=== PATIENT | female | born 2000 | race Caucasian/White ===

== ENCOUNTER 2022-11-11 15:10 | Emergency (ER) | payer OTHER, SELFPAY ==
--- NOTE | ~2022-11-11 | XR_ITS ---
EXAMINATION: THE RIGHT FOREARM AND RIGHT HAND/WRIST. CLINICAL INFORMATION: Right hand pain. COMPARISON: None available. TECHNIQUE: AP and lateral views of the right forearm were obtained. FINDINGS: Right forearm: There is no visible acute fracture or bony abnormality. The soft tissues are normal. Right hand/wrist: There is no visible acute fracture, dislocation or subluxation seen. No bony erosive changes. The soft tissues are normal. XR/XR hand wrist RT IMPRESSION: 1. Unremarkable right forearm exam. 2. Unremarkable right hand and wrist exam.
--- NOTE | ~2022-11-11 | XR_ITS ---
EXAMINATION: THE RIGHT FOREARM AND RIGHT HAND/WRIST. CLINICAL INFORMATION: Right hand pain. COMPARISON: None available. TECHNIQUE: AP and lateral views of the right forearm were obtained. FINDINGS: Right forearm: There is no visible acute fracture or bony abnormality. The soft tissues are normal. Right hand/wrist: There is no visible acute fracture, dislocation or subluxation seen. No bony erosive changes. The soft tissues are normal. XR/XR forearm RT 2V IMPRESSION: 1. Unremarkable right forearm exam. 2. Unremarkable right hand and wrist exam.
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
[2022-11-11 15:26] VITALS: BP 146/84; PULSE 110; O2SAT 98
[2022-11-11 16:05] VITALS: BP 119/71; PULSE 97; RESP 15; TEMP 36.8; O2SAT 97; BMI 37.2
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
== END 2022-11-11 19:35 | disposition left against medical advice (07) ==
PROVIDERS: Emergency Provider Emergency Medicine
DX: S00.01XA Abrasion of scalp, initial encounter (principal); S50.11XA Contusion of right forearm, initial encounter; M25.531 Pain in right wrist; R51.9 Headache, unspecified; Y04.2XXA Assault by strike against or bumped into by another person, initial encounter; Y93.9 Activity, unspecified; Y92.9 Unspecified place or not applicable; Y99.9 Unspecified external cause status
CPT/HCPCS: 70450; 70486; 72125; 73090; 73110; 73130; 99281; 99284

== ENCOUNTER 2023-01-06 10:44 | Inpatient (IN) | payer OTHER, SELFPAY ==
--- NOTE | ~2023-01-06 | XR_ITS ---
EXAMINATION: XR WRIST, RIGHT XR HAND, RIGHT CLINICAL INFORMATION: Pain. Guarding. COMPARISON: None available. TECHNIQUE: PA, lateral, and oblique views of the right wrist and PA, lateral, and oblique views of the right hand FINDINGS: RIGHT WRIST: The bones and soft tissues are normal. No fracture. Alignment is anatomic. Joint spaces are maintained. No erosions or soft tissue calcifications. RIGHT HAND: The bones and soft tissues are normal. No fracture. Alignment is anatomic. Joint spaces are maintained. No erosions or soft tissue calcifications. XR/XR hand wrist RT IMPRESSION: Normal right hand and wrist.
[2023-01-06 10:53] VITALS: BP 132/61; BP 168/80; PULSE 73; PULSE 90; RESP 18; TEMP 36.9; O2SAT 97; O2SAT 98; BMI 21.6
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
[2023-01-06 11:37] LABS: UPreg QC Valid YES; Urine Pregnancy NEGATIVE (NEGATIVE)
[2023-01-06 11:38] LABS: Appearance Urine Clear; Color Urine Yellow; Glucose Urine UA Negative (Negative); Leukocyte Esterase Urine Negative (Negative); Nitrite Urine Negative (Negative); Urine Blood Negative (Negative); Urine Ketones Trace mg/dL (Negative); Urine Protein Trace mg/dL (Neg-Trace)
[2023-01-06 11:48] LABS: Bacteria Urine 1+ (None Seen); COVID-19 Test Negative (Negative); Hyaline Casts Urine 0-2 /LPF (0-2); IDNOW Serial# 08D9AD1C; RBC Urine 0-2 /HPF (0-2); WBC Urine 0-5 /HPF (0-5)
[2023-01-06 11:56] LABS: Amphetamine Screen Urine Not Detected (Not Detect); Barbiturates, Urine Not Detected (Not Detect); Benzodiazepines Screen Urine Not Detected (Not Detect); Cannabinoid Screen Urine Not Detected (Not Detect); Cocaine Screen Urine Not Detected (Not Detect); Fentanyl, urine Not Detected (Not Detect); Opiate Screen Urine Not Detected (Not Detect); Phencyclidine Screen Urine Not Detected (Not Detect)
[2023-01-06 13:11] LABS: MANUAL DIFF FLAG NO
[2023-01-06 13:15] LABS: Basophils Percent Auto 0.6 % (0-2); Eosinophils Absolute Auto 0.1 X10*3/uL (0.0-0.4); Eosinophils Percent Auto 0.9 % (0-4); Hematocrit 38.1 % (37.0-47.0); Hemoglobin 13.4 g/dl (12.0-16.0); Imm Gran Abs Auto 0.02 X10*3/uL (0.00-0.03); Imm Gran Pct Auto 0.3 % (0.0-0.4); Lymphocytes Absolute Auto 1.8 X10*3/uL (1.2-4.9); Mean Corpuscular HGB Conc 35.2 g/dl (31.0-35.0); Mean Corpuscular Volume 85.4 fL (80.0-98.0); Mean Platelet Volume 9.7 fL (9.4-12.3); Monocytes Absolute Auto 0.4 X10*3/uL (0.1-1.2); Monocytes Percent Auto 5.9 % (2-11); Neutrophils Absolute Auto 4.2 x10*3/uL (2.0-8.3); Neutrophils Percent Auto 64.3 % (45-73); Platelet Count 307 X10*3/uL (160-400); Red Blood Count 4.46 X10*6/uL (4.20-5.50); Red Cell Distribution Width 12.3 % (11.0-16.0); White Blood Count 6.5 X10*3/uL (4.8-10.8)
[2023-01-06 13:55] LABS: Alanine Aminotransferase 24 U/L (0-31); Albumin Level 4.5 g/dL (3.5-5.0); Alkaline Phosphatase 81 U/L (39-117); Anion Gap 11 (12-20); Aspartate Amino Transferase 21 U/L (5-31); Bilirubin Total 0.9 mg/dL (0.0-1.0); Blood Urea Nitrogen 9 mg/dL (9-16); Calcium 9.7 mg/dL (8.4-10.2); Carbon Dioxide 23 mmol/L (22-29); Chloride 108 mmol/L (96-108); Creatinine Clr Calc Pharmacy 121.9; Estimated Glomerular Filt Rate > 60; Glucose Random 89 mg/dL (60-115); Potassium 3.9 mmol/L (3.3-5.1); Sodium 138 mmol/L (135-145); Total Protein 7.5 g/dL (6.5-8.0)
[2023-01-06 13:57] LABS: Ethanol < 10 mg/dL; Valproate < 12.5 mcg/mL (50.0-100.0)
--- NOTE | 2023-01-06 19:09 | PC.NURSE ---
report received from GUERO Nolasco Pt is wandering around pod, appears well no, no apparent distress. LAURYN Metcalf taking vital signs at this time
[2023-01-06 19:27] VITALS: BP 128/87; PULSE 73; RESP 20; TEMP 36.3; O2SAT 99
--- NOTE | 2023-01-06 20:09 | PC.NURSE ---
pt showered, resting comfortably no. No apparent distress, reports no pain. calm and cooperative at this time
[2023-01-07 00:54] VITALS: BP 127/95; PULSE 79; RESP 17; TEMP 36.4; O2SAT 100
--- NOTE | 2023-01-07 03:18 | PC.NURSE ---
late entry: Pt had episode of incontinence in bed. This RN provided patient with change of clothing and changed the linen on bed. Pt now back in bed, sleeping, respirations equal and unlabored, skin pwd, no apparent distress Continue plan of care for inpatient admission due to worsening of condition
--- NOTE | 2023-01-07 06:37 | PC.NURSE ---
Pt slept through night, is now awake, pleasant, calm and cooperative, wandering around behavioral pod, no apparent distress. Pt is A&Ox4. Continue plan of care for inpatient bedsearch
--- NOTE | 2023-01-07 07:50 | PC.NURSE ---
patient calm and cooperative with staff. able to make needs known. will CTM
[2023-01-07 09:00] VITALS: BP 104/71; PULSE 70; RESP 16; TEMP 36.8; O2SAT 97
[2023-01-07] MEDS: Acetaminophen 325 MG TABLET 650 MG PO ×3 (09:31→22:43)
--- NOTE | 2023-01-07 11:13 | PC.NURSE ---
patient continues to be cooperative with staff. shower supplies given and patient changed into clean hospital attire
--- NOTE | 2023-01-07 13:42 | PHA.MEDREC ---
Pharmacy Consult ? Medication Reconciliation Pharmacy has completed the medication reconciliation.
[2023-01-07] MEDS: hydrOXYzine HCL 50 MG TABLET PO ×2 (15:02→21:37)
[2023-01-07] MEDS: Divalproex Sodium ER 250 MG TAB.ER.24H PO (15:02)
[2023-01-07 16:38] VITALS: BP 107/62; PULSE 72; TEMP 36.2; O2SAT 98
[2023-01-07] MEDS: OLANZapine 5 MG TABLET PO (16:52)
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
[2023-01-08 06:00] VITALS: BP 116/70; PULSE 62; RESP 16; TEMP 36.1
[2023-01-08] MEDS: hydrOXYzine HCL 50 MG TABLET PO ×2 (08:27→14:38)
[2023-01-08] MEDS: Divalproex Sodium ER 250 MG TAB.ER.24H PO (08:27)
[2023-01-08 09:22] LABS: Estimated Average Glucose 91 mg/dL; Hemoglobin A1c % 4.8 %
[2023-01-08 09:55] LABS: Cholesterol 151 mg/dL; HDL Cholesterol 27 mg/dL; LDL Cholesterol Calculated 105 mg/dl; Triglycerides 97 mg/dL
--- NOTE | 2023-01-08 10:23 | P.HPPS_ITS ---
HPI Date of Service: 01/08/23 Chief Complaint: Disorganized Sources of Information: patient interviewed, chart reviewed and crisis/core team assessment reviewed HPI Subjective Notes: Conditional Voluntary Narrative: Patient is a 22-year-old female with history of hydrocephalus resulting in intellectual disability, ASD, intermittent explosive disorder, possibly seizures (possibly hx of psychotic illness) who presented to the emergency room after an argument with her mother with reported SI statements, increased aggressive behaviors psychotic symptoms in the face of discontinuing Depakote. In the ED, the note reports that patient acknowledged visual hallucinations; also that she self harmed by cutting her left arm. On the unit, patient is a limited historian and much more reticent. She mostly answered questions with I do not know or just shook her head to indicate yes or no. She denied any AVH or SI; she denies depression. She said that the reason she is here is because she got into a fight with her mother. She does not know why she stopped taking her medications but agreed that taking them helps keep her out of getting in fights with her mom. Patient did endorse some worries that perhaps she was being followed, by a few people however he cannot elaborate further. Patient said she would like to get involved with pH and programs so she can get help taking her medications regularly and not getting in fights with her mom. Past Psychiatric History: History of 2 psychiatric hospitalizations; -admission to [facility] few months ago -admission to January 2020 Some mention of history of psychotic illness Intellectual disability secondary to hydrocephalus Crisis assessments dating back to 2012 History of Depakote 250 mg daily Medical Evaluation Reviewed: Yes [facility] Medical History (Updated 01/08/23 @ 14:07 by Mark Rutherford MD) Hydrocephalus Family History: Deferred; patient does not own Social History: Patient currently lives with her mother and 4 siblings in a senior care; she takes care of her siblings while her mother works the shift production associate Patient born in [place] but moved here when she was 1 years old Mother is from her father however patient says she sees him frequently. Substance History: Denies Trauma History: Deferred Diagnostics Vital Signs (24Hr): Vital Signs - 24 hr 01/07/23 16:38 01/08/23 06:00 Temperature 97.2 F 97 F Pulse Rate 72 62 Respiratory Rate 16 Blood Pressure 107/62 116/70 Pulse Oximetry 98 Oxygen Delivery Method Room Air BMI result Body Mass Index 21.6 Labs 01/06/23 13:07 01/06/23 13:07 Labs: Laboratory Results - last 48 hr 01/06/23 01/06/23 01/06/23 11:11 11:11 11:11 WBC RBC Hgb Hct MCV MCH MCHC RDW Plt Count MPV Immature Gran % (Auto) Neut % (Auto) Lymph % (Auto) [place] % (Auto) Eos % (Auto) Baso % (Auto) Lymph # (Auto) [place] # (Auto) Eos # (Auto) Baso # (Auto) Abs Immat Gran (auto) Absolute Neuts (auto) Absolute Nucleated RBC Nucleated RBC % (auto) Sodium Potassium Chloride Carbon Dioxide Anion Gap BUN Creatinine Estim Creat Clear Calc Estimated GFR Random Glucose Estimat Average Glucose Hemoglobin A1c % Calcium Total Bilirubin AST ALT Alkaline Phosphatase Total Protein Albumin Triglycerides Cholesterol LDL Cholesterol, Calc HDL Cholesterol Urine Color Yellow Urine Appearance Clear Urine pH 7.0 Ur Specific [place] 1.020 Urine Protein Trace Urine Glucose (UA) Negative Urine Ketones Trace Urine Blood Negative Urine Nitrite Negative Ur Leukocyte Esterase Negative Urine RBC 0-2 Urine WBC 0-5 Ur Squamous Epith Cells 6-10 Urine Bacteria 1+ Hyaline Casts 0-2 Urine Test NEGATIVE Urine Opiates Screen Urine Fentanyl Screen Ur Barbiturates Screen Valproic Acid Ur Phencyclidine Scrn Ur Amphetamines Screen U Benzodiazepines Scrn Urine Cocaine Screen U Marijuana (THC) Screen Ethyl Alcohol COVID-19 (DORCAS) Negative COVID-19 Clin Com See Note 01/06/23 01/06/23 01/06/23 11:11 13:07 13:07 WBC 6.5 RBC 4.46 Hgb 13.4 Hct 38.1 MCV 85.4 MCH 30.0 MCHC 35.2 H RDW 12.3 Plt Count 307 MPV 9.7 Immature Gran % (Auto) 0.3 Neut % (Auto) 64.3 Lymph % (Auto) 28.0 [place] % (Auto) 5.9 Eos % (Auto) 0.9 Baso % (Auto) 0.6 Lymph # (Auto) 1.8 [place] # (Auto) 0.4 Eos # (Auto) 0.1 Baso # (Auto) 0.0 Abs Immat Gran (auto) 0.02 Absolute Neuts (auto) 4.2 Absolute Nucleated RBC 0.000 Nucleated RBC % (auto) 0.0 Sodium 138 Potassium 3.9 Chloride 108 Carbon Dioxide 23 Anion Gap 11 L BUN 9 Creatinine 0.64 Estim Creat Clear Calc 121.9 Estimated GFR > 60 Random Glucose 89 Estimat Average Glucose Hemoglobin A1c % Calcium 9.7 Total Bilirubin 0.9 AST 21 ALT 24 Alkaline Phosphatase 81 Total Protein 7.5 Albumin 4.5 Triglycerides Cholesterol LDL Cholesterol, Calc HDL Cholesterol Urine Color Urine Appearance Urine pH Ur Specific [place] Urine Protein Urine Glucose (UA) Urine Ketones Urine Blood Urine Nitrite Ur Leukocyte Esterase Urine RBC Urine WBC Ur Squamous Epith Cells Urine Bacteria Hyaline Casts Urine Test Urine Opiates Screen Not Detected Urine Fentanyl Screen Not Detected Ur Barbiturates Screen Not Detected Valproic Acid Ur Phencyclidine Scrn Not Detected Ur Amphetamines Screen Not Detected U Benzodiazepines Scrn Not Detected Urine Cocaine Screen Not Detected U Marijuana (THC) Screen Not Detected Ethyl Alcohol COVID-19 (DORCAS) COVIDLetsmake 01/06/23 01/06/23 01/08/23 13:07 13:07 08:32 WBC RBC Hgb Hct MCV MCH MCHC RDW Plt Count MPV Immature Gran % (Auto) Neut % (Auto) Lymph % (Auto) [place] % (Auto) Eos % (Auto) Baso % (Auto) Lymph # (Auto) [place] # (Auto) Eos # (Auto) Baso # (Auto) Abs Immat Gran (auto) Absolute Neuts (auto) Absolute Nucleated RBC Nucleated RBC % (auto) Sodium Potassium Chloride Carbon Dioxide Anion Gap BUN Creatinine Estim Creat Clear Calc Estimated GFR Random Glucose Estimat Average Glucose 91 Hemoglobin A1c % 4.8 Calcium Total Bilirubin AST ALT Alkaline Phosphatase Total Protein Albumin Triglycerides Cholesterol LDL Cholesterol, Calc HDL Cholesterol Urine Color Urine Appearance Urine pH Ur Specific [place] Urine Protein Urine Glucose (UA) Urine Ketones Urine Blood Urine Nitrite Ur Leukocyte Esterase Urine RBC Urine WBC Ur Squamous Epith Cells Urine Bacteria Hyaline Casts Urine Test Urine Opiates Screen Urine Fentanyl Screen Ur Barbiturates Screen Valproic Acid < 12.5 L Ur Phencyclidine Scrn Ur Amphetamines Screen U Benzodiazepines Scrn Urine Cocaine Screen U Marijuana (THC) Screen Ethyl Alcohol < 10 COVID-19 (DORCAS) COVIDLetsmake 01/08/23 08:32 WBC RBC Hgb Hct MCV MCH MCHC RDW Plt Count MPV Immature Gran % (Auto) Neut % (Auto) Lymph % (Auto) [place] % (Auto) Eos % (Auto) Baso % (Auto) Lymph # (Auto) [place] # (Auto) Eos # (Auto) Baso # (Auto) Abs Immat Gran (auto) Absolute Neuts (auto) Absolute Nucleated RBC Nucleated RBC % (auto) Sodium Potassium Chloride Carbon Dioxide Anion Gap BUN Creatinine Estim Creat Clear Calc Estimated GFR Random Glucose Estimat Average Glucose Hemoglobin A1c % Calcium Total Bilirubin AST ALT Alkaline Phosphatase Total Protein Albumin Triglycerides 97 Cholesterol 151 LDL Cholesterol, Calc 105 HDL Cholesterol 27 Urine Color Urine Appearance Urine pH Ur Specific [place] Urine Protein Urine Glucose (UA) Urine Ketones Urine Blood Urine Nitrite Ur Leukocyte Esterase Urine RBC Urine WBC Ur Squamous Epith Cells Urine Bacteria Hyaline Casts Urine Test Urine Opiates Screen Urine Fentanyl Screen Ur Barbiturates Screen Valproic Acid Ur Phencyclidine Scrn Ur Amphetamines Screen U Benzodiazepines Scrn Urine Cocaine Screen U Marijuana (THC) Screen Ethyl Alcohol COVID-19 (DORCAS) COVID-19 Clin Com Meds/Allergies Meds Home Medications Medication Instructions Recorded Confirmed Type divalproex 250 mg tablet,extended 250 mg PO DAILY 01/07/23 01/07/23 History release 24 hr hydroxyzine pamoate 50 mg capsule 50 mg PO TID 01/07/23 01/07/23 History Allergies Allergies Allergy/AdvReac Type Severity Reaction Status Date / Time No Known Allergies Allergy Unverified 05/05/20 19:51 [No Known Allergies*] Mental Status Exam Mental Status Exam Narrative: Pt is alert and oriented; behavior is cooperative, calm, reticent, guarded; patient is not in distress; dressed in hospital attire with unkempt, marginal hygiene; mood is described as okay and affect constricted, downcast; eye contact avoidant; Speech is sparse but otherwise normal rate, volume and prosody and not pressured; no psychomotor agitation/retardation present; thought process is concrete; Thought content is on getting back home, getting some help; some paranoid, delusional content expressed; denies any SI/HI. Denies AVH Patients insight and judgment impaired. Assessment & Plan Assessment & Plan (1) Psychotic disorder: Status: Suspected Code(s): F29 - Unspecified psychosis not due to a substance or known physiological condition (2) Hydrocephalus: Status: Acute Code(s): G91.9 - Hydrocephalus, unspecified Plan Patient is a 22-year-old female with history of hydrocephalus resulting in intellectual disability, ASD, intermittent explosive disorder, possibly seizures (possibly hx of psychotic illness) who presented to the emergency room after an argument with her mother with reported SI statements, increased aggressive behaviors psychotic symptoms in the face of discontinuing Depakote. -patient limited historian on admission; reticent; denies AVH sure SI but agrees that she got into a fight with her mother and that medication Depakote helps her to be in better behavioral control -some mention in crisis notes of history of psychotic illness and patient does express some paranoid thinking however at this point need more collateral to confirm (patient gave her web content writer and social media designer verbal permission to contact her mother) Plan: CV Q 15 minute checks Restart Depakote 250 mg daily Restart hydroxyzine 50 mg t.i.d. Will consider antipsychotic medication once collateral able to divide more history Patient educated on: diagnosis and medication risk/benefits Informed Consent: further education needed Reason for continued inpatient stay Substantial Risk for: inability to function Statement Statement: I have reviewed the history and physical and performed a pertinent examination on my patient. No changes have occurred unless specified. If the History and Physical was not performed prior to admission, the Hospitalist's service will be consulted for completing the admission physical. Time Spent With Patient Time: Total time managing care of this patient today ____ minutes.
[2023-01-08] MEDS: Acetaminophen 325 MG TABLET 650 MG PO (14:38)
[2023-01-08 16:00] VITALS: BP 114/52; PULSE 74; TEMP 36.4
--- NOTE | 2023-01-08 16:13 | PC.NURSE ---
Pt signed 3-day notice of intent to revoke CV this shift. Mirna Bhakta and provider informed, and documented
[2023-01-08] MEDS: OLANZapine 5 MG TABLET PO (17:03)
[2023-01-08] MEDS: Ibuprofen 600 MG TABLET PO (17:16)
[2023-01-09] MEDS: hydrOXYzine HCL 50 MG TABLET PO ×3 (08:00→21:02)
[2023-01-09] MEDS: Divalproex Sodium ER 250 MG TAB.ER.24H PO (08:00)
[2023-01-09 09:41] VITALS: BP 116/58; PULSE 77; RESP 18; TEMP 36.7; O2SAT 95
--- NOTE | 2023-01-09 10:15 | HO.PSYCHPN ---
Subjective Subjective Date of Service: 01/09/23 Reason For Visit: Disorganized Interim History: With patient; discussed with team Patient much more friendly today, talking, engaged with peers and staff. Mildly intrusive but unintentionally so. Patient says that she does not hear voices but sometimes will hearing knocking on the window of her home from people trying to get her to go outside. She says she cannot see these people, that they are invisible. Patient's mother discussed case with adoption social worker who reports that patient's behaviors/symptoms seemed to start about 3 years ago after several psychosocial stressors occurred. Over the past several months patient has gotten in more verbal altercations with family or others; a few weeks ago grabbed before work and made a gesture towards her mother and then scratched herself with it. Patient's mother said that patient has been talking about auditory and visual hallucinations she was young. Patient agrees to trial of Risperdal Patient reports that her right wrist is painful since falling on it playing basketball a few days before admission; on exam patient is guarded and reports tenderness to palpation; does not appear swollen, no bruising. Will order x-ray Diagnostics Vital Signs (24Hr): Vital Signs - 24 hr 01/08/23 16:00 01/09/23 09:41 Temperature 97.6 F 98.0 F Pulse Rate 74 77 Respiratory Rate 18 Blood Pressure 114/52 L 116/58 L Pulse Oximetry 95 Oxygen Delivery Method Room Air BMI result Body Mass Index 21.6 Labs 01/06/23 13:07 01/06/23 13:07 Labs: Laboratory Results - last 48 hr 01/08/23 01/08/23 08:32 08:32 Estimat Average Glucose 91 Hemoglobin A1c % 4.8 Triglycerides 97 Cholesterol 151 LDL Cholesterol, Calc 105 HDL Cholesterol 27 Medications Medications Current Medications Acetaminophen (Acetaminophen 325 Mg Tablet) 650 mg PO Q6H PRN PRN Reason: Headache/Pain Mild Scale (1-3) Last Admin: 01/08/23 14:38 Dose: 650 mg Al Hydroxide/Mg Hydroxide (Magnesium Hydrox/Alum Hydrox 30 Ml Oral.Susp) 30 ml PO Q6H PRN PRN Reason: Heartburn/Nausea Divalproex Sodium (Divalproex Sodium Er 250 Mg Tab.Er.24h) 250 mg PO DAILY [facility] Last Admin: 01/09/23 08:00 Dose: 250 mg Hydroxyzine HCl (Hydroxyzine Hcl 50 Mg Tablet) 50 mg PO TID [facility] Last Admin: 01/09/23 08:00 Dose: 50 mg Ibuprofen (Ibuprofen 600 Mg Tablet) 600 mg PO Q8H PRN PRN Reason: Pain, Moderate(Pain Scale 4-6) Last Admin: 01/08/23 17:16 Dose: 600 mg Magnesium Hydroxide (Milk Of Magnesia 30 Ml Oral.Susp) 30 ml PO DAILY PRN PRN Reason: Constipation Olanzapine (Olanzapine 5 Mg Tablet) 5 mg PO TID PRN PRN Reason: agitation Last Admin: 01/08/23 17:03 Dose: 5 mg Trazodone HCl (Trazodone Hcl 50 Mg Tablet) 50 mg PO BEDTIME MRX1 PRN PRN Reason: Insomnia Allergies Allergies Allergy/AdvReac Type Severity Reaction Status Date / Time No Known Allergies Allergy Unverified 05/05/20 19:51 [No Known Allergies*] Assessment & Plan Assessment & Plan (1) Psychotic disorder: Status: Suspected Code(s): F29 - Unspecified psychosis not due to a substance or known physiological condition (2) Hydrocephalus: Status: Acute Code(s): G91.9 - Hydrocephalus, unspecified Plan Patient is a 22-year-old female with history of hydrocephalus resulting in intellectual disability, ASD, intermittent explosive disorder, possibly seizures (possibly hx of psychotic illness) who presented to the emergency room after an argument with her mother with reported SI statements, increased aggressive behaviors psychotic symptoms in the face of discontinuing Depakote. -patient limited historian on admission; reticent; denies AVH sure SI but agrees that she got into a fight with her mother and that medication Depakote helps her to be in better behavioral control -some mention in crisis notes of history of psychotic illness and patient does express some paranoid thinking however at this point need more collateral to confirm (patient gave her securities underwriter and adoption social worker verbal permission to contact her mother) Hospital course: 01/08 Patient much more friendly today, talking, engaged with peers and staff. Mildly intrusive but unintentionally so. Patient says that she does not hear voices but sometimes will hearing knocking on the window of her home from people trying to get her to go outside. She says she cannot see these people, that they are invisible. Patient's mother discussed case with adoption social worker who reports that patient's behaviors/symptoms seemed to start about 3 years ago after several psychosocial stressors occurred. Over the past several months patient has gotten in more verbal altercations with family or others; a few weeks ago grabbed before work and made a gesture towards her mother and then scratched herself with it. Patient's mother said that patient has been talking about auditory and visual hallucinations she was young. Patient agrees to trial of Risperdal Patient reports that her right wrist is painful since falling on it playing basketball a few days before admission; on exam patient is guarded and reports tenderness to palpation. Will order x-ray Plan: CV Q 15 minute checks Start Risperdal 0.5 b.i.d. for psychotic symptoms and mood dysregulation Continue Depakote 250 mg daily Continue hydroxyzine 50 mg t.i.d. Will consider antipsychotic medication once collateral able to divide more history Ordered right hand x-ray for pain, tenderness on palpation following trauma(patient reports fell on it while playing basketball) Patient educated on: diagnosis, medication risk/benefits and medical condition Informed Consent: understands and further education needed Reason for continued inpatient stay Substantial Risk for: rapid decompensation Time Spent With Patient Time: Total time managing care of this patient today ____ minutes.
[2023-01-09] MEDS: Acetaminophen 325 MG TABLET 650 MG PO (10:58)
[2023-01-09] MEDS: Magnesium Hydrox/Alum Hydrox 30 ML ORAL.SUSP PO (13:11)
--- NOTE | 2023-01-09 15:34 | PC.NURSE ---
X-ray of right hand and wrist is normal, notified Dr. Rutherford. No new orders received.
[2023-01-09] MEDS: Ibuprofen 600 MG TABLET PO (18:27)
[2023-01-09] MEDS: Milk of Magnesia 30 ML ORAL.SUSP PO (18:54)
[2023-01-09 19:00] VITALS: BP 115/60; PULSE 99; TEMP 37; O2SAT 97
--- NOTE | 2023-01-09 20:03 | PC.NURSE ---
Patient c/o abdominal pain, primarily left lateral. Patient said she could not remember when she last had a BM. Patient denied any flatus at this time. Hypoactive bowel sounds noted in all quadrants via auscultation. Patient given MOM 30 mls at 1854 with results pending. Patient had also c/o right hand pain and received a prn of Ibuprofen with positive effect. Patient has been eating pizza, potato chips and drinking bonilla-dana. Social with select peers. At this time she is waiting to shower.
[2023-01-09] MEDS: risperiDONE 0.5 MG TABLET PO (21:02)
[2023-01-10] MEDS: Acetaminophen 325 MG TABLET 650 MG PO ×2 (00:23→12:10)
[2023-01-10 07:00] VITALS: BMI 37.7
[2023-01-10] MEDS: hydrOXYzine HCL 50 MG TABLET PO ×3 (08:14→19:40)
[2023-01-10] MEDS: Divalproex Sodium ER 250 MG TAB.ER.24H PO (08:14)
[2023-01-10] MEDS: risperiDONE 0.5 MG TABLET PO ×2 (08:14→19:40)
[2023-01-10 08:26] VITALS: BP 120/58; PULSE 97; RESP 18; TEMP 36.1; O2SAT 97
--- NOTE | 2023-01-10 08:56 | P.PNPSI_ITS ---
Subjective Subjective Date of Service: 01/10/23 Reason For Visit: Disorganized Interim History: Met with patient; discussed with team Patient friendly on approach. Says she is better. Instrumentation And Controls Designer discussed treatment and asked if she would be willing to stay a little longer on the unit for m edication management. Patient agreed and retracted her 3 day notice. Patient has remained in good behavioral and impulse control. She did show staff that her right hand was tremulous however it resolved on its own Mental Status Exam Mental Status Exam Narrative: Pt is alert and oriented; behavior is cooperative, calm, friendly; patient is not in distress; dressed in hospital attire with good hygiene; mood is described as better and affect congruent, brighter, calm; eye contact improved (but still somewhat avoidant); Speech is normal rate, volume and prosody and not pressured; no psychomotor agitation/retardation present; thought process is concrete; Thought content is on getting back home, getting some help; no delusional thinking expressed; denies any SI/HI. Denies AVH Patients insight and judgment impaired but improving. Diagnostics Vital Signs (24Hr): Vital Signs - 24 hr 01/09/23 09:41 01/09/23 19:00 01/10/23 08:26 Temperature 98.0 F 98.6 F 97 F Pulse Rate 77 99 97 Respiratory Rate 18 18 Blood Pressure 116/58 L 115/60 120/58 L Pulse Oximetry 95 97 97 Oxygen Delivery Method Room Air Room Air BMI result Body Mass Index 37.7 Labs 01/06/23 13:07 01/06/23 13:07 Labs: Laboratory Results - last 48 hr 01/08/23 01/08/23 08:32 08:32 Estimat Average Glucose 91 Hemoglobin A1c % 4.8 Triglycerides 97 Cholesterol 151 LDL Cholesterol, Calc 105 HDL Cholesterol 27 Imaging Radiology Impressions: ITS Impressions Hand/Wrist X-Ray 01/09/23 13:37 IMPRESSION: Normal right hand and wrist. Medications Medications Current Medications Acetaminophen (Acetaminophen 325 Mg Tablet) 650 mg PO Q6H PRN PRN Reason: Headache/Pain Mild Scale (1-3) Last Admin: 01/10/23 00:23 Dose: 650 mg Al Hydroxide/Mg Hydroxide (Magnesium Hydrox/Alum Hydrox 30 Ml Oral.Susp) 30 ml PO Q6H PRN PRN Reason: Heartburn/Nausea Last Admin: 01/09/23 13:11 Dose: 30 ml Divalproex Sodium (Divalproex Sodium Er 250 Mg Tab.Er.24h) 250 mg PO DAILY [facility] Last Admin: 01/10/23 08:14 Dose: 250 mg Hydroxyzine HCl (Hydroxyzine Hcl 50 Mg Tablet) 50 mg PO TID [facility] Last Admin: 01/10/23 08:14 Dose: 50 mg Ibuprofen (Ibuprofen 600 Mg Tablet) 600 mg PO Q8H PRN PRN Reason: Pain, Moderate(Pain Scale 4-6) Last Admin: 01/09/23 18:27 Dose: 600 mg Magnesium Hydroxide (Milk Of Magnesia 30 Ml Oral.Susp) 30 ml PO DAILY PRN PRN Reason: Constipation Last Admin: 01/09/23 18:54 Dose: 30 ml Olanzapine (Olanzapine 5 Mg Tablet) 5 mg PO TID PRN PRN Reason: agitation Last Admin: 01/08/23 17:03 Dose: 5 mg Risperidone (Risperidone 0.5 Mg Tablet) 0.5 mg PO BID [facility] Last Admin: 01/10/23 08:14 Dose: 0.5 mg Trazodone HCl (Trazodone Hcl 50 Mg Tablet) 50 mg PO BEDTIME MRX1 PRN PRN Reason: Insomnia Allergies Allergies Allergy/AdvReac Type Severity Reaction Status Date / Time No Known Allergies Allergy Unverified 05/05/20 19:51 [No Known Allergies*] Assessment & Plan Assessment & Plan (1) Psychotic disorder: Status: Suspected Code(s): F29 - Unspecified psychosis not due to a substance or known physiological condition (2) Hydrocephalus: Status: Acute Code(s): G91.9 - Hydrocephalus, unspecified Plan Patient is a 22-year-old female with history of hydrocephalus resulting in intellectual disability, ASD, intermittent explosive disorder, possibly seizures (possibly hx of psychotic illness) who presented to the emergency room after an argument with her mother with reported SI statements, increased aggressive behaviors psychotic symptoms in the face of discontinuing Depakote. -patient limited historian on admission; reticent; denies AVH sure SI but agrees that she got into a fight with her mother and that medication Depakote helps her to be in better behavioral control -some mention in crisis notes of history of psychotic illness and patient does express some paranoid thinking however at this point need more collateral to confirm (patient gave her jingle writer and social worker health services verbal permission to contact her mother) Hospital course: 01/08 Patient much more friendly today, talking, engaged with peers and staff. Mildly intrusive but unintentionally so. Patient says that she does not hear voices but sometimes will hearing knocking on the window of her home from people trying to get her to go outside. She says she cannot see these people, that they are invisible. Patient's mother discussed case with social worker health services who reports that patient's behaviors/symptoms seemed to start about 3 years ago after several psychosocial stressors occurred. Over the past several months patient has gotten in more verbal altercations with family or others; a few weeks ago grabbed before work and made a gesture towards her mother and then scratched herself with it. Patient's mother said that patient has been talking about auditory and visual hallucinations she was young. Patient agrees to trial of Risperdal Patient reports that her right wrist is painful since falling on it playing b asketball a few days before admission; on exam patient is guarded and reports tenderness to palpation. X-ray negative. 01/10 remains in good behavioral control; tolerating Risperdal; x-ray negative. Hopefully mother will come in today for family meeting Plan: CV Q 15 minute checks Continue Risperdal 0.5 b.i.d. for psychotic symptoms and mood dysregulation Continue Depakote 250 mg daily Continue hydroxyzine 50 mg t.i.d. Patient educated on: diagnosis and medication risk/benefits Informed Consent: understands and further education needed Reason for continued inpatient stay Substantial Risk for: med/psych decompensation Time Spent With Patient Time: Total time managing care of this patient today ____ minutes.
[2023-01-10] MEDS: OLANZapine 5 MG TABLET PO (09:59)
[2023-01-10 18:00] VITALS: BP 128/78; PULSE 75; RESP 16; TEMP 36.3; O2SAT 97
--- NOTE | 2023-01-10 19:09 | PC.NURSE ---
Pt reports left lower quadrant pain, hypoactive Bowel sound heard, Pt reports her last BM was 10/11. PRN MOM given pending results.
[2023-01-10] MEDS: Milk of Magnesia 30 ML ORAL.SUSP PO (19:40)
[2023-01-11] MEDS: OLANZapine 5 MG TABLET PO (06:17)
[2023-01-11] MEDS: Divalproex Sodium ER 250 MG TAB.ER.24H PO (08:22)
[2023-01-11] MEDS: hydrOXYzine HCL 50 MG TABLET PO ×3 (08:22→18:30)
[2023-01-11] MEDS: risperiDONE 0.5 MG TABLET PO ×2 (08:22→18:30)
[2023-01-11 08:24] VITALS: BP 130/83; PULSE 80; RESP 16; TEMP 36.3; O2SAT 99
--- NOTE | 2023-01-11 09:16 | HO.PSYCHPN ---
Subjective Subjective Date of Service: 01/11/23 Reason For Visit: Disorganized Interim History: Met with patient; discussed with team Patient continues to report that she is feeling better Patient was incontinent stool and urine today which her mother said had been happening more recently. Patient wanted to discharge today however agreed to stay for the weekend to continue to stabilize. Patient otherwise pleasant and remains in good behavioral and impulse control Mental Status Exam Mental Status Exam Narrative: Pt is alert and oriented; behavior is cooperative, calm, friendly; patient is not in distress; dressed in hospital attire with good hygiene; mood is described as better and affect congruent, brighter, calm; eye contact improved (but still somewhat avoidant); Speech is normal rate, volume and prosody and not pressured; no psychomotor agitation/retardation present; thought process is concrete; Thought content is on getting back home, getting some help; no delusional thinking expressed; denies any SI/HI. Denies AVH Patients insight and judgment impaired but improving and possibly at baseline . Diagnostics Vital Signs (24Hr): Vital Signs - 24 hr 01/10/23 18:00 01/11/23 08:24 Temperature 97.4 F 97.3 F Pulse Rate 75 80 Respiratory Rate 16 16 Blood Pressure 128/78 130/83 Pulse Oximetry 97 99 Oxygen Delivery Method Room Air Room Air BMI result Body Mass Index 37.7 Labs 01/06/23 13:07 01/06/23 13:07 Imaging Radiology Impressions: ITS Impressions Hand/Wrist X-Ray 01/09/23 13:37 IMPRESSION: Normal right hand and wrist. Medications Medications Current Medications Acetaminophen (Acetaminophen 325 Mg Tablet) 650 mg PO Q6H PRN PRN Reason: Headache/Pain Mild Scale (1-3) Last Admin: 01/10/23 12:10 Dose: 650 mg Al Hydroxide/Mg Hydroxide (Magnesium Hydrox/Alum Hydrox 30 Ml Oral.Susp) 30 ml PO Q6H PRN PRN Reason: Heartburn/Nausea Last Admin: 01/09/23 13:11 Dose: 30 ml Divalproex Sodium (Divalproex Sodium Er 250 Mg Tab.Er.24h) 250 mg PO DAILY [facility] Last Admin: 01/11/23 08:22 Dose: 250 mg Hydroxyzine HCl (Hydroxyzine Hcl 50 Mg Tablet) 50 mg PO TID [facility] Last Admin: 01/11/23 08:22 Dose: 50 mg Ibuprofen (Ibuprofen 600 Mg Tablet) 600 mg PO Q8H PRN PRN Reason: Pain, Moderate(Pain Scale 4-6) Last Admin: 01/09/23 18:27 Dose: 600 mg Magnesium Hydroxide (Milk Of Magnesia 30 Ml Oral.Susp) 30 ml PO DAILY PRN PRN Reason: Constipation Last Admin: 01/10/23 19:40 Dose: 30 ml Olanzapine (Olanzapine 5 Mg Tablet) 5 mg PO TID PRN PRN Reason: agitation Last Admin: 01/11/23 06:17 Dose: 5 mg Risperidone (Risperidone 0.5 Mg Tablet) 0.5 mg PO BID [facility] Last Admin: 01/11/23 08:22 Dose: 0.5 mg Trazodone HCl (Trazodone Hcl 50 Mg Tablet) 50 mg PO BEDTIME MRX1 PRN PRN Reason: Insomnia Allergies Allergies Allergy/AdvReac Type Severity Reaction Status Date / Time No Known Allergies Allergy Unverified 05/05/20 19:51 [No Known Allergies*] Assessment & Plan Assessment & Plan (1) Psychotic disorder: Status: Suspected Code(s): F29 - Unspecified psychosis not due to a substance or known physiological condition (2) Hydrocephalus: Status: Acute Code(s): G91.9 - Hydrocephalus, unspecified Plan Patient is a 22-year-old female with history of hydrocephalus resulting in intellectual disability, ASD, intermittent explosive disorder, possibly seizures (possibly hx of psychotic illness) who presented to the emergency room after an argument with her mother with reported SI statements, increased aggressive behaviors psychotic symptoms in the face of discontinuing Depakote. -patient limited historian on admission; reticent; denies AVH sure SI but agrees that she got into a fight with her mother and that medication Depakote helps her to be in better behavioral control -some mention in crisis notes of history of psychotic illness and patient does express some paranoid thinking however at this point need more collateral to confirm (patient gave her marine underwriter and group social worker verbal permission to contact her mother) Hospital course: 01/08 Patient much more friendly today, talking, engaged with peers and staff. Mildly intrusive but unintentionally so. Patient says that she does not hear voices but sometimes will hearing knocking on the window of her home from people trying to get her to go outside. She says she cannot see these people, that they are invisible. Patient's mother discussed case with group social worker who reports that patient's behaviors/symptoms seemed to start about 3 years ago after several psychosocial stressors occurred. Over the past several months patient has gotten in more verbal altercations with family or others; a few weeks ago grabbed before work and made a gesture towards her mother and then scratched herself with it. Patient's mother said that patient has been talking about auditory and visual hallucinations she was young. Patient agrees to trial of Risperdal Patient reports that her right wrist is painful since falling on it playing basketball a few days before admission; on exam patient is guarded and reports tenderness to palpation. X-ray negative. 01/10 remains in good behavioral control; tolerating Risperdal; x-ray negative. Hopefully mother will come in today for family meeting 01/11 continue current reg; working on getting DDS services Plan: CV Q 15 minute checks Continue Risperdal 0.5 b.i.d. for psychotic symptoms and mood dysregulation Continue Depakote 250 mg daily Continue hydroxyzine 50 mg t.i.d. Patient educated on: diagnosis Informed Consent: understands Reason for continued inpatient stay Substantial Risk for: med/psych decompensation Time Spent With Patient Time: Total time managing care of this patient today ____ minutes.
[2023-01-11] MEDS: Acetaminophen 325 MG TABLET 650 MG PO ×2 (11:29→17:46)
[2023-01-11 18:00] VITALS: BP 128/68; PULSE 85; RESP 16; TEMP 36.4; O2SAT 98
[2023-01-11] MEDS: traZODone HCL 50 MG TABLET PO (18:30)
[2023-01-11] MEDS: Magnesium Hydrox/Alum Hydrox 30 ML ORAL.SUSP PO (20:21)
--- NOTE | 2023-01-11 20:38 | PC.NURSE ---
Pt reports right hand and middle finger pain 9/10. She states she hit a wall at home before admission. No visible swelling/redness noted. pv design engineer provider, Balbir bryant notified. No new orders given.
[2023-01-12 08:04] VITALS: BP 138/61; PULSE 84; RESP 16; TEMP 36.6; O2SAT 99
[2023-01-12] MEDS: Divalproex Sodium ER 250 MG TAB.ER.24H PO (08:07)
[2023-01-12] MEDS: risperiDONE 0.5 MG TABLET PO ×2 (08:07→19:43)
[2023-01-12] MEDS: hydrOXYzine HCL 50 MG TABLET PO ×3 (08:07→19:43)
--- NOTE | 2023-01-12 10:55 | HO.PSYCHPN ---
Subjective Subjective Date of Service: 01/12/23 Reason For Visit: Disorganized Interim History: Met with patient; discussed with team Patient continues to feel improved. She shows this typewriter aligner her swollen finger. (No fracture on hand/wrist XR). Patient otherwise pleasant and remains in good behavioral and impulse control Review of Systems Review of Systems As per HPI. Yes all other systems are reviewed and are negative Constitutional: Reports as per HPI Mental Status Exam Mental Status Exam Narrative: Pt is alert and oriented; behavior is cooperative, calm, friendly; patient is not in distress; dressed in hospital attire with good hygiene; mood is described as better and affect congruent, brighter, calm; eye contact improved (but still somewhat avoidant); Speech is normal rate, volume and prosody and not pressured; no psychomotor agitation/retardation present; thought process is concrete; Thought content is on getting back home, getting some help; no delusional thinking expressed; denies any SI/HI. Denies AVH Patients insight and judgment impaired but improving and possibly at baseline . Diagnostics Vital Signs (24Hr): Vital Signs - 24 hr 01/11/23 18:00 01/12/23 08:04 Temperature 97.6 F 97.9 F Pulse Rate 85 84 Respiratory Rate 16 16 Blood Pressure 128/68 138/61 Pulse Oximetry 98 99 Oxygen Delivery Method Room Air Room Air BMI result Body Mass Index 37.7 Labs 01/06/23 13:07 01/06/23 13:07 Imaging Radiology Impressions: ITS Impressions Hand/Wrist X-Ray 01/09/23 13:37 IMPRESSION: Normal right hand and wrist. Medications Medications Current Medications Acetaminophen (Acetaminophen 325 Mg Tablet) 650 mg PO Q6H PRN PRN Reason: Headache/Pain Mild Scale (1-3) Last Admin: 01/11/23 17:46 Dose: 650 mg Al Hydroxide/Mg Hydroxide (Magnesium Hydrox/Alum Hydrox 30 Ml Oral.Susp) 30 ml PO Q6H PRN PRN Reason: Heartburn/Nausea Last Admin: 01/11/23 20:21 Dose: 30 ml Divalproex Sodium (Divalproex Sodium Er 250 Mg Tab.Er.24h) 250 mg PO DAILY [facility] Last Admin: 01/12/23 08:07 Dose: 250 mg Hydroxyzine HCl (Hydroxyzine Hcl 50 Mg Tablet) 50 mg PO TID [facility] Last Admin: 01/12/23 08:07 Dose: 50 mg Ibuprofen (Ibuprofen 600 Mg Tablet) 600 mg PO Q8H PRN PRN Reason: Pain, Moderate(Pain Scale 4-6) Last Admin: 01/09/23 18:27 Dose: 600 mg Magnesium Hydroxide (Milk Of Magnesia 30 Ml Oral.Susp) 30 ml PO DAILY PRN PRN Reason: Constipation Last Admin: 01/10/23 19:40 Dose: 30 ml Olanzapine (Olanzapine 5 Mg Tablet) 5 mg PO TID PRN PRN Reason: agitation Last Admin: 01/11/23 06:17 Dose: 5 mg Risperidone (Risperidone 0.5 Mg Tablet) 0.5 mg PO BID [facility] Last Admin: 01/12/23 08:07 Dose: 0.5 mg Trazodone HCl (Trazodone Hcl 50 Mg Tablet) 50 mg PO BEDTIME MRX1 PRN PRN Reason: Insomnia Last Admin: 01/11/23 18:30 Dose: 50 mg Allergies Allergies Allergy/AdvReac Type Severity Reaction Status Date / Time No Known Allergies Allergy Unverified 05/05/20 19:51 [No Known Allergies*] Assessment & Plan Assessment & Plan (1) Psychotic disorder: Status: Suspected Code(s): F29 - Unspecified psychosis not due to a substance or known physiological condition (2) Hydrocephalus: Status: Acute Code(s): G91.9 - Hydrocephalus, unspecified Plan Patient is a 22-year-old female with history of hydrocephalus resulting in intellectual disability, ASD, intermittent explosive disorder, possibly seizures (possibly hx of psychotic illness) who presented to the emergency room after an argument with her mother with reported SI statements, increased aggressive behaviors psychotic symptoms in the face of discontinuing Depakote. -patient limited historian on admission; reticent; denies AVH sure SI but agrees that she got into a fight with her mother and that medication Depakote helps her to be in better behavioral control -some mention in crisis notes of history of psychotic illness and patient does express some paranoid thinking however at this point need more collateral to confirm (patient gave her typewriter aligner and professor of social work verbal permission to contact her mother) Hospital course: 01/08 Patient much more friendly today, talking, engaged with peers and staff. Mildly intrusive but unintentionally so. Patient says that she does not hear voices but sometimes will hearing knocking on the window of her home from people trying to get her to go outside. She says she cannot see these people, that they are invisible. Patient's mother discussed case with professor of social work who reports that patient's behaviors/symptoms seemed to start about 3 years ago after several psychosocial stressors occurred. Over the past several months patient has gotten in more verbal altercations with family or others; a few weeks ago grabbed before work and made a gesture towards her mother and then scratched herself with it. Patient's mother said that patient has been talking about auditory and visual hallucinations she was young. Patient agrees to trial of Risperdal Patient reports that her right wrist is painful since falling on it playing basketball a few days before admission; on exam patient is guarded and reports tenderness to palpation. X-ray negative. 01/10 remains in good behavioral control; tolerating Risperdal; x-ray negative. Hopefully mother will come in today for family meeting 01/11 continue current reg; working on getting DDS services 01/12: Continue current tx plan. Plan: CV Q 15 minute checks Continue Risperdal 0.5 b.i.d. for psychotic symptoms and mood dysregulation Continue Depakote 250 mg daily Continue hydroxyzine 50 mg t.i.d. Reason for continued inpatient stay Substantial Risk for: inability to function and rapid decompensation Time Spent With Patient Time: Total time managing care of this patient today ____ minutes.
[2023-01-12] MEDS: Acetaminophen 325 MG TABLET 650 MG PO (13:46)
--- NOTE | 2023-01-12 13:48 | PC.NURSE ---
pt complains of right ankle pain 04/28. pt reports she twisted it but is unsure of when or how the injury occurred. Tylenol 650mg administered and ice pack given to patient. will continue to monitor.
[2023-01-12 17:05] VITALS: BP 119/57; PULSE 92; TEMP 35.9
[2023-01-12] MEDS: Ibuprofen 600 MG TABLET PO (17:06)
[2023-01-12] MEDS: traZODone HCL 50 MG TABLET PO (19:43)
[2023-01-12] MEDS: OLANZapine 5 MG TABLET PO (21:11)
[2023-01-13 08:07] VITALS: BP 118/67; PULSE 98; RESP 16; TEMP 36.7; O2SAT 95
[2023-01-13] MEDS: hydrOXYzine HCL 50 MG TABLET PO ×3 (08:15→19:52)
[2023-01-13] MEDS: Divalproex Sodium ER 250 MG TAB.ER.24H PO (08:15)
[2023-01-13] MEDS: risperiDONE 0.5 MG TABLET PO ×2 (08:15→19:52)
[2023-01-13] MEDS: Magnesium Hydrox/Alum Hydrox 30 ML ORAL.SUSP PO (10:05)
[2023-01-13] MEDS: Acetaminophen 325 MG TABLET 650 MG PO (10:07)
[2023-01-13] MEDS: Ibuprofen 600 MG TABLET PO (14:27)
[2023-01-13] MEDS: OLANZapine 5 MG TABLET PO ×2 (15:44→22:56)
--- NOTE | 2023-01-13 18:22 | P.PNPSI_ITS ---
Subjective Subjective Date of Service: 01/13/23 Reason For Visit: Disorganized Interim History: Met with patient; discussed with team Patient continues to feel improved. No concerns about mood. Patient otherwise pleasant and remains in good behavioral and impulse control. Occasional reports of hallucinations. Eager for DC after the . Review of Systems Review of Systems As per HPI. Yes all other systems are reviewed and are negative Constitutional: Reports as per HPI Mental Status Exam Mental Status Exam Narrative: Pt is alert and oriented; behavior is cooperative, calm, friendly; patient is not in distress; dressed in hospital attire with good hygiene; mood is described as better and affect congruent, brighter, calm; eye contact improved (but still somewhat avoidant); Speech is normal rate, volume and prosody and not pressured; no psychomotor agitation/retardation present; thought process is concrete; Thought content is on getting back home, getting some help; no delusional thinking expressed; denies any SI/HI. Denies AVH Patients insight and judgment impaired but improving and possibly at baseline . Hallucinations: Auditory (sometimes hears voices.) Diagnostics Vital Signs (24Hr): Vital Signs - 24 hr 01/13/23 08:07 Temperature 98.1 F Pulse Rate 98 Respiratory Rate 16 Blood Pressure 118/67 Pulse Oximetry 95 Oxygen Delivery Method Room Air BMI result Body Mass Index 37.7 Labs 01/06/23 13:07 01/06/23 13:07 Imaging Radiology Impressions: ITS Impressions Hand/Wrist X-Ray 01/09/23 13:37 IMPRESSION: Normal right hand and wrist. Medications Medications Current Medications Acetaminophen (Acetaminophen 325 Mg Tablet) 650 mg PO Q6H PRN PRN Reason: Headache/Pain Mild Scale (1-3) Last Admin: 01/13/23 10:07 Dose: 650 mg Al Hydroxide/Mg Hydroxide (Magnesium Hydrox/Alum Hydrox 30 Ml Oral.Susp) 30 ml PO Q6H PRN PRN Reason: Heartburn/Nausea Last Admin: 01/13/23 10:05 Dose: 30 ml Divalproex Sodium (Divalproex Sodium Er 250 Mg Tab.Er.24h) 250 mg PO DAILY [facility] Last Admin: 01/13/23 08:15 Dose: 250 mg Hydroxyzine HCl (Hydroxyzine Hcl 50 Mg Tablet) 50 mg PO TID [facility] Last Admin: 01/13/23 14:22 Dose: 50 mg Ibuprofen (Ibuprofen 600 Mg Tablet) 600 mg PO Q8H PRN PRN Reason: Pain, Moderate(Pain Scale 4-6) Last Admin: 01/13/23 14:27 Dose: 600 mg Magnesium Hydroxide (Milk Of Magnesia 30 Ml Oral.Susp) 30 ml PO DAILY PRN PRN Reason: Constipation Last Admin: 01/10/23 19:40 Dose: 30 ml Olanzapine (Olanzapine 5 Mg Tablet) 5 mg PO TID PRN PRN Reason: agitation Last Admin: 01/13/23 15:44 Dose: 5 mg Risperidone (Risperidone 0.5 Mg Tablet) 0.5 mg PO BID [facility] Last Admin: 01/13/23 08:15 Dose: 0.5 mg Trazodone HCl (Trazodone Hcl 50 Mg Tablet) 50 mg PO BEDTIME MRX1 PRN PRN Reason: Insomnia Last Admin: 01/12/23 19:43 Dose: 50 mg Allergies Allergies Allergy/AdvReac Type Severity Reaction Status Date / Time No Known Allergies Allergy Unverified 05/05/20 19:51 [No Known Allergies*] Assessment & Plan Assessment & Plan (1) Psychotic disorder: Status: Suspected Code(s): F29 - Unspecified psychosis not due to a substance or known physiological condition (2) Hydrocephalus: Status: Acute Code(s): G91.9 - Hydrocephalus, unspecified Plan Patient is a 22-year-old female with history of hydrocephalus resulting in intellectual disability, ASD, intermittent explosive disorder, possibly seizures (possibly hx of psychotic illness) who presented to the emergency room after an argument with her mother with reported SI statements, increased aggressive behaviors psychotic symptoms in the face of discontinuing Depakote. -patient limited historian on admission; reticent; denies AVH sure SI but agrees that she got into a fight with her mother and that medication Depakote helps her to be in better behavioral control -some mention in crisis notes of history of psychotic illness and patient does express some paranoid thinking however at this point need more collateral to confirm (patient gave her medical writer and social sciences research scientist verbal permission to contact her mother) Hospital course: 01/08 Patient much more friendly today, talking, engaged with peers and staff. Mildly intrusive but unintentionally so. Patient says that she does not hear voices but sometimes will hearing knocking on the window of her home from people trying to get her to go outside. She says she cannot see these people, that they are invisible. Patient's mother discussed case with social sciences research scientist who reports that patient's behaviors/symptoms seemed to start about 3 years ago aft er several psychosocial stressors occurred. Over the past several months patient has gotten in more verbal altercations with family or others; a few weeks ago grabbed before work and made a gesture towards her mother and then scratched herself with it. Patient's mother said that patient has been talking about auditory and visual hallucinations she was young. Patient agrees to trial of Risperdal Patient reports that her right wrist is painful since falling on it playing basketball a few days before admission; on exam patient is guarded and reports tenderness to palpation. X-ray negative. 01/10 remains in good behavioral control; tolerating Risperdal; x-ray negative. Hopefully mother will come in today for family meeting 01/11 continue current reg; working on getting DDS services 01/12: Continue current tx plan. 01/13: Continue current tx plan. Plan: CV Q 15 minute checks Continue Risperdal 0.5 b.i.d. for psychotic symptoms and mood dysregulation Continue Depakote 250 mg daily Continue hydroxyzine 50 mg t.i.d. Reason for continued inpatient stay Substantial Risk for: harm to self, inability to function and rapid decompensation Time Spent With Patient Time: Total time managing care of this patient today ____ minutes.
[2023-01-13] MEDS: traZODone HCL 50 MG TABLET PO ×2 (19:53→22:56)
[2023-01-13 20:10] VITALS: BP 113/70; PULSE 118; TEMP 36.9
[2023-01-14 08:03] VITALS: BP 136/86; PULSE 96; RESP 16; TEMP 36.2; O2SAT 97
[2023-01-14] MEDS: hydrOXYzine HCL 50 MG TABLET PO ×3 (08:13→20:35)
[2023-01-14] MEDS: risperiDONE 0.5 MG TABLET PO ×2 (08:13→20:35)
[2023-01-14] MEDS: Divalproex Sodium ER 250 MG TAB.ER.24H PO (08:13)
--- NOTE | 2023-01-14 09:55 | P.PNPSI_ITS ---
Subjective Subjective Date of Service: 01/14/23 Reason For Visit: Disorganized Interim History: Met with patient; discussed with team Patient continues to feel improved. No concerns about mood. Patient pleasant and remains in good behavioral and impulse control. Occasional reports of ben lucinations. Eager for DC after the weekend. Review of Systems Review of Systems As per HPI. Yes all other systems are reviewed and are negative Constitutional: Reports as per HPI Mental Status Exam Mental Status Exam Narrative: Pt is alert and oriented; behavior is cooperative, calm, friendly; patient is not in distress; dressed in hospital attire with good hygiene; mood is described as better and affect congruent, brighter, calm; eye contact improved (but still somewhat avoidant); Speech is normal rate, volume and prosody and not pressured; no psychomotor agitation/retardation present; thought process is concrete; Thought content is on getting back home, getting some help; no delusional thinking expressed; denies any SI/HI. Denies AVH Patients insight and judgment impaired but improving and possibly at baseline . Diagnostics Vital Signs (24Hr): Vital Signs - 24 hr 01/13/23 20:10 Temperature 98.5 F Pulse Rate 118 H Blood Pressure 113/70 BMI result Body Mass Index 37.7 Labs 01/06/23 13:07 01/06/23 13:07 Imaging Radiology Impressions: ITS Impressions Hand/Wrist X-Ray 01/09/23 13:37 IMPRESSION: Normal right hand and wrist. Medications Medications Current Medications Acetaminophen (Acetaminophen 325 Mg Tablet) 650 mg PO Q6H PRN PRN Reason: Headache/Pain Mild Scale (1-3) Last Admin: 01/13/23 10:07 Dose: 650 mg Al Hydroxide/Mg Hydroxide (Magnesium Hydrox/Alum Hydrox 30 Ml Oral.Susp) 30 ml PO Q6H PRN PRN Reason: Heartburn/Nausea Last Admin: 01/13/23 10:05 Dose: 30 ml Divalproex Sodium (Divalproex Sodium Er 250 Mg Tab.Er.24h) 250 mg PO DAILY [facility] Last Admin: 01/14/23 08:13 Dose: 250 mg Hydroxyzine HCl (Hydroxyzine Hcl 50 Mg Tablet) 50 mg PO TID [facility] Last Admin: 01/14/23 08:13 Dose: 50 mg Ibuprofen (Ibuprofen 600 Mg Tablet) 600 mg PO Q8H PRN PRN Reason: Pain, Moderate(Pain Scale 4-6) Last Admin: 01/13/23 14:27 Dose: 600 mg Magnesium Hydroxide (Milk Of Magnesia 30 Ml Oral.Susp) 30 ml PO DAILY PRN PRN Reason: Constipation Last Admin: 01/10/23 19:40 Dose: 30 ml Olanzapine (Olanzapine 5 Mg Tablet) 5 mg PO TID PRN PRN Reason: agitation Last Admin: 01/13/23 22:56 Dose: 5 mg Risperidone (Risperidone 0.5 Mg Tablet) 0.5 mg PO BID [facility] Last Admin: 01/14/23 08:13 Dose: 0.5 mg Trazodone HCl (Trazodone Hcl 50 Mg Tablet) 50 mg PO BEDTIME MRX1 PRN PRN Reason: Insomnia Last Admin: 01/13/23 22:56 Dose: 50 mg Allergies Allergies Allergy/AdvReac Type Severity Reaction Status Date / Time No Known Allergies Allergy Unverified 05/05/20 19:51 [No Known Allergies*] Assessment & Plan Assessment & Plan (1) Psychotic disorder: Status: Suspected Code(s): F29 - Unspecified psychosis not due to a substance or known physiological condition (2) Hydrocephalus: Status: Acute Code(s): G91.9 - Hydrocephalus, unspecified Plan Patient is a 22-year-old female with history of hydrocephalus resulting in intellectual disability, ASD, intermittent explosive disorder, possibly seizures (possibly hx of psychotic illness) who presented to the emergency room after an argument with her mother with reported SI statements, increased aggressive behaviors psychotic symptoms in the face of discontinuing Depakote. -patient limited historian on admission; reticent; denies AVH sure SI but agrees that she got into a fight with her mother and that medication Depakote helps her to be in better behavioral control -some mention in crisis notes of history of psychotic illness and patient does express some paranoid thinking however at this point need more collateral to confirm (patient gave her journalists and other writers and social sciences professor verbal permission to contact her mother) Hospital course: 01/08 Patient much more friendly today, talking, engaged with peers and staff. Mildly intrusive but unintentionally so. Patient says that she does not hear voices but sometimes will hearing knocking on the window of her home from people trying to get her to go outside. She says she cannot see these people, that they are invisible. Patient's mother discussed case with social sciences professor who reports that patient's behaviors/symptoms seemed to start about 3 years ago after several psychosocial stressors occurred. Over the past several months patient has gotten in more verbal altercations with family or others; a few weeks ago grabbed before work and made a gesture towards her mother and then scratched herself with it. Patient's mother said that patient has been talking about auditory and visual hallucinations she was young. Patient agrees to trial of Risperdal Patient reports that her right wrist is painful since falling on it playing basketball a few days before admission; on exam patient is guarded and reports t enderness to palpation. X-ray negative. 01/10 remains in good behavioral control; tolerating Risperdal; x-ray negative. Hopefully mother will come in today for family meeting 01/11 continue current reg; working on getting DDS services 01/12: Continue current tx plan. 01/13: Continue current tx plan. 01/14: Continue current treatment Plan: CV Q 15 minute checks Continue Risperdal 0.5 b.i.d. for psychotic symptoms and mood dysregulation Continue Depakote 250 mg daily Continue hydroxyzine 50 mg t.i.d. Reason for continued inpatient stay Substantial Risk for: inability to function and rapid decompensation Time Spent With Patient Time: Total time managing care of this patient today ____ minutes.
[2023-01-14] MEDS: Acetaminophen 325 MG TABLET 650 MG PO ×2 (11:29→21:24)
[2023-01-14 18:00] VITALS: BP 130/81; PULSE 94; RESP 18; TEMP 36.2; O2SAT 98
[2023-01-14] MEDS: traZODone HCL 50 MG TABLET PO ×2 (20:35→23:50)
[2023-01-14] MEDS: OLANZapine 5 MG TABLET PO (23:50)
[2023-01-15 06:00] VITALS: BP 126/84; PULSE 88; RESP 16; TEMP 36.6
[2023-01-15] MEDS: hydrOXYzine HCL 50 MG TABLET PO (08:45)
[2023-01-15] MEDS: Divalproex Sodium ER 250 MG TAB.ER.24H PO (08:45)
[2023-01-15] MEDS: risperiDONE 0.5 MG TABLET PO (08:45)
[2023-01-15] MEDS: Ibuprofen 600 MG TABLET PO (11:03)
--- NOTE | 2023-01-15 11:27 | P.DS_ITS ---
DS: Providers Provider Date of Service: 01/15/23 Date of admission: 01/07/23 14:17 Date of discharge: 01/15/23 Primary care physician: [facility] Attending physician on admission: Mark Rutherford Attending physician on discharge: Mark Rutherford DS: Diagnosis Discharge Diagnosis (1) Psychotic disorder: Status: Suspected (2) Hydrocephalus: Status: Acute DS: Medications Discharge Medications Home Medications: Previous Rx's Medication Instructions Recorded divalproex 250 mg tablet,extended 250 mg PO DAILY 30 days #30 tabs 01/15/23 release 24 hr hydroxyzine pamoate 50 mg capsule 50 mg PO TID 30 days #90 caps 01/15/23 olanzapine 5 mg tablet 5 mg PO DAILY 30 days #30 tabs 01/15/23 trazodone 50 mg tablet 50 mg PO BEDTIME PRN Insomnia 30 01/15/23 days #30 tabs Mental Status Exam Mental Status Exam Narrative: Pt is alert and oriented; behavior is cooperative, calm, friendly; patient is not in distress; dressed in hospital attire with good hygiene; mood is described as better and affect congruent, brighter, calm; eye contact improved (but still somewhat avoidant); Speech is normal rate, volume and prosody and not pressured; no psychomotor agitation/retardation present; thought process is concrete; Thought content is on getting back home, getting some help; no delusional thinking expressed; denies any SI/HI. Denies AVH Patients insight and judgment impaired but has improved is adequate and at baseline . Data Imaging Diagnostic Imaging Impressions Hand/Wrist X-Ray 01/09/23 13:37 IMPRESSION: Normal right hand and wrist. DS: Summary Hospital Course Hospital Course: Patient is a 22-year-old female with history of hydrocephalus resulting in intellectual disability, ASD, intermittent explosive disorder, possibly seizures (possibly hx of psychotic illness) who presented to the emergency room after an argument with her mother with reported SI statements, increased aggressive behaviors psychotic symptoms in the face of discontinuing Depakote.? -patient limited historian on admission; reticent; denies AVH sure SI but agrees that she got into a fight with her mother and that medication Depakote helps her to be in better behavioral control -some mention in crisis notes of history of psychotic illness and patient does express some paranoid thinking however at this point need more collateral to confirm (patient gave her brief writer and long term care social worker verbal permission to contact her mother) Hospital course: 01/08 Patient much more friendly today, talking, engaged with peers and staff.? Mildly intrusive but unintentionally so.? Patient says that she does not hear voices but sometimes will hearing knocking on the window of her home from people trying to get her to go outside.? She says she cannot see these people, that they are invisible. Patient's mother discussed case with long term care social worker who reports that patient's behaviors/symptoms seemed to start about 3 years ago after several psychosocial stressors occurred.? Over the past several months patient has gotten in more verbal altercations with family or others; a few weeks ago grabbed before work and made a gesture towards her mother and then scratched herself with it.? Patient's mother said that patient has been talking about auditory and visual hallucinations she was young.? Patient agrees to trial of Risperdal Over the course of her admission patient remained in good behavioral and impulse control; she was restarted on home dose of Depakote and additional started on Risperdal which she tolerated well. Patient would intermittently be incontinent of urine however her mother says that this is chronic. Patient wanted to discharge home. Her mother felt she was back to her baseline. Patient was not in imminent risk for harm to self or others and her request for discharge honored. Time spent discussing smoking cessation with patient: 3 to 10 minutes Status at Discharge Functional status at discharge: independent ambulation Overall status at discharge: patient is back to baseline Time Spent with Patient Time attestation: Total time managing care of this patient today ____ minutes. Time spent: Less than 30 minutes Discharge Plan Discharge Anticipated Discharge Date/Time: 01/15/23 13:19 Patient Disposition: Home, Self-Care Discharge Diagnosis: Schizoaffective, bipolar type (provisional) Referrals: [facility] Assessment Cherise Bear [Other] - 01/17/23 12:00 pm (In person) [facility] Psychiatric Eval Kia Lyle [Other] - 02/14/23 11:20 am (Telehealth ) [facility] Med. Management Kia Lyle [Other] - 03/14/23 11:00 am (Telehealth - I recommend Ana is accompanied by her mother on this call. ) [facility] Case Management Sara Parnell [Other] - 1 Week (Cherise will help to set the appt with Sara for case management. ) [facility] [Other] - 01/25/23 2:40 pm (IN OFFICE) Discharge Medications: New olanzapine 5 mg Tablet 5 mg PO DAILY 30 Days Qty: 30 1RF trazodone 50 mg Tablet 50 mg PO BEDTIME PRN (Reason: Insomnia) 30 Days Qty: 30 1RF Continued hydroxyzine pamoate 50 mg capsule 50 mg PO TID 30 Days Qty: 90 1RF divalproex 250 mg tablet extended release 24 hr 250 mg PO DAILY 30 Days Qty: 30 1RF Discharge Orders: Discharge Order (Routine); Ordered 01/15/23 Ordered By: Mark Rutherford Diet: Regular diet Activity on Discharge: As tolerated Stand Alone Forms: Patient Portal Discharge page, Community Support Care Plan Goals: Maintain mood and safe behaviors Take medications as prescribed Practice coping skills Continue with outpatient providers and reach out to them as needed Health Concerns: Mood stability and behaviors hx of Hydrocephalus Plan of Treatment: Follow up with your PCP, psychiatric provider and other outpatient providers regarding above concerns Take medications as prescribed Assessment: Risk assessment at time of discharge:? Patient was interviewed prior to discharge and found to be fully oriented and without any SI or HI. Patient has insight and demonstrates good judgment in terms of willingness to pursue treatment. Patient is not in imminent risk of harm to self or others and has a safety plan that includes presenting to the closest ER or calling 911 if feeling unsafe.? Patient has been observed closely by nursing and unit staff throughout admission; patient has not engaged in any behaviors that suggest dangerousness to self or others and has demonstrated appropriate behaviors and impulse control Discharge Date/Time: 01/15/23 12:25
== END 2023-01-15 12:25 | disposition home or self-care (01) | DRG 750 ==
LOC: HO.ED 11:22 → HO.PM5 01-07 14:20
PROVIDERS: Admitting Provider Psychiatry & Neurology Psychiatry; Emergency Provider Emergency Medicine Emergency Medical Services; Visit Provider Psychiatry & Neurology Psychiatry
DX: F25.0 Schizoaffective disorder, bipolar type (principal); G91.9 Hydrocephalus, unspecified; R45.851 Suicidal ideations; Z91.148 Patient's other noncompliance with medication regimen for other reason; Z20.822 Contact with and (suspected) exposure to COVID-19; Z79.899 Other long term (current) drug therapy
CPT/HCPCS: 36415; 73110; 73130; 80053; 80061; 80164; 80307; 81001; 81025; 83036; 85025; 87635; 99285; S9485

== ENCOUNTER 2023-02-09 15:19 | Emergency (ER) | payer OTHER, SELFPAY ==
[2023-02-09 15:32] VITALS: BP 121/80; BP 132/76; PULSE 81; PULSE 89; RESP 20; TEMP 36.8; O2SAT 98; BMI 30.1
[2023-02-09 16:15] LABS: MANUAL DIFF FLAG NO
[2023-02-09 16:18] LABS: Basophils Percent Auto 0.5 % (0-2); Eosinophils Absolute Auto 0.1 X10*3/uL (0.0-0.4); Eosinophils Percent Auto 1.7 % (0-4); Hematocrit 37.8 % (37.0-47.0); Hemoglobin 13.4 g/dl (12.0-16.0); Imm Gran Abs Auto 0.02 X10*3/uL (0.00-0.03); Imm Gran Pct Auto 0.3 % (0.0-0.4); Lymphocytes Absolute Auto 1.6 X10*3/uL (1.2-4.9); Lymphocytes Percent Auto 26.6 % (20-40); Mean Corpuscular HGB Conc 35.4 g/dl (31.0-35.0); Mean Corpuscular Hemoglobin 30.6 pg (27.0-33.0); Mean Corpuscular Volume 86.3 fL (80.0-98.0); Mean Platelet Volume 9.6 fL (9.4-12.3); Monocytes Absolute Auto 0.4 X10*3/uL (0.1-1.2); Monocytes Percent Auto 6.6 % (2-11); Neutrophils Absolute Auto 3.8 x10*3/uL (2.0-8.3); Neutrophils Percent Auto 64.3 % (45-73); Platelet Count 285 X10*3/uL (160-400); Red Blood Count 4.38 X10*6/uL (4.20-5.50); White Blood Count 5.9 X10*3/uL (4.8-10.8)
[2023-02-09 16:33] LABS: COVID-19 Test Negative (Negative); IDNOW Serial# BCCEAD1C
[2023-02-09 16:36] LABS: Acetaminophen LAB < 17 mcg/mL (<30); Alanine Aminotransferase 23 U/L (0-31); Albumin Level 4.3 g/dL (3.5-5.0); Alkaline Phosphatase 77 U/L (39-117); Anion Gap 14 (12-20); Aspartate Amino Transferase 21 U/L (5-31); Blood Urea Nitrogen 10 mg/dL (9-16); Calcium 9.6 mg/dL (8.4-10.2); Carbon Dioxide 20 mmol/L (22-29); Chloride 107 mmol/L (96-108); Creatinine Clr Calc Pharmacy 126.1; Estimated Glomerular Filt Rate > 60; Ethanol < 10 mg/dL; Glucose Random 111 mg/dL (60-115); Potassium 3.7 mmol/L (3.3-5.1); Salicylate < 5.0 mg/dL (15-30); Sodium 137 mmol/L (135-145); Total Protein 7.8 g/dL (6.5-8.0)
--- NOTE | 2023-02-09 16:53 | ED_ITS ---
HPI - Psych General Chief Complaint: Psychiatric Symptoms Stated Complaint: CRISIS Time Seen by Provider: 02/09/23 15:56 Source: patient and RN notes reviewed Mode of arrival: ambulatory Limitations: no limitations History of Present Illness HPI Narrative: 22-year-old female with reported history of autism and seizures, presenting to the emergency department via cheek the police department, as patient and mother were fighting. Per police, patient ran out of her medications and needs to get them filled. On scene, patient reports that she was hearing voices. During evaluation, patient reports that she is feeling well however does admit to having auditory hallucination and states that these voices are telling her to harm herself. She states that she has been taking her medications, last dose was this morning. Denies SI/HI. Denies any fevers, chills, chest pain, shortness of breath, abdominal pain, nausea, vomiting, or diarrhea. No urinary symptoms. No other complaints or concerns at this time. MD complaint: hallucinations Onset (ago): day(s) Duration: constant History of same: Yes Relieving factors: none Exacerbating factors: none Context: significant life stressor (Argumentative with mother) Associated psychiatric symptoms: auditory hallucinations Associated symptoms: denies other symptoms Treatments prior to arrival: none Related Data Previous Rx's Medication Instructions Recorded divalproex 250 mg tablet,extended 250 mg PO DAILY 30 days #30 tabs 01/15/23 release 24 hr hydroxyzine pamoate 50 mg capsule 50 mg PO TID 30 days #90 caps 01/15/23 olanzapine 5 mg tablet 5 mg PO DAILY 30 days #30 tabs 01/15/23 trazodone 50 mg tablet 50 mg PO BEDTIME PRN Insomnia 30 01/15/23 days #30 tabs Allergies Allergy/AdvReac Type Severity Reaction Status Date / Time No Known Allergies Allergy Unverified 05/05/20 19:51 [No Known Allergies*] Review of Systems Review of Systems: Constitutional: No Weight loss, No Fever, No Chills, No Night Sweats, No Fatigue, No Malaise ENT/Mouth: No Hearing loss, No Ear Pain, No Nasal Congestion, No Sinus Pain, No Hoarseness, No sore throat, No Rhinorrhea, No Swallowing Difficulty Eyes: No Eye Pain, No Swelling, No Redness, No Foreign Body, No Discharge, No Vision Changes Cardiovascular: No Chest Pain, No SOB, No Dyspnea on Exertion, No Orthopnea, No Edema, No Palpitations Respiratory: No Cough, No Sputum, No Wheezing, No Smoke Exposure, No Dyspnea Gastrointestinal: No Nausea, No Vomiting, No Diarrhea, No Constipation, No Abdominal pain, No Hematochezia, No Melena Genitourinary: No irregular bleeding, No Dysuria, No Urinary Frequency, No Hematuria, No Urinary Incontinence/retention, No Urgency, No Flank Pain, No Urinary Flow Changes, No Hesitancy Musculoskeletal: No joint pain, No Myalgias, No Joint Swelling Skin: No Skin Lesions, No rash Neuro: No Weakness, No Numbness, No Paresthesias, No Loss of Consciousness, No Dizziness, No Headache Psych: +AH, No Anxiety/Panic, No Depression, No SI/HI/VH, No Social Issues, Heme/Lymph: No Bruising, No Bleeding,No Lymphadenopathy Endocrine: No Polyuria, No Polydipsia, No Temperature Intolerance Yes all other systems are reviewed and are negative Constitutional: Constitutional: Reports as per [facility] Past Medical History Medical History (Updated 02/09/23 @ 19:04 by SAV Grewal) Hydrocephalus Social History Social History Household Members: Family Housing: Other Housing Other:: [facility] Do you presently have visiting nurse or other home services: No Alcohol intake: never Patient Tobacco Use Status: Never used Tobacco Substance Use Type: Unknown Advance Directives: No Advance Directives Information Provided: Yes service: No Sexual orientation: Straight/Heterosexual Physical Exam Vital Signs: Vital Signs: Last Vital Signs Temp 98.2 F 02/09/23 15:32 Pulse 81 02/09/23 15:32 Resp 20 02/09/23 15:32 BP 121/80 02/09/23 15:32 Pulse Ox 98 02/09/23 15:32 O2 Del Method Room Air 02/09/23 15:32 BMI result Body Mass Index 30.1 Const: General: cooperative, comfortable and no acute distress Orientation/consciousness: patient oriented x3 Limitations: no limitations HEENT: Head: Yes normal to inspection, Yes normocephalic and Yes atraumatic Ears: hearing grossly normal bilaterally General nose exam: Normal external nose present Face and sinus: Yes normal facial exam Mouth: Normal oral and palatal mucosa present, oropharynx normal and moist mucous membranes Throat: Yes posterior oropharynx normal Eyes: General: appearance normal, both eyes and all related structures Eye lids: Yes eyelids normal Conjunctivae: conjunctivae normal Sclerae: sclerae normal Pupils: Equal, round and reactive pupils present EOM: EOMs intact bilaterally Neck: Neck: Yes normal visual inspection, Yes full ROM and Yes no lymphadenopathy Lymphatic: no lymphadenopathy noted Chest: Chest palpation & inspection: normal inspection of the chest Resp: Effort & Inspection: normal respiratory effort and able to speak in complete sentences Auscultation: clear to auscultation bilaterally, no crackles, no rales, no rhonchi and no wheezes Cardio: Rate: regular rate Rhythm: regular rhythm Heart sounds: S1 normal heart sound present and S2 normal heart sound present GI: Inspection: Yes normal to inspection Palpation (GI): Soft to palpation, nontender and no guarding Skin: General skin exam: no rashes or lesions noted Trauma: no lacerations or abrasions Wounds: no wounds Neuro: General: patient oriented x3 and moves all extremities Cranial nerves: Yes Equal, round and reactive pupils present Extrem: General: Yes normal to inspection Right upper extremity: normal to inspection Left upper extremity: normal to inspection Right lower extremity: normal to inspection Left lower extremity: normal to inspection Course Reevaluation(s) Reevaluation #1: Review of labs performed without any abnormalities, care and consult team unique watts Time: 18:34 Reevaluation #2: Care team saw patient and patient has a appointment scheduled with jose m on February 14 and a therapy appointment the following week. This was discussed with Barrett Mcbride who agree that patient should return home. Patient stable for discharge. Medical Decision Making Medical Decision Making [facility] Narrative: 23-year-old female presenting to the emergency department with complaints of auditory hallucinations. Patient was found by police, fighting with mother. Patient denies any physical abuse from mother, and states that she has a difficult relationship with her. Patient denies any SI/HI or visual hallucinations. On arrival, vital signs within normal limits. Plan: Labs UA, care team Differential Diagnosis Differential Diagnoses: The differential diagnosis associated with the presentation includes Depression, anxiety, UTI, auditory hallucinations Admission/Observation Consideration of admission/observation: Escalation of care including admi ssion/observation considered Patient has had psychiatric hospitalization, last [facility] hospitalization 01/06/2023 through 01/15/2023. Lab Data [facility] Lab Attestation statement: I reviewed the patient's lab results. No leukocytosis, H and H stable, urine drug screen without any abnormalities. COVID screening negative. UA unremarkable 02/09/23 16:10 02/09/23 16:10 Labs: Lab Results 02/09/23 02/09/23 02/09/23 Range/Units 16:10 16:10 16:10 WBC 5.9 (4.8-10.8) X10*3/uL RBC 4.38 (4.20-5.50) X10*6/uL Hgb 13.4 (12.0-16.0) g/dl Hct 37.8 (37.0-47.0) % MCV 86.3 (80.0-98.0) fL MCH 30.6 (27.0-33.0) pg MCHC 35.4 H (31.0-35.0) g/dl RDW 12.0 (11.0-16.0) % Plt Count 285 (160-400) X10*3/uL MPV 9.6 (9.4-12.3) fL Immature Gran % (Auto) 0.3 (0.0-0.4) % Neut % (Auto) 64.3 (45-73) % Lymph % (Auto) 26.6 (20-40) % [place] % (Auto) 6.6 (2-11) % Eos % (Auto) 1.7 (0-4) % Baso % (Auto) 0.5 (0-2) % Lymph # (Auto) 1.6 (1.2-4.9) X10*3/uL [place] # (Auto) 0.4 (0.1-1.2) X10*3/uL Eos # (Auto) 0.1 (0.0-0.4) X10*3/uL Baso # (Auto) 0.0 (0.0-0.2) X10*3/uL Abs Immat Gran (auto) 0.02 (0.00-0.03) X10*3/uL Absolute Neuts (auto) 3.8 (2.0-8.3) x10*3/uL Absolute Nucleated RBC 0.000 (0.0-0.012) X10*3/uL Nucleated RBC % (auto) 0.0 (0.0-0.2) /100WBC Sodium 137 (135-145) mmol/L Potassium 3.7 (3.3-5.1) mmol/L Chloride 107 (96-108) mmol/L Carbon Dioxide 20 L (22-29) mmol/L Anion Gap 14 (12-20) BUN 10 (9-16) mg/dL Creatinine 0.67 (0.5-1.4) mg/dL Estim Creat Clear Calc 126.1 Estimated GFR > 60 Random Glucose 111 (60-115) mg/dL Calcium 9.6 (8.4-10.2) mg/dL Total Bilirubin 1.0 (0.0-1.0) mg/dL AST 21 (5-31) U/L ALT 23 (0-31) U/L Alkaline Phosphatase 77 (39-117) U/L Total Protein 7.8 (6.5-8.0) g/dL Albumin 4.3 (3.5-5.0) g/dL Urine Color Urine Appearance Urine pH (5.0-9.0) Ur Specific [place] (1.005-1.025) Urine Protein (Neg-Trace) mg/dL Urine Glucose (UA) (Negative) mg/dL Urine Ketones (Negative) mg/dL Urine Blood (Negative) Urine Nitrite (Negative) Ur Leukocyte Esterase (Negative) Salicylates < 5.0 L (15-30) mg/dL Urine Opiates Screen (Not Detect) Urine Fentanyl Screen (Not Detect) Acetaminophen < 17 (<30) mcg/mL Ur Barbiturates Screen (Not Detect) Valproic Acid (50.0-100.0) mcg/mL Ur Phencyclidine Scrn (Not Detect) Ur Amphetamines Screen (Not Detect) U Benzodiazepines Scrn (Not Detect) Urine Cocaine Screen (Not Detect) U Marijuana (THC) Screen (Not Detect) Ethyl Alcohol < 10 mg/dL COVID-19 (DORCAS) (Negative) COVID-19 Clin Com 02/09/23 02/09/23 02/09/23 Range/Units 16:10 17:03 17:06 WBC (4.8-10.8) X10*3/uL RBC (4.20-5.50) X10*6/uL Hgb (12.0-16.0) g/dl Hct (37.0-47.0) % MCV (80.0-98.0) fL MCH (27.0-33.0) pg MCHC (31.0-35.0) g/dl RDW (11.0-16.0) % Plt Count (160-400) X10*3/uL MPV (9.4-12.3) fL Immature Gran % (Auto) (0.0-0.4) % Neut % (Auto) (45-73) % Lymph % (Auto) (20-40) % [place] % (Auto) (2-11) % Eos % (Auto) (0-4) % Baso % (Auto) (0-2) % Lymph # (Auto) (1.2-4.9) X10*3/uL [place] # (Auto) (0.1-1.2) X10*3/uL Eos # (Auto) (0.0-0.4) X10*3/uL Baso # (Auto) (0.0-0.2) X10*3/uL Abs Immat Gran (auto) (0.00-0.03) X10*3/uL Absolute Neuts (auto) (2.0-8.3) x10*3/uL Absolute Nucleated RBC (0.0-0.012) X10*3/uL Nucleated RBC % (auto) (0.0-0.2) /100WBC Sodium (135-145) mmol/L Potassium (3.3-5.1) mmol/L Chloride (96-108) mmol/L Carbon Dioxide (22-29) mmol/L Anion Gap (12-20) BUN (9-16) mg/dL Creatinine (0.5-1.4) mg/dL Estim Creat Clear Calc Estimated GFR Random Glucose (60-115) mg/dL Calcium (8.4-10.2) mg/dL Total Bilirubin (0.0-1.0) mg/dL AST (5-31) U/L ALT (0-31) U/L Alkaline Phosphatase (39-117) U/L Total Protein (6.5-8.0) g/dL Albumin (3.5-5.0) g/dL Urine Color Yellow Urine Appearance Clear Urine pH 6.5 (5.0-9.0) Ur Specific [place] 1.015 (1.005-1.025) Urine Protein Negative (Neg-Trace) mg/dL Urine Glucose (UA) Negative (Negative) mg/dL Urine Ketones Negative (Negative) mg/dL Urine Blood Negative (Negative) Urine Nitrite Negative (Negative) Ur Leukocyte Esterase Negative (Negative) Salicylates (15-30) mg/dL Urine Opiates Screen (Not Detect) Urine Fentanyl Screen (Not Detect) Acetaminophen (<30) mcg/mL Ur Barbiturates Screen (Not Detect) Valproic Acid 17.8 L (50.0-100.0) mcg/mL Ur Phencyclidine Scrn (Not Detect) Ur Amphetamines Screen (Not Detect) U Benzodiazepines Scrn (Not Detect) Urine Cocaine Screen (Not Detect) U Marijuana (THC) Screen (Not Detect) Ethyl Alcohol mg/dL COVID-19 (DORCAS) Negative (Negative) COVID-19 Clin Com See Note 02/09/23 Range/Units 17:06 WBC (4.8-10.8) X10*3/uL RBC (4.20-5.50) X10*6/uL Hgb (12.0-16.0) g/dl Hct (37.0-47.0) % MCV (80.0-98.0) fL MCH (27.0-33.0) pg MCHC (31.0-35.0) g/dl RDW (11.0-16.0) % Plt Count (160-400) X10*3/uL MPV (9.4-12.3) fL Immature Gran % (Auto) (0.0-0.4) % Neut % (Auto) (45-73) % Lymph % (Auto) (20-40) % [place] % (Auto) (2-11) % Eos % (Auto) (0-4) % Baso % (Auto) (0-2) % Lymph # (Auto) (1.2-4.9) X10*3/uL [place] # (Auto) (0.1-1.2) X10*3/uL Eos # (Auto) (0.0-0.4) X10*3/uL Baso # (Auto) (0.0-0.2) X10*3/uL Abs Immat Gran (auto) (0.00-0.03) X10*3/uL Absolute Neuts (auto) (2.0-8.3) x10*3/uL Absolute Nucleated RBC (0.0-0.012) X10*3/uL Nucleated RBC % (auto) (0.0-0.2) /100WBC Sodium (135-145) mmol/L Potassium (3.3-5.1) mmol/L Chloride (96-108) mmol/L Carbon Dioxide (22-29) mmol/L Anion Gap (12-20) BUN (9-16) mg/dL Creatinine (0.5-1.4) mg/dL Estim Creat Clear Calc Estimated GFR Random Glucose (60-115) mg/dL Calcium (8.4-10.2) mg/dL Total Bilirubin (0.0-1.0) mg/dL AST (5-31) U/L ALT (0-31) U/L Alkaline Phosphatase (39-117) U/L Total Protein (6.5-8.0) g/dL Albumin (3.5-5.0) g/dL Urine Color Urine Appearance Urine pH (5.0-9.0) Ur Specific [place] (1.005-1.025) Urine Protein (Neg-Trace) mg/dL Urine Glucose (UA) (Negative) mg/dL Urine Ketones (Negative) mg/dL Urine Blood (Negative) Urine Nitrite (Negative) Ur Leukocyte Esterase (Negative) Salicylates (15-30) mg/dL Urine Opiates Screen Not Detected (Not Detect) Urine Fentanyl Screen Not Detected (Not Detect) Acetaminophen (<30) mcg/mL Ur Barbiturates Screen Not Detected (Not Detect) Valproic Acid (50.0-100.0) mcg/mL Ur Phencyclidine Scrn Not Detected (Not Detect) Ur Amphetamines Screen Not Detected (Not Detect) U Benzodiazepines Scrn Not Detected (Not Detect) Urine Cocaine Screen Not Detected (Not Detect) U Marijuana (THC) Screen Not Detected (Not Detect) Ethyl Alcohol mg/dL COVID-19 (DORCAS) (Negative) COVID-19 Clin Com External Record Review External record reviewed: Inpatient record, Office record, Outpatient record, Prior outpatient labs, Prior outpatient radiology, Primary care record and [facility] record Review of previous emergency room visit and psychiatric admission. Discharge Plan Discharge Clinical Impression: Chronic schizophrenia Patient Disposition: Home, Self-Care Instructions: Hallucinations (ED) Additional Instructions: Your Depakote level was 17.8. Please follow-up with your primary care physician regarding this. Please follow the instructions from the care team. If any new or worsening symptoms occur please return for re-evaluation. Prescriptions: No Action olanzapine 5 mg Tablet 5 mg PO DAILY 30 Days Qty: 30 1RF trazodone 50 mg Tablet 50 mg PO BEDTIME PRN (Reason: Insomnia) 30 Days Qty: 30 1RF hydroxyzine pamoate 50 mg capsule 50 mg PO TID 30 Days Qty: 90 1RF divalproex 250 mg tablet extended release 24 hr 250 mg PO DAILY 30 Days Qty: 30 1RF Interventions: [place]-Suicide Risk Severity Scale Last Done: 02/09/23 15:51
[2023-02-09 17:13] LABS: Appearance Urine Clear; Color Urine Yellow; Glucose Urine UA Negative (Negative); Leukocyte Esterase Urine Negative (Negative); Nitrite Urine Negative (Negative); PH 6.5 (5.0-9.0); Specific Gravity - Urine 1.015 (1.005-1.025); Urine Blood Negative (Negative); Urine Ketones Negative (Negative); Urine Protein Negative (Neg-Trace)
[2023-02-09 17:43] LABS: Amphetamine Screen Urine Not Detected (Not Detect); Barbiturates, Urine Not Detected (Not Detect); Benzodiazepines Screen Urine Not Detected (Not Detect); Cannabinoid Screen Urine Not Detected (Not Detect); Cocaine Screen Urine Not Detected (Not Detect); Fentanyl, urine Not Detected (Not Detect); Opiate Screen Urine Not Detected (Not Detect); Phencyclidine Screen Urine Not Detected (Not Detect)
[2023-02-09 18:04] LABS: Valproate 17.8 mcg/mL (50.0-100.0)
--- NOTE | 2023-02-09 18:37 | PC.NURSE ---
pt tearful r/t not liking her dinner tray. pt reports today [birth year].
== END 2023-02-09 19:29 | disposition home or self-care (01) ==
PROVIDERS: Emergency Provider Internal Medicine
DX: F20.9 Schizophrenia, unspecified (principal); Z20.822 Contact with and (suspected) exposure to COVID-19; Z79.899 Other long term (current) drug therapy
CPT/HCPCS: 36415; 80053; 80143; 80164; 80179; 80307; 81003; 85025; 87635; 99284; S9485

== ENCOUNTER 2023-04-12 16:07 | Inpatient (IN) | payer OTHER, SELFPAY ==
--- NOTE | ~2023-04-12 | XR_ITS ---
EXAMINATION: XR WRIST, RIGHT XR HAND, RIGHT CLINICAL INFORMATION: Status post fall. Right wrist pain. COMPARISON: 01/09/2023 TECHNIQUE: PA, lateral, and oblique views of the right wrist and PA, lateral, and oblique views of the right hand FINDINGS: RIGHT HAND AND WRIST: Alignment is unchanged. No acute displaced fracture or dislocation. No erosions or soft tissue calcifications. No focal radiographic soft tissue swelling. XR/XR hand wrist RT IMPRESSION: No acute abnormality.
--- NOTE | 2023-04-12 16:10 | MHC.CARE ---
CARE Team received a call from [facility] crisis- Pt is an [facility] bedsearch.
[2023-04-12 16:27] VITALS: BP 122/60; BP 122/96; PULSE 88; PULSE 90; RESP 17; TEMP 36.9; O2SAT 98; BMI 39.0
--- NOTE | 2023-04-12 16:35 | ECG_ITS ---
Test Reason : ?P/QT Blood Pressure : / mmHG Vent. Rate : 073 BPM Atrial Rate : 073 BPM P-R Int : 156 ms QRS Dur : 090 ms QT Int : 422 ms P-R-T Axes : 033 029 022 degrees QTc Int : 464 ms Normal sinus rhythm Normal ECG No previous ECGs available Referred By: Jenn Parrish Electronically Signed By:ALEXANDRA DUNHAM
[2023-04-12 16:57] LABS: MANUAL DIFF FLAG NO
[2023-04-12 17:01] LABS: Basophils Percent Auto 0.5 % (0-2); Eosinophils Absolute Auto 0.1 X10*3/uL (0.0-0.4); Eosinophils Percent Auto 1.6 % (0-4); Hematocrit 38.2 % (37.0-47.0); Hemoglobin 13.5 g/dl (12.0-16.0); Imm Gran Abs Auto 0.03 X10*3/uL (0.00-0.03); Imm Gran Pct Auto 0.4 % (0.0-0.4); Lymphocytes Percent Auto 26.5 % (20-40); Mean Corpuscular HGB Conc 35.3 g/dl (31.0-35.0); Mean Corpuscular Hemoglobin 30.3 pg (27.0-33.0); Mean Corpuscular Volume 85.8 fL (80.0-98.0); Mean Platelet Volume 9.4 fL (9.4-12.3); Monocytes Absolute Auto 0.5 X10*3/uL (0.1-1.2); Neutrophils Absolute Auto 4.8 x10*3/uL (2.0-8.3); Platelet Count 315 X10*3/uL (160-400); Red Blood Count 4.45 X10*6/uL (4.20-5.50); Red Cell Distribution Width 12.5 % (11.0-16.0); White Blood Count 7.5 X10*3/uL (4.8-10.8)
--- NOTE | 2023-04-12 17:01 | ED.PSYCH ---
HPI - Psych General Chief Complaint: Psychiatric Symptoms Stated Complaint: BOONEN, sect 12, developmentally delayed @ age 11 Time Seen by Provider: 04/12/23 16:40 Source: patient and EMS Mode of arrival: EMS Limitations: no limitations History of Present Illness HPI Narrative: 23-year-old female with a history of hydrocephalus, intellectual disability, ASD, intermittent explosive disorder presents to the ER with concern for increasing aggressive behavior. Of note, patient was seen by [facility] in the community and is currently a section 12 bed search. Patient denies SI, HI, hallucinations, physical complaints. She tells me she has been med compliant. Related Data Previous Rx's Medication Instructions Recorded divalproex 250 mg tablet,extended 250 mg PO DAILY 30 days #30 tabs 01/15/23 release 24 hr hydroxyzine pamoate 50 mg capsule 50 mg PO TID 30 days #90 caps 01/15/23 olanzapine 5 mg tablet 5 mg PO DAILY 30 days #30 tabs 01/15/23 trazodone 50 mg tablet 50 mg PO BEDTIME PRN Insomnia 30 01/15/23 days #30 tabs Allergies Allergy/AdvReac Type Severity Reaction Status Date / Time No Known Allergies Allergy Unverified 05/05/20 19:51 [No Known Allergies*] Review of Systems Review of Systems: Yes all other systems are reviewed and are negative Constitutional: Constitutional: Reports no additional constitutional complaints, Denies body ache(s), Denies chills, Denies fever(s), Denies headache(s) and Denies weakness Eyes: Eyes: Reports no additional eye complaints and Denies change in vision ENT: Reports system reviewed and no additional complaints, except as documented, Denies dizziness, Denies headache(s), Denies nasal congestion, Denies nasal discharge and Denies neck pain Cardiovascular: Cardiovascular: Reports no additional cardiovascular complaints, Denies chest pain, Denies leg edema and Denies dyspnea Respiratory: Respiratory: Reports no additional respiratory complaints, Denies cough and Denies dyspnea Gastrointestinal: Gastrointestinal: Reports no additional gastrointestinal complaints, Denies abdominal pain, Denies diarrhea, Denies nausea and Denies vomiting Genitourinary: Genitourinary: Reports no additional female genitourinary complaints and Denies urinary incontinence Musculoskeletal: Musculoskeletal: Reports no additional musculoskeletal complaints, Denies back pain, Denies arthralgias, Denies joint swelling, Denies neck pain, Denies numbness and Denies tingling Integumentary/Breasts: Skin/Breast: Reports system reviewed and no additional complaints, except as docu and Denies rash Neurologic: Reports system reviewed and no additional complaints, except as documented, Denies Abnormal speech present, Denies dizziness, Denies headache(s), Denies numbness, Denies tingling and Denies weakness [facility] Past Medical History Attestation statement: The following information was validated with the patient. Source: old records reviewed and nursing notes reviewed Medical History Hydrocephalus Social History Social History Household Members: Family Housing: Other Housing Other:: alf Do you presently have visiting nurse or other home services: No Alcohol intake: never Patient Tobacco Use Status: Never used Tobacco Substance Use Type: Unknown Advance Directives: No Advance Directives Information Provided: No service: No Sexual orientation: Straight/Heterosexual Physical Exam Vital Signs: Vital Signs: Last Vital Signs Temp 98.4 F 04/12/23 16:27 Pulse 88 04/12/23 16:27 Resp 17 04/12/23 16:27 BP 122/60 04/12/23 16:27 Pulse Ox 98 04/12/23 16:27 O2 Del Method Room Air 04/12/23 16:27 BMI result Body Mass Index 39.0 Const: General: cooperative, healthy appearing, comfortable and no acute distress Orientation/consciousness: patient oriented x3 Limitations: no limitations HEENT: Head: Yes normal to inspection Ears: hearing grossly normal bilaterally General nose exam: Normal external nose present Face and sinus: Yes normal facial exam Mouth: Normal oral and palatal mucosa present Throat: Yes posterior oropharynx normal Eyes: General: appearance normal, both eyes and all related structures Pupils: Equal, round and reactive pupils present Neck: Neck: Yes normal visual inspection Chest: Chest palpation & inspection: normal inspection of the chest Resp: Effort & Inspection: normal respiratory effort Auscultation: clear to auscultation bilaterally Cardio: Rate: regular rate Rhythm: regular rhythm Peripheral pulses: Peripheral pulses 2+ throughout GI: Inspection: Yes normal to inspection Palpation (GI): Soft to palpation and nontender Auscultation: normal bowel sounds Back/Spine/Pelvis: Thoracic/Lumbar Spine: thoracic and lumbar spine normal to inspection Skin: General skin exam: no rashes or lesions noted Neuro: General: patient oriented x3, no focal motor deficits and normal sensation to monofilament Cranial nerves: Yes Equal, round and reactive pupils present Cognition (Neuro): normal cognition Speech: No Abnormal speech present Gait exam (Neuro): Normal gait present Motor exam (neuro): 5/5 motor strength present throughout Extrem: General: Yes normal to inspection Medications Administered Generic Name Dose Route Start Last Admin Trade Name Freq PRN Reason Stop Dose Admin Al Hydroxide/Mg Hydroxide 30 ml 04/12/23 21:35 04/12/23 21:40 Magnesium Hydrox/Alum Hydrox 30 Ml Oral.Susp PO 30 ml Q6H PRN Administration Heartburn/Nausea Discontinued Medications Generic Name Dose Route Start Last Admin Trade Name Freq PRN Reason Stop Dose Admin Acetaminophen 975 mg 04/12/23 17:00 04/12/23 17:14 Acetaminophen 325 Mg Tablet PO 04/12/23 17:01 975 mg ONCE ONE Administration Medical Decision Making Medical Decision Making MDM Narrative: 23-year-old female sent in on a Section 12 with concern for increasing aggressive behavior. Will need labs, drug screen, medical clearance No concern for acute ingestion or trauma Will order labs, drug screen Differential Diagnosis Differential Diagnoses: The differential diagnosis associated with the presentation includes Aggression Admission/Observation Consideration of admission/observation: Escalation of care including admission/observation considered Sent in on section 12 for inpatient psych d/t failure with out patient treatment Lab Data [facility] Lab Attestation statement: I reviewed the patient's lab results. Reviewed the labs which are unremarkable 04/12/23 16:49 04/12/23 16:49 Labs: Lab Results 04/12/23 04/12/23 04/12/23 Range/Units 16:49 16:49 16:49 WBC 7.5 (4.8-10.8) X10*3/uL RBC 4.45 (4.20-5.50) X10*6/uL Hgb 13.5 (12.0-16.0) g/dl Hct 38.2 (37.0-47.0) % MCV 85.8 (80.0-98.0) fL MCH 30.3 (27.0-33.0) pg MCHC 35.3 H (31.0-35.0) g/dl RDW 12.5 (11.0-16.0) % Plt Count 315 (160-400) X10*3/uL MPV 9.4 (9.4-12.3) fL Immature Gran % (Auto) 0.4 (0.0-0.4) % Neut % (Auto) 64.0 (45-73) % Lymph % (Auto) 26.5 (20-40) % [facility] % (Auto) 7.0 (2-11) % Eos % (Auto) 1.6 (0-4) % Baso % (Auto) 0.5 (0-2) % Lymph # (Auto) 2.0 (1.2-4.9) X10*3/uL [place] # (Auto) 0.5 (0.1-1.2) X10*3/uL Eos # (Auto) 0.1 (0.0-0.4) X10*3/uL Baso # (Auto) 0.0 (0.0-0.2) X10*3/uL Abs Immat Gran (auto) 0.03 (0.00-0.03) X10*3/uL Absolute Neuts (auto) 4.8 (2.0-8.3) x10*3/uL Absolute Nucleated RBC 0.000 (0.0-0.012) X10*3/uL Nucleated RBC % (auto) 0.0 (0.0-0.2) /100WBC Sodium 138 (135-145) mmol/L Potassium 4.2 (3.3-5.1) mmol/L Chloride 107 (96-108) mmol/L Carbon Dioxide 24 (22-29) mmol/L Anion Gap 11 L (12-20) BUN 11 (9-16) mg/dL Creatinine 0.71 (0.5-1.4) mg/dL Estim Creat Clear Calc 136.4 Estimated GFR > 60 Random Glucose 109 (60-115) mg/dL Calcium 9.9 (8.4-10.2) mg/dL Total Bilirubin 0.5 (0.0-1.0) mg/dL AST 31 (5-31) U/L ALT 36 H (0-31) U/L Alkaline Phosphatase 77 (39-117) U/L Total Protein 8.0 (6.5-8.0) g/dL Albumin 4.1 (3.5-5.0) g/dL Urine Color Urine Appearance Urine pH (5.0-9.0) Ur Specific [place] (1.005-1.025) Urine Protein (Neg-Trace) mg/dL Urine Glucose (UA) (Negative) mg/dL Urine Ketones (Negative) mg/dL Urine Blood (Negative) Urine Nitrite (Negative) Ur Leukocyte Esterase (Negative) Urine RBC (0-2) /HPF Urine WBC (0-5) /HPF Ur Squamous Epith Cells (0-2) /HPF Urine Bacteria (None Seen) Hyaline Casts (0-2) /LPF Urine Test (NEGATIVE) Salicylates < 5.0 L (15-30) mg/dL Urine Opiates Screen (Not Detect) Urine Fentanyl Screen (Not Detect) Acetaminophen < 17 (<30) mcg/mL Ur Barbiturates Screen (Not Detect) Valproic Acid (50.0-100.0) mcg/mL Ur Phencyclidine Scrn (Not Detect) Ur Amphetamines Screen (Not Detect) U Benzodiazepines Scrn (Not Detect) Urine Cocaine Screen (Not Detect) U Marijuana (THC) Screen (Not Detect) Ethyl Alcohol < 10 mg/dL COVID-19 (DORCAS) (Negative) COVID-19 Clin Com 04/12/23 04/12/23 04/12/23 Range/Units 16:49 16:49 17:27 WBC (4.8-10.8) X10*3/uL RBC (4.20-5.50) X10*6/uL Hgb (12.0-16.0) g/dl Hct (37.0-47.0) % MCV (80.0-98.0) fL MCH (27.0-33.0) pg MCHC (31.0-35.0) g/dl RDW (11.0-16.0) % Plt Count (160-400) X10*3/uL MPV (9.4-12.3) fL Immature Gran % (Auto) (0.0-0.4) % Neut % (Auto) (45-73) % Lymph % (Auto) (20-40) % [place] % (Auto) (2-11) % Eos % (Auto) (0-4) % Baso % (Auto) (0-2) % Lymph # (Auto) (1.2-4.9) X10*3/uL [place] # (Auto) (0.1-1.2) X10*3/uL Eos # (Auto) (0.0-0.4) X10*3/uL Baso # (Auto) (0.0-0.2) X10*3/uL Abs Immat Gran (auto) (0.00-0.03) X10*3/uL Absolute Neuts (auto) (2.0-8.3) x10*3/uL Absolute Nucleated RBC (0.0-0.012) X10*3/uL Nucleated RBC % (auto) (0.0-0.2) /100WBC Sodium (135-145) mmol/L Potassium (3.3-5.1) mmol/L Chloride (96-108) mmol/L Carbon Dioxide (22-29) mmol/L Anion Gap (12-20) BUN (9-16) mg/dL Creatinine (0.5-1.4) mg/dL Estim Creat Clear Calc Estimated GFR Random Glucose (60-115) mg/dL Calcium (8.4-10.2) mg/dL Total Bilirubin (0.0-1.0) mg/dL AST (5-31) U/L ALT (0-31) U/L Alkaline Phosphatase (39-117) U/L Total Protein (6.5-8.0) g/dL Albumin (3.5-5.0) g/dL Urine Color Yellow Urine Appearance Clear Urine pH 7.0 (5.0-9.0) Ur Specific [place] 1.020 (1.005-1.025) Urine Protein Negative (Neg-Trace) mg/dL Urine Glucose (UA) Negative (Negative) mg/dL Urine Ketones Negative (Negative) mg/dL Urine Blood Negative (Negative) Urine Nitrite Negative (Negative) Ur Leukocyte Esterase Negative (Negative) Urine RBC 0-2 (0-2) /HPF Urine WBC 0-5 (0-5) /HPF Ur Squamous Epith Cells 3-5 (0-2) /HPF Urine Bacteria None Seen (None Seen) Hyaline Casts 0-2 (0-2) /LPF Urine Test (NEGATIVE) Salicylates (15-30) mg/dL Urine Opiates Screen (Not Detect) Urine Fentanyl Screen (Not Detect) Acetaminophen (<30) mcg/mL Ur Barbiturates Screen (Not Detect) Valproic Acid 29.9 L (50.0-100.0) mcg/mL Ur Phencyclidine Scrn (Not Detect) Ur Amphetamines Screen (Not Detect) U Benzodiazepines Scrn (Not Detect) Urine Cocaine Screen (Not Detect) U Marijuana (THC) Screen (Not Detect) Ethyl Alcohol mg/dL COVID-19 (DORCAS) Negative (Negative) COVID-19 Clin Com See Note 04/12/23 04/12/23 Range/Units 17:27 17:27 WBC (4.8-10.8) X10*3/uL RBC (4.20-5.50) X10*6/uL Hgb (12.0-16.0) g/dl Hct (37.0-47.0) % MCV (80.0-98.0) fL MCH (27.0-33.0) pg MCHC (31.0-35.0) g/dl RDW (11.0-16.0) % Plt Count (160-400) X10*3/uL MPV (9.4-12.3) fL Immature Gran % (Auto) (0.0-0.4) % Neut % (Auto) (45-73) % Lymph % (Auto) (20-40) % [facility] % (Auto) (2-11) % Eos % (Auto) (0-4) % Baso % (Auto) (0-2) % Lymph # (Auto) (1.2-4.9) X10*3/uL [place] # (Auto) (0.1-1.2) X10*3/uL Eos # (Auto) (0.0-0.4) X10*3/uL Baso # (Auto) (0.0-0.2) X10*3/uL Abs Immat Gran (auto) (0.00-0.03) X10*3/uL Absolute Neuts (auto) (2.0-8.3) x10*3/uL Absolute Nucleated RBC (0.0-0.012) X10*3/uL Nucleated RBC % (auto) (0.0-0.2) /100WBC Sodium (135-145) mmol/L Potassium (3.3-5.1) mmol/L Chloride (96-108) mmol/L Carbon Dioxide (22-29) mmol/L Anion Gap (12-20) BUN (9-16) mg/dL Creatinine (0.5-1.4) mg/dL Estim Creat Clear Calc Estimated GFR Random Glucose (60-115) mg/dL Calcium (8.4-10.2) mg/dL Total Bilirubin (0.0-1.0) mg/dL AST (5-31) U/L ALT (0-31) U/L Alkaline Phosphatase (39-117) U/L Total Protein (6.5-8.0) g/dL Albumin (3.5-5.0) g/dL Urine Color Urine Appearance Urine pH (5.0-9.0) Ur Specific [place] (1.005-1.025) Urine Protein (Neg-Trace) mg/dL Urine Glucose (UA) (Negative) mg/dL Urine Ketones (Negative) mg/dL Urine Blood (Negative) Urine Nitrite (Negative) Ur Leukocyte Esterase (Negative) Urine RBC (0-2) /HPF Urine WBC (0-5) /HPF Ur Squamous Epith Cells (0-2) /HPF Urine Bacteria (None Seen) Hyaline Casts (0-2) /LPF Urine Test NEGATIVE (NEGATIVE) Salicylates (15-30) mg/dL Urine Opiates Screen Not Detected (Not Detect) Urine Fentanyl Screen Not Detected (Not Detect) Acetaminophen (<30) mcg/mL Ur Barbiturates Screen Not Detected (Not Detect) Valproic Acid (50.0-100.0) mcg/mL Ur Phencyclidine Scrn Not Detected (Not Detect) Ur Amphetamines Screen Not Detected (Not Detect) U Benzodiazepines Scrn Not Detected (Not Detect) Urine Cocaine Screen Not Detected (Not Detect) U Marijuana (THC) Screen Not Detected (Not Detect) Ethyl Alcohol mg/dL COVID-19 (DORCAS) (Negative) COVID-19 Clin Com Independent Interpretation I performed an independent interpretation of an: EKG Interpretation: I independently reviewed the EKG which shows normal sinus rhythm with a rate of 73, normal FL, normal QRS, normal QT Independent Historian Clinical information obtained from an independent historian. History obtained from or confirmed by: EMS Discharge Plan Discharge Clinical Impression: MDD (major depressive disorder) Patient Disposition: Admitted As Inpatient Interventions: [facility]-Suicide Risk Severity Scale Last Done: 04/12/23 17:05 Admission Worksheet (ED) Last Done: 04/12/23 21:30 Discharge Date/Time: 04/12/23 21:31
[2023-04-12 17:11] LABS: Valproate 29.9 mcg/mL (50.0-100.0)
[2023-04-12] MEDS: Acetaminophen 325 MG TABLET 975 MG PO (17:14)
[2023-04-12 17:15] LABS: Acetaminophen LAB < 17 mcg/mL (<30); Alanine Aminotransferase 36 U/L (0-31); Albumin Level 4.1 g/dL (3.5-5.0); Alkaline Phosphatase 77 U/L (39-117); Anion Gap 11 (12-20); Aspartate Amino Transferase 31 U/L (5-31); Bilirubin Total 0.5 mg/dL (0.0-1.0); Blood Urea Nitrogen 11 mg/dL (9-16); Calcium 9.9 mg/dL (8.4-10.2); Carbon Dioxide 24 mmol/L (22-29); Chloride 107 mmol/L (96-108); Creatinine Clr Calc Pharmacy 136.4; Estimated Glomerular Filt Rate > 60; Ethanol < 10 mg/dL; Glucose Random 109 mg/dL (60-115); Potassium 4.2 mmol/L (3.3-5.1); Salicylate < 5.0 mg/dL (15-30); Sodium 138 mmol/L (135-145)
[2023-04-12 17:17] LABS: COVID-19 Test Negative (Negative); IDNOW Serial# BCCEAD1C
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
[2023-04-12 17:48] LABS: Appearance Urine Clear; Color Urine Yellow; Glucose Urine UA Negative (Negative); Leukocyte Esterase Urine Negative (Negative); Nitrite Urine Negative (Negative); UPreg QC Valid YES; Urine Blood Negative (Negative); Urine Ketones Negative (Negative); Urine Pregnancy NEGATIVE (NEGATIVE); Urine Protein Negative (Neg-Trace)
[2023-04-12 17:53] LABS: Bacteria Urine None Seen (None Seen); Hyaline Casts Urine 0-2 /LPF (0-2); RBC Urine 0-2 /HPF (0-2); WBC Urine 0-5 /HPF (0-5)
[2023-04-12 17:54] LABS: Amphetamine Screen Urine Not Detected (Not Detect); Barbiturates, Urine Not Detected (Not Detect); Benzodiazepines Screen Urine Not Detected (Not Detect); Cannabinoid Screen Urine Not Detected (Not Detect); Cocaine Screen Urine Not Detected (Not Detect); Fentanyl, urine Not Detected (Not Detect); Opiate Screen Urine Not Detected (Not Detect); Phencyclidine Screen Urine Not Detected (Not Detect)
[2023-04-12 21:20] VITALS: BP 128/67; PULSE 80; RESP 18; TEMP 36.5; O2SAT 97
[2023-04-12] MEDS: Magnesium Hydrox/Alum Hydrox 30 ML ORAL.SUSP PO (21:40)
[2023-04-12] MEDS: hydrOXYzine HCL 50 MG TABLET PO (22:25)
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
[2023-04-12] MEDS: traZODone HCL 50 MG TABLET PO (23:17)
[2023-04-12] MEDS: Acetaminophen 325 MG TABLET 650 MG PO (23:57)
[2023-04-13] MEDS: traZODone HCL 50 MG TABLET PO ×2 (00:36→20:37)
[2023-04-13 08:05] VITALS: BP 113/64; PULSE 75; RESP 18; TEMP 36.2; O2SAT 96
[2023-04-13] MEDS: OLANZapine 5 MG TABLET PO (08:08)
[2023-04-13] MEDS: Divalproex Sodium ER 250 MG TAB.ER.24H PO (08:08)
[2023-04-13] MEDS: hydrOXYzine HCL 50 MG TABLET PO ×3 (08:09→20:37)
[2023-04-13] MEDS: Acetaminophen 325 MG TABLET 650 MG PO (08:14)
--- NOTE | 2023-04-13 10:40 | HO.PS.ADMBH ---
[facility] Date of Service: 04/13/23 Chief Complaint: Psychosis Dysregulation Sources of Information: patient interviewed, chart reviewed and crisis/core team assessment reviewed HPI Healthcare Proxy: No Medical Problems Affecting Mental Status: No Narrative: Conditiona Voluntary Status- consitent with admisison in December 2022 also and also submited 3 day notice at that time. 22-year-old female with history of hydrocephalus resulting in intellectual disability, ASD, intermittent explosive disorder, possibly seizures (possibly hx of psychotic illness) who presented to the emergency room after an argument with her mother with reported SI statements, increased aggressive behaviors psychotic symptoms in the face of discontinuing Depakote.? In the ED, the note reports that patient acknowledged visual hallucinations; also that she self harmed by cutting her left arm.? On the unit, patient is a limited historian and much more reticent.? She mostly answered questions with I do not know or just shook her head to indicate yes or no.? She denied any AVH or SI; she denies depression.? She said that the reason she is here is because she got into a fight with her mother.? She does not know why she stopped taking her medications but agreed that taking them helps keep her out of getting in fights with her mom.? Patient did endorse some worries that perhaps she was being followed, by a few people however he cannot elaborate further.? Patient said she would like to get involved with pH and programs so she can get help taking her medications regularly and not getting in fights with her mom. Past Psychiatric History: History of 2 psychiatric hospitalizations;? -admission to [facility] few months ago? -admission to M5 January 2020 Some mention of history of psychotic illness Intellectual disability secondary to hydrocephalus Crisis assessments dating back to 2012 History of Depakote 250 mg daily Medical Evaluation Reviewed: Yes Past Psychiatric History: History of 2 psychiatric hospitalizations; -admission to [facility] few months ago -admission to M5 January 2020 Some mention of history of psychotic illness Intellectual disability secondary to hydrocephalus Crisis assessments dating back to 2012 History of Depakote 250 mg daily [facility] Medical History Hydrocephalus Family History: Deferred; patient does not own Social History: Patient currently lives with her mother and 4 siblings in a long term; she takes care of her siblings while her mother works the shift production associate Patient born in [place] but moved here when she was 1 years old Mother is from her father however patient says she sees him frequently. Trauma History: Deferred Diagnostics Vital Signs (24Hr): Vital Signs - 24 hr 04/12/23 16:27 04/12/23 21:20 04/13/23 08:05 Temperature 98.4 F 97.7 F 97.2 F Pulse Rate 88 80 75 Respiratory Rate 17 18 18 Blood Pressure 122/60 128/67 113/64 Pulse Oximetry 98 97 96 Oxygen Delivery Method Room Air Room Air Room Air BMI result Body Mass Index 39.0 Labs 04/12/23 16:49 04/12/23 16:49 Labs: Laboratory Results - last 48 hr 04/12/23 04/12/23 04/12/23 16:49 16:49 16:49 WBC 7.5 RBC 4.45 Hgb 13.5 Hct 38.2 MCV 85.8 MCH 30.3 MCHC 35.3 H RDW 12.5 Plt Count 315 MPV 9.4 Immature Gran % (Auto) 0.4 Neut % (Auto) 64.0 Lymph % (Auto) 26.5 [place] % (Auto) 7.0 Eos % (Auto) 1.6 Baso % (Auto) 0.5 Lymph # (Auto) 2.0 [place] # (Auto) 0.5 Eos # (Auto) 0.1 Baso # (Auto) 0.0 Abs Immat Gran (auto) 0.03 Absolute Neuts (auto) 4.8 Absolute Nucleated RBC 0.000 Nucleated RBC % (auto) 0.0 Sodium 138 Potassium 4.2 Chloride 107 Carbon Dioxide 24 Anion Gap 11 L BUN 11 Creatinine 0.71 Estim Creat Clear Calc 136.4 Estimated GFR > 60 Random Glucose 109 Calcium 9.9 Total Bilirubin 0.5 AST 31 ALT 36 H Alkaline Phosphatase 77 Total Protein 8.0 Albumin 4.1 Urine Color Urine Appearance Urine pH Ur Specific [place] Urine Protein Urine Glucose (UA) Urine Ketones Urine Blood Urine Nitrite Ur Leukocyte Esterase Urine RBC Urine WBC Ur Squamous Epith Cells Urine Bacteria Hyaline Casts Urine Test Salicylates < 5.0 L Urine Opiates Screen Urine Fentanyl Screen Acetaminophen < 17 Ur Barbiturates Screen Valproic Acid Ur Phencyclidine Scrn Ur Amphetamines Screen U Benzodiazepines Scrn Urine Cocaine Screen U Marijuana (THC) Screen Ethyl Alcohol < 10 COVID-19 (DORCAS) COVID-19 Clin Com 08/25/23 08/25/23 08/25/23 16:49 16:49 17:27 WBC RBC Hgb Hct MCV MCH MCHC RDW Plt Count MPV Immature Gran % (Auto) Neut % (Auto) Lymph % (Auto) [place] % (Auto) Eos % (Auto) Baso % (Auto) Lymph # (Auto) [place] # (Auto) Eos # (Auto) Baso # (Auto) Abs Immat Gran (auto) Absolute Neuts (auto) Absolute Nucleated RBC Nucleated RBC % (auto) Sodium Potassium Chloride Carbon Dioxide Anion Gap BUN Creatinine Estim Creat Clear Calc Estimated GFR Random Glucose Calcium Total Bilirubin AST ALT Alkaline Phosphatase Total Protein Albumin Urine Color Yellow Urine Appearance Clear Urine pH 7.0 Ur Specific [place] 1.020 Urine Protein Negative Urine Glucose (UA) Negative Urine Ketones Negative Urine Blood Negative Urine Nitrite Negative Ur Leukocyte Esterase Negative Urine RBC 0-2 Urine WBC 0-5 Ur Squamous Epith Cells 3-5 Urine Bacteria None Seen Hyaline Casts 0-2 Urine Test Salicylates Urine Opiates Screen Urine Fentanyl Screen Acetaminophen Ur Barbiturates Screen Valproic Acid 29.9 L Ur Phencyclidine Scrn Ur Amphetamines Screen U Benzodiazepines Scrn Urine Cocaine Screen U Marijuana (THC) Screen Ethyl Alcohol COVID-19 (DORCAS) Negative COVID-19 Clin Com See Note 04/12/23 04/12/23 17:27 17:27 WBC RBC Hgb Hct MCV MCH MCHC RDW Plt Count MPV Immature Gran % (Auto) Neut % (Auto) Lymph % (Auto) [place] % (Auto) Eos % (Auto) Baso % (Auto) Lymph # (Auto) [place] # (Auto) Eos # (Auto) Baso # (Auto) Abs Immat Gran (auto) Absolute Neuts (auto) Absolute Nucleated RBC Nucleated RBC % (auto) Sodium Potassium Chloride Carbon Dioxide Anion Gap BUN Creatinine Estim Creat Clear Calc Estimated GFR Random Glucose Calcium Total Bilirubin AST ALT Alkaline Phosphatase Total Protein Albumin Urine Color Urine Appearance Urine pH Ur Specific [place] Urine Protein Urine Glucose (UA) Urine Ketones Urine Blood Urine Nitrite Ur Leukocyte Esterase Urine RBC Urine WBC Ur Squamous Epith Cells Urine Bacteria Hyaline Casts Urine Test NEGATIVE Salicylates Urine Opiates Screen Not Detected Urine Fentanyl Screen Not Detected Acetaminophen Ur Barbiturates Screen Not Detected Valproic Acid Ur Phencyclidine Scrn Not Detected Ur Amphetamines Screen Not Detected U Benzodiazepines Scrn Not Detected Urine Cocaine Screen Not Detected U Marijuana (THC) Screen Not Detected Ethyl Alcohol COVID-19 (DORCAS) COVID-19 Clin Com Meds/Allergies Allergies Allergies Allergy/AdvReac Type Severity Reaction Status Date / Time No Known Allergies Allergy Unverified 05/05/20 19:51 [No Known Allergies*] Assessment & Plan Certification I certify that partial hospital treatment is medically necessary due to the symptoms and problems resulting from the patient's mental illness and the failure to treat the patient at the partial hospital level of care would likely result in the patient requiring inpatient psychiatric care which could not be prevented at a less intensive level of care. Time Spent With Patient Time: Total time managing care of this patient today ____ minutes.
[2023-04-13] MEDS: Magnesium Hydrox/Alum Hydrox 30 ML ORAL.SUSP PO (11:40)
--- NOTE | 2023-04-13 13:13 | HO.PSYADMNOT ---
HPI Date of Service: 04/13/23 Chief Complaint: Psychosis Dysregulation Sources of Information: patient interviewed, chart reviewed and crisis/core team assessment reviewed HPI Subjective Notes: Conditional Voluntary Narrative: per ED note: hydrocephalus, intellectual disability, ASD, intermittent explosive disorder presents to the ER with concern for increasing aggressive behavior.? Of note, patient was seen by N in the community and is currently a section 12 bed search. Patient denies SI, HI, hallucinations, physical complaints.? She tells me she has been med compliant. Today: Patient reports coming here after getting into an argument with her mom. Reports that there was shouting and that she put a hole in the wall. Reports mom asked her to go to the store and she did not want to. Reports that she has been taking her medications but forgets the names of them but knows that she takes Depakote. Reports lives with mom, her 16-year-old brother and mom's boyfriend. Single. Denied any recent stressors are relationship changes. Denied substance use. Did answer most questions with I do not know or one-word answers. Denied any psychotic symptoms. Denied SI or HI. Did give permission to speak with mom. Did go over voluntary admission and patient was on a voluntary status during last admission on 01/08/2023 and had an understanding of three-day notice process and was discharged in the context of same on 01/15/2023. During last admission, admission circumstances were similar with aggression and agitation and perhaps some paranoia but also medication non adherence. Was discharged on Depakote and olanzapine. We have continued these medications during this admission. Past Psychiatric History: History of 3 psychiatric hospitalizations; - [facility] [place] admission on 01/08/2023 and had an understanding of three-day notice process and was discharged in the context of same on 01/15/2023. During last admission, admission circumstances were similar with aggression and agitation and perhaps some paranoia but also medication non adherence. Was discharged on Depakote and olanzapine. - admission to [facility] 2022 -admission to January 2020 Some mention of history of psychotic illness Intellectual disability secondary to hydrocephalus Crisis assessments dating back to 2012 History of Depakote 250 mg daily Medical Evaluation Reviewed: Yes [facility] Medical History Hydrocephalus Family History: Deferred Social History: Patient currently lives with her mother and sibling and moms boyfriend. As per record: Patient born in [place] but moved here when she was 1 years old. Mother is from her father however patient says she sees him frequently. Trauma History: Deferred Diagnostics Vital Signs (24Hr): Vital Signs - 24 hr 04/12/23 16:27 04/12/23 21:20 04/13/23 08:05 Temperature 98.4 F 97.7 F 97.2 F Pulse Rate 88 80 75 Respiratory Rate 17 18 18 Blood Pressure 122/60 128/67 113/64 Pulse Oximetry 98 97 96 Oxygen Delivery Method Room Air Room Air Room Air BMI result Body Mass Index 39.0 Labs 04/12/23 16:49 04/12/23 16:49 Labs: Laboratory Results - last 48 hr 04/12/23 04/12/23 04/12/23 16:49 16:49 16:49 WBC 7.5 RBC 4.45 Hgb 13.5 Hct 38.2 MCV 85.8 MCH 30.3 MCHC 35.3 H RDW 12.5 Plt Count 315 MPV 9.4 Immature Gran % (Auto) 0.4 Neut % (Auto) 64.0 Lymph % (Auto) 26.5 [place] % (Auto) 7.0 Eos % (Auto) 1.6 Baso % (Auto) 0.5 Lymph # (Auto) 2.0 [place] # (Auto) 0.5 Eos # (Auto) 0.1 Baso # (Auto) 0.0 Abs Immat Gran (auto) 0.03 Absolute Neuts (auto) 4.8 Absolute Nucleated RBC 0.000 Nucleated RBC % (auto) 0.0 Sodium 138 Potassium 4.2 Chloride 107 Carbon Dioxide 24 Anion Gap 11 L BUN 11 Creatinine 0.71 Estim Creat Clear Calc 136.4 Estimated GFR > 60 Random Glucose 109 Calcium 9.9 Total Bilirubin 0.5 AST 31 ALT 36 H Alkaline Phosphatase 77 Total Protein 8.0 Albumin 4.1 Urine Color Urine Appearance Urine pH Ur Specific [place] Urine Protein Urine Glucose (UA) Urine Ketones Urine Blood Urine Nitrite Ur Leukocyte Esterase Urine RBC Urine WBC Ur Squamous Epith Cells Urine Bacteria Hyaline Casts Urine Test Salicylates < 5.0 L Urine Opiates Screen Urine Fentanyl Screen Acetaminophen < 17 Ur Barbiturates Screen Valproic Acid Ur Phencyclidine Scrn Ur Amphetamines Screen U Benzodiazepines Scrn Urine Cocaine Screen U Marijuana (THC) Screen Ethyl Alcohol < 10 COVID-19 (DORCAS) COVID-19 Clin Com 04/12/23 04/12/23 04/12/23 16:49 16:49 17:27 WBC RBC Hgb Hct MCV MCH MCHC RDW Plt Count MPV Immature Gran % (Auto) Neut % (Auto) Lymph % (Auto) [place] % (Auto) Eos % (Auto) Baso % (Auto) Lymph # (Auto) [place] # (Auto) Eos # (Auto) Baso # (Auto) Abs Immat Gran (auto) Absolute Neuts (auto) Absolute Nucleated RBC Nucleated RBC % (auto) Sodium Potassium Chloride Carbon Dioxide Anion Gap BUN Creatinine Estim Creat Clear Calc Estimated GFR Random Glucose Calcium Total Bilirubin AST ALT Alkaline Phosphatase Total Protein Albumin Urine Color Yellow Urine Appearance Clear Urine pH 7.0 Ur Specific [place] 1.020 Urine Protein Negative Urine Glucose (UA) Negative Urine Ketones Negative Urine Blood Negative Urine Nitrite Negative Ur Leukocyte Esterase Negative Urine RBC 0-2 Urine WBC 0-5 Ur Squamous Epith Cells 3-5 Urine Bacteria None Seen Hyaline Casts 0-2 Urine Test Salicylates Urine Opiates Screen Urine Fentanyl Screen Acetaminophen Ur Barbiturates Screen Valproic Acid 29.9 L Ur Phencyclidine Scrn Ur Amphetamines Screen U Benzodiazepines Scrn Urine Cocaine Screen U Marijuana (THC) Screen Ethyl Alcohol COVID-19 (DORCAS) Negative COVID-19 Clin Com See Note 04/12/23 04/12/23 17:27 17:27 WBC RBC Hgb Hct MCV MCH MCHC RDW Plt Count MPV Immature Gran % (Auto) Neut % (Auto) Lymph % (Auto) [place] % (Auto) Eos % (Auto) Baso % (Auto) Lymph # (Auto) [place] # (Auto) Eos # (Auto) Baso # (Auto) Abs Immat Gran (auto) Absolute Neuts (auto) Absolute Nucleated RBC Nucleated RBC % (auto) Sodium Potassium Chloride Carbon Dioxide Anion Gap BUN Creatinine Estim Creat Clear Calc Estimated GFR Random Glucose Calcium Total Bilirubin AST ALT Alkaline Phosphatase Total Protein Albumin Urine Color Urine Appearance Urine pH Ur Specific [place] Urine Protein Urine Glucose (UA) Urine Ketones Urine Blood Urine Nitrite Ur Leukocyte Esterase Urine RBC Urine WBC Ur Squamous Epith Cells Urine Bacteria Hyaline Casts Urine Test NEGATIVE Salicylates Urine Opiates Screen Not Detected Urine Fentanyl Screen Not Detected Acetaminophen Ur Barbiturates Screen Not Detected Valproic Acid Ur Phencyclidine Scrn Not Detected Ur Amphetamines Screen Not Detected U Benzodiazepines Scrn Not Detected Urine Cocaine Screen Not Detected U Marijuana (THC) Screen Not Detected Ethyl Alcohol COVID-19 (DORCAS) COVID-19 Clin Com Meds/Allergies Allergies Allergies Allergy/AdvReac Type Severity Reaction Status Date / Time No Known Allergies Allergy Unverified 05/05/20 19:51 [No Known Allergies*] Mental Status Exam Mental Status Exam Narrative: Pt is alert and oriented; behavior is cooperative, calm, reticent, guarded;? patient is not in distress; dressed in hospital attire with unkempt, marginal hygiene; mood is described as okay and affect constricted, downcast; eye contact avoidant; Speech is sparse but otherwise normal rate, volume and prosody and not pressured; no psychomotor agitation/retardation present; thought process is concrete; Thought content is on getting back home, getting some help; no paranoid/delusional content expressed; denies any SI/HI.? Denies AVH. ?Patients insight and judgment limited. Assessment & Plan Assessment & Plan (1) Psychotic disorder: Status: Suspected Code(s): F29 - Unspecified psychosis not due to a substance or known physiological condition (2) Hydrocephalus: Status: Acute Code(s): G91.9 - Hydrocephalus, unspecified Plan patient presents with history of intermittent explosive disorder, psychosis, intellectual disability and hydrocephalus. Recent behavioral outbursts at home. Reported medication adherence. Will continue Depakote and olanzapine as per most recent discharge. We will also reach out to mom for more collateral. Patient educated on: medication risk/benefits and therapeutic strategies Informed Consent: understands Reason for continued inpatient stay Substantial Risk for: harm to others and med/psych decompensation Statement Statement: I have reviewed the history and physical and performed a pertinent examination on my patient. No changes have occurred unless specified. If the History and Physical was not performed prior to admission, the Hospitalist's service will be consulted for completing the admission physical. Time Spent With Patient Time: Total time managing care of this patient today ____ minutes.
[2023-04-13 22:00] VITALS: BP 122/78; PULSE 85; RESP 16; TEMP 35.9; O2SAT 98
[2023-04-14 08:20] VITALS: BP 116/55; PULSE 74; RESP 18; TEMP 36.2; O2SAT 96
[2023-04-14] MEDS: OLANZapine 5 MG TABLET PO ×2 (08:27→23:55)
[2023-04-14] MEDS: hydrOXYzine HCL 50 MG TABLET PO ×3 (08:27→19:34)
[2023-04-14] MEDS: Divalproex Sodium ER 250 MG TAB.ER.24H PO (08:28)
--- NOTE | 2023-04-14 12:47 | P.PNPSI_ITS ---
Subjective Subjective Date of Service: 04/14/23 Reason For Visit: Psychosis Dysregulation Interim History: overall no significant changes since yesterday. Reports not hearing any voices today. No medication concerns. Feeling well cared for. Does report feeling depressed and wanting discharge soon. Has some stomach upset today. Slept well. Hopeful of mom might come to visit. Biomedical Engineering Technologist did try to call Mom, but message comes up as service unavailable. Medication Compliance: Yes Side effects from medications: No Attending Groups: Intermittent Review of Systems Acute medical concerns: No Review of Systems Review of Systems some stomach upset Mental Status Exam Mental Status Exam Narrative: Pt is alert and oriented; behavior is cooperative, calm, reticent, guarded;? patient is not in distress; dressed in hospital attire with unkempt, marginal hygiene; mood is described as okay and affect constricted, downcast; eye contact avoidant; Speech is sparse but otherwise normal rate, volume and prosody and not pressured; no psychomotor agitation/retardation present; thought process is concrete; Thought content is on getting back home, getting some help; no paranoid/delusional content expressed; denies any SI/HI.? Denies AVH. ?Patients insight and judgment limited. Diagnostics Vital Signs (24Hr): Vital Signs - 24 hr 04/13/23 22:00 04/14/23 08:20 Temperature 96.7 F L 97.1 F Pulse Rate 85 74 Respiratory Rate 16 18 Blood Pressure 122/78 116/55 L Pulse Oximetry 98 96 Oxygen Delivery Method Room Air Room Air BMI result Body Mass Index 39.0 Labs 04/12/23 16:49 04/12/23 16:49 Labs: Laboratory Results - last 48 hr 04/12/23 04/12/23 04/12/23 16:49 16:49 16:49 WBC 7.5 RBC 4.45 Hgb 13.5 Hct 38.2 MCV 85.8 MCH 30.3 MCHC 35.3 H RDW 12.5 Plt Count 315 MPV 9.4 Immature Gran % (Auto) 0.4 Neut % (Auto) 64.0 Lymph % (Auto) 26.5 [place] % (Auto) 7.0 Eos % (Auto) 1.6 Baso % (Auto) 0.5 Lymph # (Auto) 2.0 [place] # (Auto) 0.5 Eos # (Auto) 0.1 Baso # (Auto) 0.0 Abs Immat Gran (auto) 0.03 Absolute Neuts (auto) 4.8 Absolute Nucleated RBC 0.000 Nucleated RBC % (auto) 0.0 Sodium 138 Potassium 4.2 Chloride 107 Carbon Dioxide 24 Anion Gap 11 L BUN 11 Creatinine 0.71 Estim Creat Clear Calc 136.4 Estimated GFR > 60 Random Glucose 109 Calcium 9.9 Total Bilirubin 0.5 AST 31 ALT 36 H Alkaline Phosphatase 77 Total Protein 8.0 Albumin 4.1 Urine Color Urine Appearance Urine pH Ur Specific [place] Urine Protein Urine Glucose (UA) Urine Ketones Urine Blood Urine Nitrite Ur Leukocyte Esterase Urine RBC Urine WBC Ur Squamous Epith Cells Urine Bacteria Hyaline Casts Urine Test Salicylates < 5.0 L Urine Opiates Screen Urine Fentanyl Screen Acetaminophen < 17 Ur Barbiturates Screen Valproic Acid Ur Phencyclidine Scrn Ur Amphetamines Screen U Benzodiazepines Scrn Urine Cocaine Screen U Marijuana (THC) Screen Ethyl Alcohol < 10 COVID-19 (DORCAS) COVID-[facility]rena[facility] 04/12/23 04/12/23 04/12/23 16:49 16:49 17:27 WBC RBC Hgb Hct MCV MCH MCHC RDW Plt Count MPV Immature Gran % (Auto) Neut % (Auto) Lymph % (Auto) [place] % (Auto) Eos % (Auto) Baso % (Auto) Lymph # (Auto) [place] # (Auto) Eos # (Auto) Baso # (Auto) Abs Immat Gran (auto) Absolute Neuts (auto) Absolute Nucleated RBC Nucleated RBC % (auto) Sodium Potassium Chloride Carbon Dioxide Anion Gap BUN Creatinine Estim Creat Clear Calc Estimated GFR Random Glucose Calcium Total Bilirubin AST ALT Alkaline Phosphatase Total Protein Albumin Urine Color Yellow Urine Appearance Clear Urine pH 7.0 Ur Specific [place] 1.020 Urine Protein Negative Urine Glucose (UA) Negative Urine Ketones Negative Urine Blood Negative Urine Nitrite Negative Ur Leukocyte Esterase Negative Urine RBC 0-2 Urine WBC 0-5 Ur Squamous Epith Cells 3-5 Urine Bacteria None Seen Hyaline Casts 0-2 Urine Test Salicylates Urine Opiates Screen Urine Fentanyl Screen Acetaminophen Ur Barbiturates Screen Valproic Acid 29.9 L Ur Phencyclidine Scrn Ur Amphetamines Screen U Benzodiazepines Scrn Urine Cocaine Screen U Marijuana (THC) Screen Ethyl Alcohol COVID-19 (DORCAS) Negative COVID-19 [employer] See Note 04/12/23 04/12/23 17:27 17:27 WBC RBC Hgb Hct MCV MCH MCHC RDW Plt Count MPV Immature Gran % (Auto) Neut % (Auto) Lymph % (Auto) [place] % (Auto) Eos % (Auto) Baso % (Auto) Lymph # (Auto) [place] # (Auto) Eos # (Auto) Baso # (Auto) Abs Immat Gran (auto) Absolute Neuts (auto) Absolute Nucleated RBC Nucleated RBC % (auto) Sodium Potassium Chloride Carbon Dioxide Anion Gap BUN Creatinine Estim Creat Clear Calc Estimated GFR Random Glucose Calcium Total Bilirubin AST ALT Alkaline Phosphatase Total Protein Albumin Urine Color Urine Appearance Urine pH Ur Specific [place] Urine Protein Urine Glucose (UA) Urine Ketones Urine Blood Urine Nitrite Ur Leukocyte Esterase Urine RBC Urine WBC Ur Squamous Epith Cells Urine Bacteria Hyaline Casts Urine Test NEGATIVE Salicylates Urine Opiates Screen Not Detected Urine Fentanyl Screen Not Detected Acetaminophen Ur Barbiturates Screen Not Detected Valproic Acid Ur Phencyclidine Scrn Not Detected Ur Amphetamines Screen Not Detected U Benzodiazepines Scrn Not Detected Urine Cocaine Screen Not Detected U Marijuana (THC) Screen Not Detected Ethyl Alcohol COVID-19 (DORCAS) COVID-19 Clin Com Medications Medications Current Medications Acetaminophen (Acetaminophen 325 Mg Tablet) 650 mg PO Q6H PRN PRN Reason: Headache/Pain Mild Scale (1-3) Last Admin: 04/13/23 08:14 Dose: 650 mg Al Hydroxide/Mg Hydroxide (Magnesium Hydrox/Alum Hydrox 30 Ml Oral.Susp) 30 ml PO Q6H PRN PRN Reason: Heartburn/Nausea Last Admin: 04/13/23 11:40 Dose: 30 ml Divalproex Sodium (Divalproex Sodium Er 250 Mg Tab.Er.24h) 250 mg PO DAILY [facility] Last Admin: 04/14/23 08:28 Dose: 250 mg Hydroxyzine HCl (Hydroxyzine Hcl 50 Mg Tablet) 50 mg PO TID [facility] Last Admin: 04/14/23 08:27 Dose: 50 mg Hydroxyzine HCl (Hydroxyzine Hcl 25 Mg Tablet) 25 mg PO Q6H PRN PRN Reason: Anxiety Magnesium Hydroxide (Milk Of Magnesia 30 Ml Oral.Susp) 30 ml PO DAILY PRN PRN Reason: Constipation Olanzapine (Olanzapine 5 Mg Tablet) 5 mg PO DAILY [facility] Last Admin: 04/14/23 08:27 Dose: 5 mg Olanzapine (Olanzapine 5 Mg Tablet) 5 mg PO TID PRN PRN Reason: agitation Trazodone HCl (Trazodone Hcl 50 Mg Tablet) 50 mg PO BEDTIME PRN PRN Reason: Insomnia Last Admin: 04/13/23 20:37 Dose: 50 mg Trazodone HCl (Trazodone Hcl 50 Mg Tablet) 50 mg PO BEDTIME MRX1 PRN PRN Reason: Insomnia Last Admin: 04/13/23 00:36 Dose: 50 mg Allergies Allergies Allergy/AdvReac Type Severity Reaction Status Date / Time No Known Allergies Allergy Unverified 05/05/20 19:51 [No Known Allergies*] Assessment & Plan Assessment & Plan (1) Psychotic disorder: Status: Suspected Code(s): F29 - Unspecified psychosis not due to a substance or known physiological condition (2) Hydrocephalus: Status: Acute Code(s): G91.9 - Hydrocephalus, unspecified Plan patient presents with history of intermittent explosive disorder, psychosis, intellectual disability and hydrocephalus. Recent behavioral outbursts at home. Reported medication adherence. Will continue Depakote and olanzapine as per most recent discharge. We will also reach out to mom for more collateral- tried to call service unavailable Reason for continued inpatient stay Substantial Risk for: inability to function Time Spent With Patient Time: Total time managing care of this patient today ____ minutes.
[2023-04-14] MEDS: Acetaminophen 325 MG TABLET 650 MG PO ×2 (17:09→22:27)
[2023-04-14 18:00] VITALS: BP 122/68; PULSE 75; RESP 16; TEMP 36.6; O2SAT 98
[2023-04-14] MEDS: traZODone HCL 50 MG TABLET PO ×2 (19:34→23:55)
[2023-04-14] MEDS: Magnesium Hydrox/Alum Hydrox 30 ML ORAL.SUSP PO ×2 (20:44→23:55)
[2023-04-15] MEDS: hydrOXYzine HCL 50 MG TABLET PO ×2 (08:59→20:04)
[2023-04-15] MEDS: OLANZapine 5 MG TABLET PO (08:59)
[2023-04-15] MEDS: Divalproex Sodium ER 250 MG TAB.ER.24H PO ×2 (08:59→10:43)
[2023-04-15 09:00] VITALS: BP 121/73; PULSE 87; RESP 16; TEMP 36.2; O2SAT 99
[2023-04-15] MEDS: Magnesium Hydrox/Alum Hydrox 30 ML ORAL.SUSP PO ×2 (09:15→16:39)
[2023-04-15] MEDS: Milk of Magnesia 30 ML ORAL.SUSP PO (09:23)
--- NOTE | 2023-04-15 10:01 | HO.PSYCHPN ---
Subjective Subjective Date of Service: 04/15/23 Reason For Visit: Psychosis Dysregulation Interim History: With patient; discussed with team; reviewed progress notes Patient pleasant and calm; she has remained in good behavioral and impulse control over the weekend and appears to be at baseline. Patient says she is not sure why she stopped taking her medications other than she forgets sometimes. She says she is here because she got into an argument with her mother. Agrees for increase in Depakote. Patient social in the milieu; attending to ADLs Prior to admission patient was responding to internal stimuli, angry, disorganized demonstrated by disrobing and appropriately Diagnostics Vital Signs (24Hr): Vital Signs - 24 hr 04/14/23 18:00 04/15/23 09:00 Temperature 97.8 F 97.1 F Pulse Rate 75 87 Respiratory Rate 16 16 Blood Pressure 122/68 121/73 Pulse Oximetry 98 99 Oxygen Delivery Method Room Air Room Air BMI result Body Mass Index 39.0 Labs 04/12/23 16:49 04/12/23 16:49 Medications Medications Current Medications Acetaminophen (Acetaminophen 325 Mg Tablet) 650 mg PO Q6H PRN PRN Reason: Headache/Pain Mild Scale (1-3) Last Admin: 04/14/23 22:27 Dose: 650 mg Al Hydroxide/Mg Hydroxide (Magnesium Hydrox/Alum Hydrox 30 Ml Oral.Susp) 30 ml PO Q6H PRN PRN Reason: Heartburn/Nausea Last Admin: 04/15/23 09:15 Dose: 30 ml Divalproex Sodium (Divalproex Sodium Er 250 Mg Tab.Er.24h) 250 mg PO DAILY [facility] Last Admin: 04/15/23 08:59 Dose: 250 mg Hydroxyzine HCl (Hydroxyzine Hcl 50 Mg Tablet) 50 mg PO TID [facility] Last Admin: 04/15/23 08:59 Dose: 50 mg Hydroxyzine HCl (Hydroxyzine Hcl 25 Mg Tablet) 25 mg PO Q6H PRN PRN Reason: Anxiety Magnesium Hydroxide (Milk Of Magnesia 30 Ml Oral.Susp) 30 ml PO DAILY PRN PRN Reason: Constipation Last Admin: 04/15/23 09:23 Dose: 30 ml Olanzapine (Olanzapine 5 Mg Tablet) 5 mg PO DAILY [facility] Last Admin: 04/15/23 08:59 Dose: 5 mg Olanzapine (Olanzapine 5 Mg Tablet) 5 mg PO TID PRN PRN Reason: agitation Last Admin: 04/14/23 23:55 Dose: 5 mg Trazodone HCl (Trazodone Hcl 50 Mg Tablet) 50 mg PO BEDTIME PRN PRN Reason: Insomnia Last Admin: 04/14/23 19:34 Dose: 50 mg Trazodone HCl (Trazodone Hcl 50 Mg Tablet) 50 mg PO BEDTIME MRX1 PRN PRN Reason: Insomnia Last Admin: 04/14/23 23:55 Dose: 50 mg Allergies Allergies Allergy/AdvReac Type Severity Reaction Status Date / Time No Known Allergies Allergy Unverified 05/05/20 19:51 [No Known Allergies*] Assessment & Plan Assessment & Plan (1) Psychotic disorder: Status: Suspected Code(s): F29 - Unspecified psychosis not due to a substance or known physiological condition (2) Hydrocephalus: Status: Acute Code(s): G91.9 - Hydrocephalus, unspecified Plan patient presents with history of intermittent explosive disorder, psychosis, intellectual disability and hydrocephalus. Recent behavioral outbursts at home. ED reported patient was responding to internal stimuli, angry, disorganized demonstrated by disrobing and appropriately Hospital course 04/15 patient was admitted this past December with similar presentation and face of of what seems like medication non adherence. Patient restarted/continued on medication on admission. Patient now appears to be at baseline. Patient says she is not sure why she stopped taking her medications other than she forgets sometimes. She says she is here because she got into an argument with her mother. Agrees for increase in Depakote. -will increase Depakote dose which may help improve stability and thus medication adherence. Patient social in the milieu; attending to ADLs PLAN: CV Q 15 minute checks Increase Depakote ER to 500 mg daily; even with consistent adherence doses subtherapeutic and increase may help with stability and adherence Continue Zyprexa 5 mg daily Continue hydroxyzine 50 mg t.i.d.; not sure why it scheduled however this is her home medication regimen Gather collateral;Admitting provider tried to call mother however service unavailable Will discuss with mother about possibility of penitentiary living Patient educated on: diagnosis and medication risk/benefits Informed Consent: understands, does not understand and further education needed Reason for continued inpatient stay Substantial Risk for: rapid decompensation Time Spent With Patient Time: Total time managing care of this patient today ____ minutes.
[2023-04-15] MEDS: hydrOXYzine HCL 25 MG TABLET PO (13:01)
--- NOTE | 2023-04-15 14:37 | PC.NURSE ---
Scheduled Atarax 50mg held d/t pt drowsiness. Pt received Atarax 25mg prn at 1300 and was found soundly sleeping in dining area. Pt noticeably drowsy and required staff assistance to ambulate to bed. Provider made aware scheduled dose was held.
[2023-04-15 18:00] VITALS: BP 114/85; PULSE 102; RESP 17; TEMP 36.3; O2SAT 98
[2023-04-15] MEDS: Acetaminophen 325 MG TABLET 650 MG PO (20:03)
[2023-04-15] MEDS: traZODone HCL 50 MG TABLET PO (22:22)
[2023-04-16 08:25] VITALS: BP 123/73; PULSE 85; RESP 18; TEMP 36.3; O2SAT 95
[2023-04-16] MEDS: OLANZapine 5 MG TABLET PO (08:38)
[2023-04-16] MEDS: Divalproex Sodium ER 500 MG TAB.ER.24H PO (08:38)
[2023-04-16] MEDS: hydrOXYzine HCL 50 MG TABLET PO ×3 (08:38→19:28)
--- NOTE | 2023-04-16 09:34 | HO.PSYCHPN ---
Subjective Subjective Date of Service: 04/16/23 Reason For Visit: Psychosis Dysregulation Interim History: met with patient; discussed with team No change in presentation; pt says she misses her roommate who discharged today. Otherwise, no complaints or requests. Intermittently, pt incontinent stool, urine (3x yesterday on 2nd shift) and asked for shower; she refuses to wear depends denies SI/HI/AVH. Mental Status Exam Mental Status Exam Narrative: Pt is alert and oriented; behavior is cooperative, calm, friendly;? patient is not in distress; dressed in casual attire with adequate hygiene; mood is described as okay and affect constricted; eye contact avoidant; Speech is normal rate, volume and prosody and not pressured; no psychomotor agitation/retardation present; thought process is concrete; Thought content is vacuous; no paranoid/delusional content expressed; denies any SI/HI.? Denies AVH. ?Patients insight and judgment limited. Diagnostics Vital Signs (24Hr): Vital Signs - 24 hr 04/15/23 18:00 04/16/23 08:25 Temperature 97.4 F 97.4 F Pulse Rate 102 H 85 Respiratory Rate 17 18 Blood Pressure 114/85 123/73 Pulse Oximetry 98 95 Oxygen Delivery Method Room Air Room Air BMI result Body Mass Index 39.0 Labs 04/12/23 16:49 04/12/23 16:49 Medications Medications Current Medications Acetaminophen (Acetaminophen 325 Mg Tablet) 650 mg PO Q6H PRN PRN Reason: Headache/Pain Mild Scale (1-3) Last Admin: 04/15/23 20:03 Dose: 650 mg Al Hydroxide/Mg Hydroxide (Magnesium Hydrox/Alum Hydrox 30 Ml Oral.Susp) 30 ml PO Q6H PRN PRN Reason: Heartburn/Nausea Last Admin: 04/15/23 16:39 Dose: 30 ml Divalproex Sodium (Divalproex Sodium Er 500 Mg Tab.Er.24h) 500 mg PO DAILY CUCA Last Admin: 04/16/23 08:38 Dose: 500 mg Hydroxyzine HCl (Hydroxyzine Hcl 50 Mg Tablet) 50 mg PO TID CUCA Last Admin: 04/16/23 08:38 Dose: 50 mg Hydroxyzine HCl (Hydroxyzine Hcl 25 Mg Tablet) 25 mg PO Q6H PRN PRN Reason: Anxiety Last Admin: 04/15/23 13:01 Dose: 25 mg Magnesium Hydroxide (Milk Of Magnesia 30 Ml Oral.Susp) 30 ml PO DAILY PRN PRN Reason: Constipation Last Admin: 04/15/23 09:23 Dose: 30 ml Olanzapine (Olanzapine 5 Mg Tablet) 5 mg PO DAILY CUCA Last Admin: 04/16/23 08:38 Dose: 5 mg Olanzapine (Olanzapine 5 Mg Tablet) 5 mg PO TID PRN PRN Reason: agitation Last Admin: 04/14/23 23:55 Dose: 5 mg Trazodone HCl (Trazodone Hcl 50 Mg Tablet) 50 mg PO BEDTIME PRN PRN Reason: Insomnia Last Admin: 04/15/23 22:22 Dose: 50 mg Trazodone HCl (Trazodone Hcl 50 Mg Tablet) 50 mg PO BEDTIME MRX1 PRN PRN Reason: Insomnia Last Admin: 04/14/23 23:55 Dose: 50 mg Allergies Allergies Allergy/AdvReac Type Severity Reaction Status Date / Time No Known Allergies Allergy Unverified 05/05/20 19:51 [No Known Allergies*] Assessment & Plan Assessment & Plan (1) Psychotic disorder: Status: Suspected Code(s): F29 - Unspecified psychosis not due to a substance or known physiological condition (2) Hydrocephalus: Status: Acute Code(s): G91.9 - Hydrocephalus, unspecified Plan patient presents with history of intermittent explosive disorder, psychosis, intellectual disability and hydrocephalus. Recent behavioral outbursts at home. ED reported patient was responding to internal stimuli, angry, disorganized demonstrated by disrobing and appropriately Hospital course 04/15 patient was admitted this past December with similar presentation and face of of what seems like medication non adherence. Patient restarted/continued on medication on admission. Patient now appears to be at baseline. Patient says she is not sure why she stopped taking her medications other than she forgets sometimes. She says she is here because she got into an argument with her mother. Agrees for increase in Depakote. -will increase Depakote dose which may help improve stability and thus medication adherence. Patient social in the milieu; attending to ADLs 04/16 no change in presentation; tolerating increased dose of depakote; SW looking into [facility] PLAN: CV Q 15 minute checks Continue Depakote ER to 500 mg daily; even with consistent adherence doses subtherapeutic;increase may help stability/adherence -labs/valproic acid level ordered Continue Zyprexa 5 mg daily Continue hydroxyzine 50 mg t.i.d.; not sure why it scheduled however this is her home medication regimen Gather collateral;Admitting provider tried to call mother however service unavailable Will discuss with mother about possibility of residential living Patient educated on: diagnosis Informed Consent: understands and further education needed Reason for continued inpatient stay Substantial Risk for: rapid decompensation Time Spent With Patient Time: Total time managing care of this patient today ____ minutes.
[2023-04-16] MEDS: Acetaminophen 325 MG TABLET 650 MG PO ×2 (15:11→21:32)
[2023-04-16 19:11] VITALS: BP 126/60; PULSE 91; TEMP 36.2
[2023-04-16] MEDS: traZODone HCL 50 MG TABLET PO ×2 (19:28→23:08)
[2023-04-17 06:00] VITALS: BP 122/66; PULSE 82; RESP 18; TEMP 36.7; O2SAT 96
[2023-04-17] MEDS: OLANZapine 5 MG TABLET PO ×2 (09:23→21:57)
[2023-04-17] MEDS: Divalproex Sodium ER 500 MG TAB.ER.24H PO (09:24)
[2023-04-17] MEDS: Acetaminophen 325 MG TABLET 650 MG PO ×2 (09:24→16:08)
[2023-04-17] MEDS: hydrOXYzine HCL 50 MG TABLET PO ×3 (09:24→20:06)
--- NOTE | 2023-04-17 10:39 | P.PNPSI_ITS ---
Subjective Subjective Date of Service: 04/17/23 Reason For Visit: Psychosis Dysregulation Interim History: Met with patient; discussed with team Patient is pleasant and cooperative; remains in good behavioral and impulse control on the unit . Says she is feeling good and has a noticeably brighter affect. Patient difficult to engage other than on a superficial level. She becomes reticent when psychosocial type questions are asked. Team Will continue to develop rapport with patient and further assess hx of symptoms. Mental Status Exam Mental Status Exam Narrative: Pt is alert and oriented; behavior is cooperative, calm, friendly;? patient is not in distress; dressed in Hospital attire with adequate hygiene; mood is described as good and affect congruent, brighter; eye contact appropriate; Speech is normal rate, volume and prosody and not pressured; no psychomotor agitation/retardation present; thought process is concrete; Thought content is vacuous; no paranoid/delusional content expressed; denies any SI/HI.? Denies AVH. ?Patients insight and judgment limited but at baseline. Diagnostics Vital Signs (24Hr): Vital Signs - 24 hr 04/16/23 19:11 04/17/23 06:00 Temperature 97.1 F 98.0 F Pulse Rate 91 82 Respiratory Rate 18 Blood Pressure 126/60 122/66 Pulse Oximetry 96 Oxygen Delivery Method Room Air BMI result Body Mass Index 39.0 Labs 04/12/23 16:49 04/12/23 16:49 Medications Medications Current Medications Acetaminophen (Acetaminophen 325 Mg Tablet) 650 mg PO Q6H PRN PRN Reason: Headache/Pain Mild Scale (1-3) Last Admin: 04/17/23 09:24 Dose: 650 mg Al Hydroxide/Mg Hydroxide (Magnesium Hydrox/Alum Hydrox 30 Ml Oral.Susp) 30 ml PO Q6H PRN PRN Reason: Heartburn/Nausea Last Admin: 04/15/23 16:39 Dose: 30 ml Divalproex Sodium (Divalproex Sodium Er 500 Mg Tab.Er.24h) 500 mg PO DAILY CUCA Last Admin: 04/17/23 09:24 Dose: 500 mg Hydroxyzine HCl (Hydroxyzine Hcl 50 Mg Tablet) 50 mg PO TID CUCA Last Admin: 04/17/23 09:24 Dose: 50 mg Hydroxyzine HCl (Hydroxyzine Hcl 25 Mg Tablet) 25 mg PO Q6H PRN PRN Reason: Anxiety Last Admin: 04/15/23 13:01 Dose: 25 mg Magnesium Hydroxide (Milk Of Magnesia 30 Ml Oral.Susp) 30 ml PO DAILY PRN PRN Reason: Constipation Last Admin: 04/15/23 09:23 Dose: 30 ml Olanzapine (Olanzapine 5 Mg Tablet) 5 mg PO DAILY CUCA Last Admin: 04/17/23 09:23 Dose: 5 mg Olanzapine (Olanzapine 5 Mg Tablet) 5 mg PO TID PRN PRN Reason: agitation Last Admin: 04/14/23 23:55 Dose: 5 mg Trazodone HCl (Trazodone Hcl 50 Mg Tablet) 50 mg PO BEDTIME PRN PRN Reason: Insomnia Last Admin: 04/16/23 19:28 Dose: 50 mg Trazodone HCl (Trazodone Hcl 50 Mg Tablet) 50 mg PO BEDTIME MRX1 PRN PRN Reason: Insomnia Last Admin: 04/16/23 23:08 Dose: 50 mg Allergies Allergies Allergy/AdvReac Type Severity Reaction Status Date / Time No Known Allergies Allergy Unverified 05/05/20 19:51 [No Known Allergies*] Assessment & Plan Assessment & Plan (1) Psychotic disorder: Status: Suspected Code(s): F29 - Unspecified psychosis not due to a substance or known physiological condition (2) Hydrocephalus: Status: Acute Code(s): G91.9 - Hydrocephalus, unspecified Plan patient presents with history of intermittent explosive disorder, psychosis, intellectual disability and hydrocephalus. Recent behavioral outbursts at home. ED reported patient was responding to internal stimuli, angry, disorganized demonstrated by disrobing and appropriately Hospital course 04/15 patient was admitted this past December with similar presentation and face of of what seems like medication non adherence. Patient restarted/continued on medication on admission. Patient now appears to be at baseline. Patient says she is not sure why she stopped taking her medications other than she forgets sometimes. She says she is here because she got into an argument with her mother. Agrees for increase in Depakote. -will increase Depakote dose which may help improve stability and thus medication adherence. Patient social in the milieu; attending to ADLs 04/16 no change in presentation; tolerating increased dose of depakote; SW looking into [facility] [place] 04/17 patient remains stable and in good behavioral and impulse control; intermittently incontinent which is baseline. Patient difficult to engage other than on a superficial level. She becomes reticent when psychosocial type questions are asked. Some question about extent of psychotic symptoms; collateral reports are that AH is demanded nature and drives her unsafe/dysregulated behaviors; however currently this seems difficult to discuss with her and determine what she is experiencing, psychotic symptoms verse cognitive impairment. Team Will continue to develop rapport with patient and further assess hx of symptoms. PLAN: CV Q 15 minute checks Continue Depakote ER to 500 mg daily (increased from 250 mg); even with consistent adherence doses subtherapeutic;increase may help stability/adherence -labs/valproic acid level ordered Continue Zyprexa 5 mg daily Continue hydroxyzine 50 mg t.i.d.; not sure why it scheduled however this is her home medication regimen Gather collateral;Admitting provider tried to call mother however service unavailable Will discuss with mother about possibility of long-term living Reason for continued inpatient stay Substantial Risk for: rapid decompensation Time Spent With Patient Time: Total time managing care of this patient today ____ minutes.
[2023-04-17] MEDS: Milk of Magnesia 30 ML ORAL.SUSP PO (11:21)
[2023-04-17] MEDS: Magnesium Hydrox/Alum Hydrox 30 ML ORAL.SUSP PO (12:33)
[2023-04-17 18:00] VITALS: PULSE 88; RESP 18; TEMP 36.6; O2SAT 97
[2023-04-17] MEDS: traZODone HCL 50 MG TABLET PO (20:06)
[2023-04-18 06:00] VITALS: BP 127/74; PULSE 79; RESP 18
[2023-04-18 07:00] VITALS: BMI 41.3
[2023-04-18] MEDS: hydrOXYzine HCL 50 MG TABLET PO ×2 (08:02→20:22)
[2023-04-18] MEDS: OLANZapine 5 MG TABLET PO (08:02)
[2023-04-18] MEDS: Acetaminophen 325 MG TABLET 650 MG PO ×2 (08:03→17:53)
[2023-04-18] MEDS: Divalproex Sodium ER 500 MG TAB.ER.24H PO (08:03)
--- NOTE | 2023-04-18 08:53 | HO.PSYCHPN ---
Subjective Subjective Date of Service: 04/18/23 Reason For Visit: Psychosis Dysregulation Interim History: Met with patient; discussed with team No change in presentation. Discussed auditory hallucinations. Patient says they exist but are just whispers; denies any command AH. hospice social worker also discussed AH with patient with same report. Patient friendly on approach however when asked about such questions, she avoids eye contact and becomes reticent, difficult with which to engage and not able to tolerate any more discussion than a single answer. Earlier, patient fell in shower and hit her right wrist on the chair; she, did not hit head. Focused physical exam without any observable swelling; some point tenderness carpal area; x-ray ordered, reviewed and WNL Mental Status Exam Mental Status Exam Narrative: Pt is alert and oriented; behavior is cooperative, calm, friendly;? patient is not in distress; dressed in Hospital attire with adequate hygiene; mood is described as good and affect congruent, brighter; eye contact appropriate; Speech is normal rate, volume and prosody and not pressured; no psychomotor agitation/retardation present; thought process is concrete; Thought content is vacuous; no paranoid/delusional content expressed; denies any SI/HI.? Denies AVH. ?Patients insight and judgment limited but at baseline. Diagnostics Vital Signs (24Hr): Vital Signs - 24 hr 04/17/23 18:00 04/18/23 06:00 Temperature 98 F Pulse Rate 88 79 Respiratory Rate 18 18 Blood Pressure 127/74 Pulse Oximetry 97 Oxygen Delivery Method Room Air Room Air BMI result Body Mass Index 39.0 Labs 04/12/23 16:49 04/12/23 16:49 Imaging Radiology Impressions: Date of Service: 04/18/23 Procedure(s): XR hand wrist RT EXAMINATION: XR WRIST/HAND, RIGHT FINDINGS: RIGHT HAND AND WRIST: Alignment is unchanged. No acute displaced fracture or dislocation. No erosions or soft tissue calcifications. No focal radiographic soft tissue swelling. Medications Medications Current Medications Acetaminophen (Acetaminophen 325 Mg Tablet) 650 mg PO Q6H PRN PRN Reason: Headache/Pain Mild Scale (1-3) Last Admin: 04/18/23 08:03 Dose: 650 mg Al Hydroxide/Mg Hydroxide (Magnesium Hydrox/Alum Hydrox 30 Ml Oral.Susp) 30 ml PO Q6H PRN PRN Reason: Heartburn/Nausea Last Admin: 04/17/23 12:33 Dose: 30 ml Divalproex Sodium (Divalproex Sodium Er 500 Mg Tab.Er.24h) 500 mg PO DAILY CUCA Last Admin: 04/18/23 08:03 Dose: 500 mg Hydroxyzine HCl (Hydroxyzine Hcl 50 Mg Tablet) 50 mg PO TID CUCA Last Admin: 04/18/23 08:02 Dose: 50 mg Hydroxyzine HCl (Hydroxyzine Hcl 25 Mg Tablet) 25 mg PO Q6H PRN PRN Reason: Anxiety Last Admin: 04/15/23 13:01 Dose: 25 mg Magnesium Hydroxide (Milk Of Magnesia 30 Ml Oral.Susp) 30 ml PO DAILY PRN PRN Reason: Constipation Last Admin: 04/17/23 11:21 Dose: 30 ml Olanzapine (Olanzapine 5 Mg Tablet) 5 mg PO DAILY CUCA Last Admin: 04/18/23 08:02 Dose: 5 mg Olanzapine (Olanzapine 5 Mg Tablet) 5 mg PO TID PRN PRN Reason: agitation Last Admin: 04/17/23 21:57 Dose: 5 mg Trazodone HCl (Trazodone Hcl 50 Mg Tablet) 50 mg PO BEDTIME PRN PRN Reason: Insomnia Last Admin: 04/17/23 20:06 Dose: 50 mg Trazodone HCl (Trazodone Hcl 50 Mg Tablet) 50 mg PO BEDTIME MRX1 PRN PRN Reason: Insomnia Last Admin: 04/16/23 23:08 Dose: 50 mg Allergies Allergies Allergy/AdvReac Type Severity Reaction Status Date / Time No Known Allergies Allergy Unverified 05/05/20 19:51 [No Known Allergies*] Assessment & Plan Assessment & Plan (1) Psychotic disorder: Status: Suspected Code(s): F29 - Unspecified psychosis not due to a substance or known physiological condition (2) Hydrocephalus: Status: Acute Code(s): G91.9 - Hydrocephalus, unspecified Plan patient presents with history of intermittent explosive disorder, psychosis, intellectual disability and hydrocephalus. Recent behavioral outbursts at home. ED reported patient was responding to internal stimuli, angry, disorganized demonstrated by disrobing and appropriately Hospital course 04/15 patient was admitted this past December with similar presentation and face of of what seems like medication non adherence. Patient restarted/continued on medication on admission. Patient now appears to be at baseline. Patient says she is not sure why she stopped taking her medications other than she forgets sometimes. She says she is here because she got into an argument with her mother. Agrees for increase in Depakote. -will increase Depakote dose which may help improve stability and thus medication adherence. Patient social in the milieu; attending to ADLs 04/16 no change in presentation; tolerating increased dose of depakote; SW looking into [facility] 04/17 patient remains stable and in good behavioral and impulse control; intermittently incontinent which is baseline. Patient difficult to engage other than on a superficial level. She becomes reticent when psychosocial type questions are asked. Some question about extent of psychotic symptoms; collateral reports are that AH is demanded nature and drives her unsafe/dysregulated behaviors; however currently this seems difficult to discuss with her and determine what she is experiencing, psychotic symptoms verse cognitive impairment. Team Will continue to develop rapport with patient and further assess hx of symptoms. 04/18 No change in presentation. Discussed auditory hallucinations. Patient says they exist but are just whispers; denies any command AH. hospice social worker also discussed AH with patient with same report. Patient friendly on approach however when asked about such questions, she avoids eye contact and becomes reticent, difficult with which to engage and not able to tolerate any more discussion than a single answer. Earlier, patient fell in shower and hit her right wrist on the chair; she, did not hit head. Focused physical exam without any observable swelling; some point tenderness carpal area; x-ray ordered, reviewed and WNL PLAN: CV Q 15 minute checks Continue Depakote ER to 500 mg daily (increased from 250 mg); even with consistent adherence doses subtherapeutic;increase may help stability/adherence -labs/valproic acid level ordered Continue Zyprexa 5 mg daily Continue hydroxyzine 50 mg t.i.d.; not sure why it scheduled however this is her home medication regimen Gather collateral;Admitting provider tried to call mother however service unavailable Will discuss with mother about possibility of correction living Patient educated on: diagnosis Informed Consent: understands and further education needed Reason for continued inpatient stay Substantial Risk for: med/psych decompensation Time Spent With Patient Time: Total time managing care of this patient today ____ minutes.
[2023-04-18 09:10] LABS: Ammonia 34 umol/L (13-55)
[2023-04-18 09:32] LABS: Valproate 38.9 mcg/mL (50.0-100.0)
[2023-04-18 09:38] LABS: Alanine Aminotransferase 37 U/L (0-31); Albumin Level 4.1 g/dL (3.5-5.0); Alkaline Phosphatase 72 U/L (39-117); Aspartate Amino Transferase 30 U/L (5-31); Bilirubin Direct 0.2 mg/dL (0.0-0.5); Bilirubin Total 0.5 mg/dL (0.0-1.0); Total Protein 7.4 g/dL (6.5-8.0)
[2023-04-18] MEDS: traZODone HCL 50 MG TABLET PO ×2 (20:22→21:37)
[2023-04-18 20:23] VITALS: BP 114/68; PULSE 83; RESP 18; TEMP 36.2; O2SAT 97
[2023-04-18] MEDS: Magnesium Hydrox/Alum Hydrox 30 ML ORAL.SUSP PO (22:53)
[2023-04-19 08:06] VITALS: BP 129/59; PULSE 97; RESP 16; TEMP 36.8; O2SAT 100
[2023-04-19] MEDS: OLANZapine 5 MG TABLET PO (08:08)
[2023-04-19] MEDS: hydrOXYzine HCL 50 MG TABLET PO ×3 (08:08→20:20)
[2023-04-19] MEDS: Divalproex Sodium ER 500 MG TAB.ER.24H PO (08:08)
--- NOTE | 2023-04-19 10:25 | P.PNPSI_ITS ---
Subjective Subjective Date of Service: 04/19/23 Reason For Visit: Psychosis Dysregulation Interim History: Met with patient; discussed with team Patient with same presentation. She says she is good and remains difficult with which to engage on anything other than superficial discussion. Mental Status Exam Mental Status Exam Narrative: Pt is alert and oriented; behavior is cooperative, calm, friendly;? patient is not in distress; dressed in Hospital attire with marginal hygiene and malodorous of urine; mood is described as good and affect congruent, brighter; eye contact appropriate; Speech is normal rate, volume and prosody and not pressured; no psychomotor agitation/retardation present; thought process is concrete; Thought content is vacuous; no paranoid/delusional content expressed; denies any SI/HI.? Denies AVH. ?Patients insight and judgment limited but at baseline. Diagnostics Vital Signs (24Hr): Vital Signs - 24 hr 04/18/23 20:23 04/19/23 08:06 Temperature 97.2 F 98.2 F Pulse Rate 83 97 Respiratory Rate 18 16 Blood Pressure 114/68 129/59 L Pulse Oximetry 97 100 Oxygen Delivery Method Room Air Room Air BMI result Body Mass Index 41.3 Labs 04/12/23 16:49 04/12/23 16:49 Labs: Laboratory Results - last 48 hr 04/18/23 04/18/23 04/18/23 08:26 08:26 08:26 Total Bilirubin 0.5 Direct Bilirubin 0.2 AST 30 ALT 37 H Alkaline Phosphatase 72 Ammonia 34 Total Protein 7.4 Albumin 4.1 Valproic Acid 38.9 L Imaging Radiology Impressions: ITS Impressions Hand/Wrist X-Ray 04/18/23 11:08 IMPRESSION: No acute abnormality. Medications Medications Current Medications Acetaminophen (Acetaminophen 325 Mg Tablet) 650 mg PO Q6H PRN PRN Reason: Headache/Pain Mild Scale (1-3) Last Admin: 04/18/23 17:53 Dose: 650 mg Al Hydroxide/Mg Hydroxide (Magnesium Hydrox/Alum Hydrox 30 Ml Oral.Susp) 30 ml PO Q6H PRN PRN Reason: Heartburn/Nausea Last Admin: 04/18/23 22:53 Dose: 30 ml Divalproex Sodium (Divalproex Sodium Er 500 Mg Tab.Er.24h) 500 mg PO DAILY CUCA Last Admin: 04/19/23 08:08 Dose: 500 mg Hydroxyzine HCl (Hydroxyzine Hcl 50 Mg Tablet) 50 mg PO TID CUCA Last Admin: 04/19/23 08:08 Dose: 50 mg Hydroxyzine HCl (Hydroxyzine Hcl 25 Mg Tablet) 25 mg PO Q6H PRN PRN Reason: Anxiety Last Admin: 04/15/23 13:01 Dose: 25 mg Magnesium Hydroxide (Milk Of Magnesia 30 Ml Oral.Susp) 30 ml PO DAILY PRN PRN Reason: Constipation Last Admin: 04/17/23 11:21 Dose: 30 ml Olanzapine (Olanzapine 5 Mg Tablet) 5 mg PO DAILY CUCA Last Admin: 04/19/23 08:08 Dose: 5 mg Olanzapine (Olanzapine 5 Mg Tablet) 5 mg PO TID PRN PRN Reason: agitation Last Admin: 04/17/23 21:57 Dose: 5 mg Trazodone HCl (Trazodone Hcl 50 Mg Tablet) 50 mg PO BEDTIME PRN PRN Reason: Insomnia Last Admin: 04/18/23 20:22 Dose: 50 mg Trazodone HCl (Trazodone Hcl 50 Mg Tablet) 50 mg PO BEDTIME MRX1 PRN PRN Reason: Insomnia Last Admin: 04/18/23 21:37 Dose: 50 mg Allergies Allergies Allergy/AdvReac Type Severity Reaction Status Date / Time No Known Allergies Allergy Unverified 05/05/20 19:51 [No Known Allergies*] Assessment & Plan Assessment & Plan (1) Psychotic disorder: Status: Suspected Code(s): F29 - Unspecified psychosis not due to a substance or known physiological condition (2) Hydrocephalus: Status: Acute Code(s): G91.9 - Hydrocephalus, unspecified Plan patient presents with history of intermittent explosive disorder, psychosis, intellectual disability and hydrocephalus. Recent behavioral outbursts at home. ED reported patient was responding to internal stimuli, angry, disorganized demonstrated by disrobing and appropriately Hospital course 04/15 patient was admitted this past December with similar presentation and face of of what seems like medication non adherence. Patient restarted/continued on medication on admission. Patient now appears to be at baseline. Patient says she is not sure why she stopped taking her medications other than she forgets sometimes. She says she is here because she got into an argument with her mother. Agrees for increase in Depakote. -will increase Depakote dose which may help improve stability and thus medication adherence. Patient social in the milieu; attending to ADLs 04/16 no change in presentation; tolerating increased dose of depakote; SW looking into [facility] 04/17 patient remains stable and in good behavioral and impulse control; intermittently incontinent which is baseline. Patient difficult to engage other than on a superficial level. She becomes reticent when psychosocial type questions are asked. Some question about extent of psychotic symptoms; marie ateral reports are that AH is demanded nature and drives her unsafe/dysregulated behaviors; however currently this seems difficult to discuss with her and determine what she is experiencing, psychotic symptoms verse cognitive impairment. Team Will continue to develop rapport with patient and further assess hx of symptoms. 04/18 No change in presentation. Discussed auditory hallucinations. Patient says they exist but are just whispers; denies any command AH. flour worker also discussed AH with patient with same report. Patient friendly on approach however when asked about such questions, she avoids eye contact and becomes reticent, difficult with which to engage and not able to tolerate any more discussion than a single answer. Earlier, patient fell in shower and hit her right wrist on the chair; she, did not hit head. 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 Social work continuing to set up increased community support PLAN: CV Q 15 minute checks Start oxybutynin ER 5 mg daily for chronic urinary incontinence Continue Depakote ER to 500 mg daily (increased from 250 mg); even with consistent adherence doses subtherapeutic;increase may help stability/adherence -valproic acid level subtherapeutic (but no history of joy so will leave where it is) Continue Zyprexa 5 mg daily Continue hydroxyzine 50 mg t.i.d.; not sure why it scheduled however this is her home medication regimen Gather collateral;Admitting provider tried to call mother however service unavailable Will discuss with mother about possibility of long term living Patient educated on: diagnosis Informed Consent: understands, does not understand and further education needed Reason for continued inpatient stay Substantial Risk for: stable for discharge Time Spent With Patient Time: Total time managing care of this patient today ____ minutes.
[2023-04-19] MEDS: oxyBUTYnin chloride ER 5 MG TAB.ER.24 PO (13:14)
[2023-04-19] MEDS: Acetaminophen 325 MG TABLET 650 MG PO (16:13)
[2023-04-19 18:00] VITALS: BP 122/74; PULSE 85; RESP 16; TEMP 36.4; O2SAT 97
[2023-04-19] MEDS: traZODone HCL 50 MG TABLET PO (20:20)
[2023-04-20 08:20] VITALS: BP 128/90; PULSE 88; RESP 18; TEMP 35.9; O2SAT 97
[2023-04-20] MEDS: oxyBUTYnin chloride ER 5 MG TAB.ER.24 PO (08:20)
[2023-04-20] MEDS: OLANZapine 5 MG TABLET PO (08:20)
[2023-04-20] MEDS: hydrOXYzine HCL 50 MG TABLET PO ×3 (08:21→19:57)
[2023-04-20] MEDS: Divalproex Sodium ER 500 MG TAB.ER.24H PO (08:21)
--- NOTE | 2023-04-20 09:03 | P.PNPSI_ITS ---
Subjective Subjective Date of Service: 04/20/23 Reason For Visit: Psychosis Dysregulation Interim History: met with patient; discussed with team Patient calm, smiling, says she is better though does not elaborate on then what. Difficult with which to engage other than on short superficial interactions Mental Status Exam Mental Status Exam Narrative: Pt is alert and oriented; behavior is cooperative, calm, friendly;? patient is not in distress; dressed in casual attire with improved hygiene, not malodorous of urine; mood is described as better and affect congruent, brighter; eye contact appropriate; Speech is normal rate, volume and prosody and not pressured; no psychomotor agitation/retardation present; thought process is concrete; Thought content is vacuous; no paranoid/delusional content expressed; denies any SI/HI.? Denies AVH. ?Patients insight and judgment limited but at baseline. Diagnostics Vital Signs (24Hr): Vital Signs - 24 hr 04/19/23 18:00 Temperature 97.6 F Pulse Rate 85 Respiratory Rate 16 Blood Pressure 122/74 Pulse Oximetry 97 Oxygen Delivery Method Room Air BMI result Body Mass Index 41.3 Labs 04/12/23 16:49 04/12/23 16:49 Labs: Laboratory Results - last 48 hr 04/18/23 04/18/23 04/18/23 08:26 08:26 08:26 Total Bilirubin 0.5 Direct Bilirubin 0.2 AST 30 ALT 37 H Alkaline Phosphatase 72 Ammonia 34 Total Protein 7.4 Albumin 4.1 Valproic Acid 38.9 L Imaging Radiology Impressions: ITS Impressions Hand/Wrist X-Ray 04/18/23 11:08 IMPRESSION: No acute abnormality. Medications Medications Current Medications Acetaminophen (Acetaminophen 325 Mg Tablet) 650 mg PO Q6H PRN PRN Reason: Headache/Pain Mild Scale (1-3) Last Admin: 04/19/23 16:13 Dose: 650 mg Al Hydroxide/Mg Hydroxide (Magnesium Hydrox/Alum Hydrox 30 Ml Oral.Susp) 30 ml PO Q6H PRN PRN Reason: Heartburn/Nausea Last Admin: 04/18/23 22:53 Dose: 30 ml Divalproex Sodium (Divalproex Sodium Er 500 Mg Tab.Er.24h) 500 mg PO DAILY [facility] Last Admin: 04/20/23 08:21 Dose: 500 mg Hydroxyzine HCl (Hydroxyzine Hcl 50 Mg Tablet) 50 mg PO TID [facility] Last Admin: 04/20/23 08:21 Dose: 50 mg Hydroxyzine HCl (Hydroxyzine Hcl 25 Mg Tablet) 25 mg PO Q6H PRN PRN Reason: Anxiety Last Admin: 04/15/23 13:01 Dose: 25 mg Magnesium Hydroxide (Milk Of Magnesia 30 Ml Oral.Susp) 30 ml PO DAILY PRN PRN Reason: Constipation Last Admin: 04/17/23 11:21 Dose: 30 ml Olanzapine (Olanzapine 5 Mg Tablet) 5 mg PO DAILY [facility] Last Admin: 04/20/23 08:20 Dose: 5 mg Olanzapine (Olanzapine 5 Mg Tablet) 5 mg PO TID PRN PRN Reason: agitation Last Admin: 04/17/23 21:57 Dose: 5 mg Oxybutynin Chloride (Oxybutynin Chloride Er 5 Mg Tab.Er.24) 5 mg PO DAILY [facility] Last Admin: 04/20/23 08:20 Dose: 5 mg Trazodone HCl (Trazodone Hcl 50 Mg Tablet) 50 mg PO BEDTIME PRN PRN Reason: Insomnia Last Admin: 04/18/23 20:22 Dose: 50 mg Trazodone HCl (Trazodone Hcl 50 Mg Tablet) 50 mg PO BEDTIME MRX1 PRN PRN Reason: Insomnia Last Admin: 04/19/23 20:20 Dose: 50 mg Allergies Allergies Allergy/AdvReac Type Severity Reaction Status Date / Time No Known Allergies Allergy Unverified 05/05/20 19:51 [No Known Allergies*] Assessment & Plan Assessment & Plan (1) Psychotic disorder: Status: Suspected Code(s): F29 - Unspecified psychosis not due to a substance or known physiological condition (2) Hydrocephalus: Status: Acute Code(s): G91.9 - Hydrocephalus, unspecified Plan patient presents with history of intermittent explosive disorder, psychosis, intellectual disability and hydrocephalus. Recent behavioral outbursts at home. ED reported patient was responding to internal stimuli, angry, disorganized demonstrated by disrobing and appropriately Hospital course 04/15 patient was admitted this past December with similar presentation and face of of what seems like medication non adherence. Patient restarted/continued on medication on admission. Patient now appears to be at baseline. Patient says she is not sure why she stopped taking her medications other than she forgets sometimes. She says she is here because she got into an argument with her mother. Agrees for increase in Depakote. -will increase Depakote dose which may help improve stability and thus medication adherence. Patient social in the milieu; attending to ADLs 04/16 no change in presentation; tolerating increased dose of depakote; SW looking into [facility] 04/17 patient remains stable and in good behavioral and impulse control; intermittently incontinent which is baseline. Patient difficult to engage other than on a superficial level. She becomes reticent when psychosocial type questions are asked. Some question about extent of psychotic symptoms; kenny harris reports are that AH is demanded nature and drives her unsafe/dysregulated behaviors; however currently this seems difficult to discuss with her and determine what she is experiencing, psychotic symptoms verse cognitive impairment. Team Will continue to develop rapport with patient and further assess hx of symptoms. 04/18 No change in presentation. Discussed auditory hallucinations. Patient says they exist but are just whispers; denies any command AH. bull wheel worker also discussed AH with patient with same report. Patient friendly on approach however when asked about such questions, she avoids eye contact and becomes reticent, difficult with which to engage and not able to tolerate any more discussion than a single answer. Earlier, patient fell in shower and hit her right wrist on the chair; she, did not hit head. 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 Social work continuing to set up increased community support Nine/to continue current treatment plan; nursing to assess if addition of oxybutynin helps reduce urinary incontinence PLAN: CV Q 15 minute checks Continue oxybutynin ER 5 mg daily for chronic urinary incontinence Continue Depakote ER to 500 mg daily (increased from 250 mg); even with consistent adherence doses subtherapeutic;increase may help stability/adherence -valproic acid level subtherapeutic (but no history of joy so will leave where it is) Continue Zyprexa 5 mg daily Continue hydroxyzine 50 mg t.i.d.; not sure why it scheduled however this is her home medication regimen Gather collateral;Admitting provider tried to call mother however service unavailable Will discuss with mother about possibility of long term living Patient educated on: diagnosis Informed Consent: understands and further education needed Reason for continued inpatient stay Substantial Risk for: rapid decompensation Time Spent With Patient Time: Total time managing care of this patient today ____ minutes.
[2023-04-20] MEDS: Acetaminophen 325 MG TABLET 650 MG PO (18:01)
[2023-04-20 19:19] VITALS: BP 117/61; PULSE 87; TEMP 36.2
[2023-04-20] MEDS: traZODone HCL 50 MG TABLET PO (20:00)
[2023-04-21 08:05] VITALS: BP 105/55; PULSE 77; RESP 18; TEMP 36.4; O2SAT 97
[2023-04-21] MEDS: oxyBUTYnin chloride ER 5 MG TAB.ER.24 PO ×2 (09:14→20:23)
[2023-04-21] MEDS: OLANZapine 5 MG TABLET PO (09:15)
[2023-04-21] MEDS: Divalproex Sodium ER 500 MG TAB.ER.24H PO (09:15)
[2023-04-21] MEDS: hydrOXYzine HCL 50 MG TABLET PO ×3 (09:16→20:23)
--- NOTE | 2023-04-21 09:50 | HO.PSYCHPN ---
Subjective Subjective Date of Service: 04/21/23 Reason For Visit: Psychosis Dysregulation Interim History: Met with Patient; discussed with team no change in presentation; pleasant on approach; says she's good. remains in good behavioral and impulse control. Pt Signed a 3 day notice and asked if she can go home next week Later in the day patient reported left ankle pain. She says she was just walking down the doan and just twisted it and wants an x-ray; no trauma. Service Station Operator discussed and she agreed to try Tylenol or ibuprofen. Staff reports patient remains with urinary incontinence despite starting oxybutynin Mental Status Exam Mental Status Exam Narrative: Pt is alert and oriented; behavior is cooperative, calm, friendly;? patient is not in distress; dressed in casual attire with improved hygiene, not malodorous of urine; mood is described as good and affect congruent, brighter; eye contact appropriate; Speech is normal rate, volume and prosody and not pressured; no psychomotor agitation/retardation present; thought process is concrete; Thought content is vacuous; no paranoid/delusional content expressed; denies any SI/HI.? Denies AVH. ?Patients insight and judgment limited but at baseline. Diagnostics Vital Signs (24Hr): Vital Signs - 24 hr 04/20/23 19:19 Temperature 97.1 F Pulse Rate 87 Blood Pressure 117/61 BMI result Body Mass Index 41.3 Labs 04/12/23 16:49 04/12/23 16:49 Imaging Radiology Impressions: ITS Impressions Hand/Wrist X-Ray 04/18/23 11:08 IMPRESSION: No acute abnormality. Medications Medications Current Medications Acetaminophen (Acetaminophen 325 Mg Tablet) 650 mg PO Q6H PRN PRN Reason: Headache/Pain Mild Scale (1-3) Last Admin: 04/20/23 18:01 Dose: 650 mg Al Hydroxide/Mg Hydroxide (Magnesium Hydrox/Alum Hydrox 30 Ml Oral.Susp) 30 ml PO Q6H PRN PRN Reason: Heartburn/Nausea Last Admin: 04/18/23 22:53 Dose: 30 ml Divalproex Sodium (Divalproex Sodium Er 500 Mg Tab.Er.24h) 500 mg PO DAILY [facility] Last Admin: 04/21/23 09:15 Dose: 500 mg Hydroxyzine HCl (Hydroxyzine Hcl 50 Mg Tablet) 50 mg PO TID [facility] Last Admin: 04/21/23 09:16 Dose: 50 mg Hydroxyzine HCl (Hydroxyzine Hcl 25 Mg Tablet) 25 mg PO Q6H PRN PRN Reason: Anxiety Last Admin: 04/15/23 13:01 Dose: 25 mg Magnesium Hydroxide (Milk Of Magnesia 30 Ml Oral.Susp) 30 ml PO DAILY PRN PRN Reason: Constipation Last Admin: 04/17/23 11:21 Dose: 30 ml Olanzapine (Olanzapine 5 Mg Tablet) 5 mg PO DAILY [facility] Last Admin: 04/21/23 09:15 Dose: 5 mg Olanzapine (Olanzapine 5 Mg Tablet) 5 mg PO TID PRN PRN Reason: agitation Last Admin: 04/17/23 21:57 Dose: 5 mg Oxybutynin Chloride (Oxybutynin Chloride Er 5 Mg Tab.Er.24) 5 mg PO DAILY [facility] Last Admin: 04/21/23 09:14 Dose: 5 mg Trazodone HCl (Trazodone Hcl 50 Mg Tablet) 50 mg PO BEDTIME PRN PRN Reason: Insomnia Last Admin: 04/20/23 20:00 Dose: 50 mg Trazodone HCl (Trazodone Hcl 50 Mg Tablet) 50 mg PO BEDTIME MRX1 PRN PRN Reason: Insomnia Last Admin: 04/19/23 20:20 Dose: 50 mg Allergies Allergies Allergy/AdvReac Type Severity Reaction Status Date / Time No Known Allergies Allergy Unverified 05/05/20 19:51 [No Known Allergies*] Assessment & Plan Assessment & Plan (1) Psychotic disorder: Status: Suspected Code(s): F29 - Unspecified psychosis not due to a substance or known physiological condition (2) Hydrocephalus: Status: Acute Code(s): G91.9 - Hydrocephalus, unspecified Plan patient presents with history of intermittent explosive disorder, psychosis, intellectual disability and hydrocephalus. Recent behavioral outbursts at home. ED reported patient was responding to internal stimuli, angry, disorganized demonstrated by disrobing and appropriately Hospital course 04/15 patient was admitted this past December with similar presentation and face of of what seems like medication non adherence. Patient restarted/continued on medication on admission. Patient now appears to be at baseline. Patient says she is not sure why she stopped taking her medications other than she forgets sometimes. She says she is here because she got into an argument with her mother. Agrees for increase in Depakote. -will increase Depakote dose which may help improve stability and thus medication adherence. Patient social in the milieu; attending to ADLs 04/16 no change in presentation; tolerating increased dose of depakote; SW looking into DMH 04/17 patient remains stable and in good behavioral and impulse control; intermittently incontinent which is baseline. Patient difficult to engage other than on a superficial level. She becomes reticent when psychosocial type questions are asked. Some question about extent of psychotic symptoms; collateral reports are that AH is demanded nature and drives her unsafe/dysregulated behaviors; however currently this seems difficult to discuss with her and determine what she is experiencing, psychotic symptoms verse cognitive impairment. Team Will continue to develop rapport with patient and further assess hx of symptoms. 04/18 No change in presentation. Discussed auditory hallucinations. Patient says they exist but are just whispers; denies any command AH. shed workers supervisor also discussed AH with patient with same report. Patient friendly on approach however when asked about such questions, she avoids eye contact and becomes reticent, difficult with which to engage and not able to tolerate any more discussion than a single answer. Earlier, patient fell in shower and hit her right wrist on the chair; she, did not hit head. 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 Social work continuing to set up increased community support Nine/to continue current treatment plan; nursing to assess if addition of oxybutynin helps reduce urinary incontinence 04/21 no change in presentation; pleasant on approach; says she's good. remains in good behavioral and impulse control. Pt Signed a 3 day notice and asked if she can go home next week Later in the day patient reported left ankle pain. She says she was just walking down the doan and just twisted it and wants an x-ray; no trauma. Service Station Operator discussed and she agreed to try Tylenol or ibuprofen. -Staff reports patient remains with urinary incontinence despite starting oxybutynin PLAN: 3 day Q 15 minute checks Increase to oxybutynin ER 10 mg daily for chronic urinary incontinence Continue Depakote ER to 500 mg daily (increased from 250 mg); even with consistent adherence doses subtherapeutic;increase may help stability/adherence -valproic acid level subtherapeutic (but no history of joy so will leave where it is) Continue Zyprexa 5 mg daily Continue hydroxyzine 50 mg t.i.d.; not sure why it scheduled however this is her home medication regimen Gather collateral;Admitting provider tried to call mother however service unavailable Will discuss with mother about possibility of [facility] living Patient educated on: diagnosis and medical condition Informed Consent: understands, does not understand and further education needed Reason for continued inpatient stay Substantial Risk for: stable for discharge Time Spent With Patient Time: Total time managing care of this patient today ____ minutes.
[2023-04-21] MEDS: Acetaminophen 325 MG TABLET 650 MG PO ×2 (14:23→21:28)
--- NOTE | 2023-04-21 14:31 | PC.NURSE ---
patient complaining of 9/10 pain in left foot, Dr. Rutherford aware, prn Tylenol given and foot elevated.
[2023-04-21] MEDS: Magnesium Hydrox/Alum Hydrox 30 ML ORAL.SUSP PO (15:44)
[2023-04-21 20:15] VITALS: BP 116/58; PULSE 81; TEMP 35.6
[2023-04-21] MEDS: traZODone HCL 50 MG TABLET PO (20:23)
[2023-04-22 08:05] VITALS: BP 111/58; PULSE 72; RESP 18; TEMP 36.1; O2SAT 97
[2023-04-22] MEDS: OLANZapine 5 MG TABLET PO (08:13)
[2023-04-22] MEDS: hydrOXYzine HCL 50 MG TABLET PO ×3 (08:13→20:19)
[2023-04-22] MEDS: oxyBUTYnin chloride ER 5 MG TAB.ER.24 10 MG PO (08:13)
[2023-04-22] MEDS: Divalproex Sodium ER 500 MG TAB.ER.24H PO (08:13)
--- NOTE | 2023-04-22 10:22 | P.PNPSI_ITS ---
Subjective Subjective Date of Service: 04/22/23 Reason For Visit: Psychosis Dysregulation Interim History: Met with Patient; discussed with team Patient came open said hello to feature writer. She asked about discharge and was discussed to be sometimes soon this coming week. Patient said her foot is all better. Staff reports that seems a little less struggle with urinary incontinence Mental Status Exam Mental Status Exam Narrative: Pt is alert and oriented; behavior is cooperative, calm, friendly;? patient is not in distress; dressed in casual attire with improved hygiene, not malodorous of urine; mood is described as good and affect congruent, brighter; eye contact appropriate; Speech is normal rate, volume and prosody and not pressured; no psychomotor agitation/retardation present; thought process is concrete; Thought content is vacuous; no paranoid/delusional content expressed; denies any SI/HI.? Denies AVH. ?Patients insight and judgment limited but at baseline. Diagnostics Vital Signs (24Hr): Vital Signs - 24 hr 04/21/23 20:15 04/22/23 08:05 Temperature 96.1 F L 97.0 F Pulse Rate 81 72 Respiratory Rate 18 Blood Pressure 116/58 L 111/58 L Pulse Oximetry 97 Oxygen Delivery Method Room Air BMI result Body Mass Index 41.3 Labs 04/12/23 16:49 04/12/23 16:49 Imaging Radiology Impressions: ITS Impressions Hand/Wrist X-Ray 04/18/23 11:08 IMPRESSION: No acute abnormality. Medications Medications Current Medications Acetaminophen (Acetaminophen 325 Mg Tablet) 650 mg PO Q6H PRN PRN Reason: Headache/Pain Mild Scale (1-3) Last Admin: 04/21/23 21:28 Dose: 650 mg Al Hydroxide/Mg Hydroxide (Magnesium Hydrox/Alum Hydrox 30 Ml Oral.Susp) 30 ml PO Q6H PRN PRN Reason: Heartburn/Nausea Last Admin: 04/21/23 15:44 Dose: 30 ml Divalproex Sodium (Divalproex Sodium Er 500 Mg Tab.Er.24h) 500 mg PO DAILY [facility] Last Admin: 04/22/23 08:13 Dose: 500 mg Hydroxyzine HCl (Hydroxyzine Hcl 50 Mg Tablet) 50 mg PO TID [facility] Last Admin: 04/22/23 08:13 Dose: 50 mg Hydroxyzine HCl (Hydroxyzine Hcl 25 Mg Tablet) 25 mg PO Q6H PRN PRN Reason: Anxiety Last Admin: 04/15/23 13:01 Dose: 25 mg Magnesium Hydroxide (Milk Of Magnesia 30 Ml Oral.Susp) 30 ml PO DAILY PRN PRN Reason: Constipation Last Admin: 04/17/23 11:21 Dose: 30 ml Olanzapine (Olanzapine 5 Mg Tablet) 5 mg PO DAILY [facility] Last Admin: 04/22/23 08:13 Dose: 5 mg Olanzapine (Olanzapine 5 Mg Tablet) 5 mg PO TID PRN PRN Reason: agitation Last Admin: 04/17/23 21:57 Dose: 5 mg Oxybutynin Chloride (Oxybutynin Chloride Er 5 Mg Tab.Er.24) 10 mg PO DAILY [facility] Last Admin: 04/22/23 08:13 Dose: 10 mg Trazodone HCl (Trazodone Hcl 50 Mg Tablet) 50 mg PO BEDTIME PRN PRN Reason: Insomnia Last Admin: 04/21/23 20:23 Dose: 50 mg Trazodone HCl (Trazodone Hcl 50 Mg Tablet) 50 mg PO BEDTIME MRX1 PRN PRN Reason: Insomnia Last Admin: 04/19/23 20:20 Dose: 50 mg Allergies Allergies Allergy/AdvReac Type Severity Reaction Status Date / Time No Known Allergies Allergy Unverified 05/05/20 19:51 [No Known Allergies*] Assessment & Plan Assessment & Plan (1) Psychotic disorder: Status: Suspected Code(s): F29 - Unspecified psychosis not due to a substance or known physiological condition (2) Hydrocephalus: Status: Acute Code(s): G91.9 - Hydrocephalus, unspecified Plan patient presents with history of intermittent explosive disorder, psychosis, intellectual disability and hydrocephalus. Recent behavioral outbursts at home. ED reported patient was responding to internal stimuli, angry, disorganized demonstrated by disrobing and appropriately Hospital course 04/15 patient was admitted this past December with similar presentation and face of of what seems like medication non adherence. Patient restarted/continued on medication on admission. Patient now appears to be at baseline. Patient says she is not sure why she stopped taking her medications other than she forgets sometimes. She says she is here because she got into an argument with her mother. Agrees for increase in Depakote. -will increase Depakote dose which may help improve stability and thus medication adherence. Patient social in the milieu; attending to ADLs 04/16 no change in presentation; tolerating increased dose of depakote; SW looking into DM 04/17 patient remains stable and in good behavioral and impulse control; intermittently incontinent which is baseline. Patient difficult to engage other than on a superficial level. She becomes reticent when psychosocial type questions are asked. Some question about extent of psychotic symptoms; collateral reports are that AH is demanded nature and drives her unsafe/dysregulated behaviors; however currently this seems difficult to discuss with her and determine what she is experiencing, psychotic symptoms verse cognitive impairment. Team Will continue to develop rapport with patient and further assess hx of symptoms. 04/18 No change in presentation. Discussed auditory hallucinations. Patient says they exist but are just whispers; denies any command AH. fiber glass worker also discussed AH with patient with same report. Patient friendly on approach however when asked about such questions, she avoids eye contact and becomes reticent, difficult with which to engage and not able to tolerate any more discussion than a single answer. Earlier, patient fell in shower and hit her right wrist on the chair; she, did not hit head. 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 Social work continuing to set up increased community support Nine/to continue current treatment plan; nursing to assess if addition of oxybutynin helps reduce urinary incontinence 04/21 no change in presentation; pleasant on approach; says she's good. remains in good behavioral and impulse control. Pt Signed a 3 day notice and asked if she can go home next week Later in the day patient reported left ankle pain. She says she was just walking down the doan and just twisted it and wants an x-ray; no trauma. Flight Controls Engineer discussed and she agreed to try Tylenol or ibuprofen. -Staff reports patient remains with urinary incontinence despite starting oxybutynin 04/22 Staff reports that seems a little less struggle with urinary incontinence; not sure if it is due to oxybutynin or the fact that patient is more adherent with scheduled bathroom breaks PLAN: 3 day Q 15 minute checks Continue oxybutynin ER 10 mg daily for chronic urinary incontinence Continue Depakote ER to 500 mg daily (increased from 250 mg); even with consistent adherence doses subtherapeutic;increase may help stability/adherence -valproic acid level subtherapeutic (but no history of joy so will leave where it is) Continue Zyprexa 5 mg daily Continue hydroxyzine 50 mg t.i.d.; not sure why it scheduled however this is her home medication regimen Gather collateral;Admitting provider tried to call mother however service unavailable Will discuss with mother about possibility of assisted living Patient educated on: diagnosis Reason for continued inpatient stay Substantial Risk for: stable for discharge Time Spent With Patient Time: Total time managing care of this patient today ____ minutes.
[2023-04-22] MEDS: Acetaminophen 325 MG TABLET 650 MG PO (12:52)
[2023-04-22] MEDS: Milk of Magnesia 30 ML ORAL.SUSP PO (13:31)
--- NOTE | 2023-04-22 16:11 | PC.NURSE ---
PT c/o generalized body aches, fatigue. Afebrile. EL contacted via tiger text, COVID 19 test ordered now.
[2023-04-22 17:06] VITALS: BP 108/68; PULSE 85; RESP 18; TEMP 36.4; O2SAT 99
[2023-04-22 19:52] LABS: Influenza A PCR NEGATIVE (Negative); Influenza B PCR NEGATIVE (Negative); Resp Syncy Virus RNA Qual PCR NEGATIVE (Negative); SARS COV2 PCR INHOUSE NEGATIVE (Negative)
[2023-04-22] MEDS: traZODone HCL 50 MG TABLET PO (20:19)
[2023-04-23] MEDS: Divalproex Sodium ER 500 MG TAB.ER.24H PO (08:18)
[2023-04-23] MEDS: oxyBUTYnin chloride ER 5 MG TAB.ER.24 10 MG PO (08:19)
[2023-04-23] MEDS: OLANZapine 5 MG TABLET PO ×2 (08:19→20:14)
[2023-04-23] MEDS: hydrOXYzine HCL 50 MG TABLET PO ×3 (08:19→20:14)
[2023-04-23 08:50] VITALS: BP 136/82; PULSE 82; TEMP 36.8
[2023-04-23] MEDS: Acetaminophen 325 MG TABLET 650 MG PO (09:15)
--- NOTE | 2023-04-23 13:37 | P.PNPSI_ITS ---
Subjective Subjective Date of Service: 04/23/23 Reason For Visit: Psychosis Dysregulation Interim History: Met with patient; discussed with team No change in presentation. Patient says that she is good and denies any auditory hallucinations, not even a whisper. She said she would like to discharge home and that her mother would like to help coordinate. Mental Status Exam Mental Status Exam Narrative: Pt is alert and oriented; behavior is cooperative, calm, friendly;? patient is not in distress; dressed in casual attire with improved hygiene, not malodorous of urine; mood is described as good and affect congruent, brighter; eye contact appropriate; Speech is normal rate, volume and prosody and not pressured; no psychomotor agitation/retardation present; thought process is concrete; Thought content is vacuous; no paranoid/delusional content expressed; denies any SI/HI.? Denies AVH. ?Patients insight and judgment limited but at baseline. Diagnostics Vital Signs (24Hr): Vital Signs - 24 hr 04/22/23 17:06 04/23/23 08:50 Temperature 97.6 F 98.2 F Pulse Rate 85 82 Respiratory Rate 18 Blood Pressure 108/68 136/82 Pulse Oximetry 99 Oxygen Delivery Method Room Air BMI result Body Mass Index 41.3 Labs 04/12/23 16:49 04/12/23 16:49 Labs: Laboratory Results - last 48 hr 04/22/23 19:09 Influenza Type A (PCR) NEGATIVE Influenza Type B (PCR) NEGATIVE RSV RNA Qual (PCR) NEGATIVE SARS-CoV-2 RNA (RT-PCR) NEGATIVE Imaging Radiology Impressions: ITS Impressions Hand/Wrist X-Ray 04/18/23 11:08 IMPRESSION: No acute abnormality. Medications Medications Current Medications Acetaminophen (Acetaminophen 325 Mg Tablet) 650 mg PO Q6H PRN PRN Reason: Headache/Pain Mild Scale (1-3) Last Admin: 04/23/23 09:15 Dose: 650 mg Al Hydroxide/Mg Hydroxide (Magnesium Hydrox/Alum Hydrox 30 Ml Oral.Susp) 30 ml PO Q6H PRN PRN Reason: Heartburn/Nausea Last Admin: 04/21/23 15:44 Dose: 30 ml Divalproex Sodium (Divalproex Sodium Er 500 Mg Tab.Er.24h) 500 mg PO DAILY [facility] Last Admin: 04/23/23 08:18 Dose: 500 mg Hydroxyzine HCl (Hydroxyzine Hcl 50 Mg Tablet) 50 mg PO TID [facility] Last Admin: 04/23/23 08:19 Dose: 50 mg Hydroxyzine HCl (Hydroxyzine Hcl 25 Mg Tablet) 25 mg PO Q6H PRN PRN Reason: Anxiety Last Admin: 04/15/23 13:01 Dose: 25 mg Magnesium Hydroxide (Milk Of Magnesia 30 Ml Oral.Susp) 30 ml PO DAILY PRN PRN Reason: Constipation Last Admin: 04/22/23 13:31 Dose: 30 ml Olanzapine (Olanzapine 5 Mg Tablet) 5 mg PO DAILY [facility] Last Admin: 04/23/23 08:19 Dose: 5 mg Olanzapine (Olanzapine 5 Mg Tablet) 5 mg PO TID PRN PRN Reason: agitation Last Admin: 04/17/23 21:57 Dose: 5 mg Oxybutynin Chloride (Oxybutynin Chloride Er 5 Mg Tab.Er.24) 10 mg PO DAILY [facility] Last Admin: 04/23/23 08:19 Dose: 10 mg Trazodone HCl (Trazodone Hcl 50 Mg Tablet) 50 mg PO BEDTIME PRN PRN Reason: Insomnia Last Admin: 04/22/23 20:19 Dose: 50 mg Trazodone HCl (Trazodone Hcl 50 Mg Tablet) 50 mg PO BEDTIME MRX1 PRN PRN Reason: Insomnia Last Admin: 04/19/23 20:20 Dose: 50 mg Allergies Allergies Allergy/AdvReac Type Severity Reaction Status Date / Time No Known Allergies Allergy Unverified 05/05/20 19:51 [No Known Allergies*] Assessment & Plan Assessment & Plan (1) Psychotic disorder: Status: Suspected Code(s): F29 - Unspecified psychosis not due to a substance or known physiological condition (2) Hydrocephalus: Status: Acute Code(s): G91.9 - Hydrocephalus, unspecified Plan patient presents with history of intermittent explosive disorder, psychosis, intellectual disability and hydrocephalus. Recent behavioral outbursts at home. ED reported patient was responding to internal stimuli, angry, disorganized demonstrated by disrobing and appropriately Hospital course 04/15 patient was admitted this past December with similar presentation and face of of what seems like medication non adherence. Patient restarted/continued on medi cation on admission. Patient now appears to be at baseline. Patient says she is not sure why she s topped taking her medications other than she forgets sometimes. She says she is here because she got into an argument with her mother. Agrees for increase in Depakote. -will increase Depakote dose which may help improve stability and thus medication adherence. Patient social in the milieu; attending to ADLs 04/16 no change in presentation; tolerating increased dose of depakote; SW looking into DM 04/17 patient remains stable and in good behavioral and impulse control; intermittently incontinent which is baseline. Patient difficult to engage other than on a superficial level. She becomes reticent when psychosocial type questions are asked. Some question about extent of psychotic symptoms; collateral reports are that AH is demanded nature and drives her unsafe/dysregulated behaviors; however currently this seems difficult to discuss with her and determine what she is experiencing, psychotic symptoms verse cognitive impairment. Team Will continue to develop rapport with patient and further assess hx of symptoms. 04/18 No change in presentation. Discussed auditory hallucinations. Patient says they exist but are just whispers; denies any command AH. take off worker also discussed AH with patient with same report. Patient friendly on approach however when asked about such questions, she avoids eye contact and becomes reticent, difficult with which to engage and not able to tolerate any more discussion than a single answer. Earlier, patient fell in shower and hit her right wrist on the chair; she, did not hit head. 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 Social work continuing to set up increased community support Nine/to continue current treatment plan; nursing to assess if addition of oxybutynin helps reduce urinary incontinence 04/21 no change in presentation; pleasant on approach; says she's good. remains in good behavioral and impulse control. Pt Signed a 3 day notice and asked if she can go home next week Later in the day patient reported left ankle pain. She says she was just walking down the doan and just twisted it and wants an x-ray; no trauma. Sound Equipment Mechanic discussed and she agreed to try Tylenol or ibuprofen. -Staff reports patient remains with urinary incontinence despite starting oxybutynin 04/22 Staff reports that seems a little less struggle with urinary incontinence; not sure if it is due to oxybutynin or the fact that patient is more adherent with scheduled bathroom breaks 04/23 no change in presentation PLAN: 3 day Q 15 minute checks Continue oxybutynin ER 10 mg daily for chronic urinary incontinence Continue Depakote ER to 500 mg daily (increased from 250 mg); even with consistent adherence doses subtherapeutic;increase may help stability/adherence -valproic acid level subtherapeutic (but no history of joy so will leave where it is) Continue Zyprexa 5 mg daily Continue hydroxyzine 50 mg t.i.d.; not sure why it scheduled however this is her home medication regimen Gather collateral;Admitting provider tried to call mother however service unavailable Will discuss with mother about possibility of half-way living Patient educated on: diagnosis Informed Consent: understands and further education needed Reason for continued inpatient stay Substantial Risk for: stable for discharge Time Spent With Patient Time: Total time managing care of this patient today ____ minutes.
[2023-04-23] MEDS: Magnesium Hydrox/Alum Hydrox 30 ML ORAL.SUSP PO (16:37)
[2023-04-23 18:00] VITALS: BP 128/82; PULSE 78; TEMP 36.6; O2SAT 98
[2023-04-23] MEDS: traZODone HCL 50 MG TABLET PO (20:15)
[2023-04-24] MEDS: oxyBUTYnin chloride ER 5 MG TAB.ER.24 10 MG PO (08:36)
[2023-04-24] MEDS: Divalproex Sodium ER 500 MG TAB.ER.24H PO (08:36)
[2023-04-24] MEDS: hydrOXYzine HCL 50 MG TABLET PO ×3 (08:36→19:36)
[2023-04-24] MEDS: OLANZapine 5 MG TABLET PO (08:36)
[2023-04-24 08:45] VITALS: BP 133/97; PULSE 81; RESP 18; TEMP 36.3; O2SAT 97
--- NOTE | 2023-04-24 09:56 | HO.PSYCHPN ---
Subjective Subjective Date of Service: 04/24/23 Reason For Visit: Psychosis Dysregulation Interim History: Met with patient; discussed with team No change in presentation. Patient says she is good and looking for to discharge tomorrow. Remains intermittently incontinent and currently malodorous Mental Status Exam Mental Status Exam Narrative: Pt is alert and oriented; behavior is cooperative, calm, friendly;? patient is not in distress; dressed in casual attire with improved hygiene, not malodorous of urine; mood is described as good and affect congruent, brighter; eye contact appropriate; Speech is normal rate, volume and prosody and not pressured; no psychomotor agitation/retardation present; thought process is concrete; Thought content is vacuous; no paranoid/delusional content expressed; denies any SI/HI.? Denies AVH. ?Patients insight and judgment limited but at baseline. Diagnostics Vital Signs (24Hr): Vital Signs - 24 hr 04/23/23 18:00 04/24/23 08:45 Temperature 97.8 F 97.3 F Pulse Rate 78 81 Respiratory Rate 18 Blood Pressure 128/82 133/97 H Pulse Oximetry 98 97 Oxygen Delivery Method Room Air Room Air BMI result Body Mass Index 41.3 Labs 04/12/23 16:49 04/12/23 16:49 Labs: Laboratory Results - last 48 hr 04/22/23 19:09 Influenza Type A (PCR) NEGATIVE Influenza Type B (PCR) NEGATIVE RSV RNA Qual (PCR) NEGATIVE SARS-CoV-2 RNA (RT-PCR) NEGATIVE Imaging Radiology Impressions: ITS Impressions Hand/Wrist X-Ray 04/18/23 11:08 IMPRESSION: No acute abnormality. Medications Medications Current Medications Acetaminophen (Acetaminophen 325 Mg Tablet) 650 mg PO Q6H PRN PRN Reason: Headache/Pain Mild Scale (1-3) Last Admin: 04/23/23 09:15 Dose: 650 mg Al Hydroxide/Mg Hydroxide (Magnesium Hydrox/Alum Hydrox 30 Ml Oral.Susp) 30 ml PO Q6H PRN PRN Reason: Heartburn/Nausea Last Admin: 04/23/23 16:37 Dose: 30 ml Divalproex Sodium (Divalproex Sodium Er 500 Mg Tab.Er.24h) 500 mg PO DAILY [facility] Last Admin: 04/24/23 08:36 Dose: 500 mg Hydroxyzine HCl (Hydroxyzine Hcl 50 Mg Tablet) 50 mg PO TID [facility] Last Admin: 04/24/23 08:36 Dose: 50 mg Hydroxyzine HCl (Hydroxyzine Hcl 25 Mg Tablet) 25 mg PO Q6H PRN PRN Reason: Anxiety Last Admin: 04/15/23 13:01 Dose: 25 mg Magnesium Hydroxide (Milk Of Magnesia 30 Ml Oral.Susp) 30 ml PO DAILY PRN PRN Reason: Constipation Last Admin: 04/22/23 13:31 Dose: 30 ml Olanzapine (Olanzapine 5 Mg Tablet) 5 mg PO DAILY [facility] Last Admin: 04/24/23 08:36 Dose: 5 mg Olanzapine (Olanzapine 5 Mg Tablet) 5 mg PO TID PRN PRN Reason: agitation Last Admin: 04/23/23 20:14 Dose: 5 mg Oxybutynin Chloride (Oxybutynin Chloride Er 5 Mg Tab.Er.24) 10 mg PO DAILY [facility] Last Admin: 04/24/23 08:36 Dose: 10 mg Trazodone HCl (Trazodone Hcl 50 Mg Tablet) 50 mg PO BEDTIME PRN PRN Reason: Insomnia Last Admin: 04/22/23 20:19 Dose: 50 mg Trazodone HCl (Trazodone Hcl 50 Mg Tablet) 50 mg PO BEDTIME MRX1 PRN PRN Reason: Insomnia Last Admin: 04/23/23 20:15 Dose: 50 mg Allergies Allergies Allergy/AdvReac Type Severity Reaction Status Date / Time No Known Allergies Allergy Unverified 05/05/20 19:51 [No Known Allergies*] Assessment & Plan Assessment & Plan (1) Psychotic disorder: Status: Suspected Code(s): F29 - Unspecified psychosis not due to a substance or known physiological condition (2) Hydrocephalus: Status: Acute Code(s): G91.9 - Hydrocephalus, unspecified Plan patient presents with history of intermittent explosive disorder, psychosis, intellectual disability and hydrocephalus. Recent behavioral outbursts at home. ED reported patient was responding to internal stimuli, angry, disorganized demonstrated by disrobing and appropriately Hospital course 04/15 patient was admitted this past December with similar presentation and face of of what seems like medication non adherence. Patient restarted/continued on medication on admission. Patient now appears to be at baseline. Patient says she is not sure why she stopped taking her medications other than she forgets sometimes. She says she is here because she got into an argument with her mother. Agrees for increase in Depakote. -will increase Depakote dose which may help improve stability and thus medication adherence. Patient social in the milieu; attending to ADLs 04/16 no change in presentation; tolerating increased dose of depakote; SW looking into DMH 04/17 patient remains stable and in good behavioral and impulse control; intermittently incontinent which is baseline. Patient difficult to engage other than on a superficial level. She becomes reticent when psychosocial type questions are asked. Some question about extent of psychotic symptoms; collateral reports are that AH is demanded nature and drives her unsafe/dysregulated behaviors; however currently this seems difficult to discuss with her and determine what she is experiencing, psychotic symptoms verse cognitive impairment. Team Will continue to develop rapport with patient and further assess hx of symptoms. 04/18 No change in presentation. Discussed auditory hallucinations. Patient says they exist but are just whispers; denies any command AH. electronics worker also discussed AH with patient with same report. Patient friendly on approach however when asked about such questions, she avoids eye contact and becomes reticent, difficult with which to engage and not able to tolerate any more discussion than a single answer. Earlier, patient fell in shower and hit her right wrist on the chair; she, did not hit head. 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 Social work continuing to set up increased community support Nine/to continue current treatment plan; nursing to assess if addition of oxybutynin helps reduce urinary incontinence 04/21 no change in presentation; pleasant on approach; says she's good. remains in good behavioral and impulse control. Pt Signed a 3 day notice and asked if she can go home next week Later in the day patient reported left ankle pain. She says she was just walking down the doan and just twisted it and wants an x-ray; no trauma. Coroner/Medical Examiner discussed and she agreed to try Tylenol or ibuprofen. -Staff reports patient remains with urinary incontinence despite starting oxybutynin 04/22 Staff reports that seems a little less struggle with urinary incontinence; not sure if it is due to oxybutynin or the fact that patient is more adherent with scheduled bathroom breaks 04/23 no change in presentation 04/24 remained stable; tolerating medications well. Patient is at baseline. She has a 3 day notice which is doing her mother is coming to pick her up tomorrow. Patient is not in imminent risk for harm to self or others and request for discharge honored. PLAN: 3 day Q 15 minute checks Continue oxybutynin ER 10 mg daily for chronic urinary incontinence Continue Depakote ER to 500 mg daily (increased from 250 mg); even with consistent adherence doses subtherapeutic;increase may help stability/adherence -valproic acid level subtherapeutic (but no history of joy so will leave where it is) Continue Zyprexa 5 mg daily Continue hydroxyzine 50 mg t.i.d.; not sure why it scheduled however this is her home medication regimen Gather collateral;Admitting provider tried to call mother however service unavailable Will discuss with mother about possibility of halfway living Patient educated on: diagnosis Informed Consent: understands, does not understand and further education needed Reason for continued inpatient stay Substantial Risk for: stable for discharge Time Spent With Patient Time: Total time managing care of this patient today ____ minutes.
[2023-04-24 16:50] VITALS: BP 127/73; PULSE 75; TEMP 36.2; O2SAT 97
--- NOTE | 2023-04-24 17:50 | PM.PSYDC ---
DS: Providers Provider Date of Service: 04/24/23 Date of admission: 04/12/23 20:57 Date of discharge: 04/24/23 Primary care physician: Bette Physician Attending physician on admission: Mark Rutherford Attending physician on discharge: Mark Rutherford DS: Diagnosis Discharge Diagnosis (1) Psychotic disorder: Status: Suspected (2) Hydrocephalus: Status: Acute DS: Medications Discharge Medications Home Medications: Previous Rx's Medication Instructions Recorded divalproex 250 mg tablet,extended 250 mg PO DAILY 30 days #30 tabs 01/15/23 release 24 hr hydroxyzine pamoate 50 mg capsule 50 mg PO TID 30 days #90 caps 01/15/23 olanzapine 5 mg tablet 5 mg PO DAILY 30 days #30 tabs 01/15/23 trazodone 50 mg tablet 50 mg PO BEDTIME PRN Insomnia 30 01/15/23 days #30 tabs Mental Status Exam Mental Status Exam Narrative: Pt is alert and oriented; behavior is cooperative, calm, friendly;? patient is not in distress; dressed in casual attire with improved hygiene; mood is described as good and affect congruent, brighter; eye contact appropriate; Speech is normal rate, volume and prosody and not pressured; no psychomotor agitation/retardation present; thought process is concrete; Thought content is vacuous; no paranoid/delusional content expressed; denies any SI/HI.? Denies AVH. ?Patients insight and judgment limited but at baseline. Data Data Completed and Pending Completed studies during hospitalization [Text1]: 04/18/23 04/18/23 04/18/23 08:26 08:26 08:26 Total Bilirubin 0.5 Direct Bilirubin 0.2 AST 30 ALT 37 H Alkaline Phosphatase 72 Ammonia 34 Total Protein 7.4 Albumin 4.1 Valproic Acid 38.9 L Influenza Type A (PCR) Influenza Type B (PCR) RSV RNA Qual (PCR) SARS-CoV-2 RNA (RT-PCR) 04/22/23 19:09 Total Bilirubin Direct Bilirubin AST ALT Alkaline Phosphatase Ammonia Total Protein Albumin Valproic Acid Influenza Type A (PCR) NEGATIVE Influenza Type B (PCR) NEGATIVE RSV RNA Qual (PCR) NEGATIVE SARS-CoV-2 RNA (RT-PCR) NEGATIVE Imaging Diagnostic Imaging Impressions Hand/Wrist X-Ray 04/18/23 11:08 IMPRESSION: No acute abnormality. DS: Summary Hospital Course Hospital Course: patient presents with history of intermittent explosive disorder, psychosis, intellectual disability and hydrocephalus.? Recent behavioral outbursts at home. ED reported patient was responding to internal stimuli, angry, disorganized demonstrated by disrobing and appropriately Hospital course 04/15 patient was admitted this past December with similar presentation and face of of what seems like medication non adherence.? Patient restarted/continued on medication on admission. Patient now appears to be at baseline.? Patient says she is not sure why she stopped taking her medications other than she forgets sometimes.? She says she is here because she got into an argument with her mother.? Agrees for increase in Depakote.? -will increase Depakote dose which may help improve stability and thus medication adherence. Patient social in the milieu; attending to ADLs 04/16 no change in presentation; tolerating increased dose of depakote; SW looking into [facility] 04/17 patient remains stable and in good behavioral and impulse control; intermittently incontinent which is baseline. Patient difficult to engage other than on a superficial level.? She becomes reticent when psychosocial type questions are asked.? Some question about extent of psychotic symptoms; collateral reports are that AH is demanded nature and drives her unsafe/dysregulated behaviors; however currently this seems difficult to discuss with her and determine what she is experiencing, psychotic symptoms verse cognitive impairment.? Team Will continue to develop rapport with patient and further assess hx of symptoms. 04/18 No change in presentation.? Discussed auditory hallucinations.? Patient says they exist but are just whispers; denies any command AH.? older worker specialist also discussed AH with patient with same report.? Patient friendly on approach however when asked about such questions, she avoids eye contact and becomes reticent, difficult with which to engage and not able to tolerate any more discussion than a single answer. Earlier, patient fell in shower and hit her right wrist on the chair; she, did not hit head.? 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 Social work continuing to set up increased community support Nine/to continue current treatment plan; nursing to assess if addition of oxybutynin helps reduce urinary incontinence 04/21 no change in presentation; pleasant on approach; says she's good. remains in good behavioral and impulse control. Pt Signed a 3 day notice and asked if she can go home next week Later in the day patient reported left ankle pain.? She says she was just walking down the doan and just twisted it and wants an x-ray; no trauma.? Stage Producer discussed and she agreed to try Tylenol or ibuprofen. -Staff reports patient remains with urinary incontinence despite starting oxybutynin 04/22 Staff reports that seems a little less struggle with urinary incontinence; not sure if it is due to oxybutynin or the fact that patient is more adherent with scheduled bathroom breaks 04/23 no change in presentation 04/24 remained stable; tolerating medications well.? Patient is at baseline.? She has a 3 day notice which is doing her mother is coming to pick her up tomorrow.? Patient is not in imminent risk for harm to self or others and request for discharge honored. Time spent discussing smoking cessation with patient: 3 to 10 minutes Status at Discharge Functional status at discharge: independent ambulation Overall status at discharge: patient is back to baseline Time Spent with Patient Time attestation: Total time managing care of this patient today ____ minutes. Time spent: Less than 30 minutes Discharge Plan Discharge Anticipated Discharge Date/Time: 04/25/23 11:00 Patient Disposition: Home, Self-Care Discharge Diagnosis: Schizoaffective disorder Referrals: [facility] application: Service Authorization [Other] - 1 Week ([facility] will reach out to you but if you haven't heard from them in a week, call the above number and ask to speak with Service Authorization) Therapist: Cherise Bear ([facility]) [Other] - 04/29/23 1:00 pm (Appointment is in person at the office ) [employer] [place] Baster: Sara Parnell ([facility]) [Other] - 04/29/23 1:45 pm (Appointment is in person at the office; she will see you after your therapy appointment with Cherise) Psychiatrist: Kia Lyle ([facility]) [Other] - 05/23/23 11:00 am (Telehealth- Dr. Lyle will call your phone at the appointment time ) [facility] [Other] - 1 Week Discharge Medications: New oxybutynin chloride 10 mg tablet extended release 24hr 10 mg PO DAILY 30 Days Qty: 30 1RF Continued trazodone 50 mg Tablet 50 mg PO BEDTIME PRN (Reason: Insomnia) 30 Days Qty: 30 1RF hydroxyzine pamoate 50 mg capsule 50 mg PO TID 30 Days Qty: 90 1RF Changed olanzapine 5 mg Tablet See Rx Instructions .ROUTE .COMPLEX 30 Days Qty: 45 1RF Rx Instructions: take 1 tab daily; may take 1 additionally tab daily as needed for Agitation divalproex 500 mg tablet,delayed release (DR/EC) 500 mg PO DAILY 30 Days Qty: 30 1RF Discharge Orders: Discharge Order (Routine); Ordered 04/25/23 Ordered By: Mark Rutherford Diet: Regular diet Activity on Discharge: As tolerated Stand Alone Forms: Patient Portal Discharge page, Community Support Care Plan Goals: Maintain mood and safe behaviors Take medications as prescribed Practice coping skills Continue with outpatient providers and reach out to them as needed Health Concerns: Mood stability and behaviors Plan of Treatment: Follow up with your PCP, psychiatric provider and other outpatient providers regarding above concerns Take medications as prescribed Assessment: Risk assessment at time of discharge:? Patient was interviewed prior to discharge and found to be fully oriented and without any SI or HI. Patient has insight and demonstrates good judgment in terms of wanting to pursue treatment. Patient is not in imminent risk of harm to self or others and has a safety plan that includes presenting to the closest ER or calling 911 if feeling unsafe.? Patient has been observed closely by nursing and unit staff throughout admission; patient has not engaged in any behaviors that suggest dangerousness to self or others and has demonstrated appropriate behaviors and impulse control Discharge Date/Time: 04/25/23 11:20
[2023-04-24] MEDS: Magnesium Hydrox/Alum Hydrox 30 ML ORAL.SUSP PO (18:15)
[2023-04-24] MEDS: Acetaminophen 325 MG TABLET 650 MG PO (18:17)
[2023-04-24] MEDS: traZODone HCL 50 MG TABLET PO (19:36)
[2023-04-24] MEDS: hydrOXYzine HCL 25 MG TABLET PO (21:00)
--- NOTE | 2023-04-24 23:18 | PC.NURSE ---
PATIENT SAID SHE WAS TOO EXCITED ABOUT DISCHARGE TOMORROW TO GO TO SLEEP. sHE HAD A BRIEF PHONE CALL WITH HER MOTHER. PATIENT SOMATICALLY FOCUSED ON C/O VAGUE ABDOMINAL PAIN AND HEADACHE. HOWEVER SHE WAS STILL VISIBLE AND SOMEWHAT SOCIAL WITH [employer].
[2023-04-25 08:10] VITALS: BP 105/59; PULSE 75; RESP 18; TEMP 36.5; O2SAT 98
[2023-04-25] MEDS: oxyBUTYnin chloride ER 5 MG TAB.ER.24 10 MG PO (08:12)
[2023-04-25] MEDS: OLANZapine 5 MG TABLET PO (08:12)
[2023-04-25] MEDS: Divalproex Sodium ER 500 MG TAB.ER.24H PO (08:12)
[2023-04-25] MEDS: hydrOXYzine HCL 50 MG TABLET PO (08:12)
== END 2023-04-25 11:20 | disposition home or self-care (01) | DRG 750 ==
LOC: HO.ED 17:01 → HO.PM5 21:03
PROVIDERS: Admitting Provider Psychiatry & Neurology Psychiatry; Emergency Provider Emergency Medicine; Visit Provider Psychiatry & Neurology Psychiatry
DX: F25.9 Schizoaffective disorder, unspecified (principal); F29 Unspecified psychosis not due to a substance or known physiological condition; G91.9 Hydrocephalus, unspecified; F84.0 Autistic disorder; Z91.148 Patient's other noncompliance with medication regimen for other reason; Z59.01 Sheltered homelessness; Z20.822 Contact with and (suspected) exposure to COVID-19; Z79.899 Other long term (current) drug therapy
CPT/HCPCS: 0241U; 36415; 73110; 73130; 80053; 80076; 80143; 80164; 80179; 80307; 81001; 81025; 82140; 85025; 87635; 93005; 99285

== ENCOUNTER → 2023-04-12 20:57 | Outpatient (BNV) | payer OTHER, SELFPAY | PROVIDERS: Admitting Provider Psychiatry & Neurology Psychiatry; Emergency Provider Emergency Medicine; Visit Provider Psychiatry & Neurology Psychiatry | DX: F29 Unspecified psychosis not due to a substance or known physiological condition (principal); G91.9 Hydrocephalus, unspecified | CPT/HCPCS: 99231; 99232; 99233 ==

== ENCOUNTER 2023-05-04 15:46 | Emergency (ER) | payer OTHER, SELFPAY ==
[2023-05-04 15:54] VITALS: BP 131/72; BP 166/98; PULSE 112; PULSE 123; RESP 20; TEMP 36.8; O2SAT 96; BMI 42.2
[2023-05-04 16:03] LABS: Glucose, Whole Blood 104 mg/dL (60-115)
--- NOTE | 2023-05-04 16:06 | ECG_ITS ---
Test Reason : SEIZURE Blood Pressure : / mmHG Vent. Rate : 103 BPM Atrial Rate : 103 BPM P-R Int : 160 ms QRS Dur : 086 ms QT Int : 362 ms P-R-T Axes : 041 033 000 degrees QTc Int : 474 ms Sinus tachycardia Otherwise normal ECG When compared with ECG of 12-APR-2023 16:42, Heart rate has increased Referred By: Generic ED Physician Electronically Signed By:ALEXANDRA DUNHAM
[2023-05-04 16:29] LABS: Basophils Percent Auto 0.4 % (0-2); Eosinophils Absolute Auto 0.1 X10*3/uL (0.0-0.4); Eosinophils Percent Auto 0.9 % (0-4); Hematocrit 36.8 % (37.0-47.0); Imm Gran Abs Auto 0.07 X10*3/uL (0.00-0.03); Imm Gran Pct Auto 0.9 % (0.0-0.4); Lymphocytes Absolute Auto 1.7 X10*3/uL (1.2-4.9); Lymphocytes Percent Auto 21.7 % (20-40); MANUAL DIFF FLAG NO; Mean Corpuscular HGB Conc 35.3 g/dl (31.0-35.0); Mean Corpuscular Hemoglobin 30.9 pg (27.0-33.0); Mean Corpuscular Volume 87.4 fL (80.0-98.0); Mean Platelet Volume 8.9 fL (9.4-12.3); Monocytes Absolute Auto 0.5 X10*3/uL (0.1-1.2); Monocytes Percent Auto 6.2 % (2-11); Neutrophils Absolute Auto 5.5 x10*3/uL (2.0-8.3); Neutrophils Percent Auto 69.9 % (45-73); Platelet Count 272 X10*3/uL (160-400); Red Blood Count 4.21 X10*6/uL (4.20-5.50); Red Cell Distribution Width 12.2 % (11.0-16.0); White Blood Count 7.9 X10*3/uL (4.8-10.8)
--- NOTE | 2023-05-04 16:36 | PC.NURSE ---
patient is awake and alert, ambulated to the bathroom with tech with steady gait.
--- NOTE | 2023-05-04 16:40 | ED_ITS ---
HPI - Seizure General Chief Complaint: Seizure Stated Complaint: seizure, bit tongue, bleeding from mouth, per ems Time Seen by Provider: 05/04/23 16:17 History of Present Illness HPI Narrative: Patient is a 23 year female with a history of seizure history of hydrocephalus patient's baseline is on Depakote 500 mg daily. She claims compliance with the medication. Recently had medication adjusted patient unsure when. Had 2 seizure episodes today noticed by staff. Positive tongue bite positive loss of consciousness positive generalized malaise afterward patient denies any symptoms currently. No fever no chills no chest pain. No other changes in medication. She is from home. Seizure History: Yes Place: Home Related Data Previous Rx's Medication Instructions Recorded divalproex 500 mg tablet,delayed 500 mg PO DAILY 30 days #30 tabs 04/25/23 release hydroxyzine pamoate 50 mg capsule 50 mg PO TID 30 days #90 caps 04/25/23 olanzapine 5 mg tablet See Rx Instructions .Route 04/25/23 .COMPLEX 30 days #45 tabs oxybutynin chloride 10 mg 10 mg PO DAILY 30 days #30 tabs 04/25/23 tablet,extended release 24 hr trazodone 50 mg tablet 50 mg PO BEDTIME PRN Insomnia 30 04/25/23 days #30 tabs Allergies Allergy/AdvReac Type Severity Reaction Status Date / Time No Known Allergies Allergy Unverified 05/05/20 19:51 [No Known Allergies*] Review of Systems 2 Review of Systems: Positive history of seizure Yes all other systems are reviewed and are negative PMFSH Past Medical History Medical History Hydrocephalus Social History Social History Household Members: Family Housing: Apartment Housing Other:: detention Do you presently have visiting nurse or other home services: No Alcohol intake: never Patient Tobacco Use Status: Never used Tobacco Substance Use Type: Unknown Advance Directives: No Advance Directives Information Provided: No service: No Sexual orientation: Straight/Heterosexual Physical Exam 2 Vital Signs: Vital Signs: Last Vital Signs Temp 98.4 F 05/04/23 19:19 Pulse 86 05/04/23 19:19 Resp 20 05/04/23 19:19 BP 101/53 L 05/04/23 19:19 Pulse Ox 98 05/04/23 19:19 O2 Del Method Room Air 05/04/23 19:19 BMI result Body Mass Index 42.2 Appearance: Alert. Oriented X3. No acute distress. Eyes: Pupils equal, round and reactive to light. ENT: Pharynx normal. Positive tongue bite Neck: Normal inspection. Neck supple. No lymph nodes noted. No crepitus CVS: Normal heart rate and rhythm. Pulses normal. Normal S1 and S2 Respiratory: No respiratory distress. Breath sounds normal. No Wheezing. No rales Abdomen: Soft and nontender. No rigidity. No distention. good BS x4 Skin: Skin warm and dry. Normal skin color. Normal skin turgor. Extremities: No lower extremity edema. Neurovascular intact to all extremities. No Lacerations. No Rash Neuro: Oriented X 3. No motor deficit. No sensory deficit. Moving all extermities. No slurred speech Medications Administered Discontinued Medications Generic Name Dose Route Start Last Admin Trade Name Freq PRN Reason Stop Dose Admin Sodium Chloride 1,000 mls @ 999 mls/hr 05/04/23 16:45 05/04/23 18:37 Ns IV 05/04/23 17:45 Infused .Q1H1M [facility] Infusion Medical Decision Making Medical Decision Making [facility] Narrative: Patient observed in the emergency department. Mental status is back to baseline. Is awake alert did not had any further seizure. Patient's Depakote level came back at 38. This is despite being on 500 mg for 2 weeks. Patient claims compliant with medications. She takes it once a day. She was on 250 mg per her mom prior. Her Depakote level had not changed since the increase in Depakote. Will ask patient to take 750 Depakote. Closely follow up with Neurology on an outpatient basis. Seizure precautions. No driving no activities O put her in danger. Her electrolytes were normal. Patient is in stable condition. tongue bleeding has stopped. Differential Diagnosis Differential Diagnoses: The differential diagnosis associated with the presentation includes Seizure Admission/Observation Consideration of admission/observation: Escalation of care including admission/observation considered Lab Data [facility] Lab Attestation statement: I reviewed the patient's lab results. 05/04/23 16:25 05/04/23 16:25 Labs: Lab Results 05/04/23 05/04/23 05/04/23 Range/Units 15:58 16:24 16:25 WBC 7.9 (4.8-10.8) X10*3/uL RBC 4.21 (4.20-5.50) X10*6/uL Hgb 13.0 (12.0-16.0) g/dl Hct 36.8 L (37.0-47.0) % MCV 87.4 (80.0-98.0) fL MCH 30.9 (27.0-33.0) pg MCHC 35.3 H (31.0-35.0) g/dl RDW 12.2 (11.0-16.0) % Plt Count 272 (160-400) X10*3/uL MPV 8.9 L (9.4-12.3) fL Immature Gran % (Auto) 0.9 H (0.0-0.4) % Neut % (Auto) 69.9 (45-73) % Lymph % (Auto) 21.7 (20-40) % Isabella % (Auto) 6.2 (2-11) % Eos % (Auto) 0.9 (0-4) % Baso % (Auto) 0.4 (0-2) % Lymph # (Auto) 1.7 (1.2-4.9) X10*3/uL Isabella # (Auto) 0.5 (0.1-1.2) X10*3/uL Eos # (Auto) 0.1 (0.0-0.4) X10*3/uL Baso # (Auto) 0.0 (0.0-0.2) X10*3/uL Abs Immat Gran (auto) 0.07 H (0.00-0.03) X10*3/uL Absolute Neuts (auto) 5.5 (2.0-8.3) x10*3/uL Absolute Nucleated RBC 0.000 (0.0-0.012) X10*3/uL Nucleated RBC % (auto) 0.0 (0.0-0.2) /100WBC Sodium 138 (135-145) mmol/L Potassium 4.0 (3.3-5.1) mmol/L Chloride 109 H (96-108) mmol/L Carbon Dioxide 17 L (22-29) mmol/L Anion Gap 16 (12-20) BUN 10 (9-16) mg/dL Creatinine 0.72 (0.5-1.4) mg/dL Estim Creat Clear Calc 140.8 Estimated GFR > 60 POC Glucose 104 (60-115) mg/dL Random Glucose 88 (60-115) mg/dL Calcium 9.1 D (8.4-10.2) mg/dL Urine Color Urine Appearance Urine pH (5.0-9.0) Ur Specific [place] (1.005-1.025) Urine Protein (Neg-Trace) mg/dL Urine Glucose (UA) (Negative) mg/dL Urine Ketones (Negative) mg/dL Urine Blood (Negative) Urine Nitrite (Negative) Ur Leukocyte Esterase (Negative) Urine Test (NEGATIVE) Urine Opiates Screen (Not Detect) Urine Fentanyl Screen (Not Detect) Ur Barbiturates Screen (Not Detect) Valproic Acid 38.1 L (50.0-100.0) mcg/mL Ur Phencyclidine Scrn (Not Detect) Ur Amphetamines Screen (Not Detect) U Benzodiazepines Scrn (Not Detect) Urine Cocaine Screen (Not Detect) U Marijuana (THC) Screen (Not Detect) 05/04/23 Range/Units 16:42 WBC (4.8-10.8) X10*3/uL RBC (4.20-5.50) X10*6/uL Hgb (12.0-16.0) g/dl Hct (37.0-47.0) % MCV (80.0-98.0) fL MCH (27.0-33.0) pg MCHC (31.0-35.0) g/dl RDW (11.0-16.0) % Plt Count (160-400) X10*3/uL MPV (9.4-12.3) fL Immature Gran % (Auto) (0.0-0.4) % Neut % (Auto) (45-73) % Lymph % (Auto) (20-40) % Isabella % (Auto) (2-11) % Eos % (Auto) (0-4) % Baso % (Auto) (0-2) % Lymph # (Auto) (1.2-4.9) X10*3/uL Isabella # (Auto) (0.1-1.2) X10*3/uL Eos # (Auto) (0.0-0.4) X10*3/uL Baso # (Auto) (0.0-0.2) X10*3/uL Abs Immat Gran (auto) (0.00-0.03) X10*3/uL Absolute Neuts (auto) (2.0-8.3) x10*3/uL Absolute Nucleated RBC (0.0-0.012) X10*3/uL Nucleated RBC % (auto) (0.0-0.2) /100WBC Sodium (135-145) mmol/L Potassium (3.3-5.1) mmol/L Chloride (96-108) mmol/L Carbon Dioxide (22-29) mmol/L Anion Gap (12-20) BUN (9-16) mg/dL Creatinine (0.5-1.4) mg/dL Estim Creat Clear Calc Estimated GFR POC Glucose (60-115) mg/dL Random Glucose (60-115) mg/dL Calcium (8.4-10.2) mg/dL Urine Color Yellow Urine Appearance Clear Urine pH 5.5 (5.0-9.0) Ur Specific [place] 1.020 (1.005-1.025) Urine Protein Negative (Neg-Trace) mg/dL Urine Glucose (UA) Negative (Negative) mg/dL Urine Ketones Trace (Negative) mg/dL Urine Blood Negative (Negative) Urine Nitrite Negative (Negative) Ur Leukocyte Esterase Negative (Negative) Urine Test NEGATIVE (NEGATIVE) Urine Opiates Screen Not Detected (Not Detect) Urine Fentanyl Screen Not Detected (Not Detect) Ur Barbiturates Screen Not Detected (Not Detect) Valproic Acid (50.0-100.0) mcg/mL Ur Phencyclidine Scrn Not Detected (Not Detect) Ur Amphetamines Screen Not Detected (Not Detect) U Benzodiazepines Scrn Not Detected (Not Detect) Urine Cocaine Screen Not Detected (Not Detect) U Marijuana (THC) Screen Not Detected (Not Detect) Independent Interpretation I performed an independent interpretation of an: EKG ( Sinus heart rate is 100 ME QRS QTc within normal limits there is no acute ST segment elevated) External Record Review External record reviewed: Outpatient record Prescription Management will ask family to increase the dose of Depakote to 750 mg Chronic Conditions seizure Discharge Plan Discharge Clinical Impression: Epileptic seizure Patient Disposition: Home, Self-Care Instructions: Epilepsy (ED) Additional Instructions: Please increase the dose of your Depakote to Depakote 500 mg 1.5 tablets per day Prescriptions: No Action oxybutynin chloride 10 mg tablet extended release 24hr 10 mg PO DAILY 30 Days Qty: 30 1RF trazodone 50 mg Tablet 50 mg PO BEDTIME PRN (Reason: Insomnia) 30 Days Qty: 30 1RF olanzapine 5 mg Tablet See Rx Instructions .ROUTE .COMPLEX 30 Days Qty: 45 1RF Rx Instructions: take 1 tab daily; may take 1 additionally tab daily as needed for Agitation hydroxyzine pamoate 50 mg capsule 50 mg PO TID 30 Days Qty: 90 1RF divalproex 500 mg tablet,delayed release (DR/EC) 500 mg PO DAILY 30 Days Qty: 30 1RF Referrals: Physician,None [Primary Care Provider] - ( seizure precautions. Please follow- up with your neurologist on an outpatient basis Next week.)
[2023-05-04 16:41] LABS: Anion Gap 16 (12-20); Blood Urea Nitrogen 10 mg/dL (9-16); Calcium 9.1 mg/dL (8.4-10.2); Carbon Dioxide 17 mmol/L (22-29); Chloride 109 mmol/L (96-108); Creatinine Clr Calc Pharmacy 140.8; Estimated Glomerular Filt Rate > 60; Glucose Random 88 mg/dL (60-115); Sodium 138 mmol/L (135-145)
[2023-05-04 16:44] LABS: Valproate 38.1 mcg/mL (50.0-100.0)
[2023-05-04] MEDS: 0.9 % Sodium Chloride 1,000 ML 999 ML IV (16:52)
[2023-05-04 16:53] LABS: Appearance Urine Clear; Color Urine Yellow; Glucose Urine UA Negative (Negative); Leukocyte Esterase Urine Negative (Negative); Nitrite Urine Negative (Negative); PH 5.5 (5.0-9.0); Urine Blood Negative (Negative); Urine Ketones Trace mg/dL (Negative); Urine Protein Negative (Neg-Trace)
[2023-05-04 16:54] LABS: UPreg QC Valid YES; Urine Pregnancy NEGATIVE (NEGATIVE)
[2023-05-04 16:55] LABS: Amphetamine Screen Urine Not Detected (Not Detect); Barbiturates, Urine Not Detected (Not Detect); Benzodiazepines Screen Urine Not Detected (Not Detect); Cannabinoid Screen Urine Not Detected (Not Detect); Cocaine Screen Urine Not Detected (Not Detect); Fentanyl, urine Not Detected (Not Detect); Opiate Screen Urine Not Detected (Not Detect); Phencyclidine Screen Urine Not Detected (Not Detect)
--- NOTE | 2023-05-04 17:49 | PC.NURSE ---
patients mom states pt has hx of tonic clonic seizures and absence seizures, her depakote was recently increased after last hospital admission. patient has been awake and alert since arrival, patient bit her tongue during seizure, mouth care provided.
--- NOTE | 2023-05-04 17:55 | PC.NURSE ---
no seizure activity noted in ED she is engaged in conversation and appears at baseline.
[2023-05-04 17:59] VITALS: BP 85/51; PULSE 74; RESP 22; O2SAT 98
[2023-05-04 19:19] VITALS: BP 101/53; PULSE 86; RESP 20; TEMP 36.9; O2SAT 98
== END 2023-05-04 21:04 | disposition home or self-care (01) ==
PROVIDERS: Emergency Provider Emergency Medicine Emergency Medical Services
DX: G40.909 Epilepsy, unspecified, not intractable, without status epilepticus (principal); R55 Syncope and collapse; Z79.899 Other long term (current) drug therapy
CPT/HCPCS: 36415; 80048; 80164; 80307; 81003; 81025; 82947; 85025; 93005; 96360; 96361; 99284; 99285

== ENCOUNTER 2023-05-20 18:24 | Emergency (ER) | payer OTHER, SELFPAY ==
--- NOTE | ~2023-05-20 | XR_ITS ---
EXAMINATION: XR CHEST 2 VIEWS CLINICAL INFORMATION: Cough. COMPARISON: None. TECHNIQUE: Frontal and lateral views of the chest were obtained. FINDINGS: The heart, great vessels, pulmonary vasculature and mediastinum are normal. The lungs show no focal infiltrate, effusion or pneumothorax. There is no acute osseous abnormality. XR/XR chest 2V IMPRESSION: No active cardiopulmonary disease.
[2023-05-20 18:28] VITALS: BP 122/60; PULSE 108; O2SAT 98
--- NOTE | 2023-05-20 18:33 | ED.GENADULT ---
HPI - General Adult General Chief complaint: Upper Respiratory Symptoms Stated complaint: CP FROM COUGHING PER EMS Time Seen by Provider: 05/20/23 19:08 Source: patient Mode of arrival: ambulatory Limitations: no limitations History of Present Illness HPI narrative: Patient is a 23-year-old female who presents emergency department for evaluation of productive cough with green phlegm and chest discomfort during coughing episodes. Denies fevers or chills. Denies known sick contacts. Symptom onset was yesterday. Related Data Previous Rx's Medication Instructions Recorded divalproex 500 mg tablet,delayed 500 mg PO DAILY 30 days #30 tabs 04/25/23 release hydroxyzine pamoate 50 mg capsule 50 mg PO TID 30 days #90 caps 04/25/23 olanzapine 5 mg tablet See Rx Instructions .Route 04/25/23 .COMPLEX 30 days #45 tabs oxybutynin chloride 10 mg 10 mg PO DAILY 30 days #30 tabs 04/25/23 tablet,extended release 24 hr trazodone 50 mg tablet 50 mg PO BEDTIME PRN Insomnia 30 04/25/23 days #30 tabs Allergies Allergy/AdvReac Type Severity Reaction Status Date / Time No Known Allergies Allergy Verified 05/20/23 18:44 [No Known Allergies*] Review of Systems Review of Systems: Yes all other systems are reviewed and are negative PMFSH Past Medical History Attestation statement: The following information was validated with the patient. Source: old records reviewed Medical History Hydrocephalus Social History Social History Household Members: Family Housing: Apartment Housing Other:: senior living Do you presently have visiting nurse or other home services: No Alcohol intake: never Patient Tobacco Use Status: Never used Tobacco Substance Use Type: Unknown Advance Directives: No Advance Directives Information Provided: No service: No Sexual orientation: Straight/Heterosexual Physical Exam ED Vital Signs: Vital Signs - 24 hr 05/20/23 18:41 Temperature 98.6 F Pulse Rate 98 Respiratory Rate 16 Blood Pressure 128/103 H Pulse Oximetry 96 Oxygen Delivery Method Room Air BMI result Body Mass Index 41.1 Appearance: Alert.?Oriented to person, place and time. No acute distress.?Normal affect. Eyes: Pupils equal, round and reactive to light.? ENT: Pharynx normal.?? Neck: Normal inspection.? Neck supple.?? CVS: Heart sounds normal. Normal heart rate and rhythm.? Pulses normal.?? Respiratory: No respiratory distress.? Lung sounds with mild expiratory wheezing to the bilateral upper lobes Abdomen: Soft and non-tender. Normoactive bowel sounds. Skin: Skin warm and dry.? Normal skin color.? Extremities: No lower extremity edema.? No calf ttp? Neuro: Moves all extremities spontaneously. Sensation intact bilaterally. Ambulates with normal steady gait. Course Course Course Narrative: This is an RME: Additional HPI, ROS, PE not included below will be deferred to primary provider. 23-year-old female with a history of hydrocephalus, intellectual disability, ASD, intermittent explosive disorder presents to the ER via EMS with complaints of productive cough with green colored sputum since today. Reports chest pain only when coughing. faint expiratory wheeze in the left upper lung field. Plan: Strep, COVID/RSV/Flu swabs ordered. Reevaluation(s) Reevaluation #1: Advised by nursing staff that patient left without completing treatment at this time. Patient left with her mother. Did not have viral testing nor obstructing testing obtained prior to leaving. Time: 19:33 Medical Decision Making Medical Decision Making MDM Narrative: Patient is a 23-year-old female with past medical history of hydrocephalus, intellectual disability, ASD presenting to emergency department for evaluation of upper respiratory symptoms. She overall is well appearing, no apparent respiratory distress, speaking clear full sentences. She is afebrile without hypoxia or tachypnea. Noted to be hypertensive 128/103 with pulse of 98, will obtain repeat for further evaluation known a history of hypertension. Plan to obtain viral testing, chest x-ray Differential Diagnosis Differential Diagnoses: The differential diagnosis associated with the presentation includes (Pneumonia, COVID-19, influenza, rhino virus, adenovirus) Independent Interpretation I performed an independent interpretation of an: Plain X-Ray (I personally interpreted chest x-ray and agree with radiologist impression no evidence of pneumonia.) Radiology Impression Discussion of test interpretation with radiology: I have reviewed the radiologist's reading. Radiologist Impression: XR/XR chest 2V IMPRESSION: No active cardiopulmonary disease. Independent Historian Clinical information obtained from an independent historian. History obtained from or confirmed by: Parent and EMS Discharge Plan Discharge Clinical Impression: Upper respiratory infection Patient Disposition: Left W/O Completing Treatment Prescriptions: No Action oxybutynin chloride 10 mg tablet extended release 24hr 10 mg PO DAILY 30 Days Qty: 30 1RF trazodone 50 mg Tablet 50 mg PO BEDTIME PRN (Reason: Insomnia) 30 Days Qty: 30 1RF olanzapine 5 mg Tablet See Rx Instructions .ROUTE .COMPLEX 30 Days Qty: 45 1RF Rx Instructions: take 1 tab daily; may take 1 additionally tab daily as needed for Agitation hydroxyzine pamoate 50 mg capsule 50 mg PO TID 30 Days Qty: 90 1RF divalproex 500 mg tablet,delayed release (DR/EC) 500 mg PO DAILY 30 Days Qty: 30 1RF Discharge Date/Time: 05/20/23 20:01
[2023-05-20 18:41] VITALS: BP 128/103; PULSE 98; RESP 16; TEMP 37; O2SAT 96; BMI 41.1
== END 2023-05-20 20:01 | disposition left against medical advice (07) ==
LOC: HO.ED 19:40
PROVIDERS: Emergency Provider Emergency Medicine
DX: J06.9 Acute upper respiratory infection, unspecified (principal); R07.89 Other chest pain; R05.9 Cough, unspecified; Z79.899 Other long term (current) drug therapy
CPT/HCPCS: 71046; 99281; 99283

== ENCOUNTER 2023-06-12 13:40 | Emergency (ER) | payer OTHER, SELFPAY ==
[2023-06-12 13:47] VITALS: BP 124/76; PULSE 92; O2SAT 98
[2023-06-12 13:49] VITALS: BP 107/66; PULSE 77; RESP 18; TEMP 36.3; O2SAT 98; BMI 30.1
--- NOTE | 2023-06-12 14:49 | ED.GENADULT ---
HPI - General Adult General Chief complaint: General Medical Stated complaint: EVALUATION Time Seen by Provider: 06/12/23 14:49 Source: patient, EMS and RN notes reviewed Mode of arrival: EMS Limitations: no limitations History of Present Illness HPI narrative: Patient is a 23-year-old female with history of major depressive disorder, intermittent explosive disorder, intellectual disability, psychotic disorder, hydrocephalus presenting to the emergency department after a verbal argument with her mother. Patient requested transport to the hospital via ambulance. She denies any suicidal or homicidal ideation, denies any auditory or visual hallucinations. Reports that she did not take her regularly prescribed medications today. States that she just got off the phone with her mother who is states that patient is not welcome to return home. Patient does report depression and anxiety currently. MD complaint: Anxiety and depression Onset (ago): hour(s) Associated symptoms: denies other symptoms Treatments prior to arrival: none Related Data Previous Rx's Medication Instructions Recorded divalproex 500 mg tablet,delayed 500 mg PO DAILY 30 days #30 tabs 04/25/23 release hydroxyzine pamoate 50 mg capsule 50 mg PO TID 30 days #90 caps 04/25/23 olanzapine 5 mg tablet See Rx Instructions .Route 04/25/23 .COMPLEX 30 days #45 tabs oxybutynin chloride 10 mg 10 mg PO DAILY 30 days #30 tabs 04/25/23 tablet,extended release 24 hr trazodone 50 mg tablet 50 mg PO BEDTIME PRN Insomnia 30 04/25/23 days #30 tabs Allergies Allergy/AdvReac Type Severity Reaction Status Date / Time No Known Allergies Allergy Verified 05/20/23 18:44 [No Known Allergies*] Review of Systems Review of Systems: As per HPI. Yes all other systems are reviewed and are negative Constitutional: Constitutional: Reports as per HPI [facility] Past Medical History Medical History Hydrocephalus Social History Social History Household Members: Family Housing: Apartment Housing Other:: group home Do you presently have visiting nurse or other home services: No Alcohol intake: never Patient Tobacco Use Status: Never used Tobacco Use of substances other than those prescribed or required for medical reasons: Unknown Substance Use Type: Unknown Advance Directives: No service: No Sexual orientation: Straight/Heterosexual Physical Exam ED Vital Signs: Vital Signs - 24 hr 06/12/23 13:49 Temperature 97.3 F Pulse Rate 77 Respiratory Rate 18 Blood Pressure 107/66 Pulse Oximetry 98 Oxygen Delivery Method Room Air BMI result Body Mass Index 30.1 Vital signs have been reviewed and appear to be correct. Blood pressure normal. Heart rate normal. Respiratory rate normal. Temperature normal. Oxygen saturation normal. Const General: cooperative, healthy appearing and no acute distress Orientation/consciousness: oriented to person, oriented to place, oriented to time and patient oriented x3 Limitations: no limitations HENMT Head: Yes normocephalic and Yes atraumatic Ears: external ears normal General nose exam: Normal external nose present Face and sinus: Yes face symmetric Mouth: oropharynx normal and moist mucous membranes Throat: Yes uvula midline Eyes Pupils: Equal, round and reactive pupils present Neck Neck: Yes normal visual inspection and Yes supple Resp Effort & Inspection: normal respiratory effort and able to speak in complete sentences Auscultation: clear to auscultation bilaterally Cardio Rate: regular rate Rhythm: regular rhythm Heart sounds: S1 normal heart sound present and S2 normal heart sound present GI Palpation (GI): Soft to palpation and nontender Auscultation: normoactive bowel sounds General: Yes no CVA tenderness Back/Spine/Pelvis Back: no CVA tenderness Skin General skin exam: elasticity normal and turgor normal Neuro General: oriented to person, oriented to place, oriented to time, patient oriented x3, moves all extremities, no focal motor deficits and CN's II-XI intact bilaterally Cranial nerves: Yes Equal, round and reactive pupils present Cognition (Neuro): normal cognition Extrem General: Yes full ROM, Yes no pedal edema and Yes no calf tenderness Psych Appearance: well kempt Mental Status: mental status grossly normal Speech and movement: Normal speech and movement present Affect: Sad affect present Attitude: cooperative Thought process: Normal thought process present Thought content: suicidality, no homicidality, no hallucinations and Depressive thoughts present Insight: Fair insight present (Psych) Judgement: Fair judgement present (Psych) Course Course Course Narrative: Patient feels improved. No SI/HI. Calm and cooperative. Plan for discharge home. Mom coming to get the patient. Medications Administered Discontinued Medications Generic Name Dose Route Start Last Admin Trade Name Freq PRN Reason Stop Dose Admin Hydroxyzine HCl 50 mg 06/12/23 14:56 06/12/23 16:02 Hydroxyzine Hcl 50 Mg Tablet PO 06/12/23 14:57 50 mg ONCE ONE Administration Medical Decision Making Medical Decision Making [facility] Narrative: Patient is a 23-year-old female with history of major depressive disorder, intermittent explosive disorder, intellectual disability, psychotic disorder, hydrocephalus presenting to the emergency department after a verbal argument with her mother. On exam patient is awake, A+Ox3, VS WNL, afebrile, normal neurological exam without focal deficits, physical exam findings as above. Given reported symptoms and physical exam findings, initial differential includes acute anxiety, depression. Will medicate patient with hydroxyzine which she is prescribed at home but did not take today. Will order diet tray. Patient signed out to CABRER[facility] Rodriges pending reassessment after hydroxyzine. Differential Diagnosis Differential Diagnoses: The differential diagnosis associated with the presentation includes As per MDM. External Record Review External record reviewed: Inpatient record, Office record and Outpatient record Prescription Management I considered prescription management with: Other Discharge Plan Discharge Clinical Impression: Acute anxiety Patient Disposition: Home, Self-Care Instructions: Anxiety (ED) Prescriptions: No Action oxybutynin chloride 10 mg tablet extended release 24hr 10 mg PO DAILY 30 Days Qty: 30 1RF trazodone 50 mg Tablet 50 mg PO BEDTIME PRN (Reason: Insomnia) 30 Days Qty: 30 1RF olanzapine 5 mg Tablet See Rx Instructions .ROUTE .COMPLEX 30 Days Qty: 45 1RF Rx Instructions: take 1 tab daily; may take 1 additionally tab daily as needed for Agitation hydroxyzine pamoate 50 mg capsule 50 mg PO TID 30 Days Qty: 90 1RF divalproex 500 mg tablet,delayed release (DR/EC) 500 mg PO DAILY 30 Days Qty: 30 1RF Referrals: Physician,Unknown J [Primary Care Provider] - 1 week
--- NOTE | 2023-06-12 15:47 | MHC.EDTECH ---
Brought patient a sandwich, cheese stick, and bonilla dana to snack on.
[2023-06-12] MEDS: hydrOXYzine HCL 50 MG TABLET PO (16:02)
== END 2023-06-12 17:56 | disposition home or self-care (01) ==
PROVIDERS: Emergency Provider Emergency Medicine
DX: F41.9 Anxiety disorder, unspecified (principal); F32.9 Major depressive disorder, single episode, unspecified; F63.81 Intermittent explosive disorder; F29 Unspecified psychosis not due to a substance or known physiological condition; G91.9 Hydrocephalus, unspecified; Z79.899 Other long term (current) drug therapy
CPT/HCPCS: 99283

== ENCOUNTER 2023-07-23 16:07 | Emergency (ER) | payer OTHER, SELFPAY ==
[2023-07-23 16:26] VITALS: BP 114/78; PULSE 98; O2SAT 96; BMI 39.9
[2023-07-23 16:29] VITALS: BP 91/52; PULSE 87; RESP 16; TEMP 36.9; O2SAT 97
[2023-07-23] MEDS: 0.9 % Sodium Chloride 1,000 ML 999 ML IV (16:43)
--- NOTE | 2023-07-23 16:43 | ED_ITS ---
HPI - Seizure General Chief Complaint: Seizure Stated Complaint: seizure Time Seen by Provider: 07/23/23 16:22 Source: patient and EMS Mode of arrival: EMS Limitations: no limitations History of Present Illness HPI Narrative: This was a 23-year-old female presents emergency department via EMS for evaluation after reported seizure while at. EMS reported that parents stated she had a 1 minute tonic-clonic without head strike. She was lower to the ground by parents. Reportedly she has had a recent change in her Depakote dose from 250 mg to 500 mg. When asking patient if she knows how much of her seizure medication she takes she says ?only 1?. She is endorsing a diffuse headache at this time, and nausea. She has no additional complaints Seizure History: Yes Place: Home Related Data Previous Rx's Medication Instructions Recorded divalproex 500 mg tablet,delayed 500 mg PO DAILY 30 days #30 tabs 04/25/23 release hydroxyzine pamoate 50 mg capsule 50 mg PO TID 30 days #90 caps 04/25/23 olanzapine 5 mg tablet See Rx Instructions .Route 04/25/23 .COMPLEX 30 days #45 tabs oxybutynin chloride 10 mg 10 mg PO DAILY 30 days #30 tabs 04/25/23 tablet,extended release 24 hr trazodone 50 mg tablet 50 mg PO BEDTIME PRN Insomnia 30 04/25/23 days #30 tabs Allergies Allergy/AdvReac Type Severity Reaction Status Date / Time No Known Allergies Allergy Verified 07/23/23 16:26 [No Known Allergies*] Review of Systems 2 Review of Systems: Yes all other systems are reviewed and are negative PMFSH Past Medical History Attestation statement: The following information was validated with the patient. Source: old records reviewed Medical History Hydrocephalus Social History Social History Household Members: Family Housing: Apartment Housing Other:: nursing home Do you presently have visiting nurse or other home services: No Alcohol intake: never Patient Tobacco Use Status: Never used Tobacco Smoked in Last 30 Days: No Use of substances other than those prescribed or required for medical reasons: No Substance Use Type: Unknown Advance Directives: Yes Advance Directives Information Provided: No Advance Directives on File: No Patient : No service: No Sexual orientation: Straight/Heterosexual Physical Exam 2 Vital Signs: Vital Signs: Last Vital Signs Temp 98.4 F 07/23/23 16:29 Pulse 66 07/23/23 18:28 Resp 16 07/23/23 18:28 BP 104/52 L 07/23/23 18:28 Pulse Ox 98 07/23/23 18:28 O2 Del Method Room Air 07/23/23 18:28 BMI result Body Mass Index 31.0 Appearance: Alert.?Oriented to person, place and time. No acute distress.?Normal affect. Eyes: Pupils equal, round and reactive to light.? ENT: Pharynx normal.?? Neck: Normal inspection.? Neck supple.?? CVS: Heart sounds normal. Normal heart rate and rhythm.? Pulses normal.?? Respiratory: No respiratory distress.? Lung sounds clear to auscultation bilaterally?? Abdomen: Soft and non-tender. Normoactive bowel sounds. Skin: Skin warm and dry.? Normal skin color.? Extremities: No lower extremity edema.? Neuro: Moves all extremities spontaneously. Sensation intact bilaterally. CN II- XII intact. No focal neuro deficits. Ambulates with normal steady gait. Course Reevaluation(s) Reevaluation #1: Blood pressure improving after IV fluid crystalloid administration. CBC is without leukocytosis or anemia. CMP is overall unremarkable. Depakote levels below detecting limits; <12.5. Patient received loading dose of valproic acid in the emergency department. Pharmacy records reveal depakote was last filled 07/10/2023, patient and her mother report that they just picked up a new prescription yesterday and are adamant that she has been compliant with her dosing. Advised outpatient follow-up with Neurology, reviewed seizure precautions draining from any driving or activities that may place her in danger. Reviewed worrisome signs and symptoms that would warrant re-evaluation in the emergency department. All questions answered. Stable for discharge. Ambulatory with steady gait. Time: 18:39 Medications Administered Discontinued Medications Generic Name Dose Route Start Last Admin Trade Name Freq PRN Reason Stop Dose Admin Acetaminophen 975 mg 07/23/23 16:45 07/23/23 17:11 Acetaminophen 325 Mg Tablet PO 07/23/23 16:46 975 mg ONCE ONE Administration Sodium Chloride 1,000 mls @ 999 mls/hr 07/23/23 16:45 12/05/23 17:44 Ns IV 07/23/23 17:45 Infused .Q1H1M [facility] Ondansetron HCl 4 mg 07/23/23 16:45 07/23/23 17:11 Ondansetron Hcl 4 Mg/2 Ml Vial IVPUSH 07/23/23 16:46 4 mg ONCE ONE Administration Medical Decision Making Medical Decision Making [facility] Narrative: Patient is a 23-year-old female with past medical history of major depressive disorder, psychotic disorder, hydrocephalus sent to the emergency department evaluation seizure as per HPI. At time my examination she is overall well- appearing, nontoxic, afebrile. She is noted to be hypotensive with BP 91/52, upon review of her chart it does appear as though she is typically hypotensive prior visits where she is being evaluated after a seizure. Her parents are not present at bedside to obtain any further history. I attempted to contact mother, Gisela by phone and was unable to make contact. I left a voicemail for call back. Patient is reporting a diffuse headache. No focal neurological deficits upon examination. As per pharmacy records she has most recently picked up a dive overall X 500 mg tablets. Upon review of her chart she was evaluated in the emergency department April of 2023 at which point she was advised to increase her Depakote to 750 mg. It is unclear to me at this time whether her dosage was ever increased and if neurology recommended a decreased back down to 500, or if she never had the dosage increased. Plan to obtain basic labs the Depakote level Differential Diagnosis Differential Diagnoses: The differential diagnosis associated with the presentation includes (Above) Admission/Observation Consideration of admission/observation: Escalation of care including admission/observation considered Lab Data [facility] Lab Attestation statement: I reviewed the patient's lab results. (See course narrative) 07/23/23 16:45 07/23/23 16:45 Labs: Lab Results 07/23/23 Range/Units 16:45 WBC 7.7 (4.8-10.8) X10*3/uL RBC 4.63 (4.20-5.50) X10*6/uL Hgb 14.2 (12.0-16.0) g/dl Hct 40.2 (37.0-47.0) % MCV 86.8 (80.0-98.0) fL MCH 30.7 (27.0-33.0) pg MCHC 35.3 H (31.0-35.0) g/dl RDW 12.7 (11.0-16.0) % Plt Count 296 (160-400) X10*3/uL MPV 9.6 (9.4-12.3) fL Immature Gran % (Auto) 0.5 H (0.0-0.4) % Neut % (Auto) 68.4 (45-73) % Lymph % (Auto) 24.3 (20-40) % [place] % (Auto) 6.0 (2-11) % Eos % (Auto) 0.4 (0-4) % Baso % (Auto) 0.4 (0-2) % Lymph # (Auto) 1.9 (1.2-4.9) X10*3/uL [place] # (Auto) 0.5 (0.1-1.2) X10*3/uL Eos # (Auto) 0.0 (0.0-0.4) X10*3/uL Baso # (Auto) 0.0 (0.0-0.2) X10*3/uL Abs Immat Gran (auto) 0.04 H (0.00-0.03) X10*3/uL Absolute Neuts (auto) 5.3 (2.0-8.3) x10*3/uL Absolute Nucleated RBC 0.000 (0.0-0.012) X10*3/uL Nucleated RBC % (auto) 0.0 (0.0-0.2) /100WBC Sodium 136 (135-145) mmol/L Potassium 4.0 (3.3-5.1) mmol/L Chloride 109 H (96-108) mmol/L Carbon Dioxide 17 L (22-29) mmol/L Anion Gap 14 (12-20) BUN 8 L (9-16) mg/dL Creatinine 0.73 (0.5-1.4) mg/dL Estim Creat Clear Calc 117.5 Estimated GFR > 60 Random Glucose 100 (60-115) mg/dL Calcium 9.8 D (8.4-10.2) mg/dL Total Bilirubin 0.6 (0.0-1.0) mg/dL AST 25 (5-31) U/L ALT 20 (0-31) U/L Alkaline Phosphatase 65 (39-117) U/L Total Protein 8.2 H (6.5-8.0) g/dL Albumin 4.4 (3.5-5.0) g/dL Valproic Acid < 12.5 L (50.0-100.0) mcg/mL COVID-19 ([facility]OR[facility]) Negative (Negative) COVID-19 Clin Com See Note Influenza Type A (SHAI) Negative (Negative) Influenza Type B (SHAI) Negative (Negative) Influenza A & B Note See Note Independent Historian Clinical information obtained from an independent historian. History obtained from or confirmed by: EMS External Record Review External record reviewed: Outpatient record Discharge Plan Discharge Clinical Impression: Seizure, Hydrocephalus Patient Disposition: Home, Self-Care Instructions: Hydrocephalus (DC) Additional Instructions: You received IV dosing of Depakote while in the emergency department today. As discussed, it is very important that you take Depakote as prescribed every day. Please contact your neurologist/PCP/psychiatrist for further follow-up. May return back to emergency department with any new or worsening symptoms or concerns. Prescriptions: No Action oxybutynin chloride 10 mg tablet extended release 24hr 10 mg PO DAILY 30 Days Qty: 30 1RF trazodone 50 mg Tablet 50 mg PO BEDTIME PRN (Reason: Insomnia) 30 Days Qty: 30 1RF olanzapine 5 mg Tablet See Rx Instructions .ROUTE .COMPLEX 30 Days Qty: 45 1RF Rx Instructions: take 1 tab daily; may take 1 additionally tab daily as needed for Agitation hydroxyzine pamoate 50 mg capsule 50 mg PO TID 30 Days Qty: 90 1RF divalproex 500 mg tablet,delayed release (DR/EC) 500 mg PO DAILY 30 Days Qty: 30 1RF Referrals: Physician,Unknown J [Primary Care Provider] -
--- NOTE | 2023-07-23 16:44 | PC.NURSE ---
a&ox3, vss and up to date aside from being slightly hypotensive at this time. nsr on the youth nutritional monitor. pt c/o 8/10 headache and feeling nauseous. 22gIV placed in the right hand w/o difficulty - labs drawn and sent to lab. IV fluids administered per provider order. provider bedside assessing pt. no sob/wob noted at this time. respirations even and unlabored. seizure precautions in place. call izquierdo placed within reach.
[2023-07-23 16:50] LABS: MANUAL DIFF FLAG NO
[2023-07-23 16:56] LABS: Basophils Percent Auto 0.4 % (0-2); Eosinophils Percent Auto 0.4 % (0-4); Hematocrit 40.2 % (37.0-47.0); Hemoglobin 14.2 g/dl (12.0-16.0); Imm Gran Abs Auto 0.04 X10*3/uL (0.00-0.03); Imm Gran Pct Auto 0.5 % (0.0-0.4); Lymphocytes Absolute Auto 1.9 X10*3/uL (1.2-4.9); Lymphocytes Percent Auto 24.3 % (20-40); Mean Corpuscular HGB Conc 35.3 g/dl (31.0-35.0); Mean Corpuscular Hemoglobin 30.7 pg (27.0-33.0); Mean Corpuscular Volume 86.8 fL (80.0-98.0); Mean Platelet Volume 9.6 fL (9.4-12.3); Monocytes Absolute Auto 0.5 X10*3/uL (0.1-1.2); Neutrophils Absolute Auto 5.3 x10*3/uL (2.0-8.3); Neutrophils Percent Auto 68.4 % (45-73); Platelet Count 296 X10*3/uL (160-400); Red Blood Count 4.63 X10*6/uL (4.20-5.50); Red Cell Distribution Width 12.7 % (11.0-16.0); White Blood Count 7.7 X10*3/uL (4.8-10.8)
[2023-07-23 17:07] LABS: Valproate < 12.5 mcg/mL (50.0-100.0)
[2023-07-23 17:11] LABS: Alanine Aminotransferase 20 U/L (0-31); Albumin Level 4.4 g/dL (3.5-5.0); Alkaline Phosphatase 65 U/L (39-117); Anion Gap 14 (12-20); Aspartate Amino Transferase 25 U/L (5-31); Bilirubin Total 0.6 mg/dL (0.0-1.0); Blood Urea Nitrogen 8 mg/dL (9-16); Calcium 9.8 mg/dL (8.4-10.2); Carbon Dioxide 17 mmol/L (22-29); Chloride 109 mmol/L (96-108); Creatinine Clr Calc Pharmacy 117.5; Estimated Glomerular Filt Rate > 60; Glucose Random 100 mg/dL (60-115); Sodium 136 mmol/L (135-145); Total Protein 8.2 g/dL (6.5-8.0)
[2023-07-23] MEDS: Acetaminophen 325 MG TABLET 975 MG PO (17:11)
[2023-07-23] MEDS: ondansetron HCL 4 MG/2 ML VIAL IVPUSH (17:11)
--- NOTE | 2023-07-23 17:13 | PC.NURSE ---
medication administered per provider order. mother bedside. call izquierdo placed within reach.
[2023-07-23 17:14] LABS: COVID-19 Test Negative (Negative); IDNOW Serial# 08D9AD1C; IDNOW Serial# 9DB6401D; Influenza A Negative (Negative); Influenza B2 Negative (Negative)
[2023-07-23 18:28] VITALS: BP 104/52; PULSE 66; RESP 16; O2SAT 98
--- NOTE | 2023-07-23 18:29 | PC.NURSE ---
vss and up tp date at this time. nsr on the environmental monitoring specialist. pt verbalizing headache subsided post medication administration. pt has no complaints at this time. resting comfortably in no apparent distress. respirations remain even/unlabored. no sob/wob noted. seizure pads remain in place. call izquierdo placed within reach.
--- NOTE | 2023-07-23 19:46 | PC.NURSE ---
delay in medication administration d/t pt's weight being verified. pharmacist notified of pt's weight change/dosage change. weight changed in triage assessment. medication being brought down by pharmacy. will administer when able.
[2023-07-23 20:26] VITALS: BP 111/49; PULSE 64; RESP 20; TEMP 36.7; O2SAT 97
--- NOTE | 2023-07-23 20:26 | PC.NURSE ---
pt's mother agitated d/t staying in hospital so pt can be medicated/also for not having a ride home. pt medicated per provider order. this RN notified pt that transportation services can be accommodated d/t pt's seizure hx. pt's mother still agitated at this time. pt resting comfortably in no apparent distress. respirations remain even/unlabored. seizure pads in place. call izquierdo placed within reach.
--- NOTE | 2023-07-23 20:27 | MHC.EDTECH ---
This tech assumed care of patient at 1900, hourly rounds and vitals completed. Patient is unable to give urine at this time will re-attempt. Family at bedside and call izquierdo within reach
== END 2023-07-23 22:35 | disposition home or self-care (01) ==
PROVIDERS: Nurse Practitioner Family; Emergency Provider Student in an Organized Health Care Education/Training Program
DX: R56.9 Unspecified convulsions (principal); G91.9 Hydrocephalus, unspecified; Z11.52 Encounter for screening for COVID-19; Z20.822 Contact with and (suspected) exposure to COVID-19; Z79.899 Other long term (current) drug therapy
CPT/HCPCS: 80053; 80164; 85025; 87502; 87635; 96361; 96365; 96366; 96375; 99285; J2405

== ENCOUNTER 2023-07-31 16:17 | Emergency (ER) | payer OTHER, SELFPAY ==
[2023-07-31 16:19] VITALS: BP 102/60; BP 124/103; PULSE 63; PULSE 74; RESP 20; TEMP 36.6; O2SAT 96; BMI 40.7
--- NOTE | 2023-07-31 16:29 | PC.NURSE ---
Attempted to place patient on monitor for complaints of dizziness, patient refusing everything at this time.
--- NOTE | 2023-07-31 17:27 | ED_ITS ---
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 Patient states that while she was working, she has only had nausea and vomiting and feeling lightheaded. Patient denies any near syncopal episode or syncopal episode, denies fever or chills, no chest pain or shortness of breath. Patient's mother is at bedside, states that every time that the patient started her menstrual period, patient has abdominal cramping and vomiting. Related Data Previous Rx's Medication Instructions Recorded divalproex 500 mg tablet,delayed 500 mg PO DAILY 30 days #30 tabs 04/25/23 release hydroxyzine pamoate 50 mg capsule 50 mg PO TID 30 days #90 caps 04/25/23 olanzapine 5 mg tablet See Rx Instructions .Route 04/25/23 .COMPLEX 30 days #45 tabs oxybutynin chloride 10 mg 10 mg PO DAILY 30 days #30 tabs 04/25/23 tablet,extended release 24 hr trazodone 50 mg tablet 50 mg PO BEDTIME PRN Insomnia 30 04/25/23 days #30 tabs ondansetron 4 mg disintegrating 4 mg PO Q6H PRN nausea and 07/31/23 tablet vomiting #14 tabs Allergies Allergy/AdvReac Type Severity Reaction Status Date / Time No Known Allergies Allergy Verified 07/23/23 16:26 [No Known Allergies*] Review of Systems Review of Systems: Constitutional : No Weight loss, No Fever, No Chills, No Night Sweats, No Fatigue, No Malaise ENT/Mouth : No Hearing loss, No Ear Pain, No Nasal Congestion, No Sinus Pain, No Hoarseness, No sore throat, No Rhinorrhea, No Swallowing Difficulty Eyes: No Eye Pain, No Swelling, No Redness, No Foreign Body, No Discharge, No Vision Changes Cardiovascular : No Chest Pain, No SOB, No Dyspnea on Exertion, No Orthopnea, No Edema, No Palpitations Respiratory : No Cough, No Sputum, No Wheezing, No Smoke Exposure, No Dyspnea Gastrointestinal : Complaining of nausea and vomit No Diarrhea, No Constipation, No abdominal Pain, No Hematochezia, No Melena Genitourinary : Starting menstruation today, No Dysuria, No Urinary Frequency, No Hematuria, No Urinary Incontinence, No Urgency, No Flank Pain, No Urinary Flow Changes, No Hesitancy Musculoskeletal : No joint pain, No Myalgias, No Joint Swelling Skin : No Skin Lesions, No rash Neuro : No Weakness, No Numbness, No Paresthesias, No Loss of Consciousness, No Dizziness, No Headache Psych : No Anxiety/Panic, No Depression, No SI/HI/AH/VH, No Social Issues, Heme/Lymph: No Bruising, No Bleeding,No Lymphadenopathy Endocrine : No Polyuria, No Polydipsia, No Temperature Intolerance [facility] Past Medical History Medical History Developmental delay, mild MDD (major depressive disorder) Psychotic disorder Hydrocephalus Social History Social History Household Members: Family Housing: Apartment Housing Other:: [facility] Do you presently have visiting nurse or other home services: No Alcohol intake: never Patient Tobacco Use Status: Never used Tobacco Substance Use Type: Unknown Advance Directives: No Advance Directives Information Provided: No service: No Sexual orientation: Straight/Heterosexual Physical Exam Vital Signs: Vital Signs: Last Vital Signs Temp 98 F 07/31/23 16:19 Pulse 74 07/31/23 16:19 Resp 20 07/31/23 16:19 BP 124/103 H 07/31/23 16:19 Pulse Ox 96 07/31/23 16:19 O2 Del Method Room Air 07/31/23 16:19 BMI result Body Mass Index 40.7 Const: Other: Appearance: Alert. Oriented X3. No acute distress. Eyes: Pupils equal, round and reactive to light. ENT: Pharynx normal. Neck: Normal inspection. Neck supple. No lymph nodes noted. No crepitus CVS: Normal heart rate and rhythm. Pulses normal. Normal S1 and S2 Respiratory: No respiratory distress. Breath sounds normal. No Wheezing. No rales Abdomen: Soft and nontender. No rigidity. No distention. Skin: Skin warm and dry. Normal skin color. Normal skin turgor. Extremities: No lower extremity edema. No Lacerations. No Rash Neuro: Oriented X 3. No motor deficit. No sensory deficit. Moving all extremities. No slurred speech. CN 2 through 12 grossly intact Psych: calm, cooperative, normal affect Course Course Course Narrative: -patient declined any blood work. Patient's mother who is at bedside states that the patient does have multiple episodes of vomiting when her menstrual period starts. Patient is well-appearing, no abdominal tenderness on physical exam. -patient was offered sublingual Zofran, both patient and mother are requesting to skip all the lab work and patient would like to be discharged -patient well-appearing, vital stable Medical Decision Making Differential Diagnosis Differential Diagnoses: The differential diagnosis associated with the presentation includes (Gastroenteritis, gastritis, menstrual cramping and vomiting) Discharge Plan Discharge Clinical Impression: Nausea & vomiting Patient Disposition: Home, Self-Care Instructions: Acute Nausea and Vomiting (ED) Additional Instructions: Please follow-up with your primary care physician tomorrow. If you have any worsening or new symptoms, please return to the emergency room or call 911 Prescriptions: New ondansetron 4 mg tablet,disintegrating 4 mg PO Q6H PRN (Reason: nausea and vomiting) Qty: 14 0RF No Action oxybutynin chloride 10 mg tablet extended release 24hr 10 mg PO DAILY 30 Days Qty: 30 1RF trazodone 50 mg Tablet 50 mg PO BEDTIME PRN (Reason: Insomnia) 30 Days Qty: 30 1RF olanzapine 5 mg Tablet See Rx Instructions .ROUTE .COMPLEX 30 Days Qty: 45 1RF Rx Instructions: take 1 tab daily; may take 1 additionally tab daily as needed for Agitation hydroxyzine pamoate 50 mg capsule 50 mg PO TID 30 Days Qty: 90 1RF divalproex 500 mg tablet,delayed release (DR/EC) 500 mg PO DAILY 30 Days Qty: 30 1RF
--- NOTE | 2023-07-31 17:36 | PC.NURSE ---
Patient is refusing labwork and IV medication and fluids, provider aware and will make the nausea medication PO so patient can go home.
[2023-07-31] MEDS: Ondansetron ODT 4 MG TAB.RAPDIS TRANSLINGU (17:45)
[2023-07-31 17:46] VITALS: BP 112/93; PULSE 83; RESP 19; O2SAT 100
== END 2023-07-31 17:51 | disposition home or self-care (01) ==
PROVIDERS: Emergency Provider Emergency Medicine
DX: R11.2 Nausea with vomiting, unspecified (principal)
CPT/HCPCS: 99283; 99284

== ENCOUNTER 2023-09-05 21:28 | Inpatient (IN) | payer OTHER, SELFPAY ==
[2023-09-05 21:39] VITALS: BP 132/86; PULSE 90; O2SAT 99; BMI 31.1
[2023-09-05 21:50] VITALS: BP 129/77; PULSE 96; RESP 17; TEMP 36.2; O2SAT 98
[2023-09-05 22:22] LABS: Amphetamine Screen Urine Not Detected (Not Detect); Barbiturates, Urine Not Detected (Not Detect); Benzodiazepines Screen Urine Not Detected (Not Detect); Cannabinoid Screen Urine Not Detected (Not Detect); Cocaine Screen Urine Not Detected (Not Detect); Fentanyl, urine Not Detected (Not Detect); Opiate Screen Urine Not Detected (Not Detect); Phencyclidine Screen Urine Not Detected (Not Detect)
[2023-09-05 22:30] LABS: Basophils Percent Auto 0.4 % (0-2); Eosinophils Percent Auto 0.4 % (0-4); Hematocrit 38.4 % (37.0-47.0); Hemoglobin 13.7 g/dl (12.0-16.0); Imm Gran Abs Auto 0.03 X10*3/uL (0.00-0.03); Imm Gran Pct Auto 0.4 % (0.0-0.4); Lymphocytes Percent Auto 25.1 % (20-40); MANUAL DIFF FLAG NO; Mean Corpuscular HGB Conc 35.7 g/dl (31.0-35.0); Mean Corpuscular Volume 84.2 fL (80.0-98.0); Mean Platelet Volume 9.1 fL (9.4-12.3); Monocytes Absolute Auto 0.5 X10*3/uL (0.1-1.2); Monocytes Percent Auto 6.5 % (2-11); Neutrophils Absolute Auto 5.3 x10*3/uL (2.0-8.3); Neutrophils Percent Auto 67.2 % (45-73); Platelet Count 301 X10*3/uL (160-400); Red Blood Count 4.56 X10*6/uL (4.20-5.50); Red Cell Distribution Width 11.9 % (11.0-16.0); White Blood Count 7.9 X10*3/uL (4.8-10.8)
[2023-09-05 22:51] LABS: Alanine Aminotransferase 17 U/L (0-31); Albumin Level 4.4 g/dL (3.5-5.0); Alkaline Phosphatase 78 U/L (39-117); Anion Gap 14 (12-20); Aspartate Amino Transferase 16 U/L (5-31); Bilirubin Direct 0.1 mg/dL (0.0-0.5); Bilirubin Total 0.3 mg/dL (0.0-1.0); Blood Urea Nitrogen 15 mg/dL (9-16); Calcium 9.8 mg/dL (8.4-10.2); Carbon Dioxide 21 mmol/L (22-29); Chloride 110 mmol/L (96-108); Creatinine Clr Calc Pharmacy 111.6; Estimated Glomerular Filt Rate > 60; Ethanol < 10 mg/dL; Glucose Random 110 mg/dL (60-115); HCG Quantitative < 2 mIU/mL; Potassium 3.7 mmol/L (3.3-5.1); Sodium 141 mmol/L (135-145)
--- NOTE | 2023-09-05 23:00 | PC.NURSE ---
brandi mother would like updates. Called because she was not at home at the time of section and wanted an update. Pt gave permission to talk to mom and give updates
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
--- NOTE | 2023-09-06 05:47 | MHC.EDTECH ---
This tech assisted security with belonging list, All belongings locked in the laundry room in the pod.
[2023-09-06 06:03] VITALS: BP 109/55; PULSE 63; RESP 18; O2SAT 98
--- NOTE | 2023-09-06 07:10 | PC.NURSE ---
Resumed care of patient, she is currently sleeping, no events over night, awaiting careteam at this time.
[2023-09-06 11:29] LABS: COVID-19 Test Positive (Negative); IDNOW Serial# 08D9AD1C
[2023-09-06 11:35] LABS: Appearance Urine Clear; Color Urine Yellow; Glucose Urine UA Negative (Negative); Leukocyte Esterase Urine Negative (Negative); Nitrite Urine Negative (Negative); Specific Gravity - Urine >= 1.030 (1.005-1.025); UMIC TRIGGER UACC YES; Urine Blood Moderate (2+) (Negative); Urine Ketones Trace mg/dL (Negative); Urine Protein Negative (Neg-Trace)
[2023-09-06 11:41] LABS: Amphetamine Screen Urine Not Detected (Not Detect); Barbiturates, Urine Not Detected (Not Detect); Benzodiazepines Screen Urine Not Detected (Not Detect); Cannabinoid Screen Urine Not Detected (Not Detect); Cocaine Screen Urine Not Detected (Not Detect); Fentanyl, urine Not Detected (Not Detect); Opiate Screen Urine Not Detected (Not Detect); Phencyclidine Screen Urine Not Detected (Not Detect)
[2023-09-06 11:48] LABS: Bacteria Urine 1+ (None Seen); Hyaline Casts Urine 0-2 /LPF (0-2); WBC Urine 0-5 /HPF (0-5)
[2023-09-06] MEDS: Acetaminophen 325 MG TABLET 650 MG PO (11:49)
--- NOTE | 2023-09-06 12:07 | MHC.CARE ---
Pt gave verbal permission to inform her mother that she will be going inpatient psych. CARE team informed mother Gisela ([phone])
--- NOTE | 2023-09-06 17:26 | PC.NURSE ---
ambulatory with steady gait to BR., calm. unlabored resp; awaits transfer to floor and update from CARE team. encouraged to keep mask on.
[2023-09-06] MEDS: Ibuprofen 600 MG TABLET PO (19:35)
--- NOTE | 2023-09-06 20:41 | PC.NURSE ---
pt has been calm. chatting with staff, snacking. is aware that she is waiting for bed placement. no distress or aggressive behaviors. remains in a doan bed.
[2023-09-06 20:52] VITALS: BP 106/52; PULSE 70; RESP 17; TEMP 36.4; O2SAT 96
--- NOTE | 2023-09-06 22:49 | PC.NURSE ---
rn to rn with Pod.
--- NOTE | 2023-09-06 23:13 | PC.NURSE ---
patient transitioned to pod, requested to shower which d/t additional cleaning required patient was asked to wait until am and patient washed up and changes, brushed teeth in desginated bathroom
[2023-09-07] MEDS: OLANZapine 5 MG TABLET PO ×2 (00:32→20:08)
[2023-09-07] MEDS: Divalproex Sodium 500 MG TABLET.DR PO ×2 (00:32→08:50)
[2023-09-07] MEDS: hydrOXYzine HCL 50 MG TABLET PO ×3 (08:50→20:08)
--- NOTE | 2023-09-07 09:16 | PC.NURSE ---
assumed care of pt at 0700. pt ate breakfast, walking around POD in and out of room with face mask on. pt requesting to take shower, however no linens/hospital attire stocked yet. pt aware and cooperative. will take shower once restocked. pt medicated with AM meds per oct. pt back to bed. rr even/unlabored. plan of care ongoing.
--- NOTE | 2023-09-07 11:45 | PC.NURSE ---
pt reporting having nightmares. took pt temp to see if pt having fever dreams, oral temp 97.6. pt taking a shower. wctm.
[2023-09-07 11:56] VITALS: BP 105/55; PULSE 87; RESP 16; TEMP 36.5; O2SAT 97
--- NOTE | 2023-09-07 13:38 | MHC.CARE ---
A collateral call was made to PT's mother, Ms. Bustamante. She was informed that the decision remains for IPLOC at this time. Ms. Bustamante notes that her daughter takes her medication, however she does not believe that its helping as she becomes aggressive and violent quickly. Ms. Bustamante is working with Pt's therapist to complete a DDS application for her to receive services. Ms. Bustamante is asking that she kept updated in regards to next steps.
--- NOTE | 2023-09-07 15:53 | PC.NURSE ---
Patient asked for a change of clothing urinated on herself. Asked if she wanted a wash cloth and soap to get cleaned up. Patient refused and stated her bed was needed to be changed also.
--- NOTE | 2023-09-07 18:17 | MHC.EDTECH ---
Patient given dinner tray
--- NOTE | 2023-09-07 18:31 | PHA.MEDREC ---
Pharmacy Consult ? Medication Reconciliation Pharmacy has completed the medication reconciliation. Reviewed med rec done by nursing
[2023-09-07] MEDS: traZODone HCL 50 MG TABLET PO (20:08)
[2023-09-07 20:44] VITALS: BP 108/62; PULSE 85; RESP 18; TEMP 36.8; O2SAT 98
--- NOTE | 2023-09-07 20:58 | MHC.EDTECH ---
Patient given warm blanket
--- NOTE | 2023-09-07 23:22 | PC.NURSE ---
Took report from off-going RN. Pt is a 23 y/o female here for increasing aggression. Pt has been seen by care team and is on a section 12, bed search is ongoing. Pt is COVID positive. Pt is cooperative and easily arousable with verbal stimuli. Changes position in bed as desired and verbalizes needs. Has been seen by care team and is pending bed search. Pt changes position in bed independently as desired and verbalizes needs. Will continue to monitor and safety checks are ongoing.
--- NOTE | 2023-09-08 03:02 | PC.NURSE ---
Pt is sleeping in bed, appears comfortable. Pt is easily arousable with verbal stimuli. Changes positions as desired independently. Will continue to monitor and conduct regular safety checks. Pt remains symtpoms free, despite being covid positive.
--- NOTE | 2023-09-08 05:44 | PC.NURSE ---
Pt is sleeping in bed, appears comfortable. No acute distress noted. Changes positions independently as desired. Verbalizes needs appropriately and is easily arousable with verbal stimui. Will continue to monitor and note any changes. Bed search is ongoing. Pt is on a section 12.
[2023-09-08 06:00] VITALS: BP 96/55; PULSE 60; RESP 16; O2SAT 97
[2023-09-08] MEDS: Divalproex Sodium 500 MG TABLET.DR PO (08:15)
[2023-09-08] MEDS: hydrOXYzine HCL 50 MG TABLET PO ×3 (08:15→20:50)
--- NOTE | 2023-09-08 08:41 | PC.NURSE ---
PT UP TO SHOWER, CHANGE CHLOÉ. BEHAVIOUR NONCONCERNING, PT CALM, APPROPRIATE, MAINTAINING GOOD EYE CONTACT IN CONVERSATION. REMAINS ASYMPTOMATIC.
[2023-09-08 18:30] VITALS: BP 96/58; PULSE 69; RESP 18; TEMP 36.6; O2SAT 98
[2023-09-08] MEDS: OLANZapine 5 MG TABLET PO (20:50)
--- NOTE | 2023-09-09 04:31 | MHC.EDTECH ---
Pt approached this tech and stated they were incontinent of urine. Pt went to shower. Pt's bed was cleaned, linens were changed.
[2023-09-09 04:44] VITALS: BP 109/55; PULSE 68; RESP 14; TEMP 36.7; O2SAT 98
[2023-09-09] MEDS: Divalproex Sodium 500 MG TABLET.DR PO (08:26)
[2023-09-09] MEDS: hydrOXYzine HCL 50 MG TABLET PO ×3 (08:26→20:00)
[2023-09-09 09:15] LABS: COVID-19 Test Negative (Negative); IDNOW Serial# 152EDE1D
--- NOTE | 2023-09-09 12:06 | PC.NURSE ---
Assumed care of patient at 1100, patient appears to be sleeping in bed at this time, respirations even and unlabored, skin pwd, no apparent distress. Continue plan of care for inpatient admission, awaiting bed assignment
--- NOTE | 2023-09-09 14:10 | PC.NURSE ---
report to M5 RN
[2023-09-09] MEDS: Acetaminophen 325 MG TABLET 650 MG PO (14:30)
--- NOTE | 2023-09-09 14:58 | PC.NURSE ---
Addendum entered by Ivonne Polanco RN 09/09/23 15:22: Legals completed. Original Note: Pt arrived via wheelchair with staff from [facility] ED POD at 1445. Pt placed on 15 minute safety checks. Skin check completed. Oriented to unit. Admission needs to be completed by on-coming RN.
[2023-09-09 18:00] VITALS: BP 117/59; PULSE 96; RESP 16; TEMP 36; O2SAT 95
[2023-09-09] MEDS: OLANZapine 5 MG TABLET PO (20:00)
[2023-09-09] MEDS: traZODone HCL 50 MG TABLET PO (21:21)
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
[2023-09-10] MEDS: traZODone HCL 50 MG TABLET PO ×2 (00:08→20:20)
[2023-09-10] MEDS: Acetaminophen 325 MG TABLET 650 MG PO ×3 (00:08→17:39)
[2023-09-10 08:15] VITALS: BP 113/56; PULSE 66; RESP 16; TEMP 36.4; O2SAT 99
[2023-09-10] MEDS: hydrOXYzine HCL 50 MG TABLET PO ×3 (08:15→20:20)
[2023-09-10] MEDS: Divalproex Sodium 500 MG TABLET.DR PO (08:15)
--- NOTE | 2023-09-10 09:16 | P.HPPS_ITS ---
HPI Date of Service: 09/10/23 Chief Complaint: Aggression Sources of Information: patient interviewed, chart reviewed and crisis/core team assessment reviewed HPI Subjective Notes: Vasquez Warning and Conditional Voluntary Narrative: patient is a 23-year-old female with history of intermittent explosive disorder, intermittent AH, intellectual disability s/p hydrocephalus at , who presents for explosive outburst at home in context of acute exacerbation of chronic family relational strife. Patient is friendly and calm on admission and appears to have returned to baseline, which is typical for her. She say I got into a fight with my mother's boyfriend... He got me mad.... I wanted another slice of pizza and he said no... It has not clear exactly the order of events following but she got angry, at some point picked up a hammer and threatened her brother or boyfriend and brother called the police. Patient got scared and locked herself in a bathroom. She said she did not have a knife, but rather she took the hammer in the bathroom with her. She did not open the door to the police because she was scared of the billet inspector. She said she wanted to go to the hospital but did not know if the police were going to bring her there. Patient can not say if there was anything in particular that made her more on edge or reactive this particular day or if there was any other recent build up of emotion.. She says that for years, she and her mother's boyfriend have had daily relational conflict. Denies any SI or HI. Feels back to her regular self. No AVH. Past Psychiatric History: History of 3 psychiatric hospitalizations; [place] [facility] [place]/08/2023 and had an understanding of three-day notice process and was discharged in the context of same on 01/15/2023. During last admission, admission circumstances were similar with aggression and agitation and perhaps some paranoia but also medication non adherence. Was discharged on Depakote and olanzapine. - admission to [facility] 2022 -admission to January 2020 Some mention of history of psychotic illness Intellectual disability secondary to hydrocephalus Crisis assessments dating back to 2012 History of Depakote 250 mg daily Medical Evaluation Reviewed: Yes [facility] Medical History (Updated 09/11/23 @ 09:09 by Mark Rutherford MD) Intermittent explosive disorder Developmental delay, mild MDD (major depressive disorder) Psychotic disorder Hydrocephalus Family History: high expressed emotion Social History: Patient currently lives with her mother and sibling and moms boyfriend. As per record: Patient born in [place] but moved here when she was 1 years old. Mother is from her father however patient says she sees him frequently. Substance History: none Trauma History: Deferred Diagnostics Vital Signs (24Hr): Vital Signs - 24 hr 09/09/23 18:00 09/10/23 08:15 Temperature 96.8 F 97.6 F Pulse Rate 96 66 Respiratory Rate 16 16 Blood Pressure 117/59 L 113/56 L Pulse Oximetry 95 99 Oxygen Delivery Method Room Air Room Air BMI result Body Mass Index 31.1 Labs 09/05/23 22:24 09/05/23 22:24 Labs: Laboratory Results - last 48 hr 09/09/23 08:49 COVID-19 ([facility]ORCAS) Negative COVID-19 Clin Com See Note Meds/Allergies Allergies Allergies Allergy/AdvReac Type Severity Reaction Status Date / Time No Known Allergies Allergy Verified 09/06/23 02:23 [No Known Allergies*] Mental Status Exam Mental Status Exam Narrative: Pt is alert and oriented; behavior is cooperative, calm, friendly;? patient is not in distress; dressed in hospital attire with adequate hygiene; mood is described as good and affect congruent, bright; eye contact appropriate less talking about recent event or symptoms which then becomes avoidant; Speech is normal rate, volume and prosody and not pressured; no psychomotor agitation/retardation present; thought process is concrete, goal oriented; Thought content is vacuous; no paranoid/delusional content expressed; denies any SI/HI.? Denies AVH. ?Patients insight and judgment limited but at baseline. Assessment & Plan Assessment & Plan (1) Intermittent explosive disorder: Status: Acute Code(s): F63.81 - Intermittent explosive disorder (2) Developmental delay, mild: Status: Acute Code(s): R62.50 - Unspecified lack of expected normal physiological development in childhood (3) MDD (major depressive disorder): Status: Acute Code(s): F32.9 - Major depressive disorder, single episode, unspecified Plan patient is a 23-year-old female with history of intermittent explosive disorder, intermittent AH, intellectual disability s/p hydrocephalus at , who presents for explosive outburst at home in context of acute exacerbation of chronic family relational strife. Patient is friendly and calm on admission and appears to have returned to baseline, which is typical for her. She say I got into a fight with my mother's boyfriend... He got me mad.... I wanted another slice of pizza and he said no... It has not clear exactly the order of events following but she got angry, at some point picked up a hammer and threatened her brother or boyfriend and brother called the police. Patient got scared and locked herself in a bathroom. She said she did not have a knife, but rather she took the hammer in the bathroom with her. She did not open the door to the police because she was scared of the billet inspector. She said she wanted to go to the hospital but did not know if the police were going to bring her there. Patient can not say if there was anything in particular that made her more on edge or reactive this particular day or if there was any other recent build up of emotion.. She says that for years, she and her mother's boyfriend have had daily relational conflict. Denies any SI or HI. Feels back to her regular self. No AVH. Impression/plan: Patient has nearly identical presentation as with all her past psychiatric admissions. It is common for patient to be overall at baseline, for something upsetting to happen at home, she has an explosive reaction which quickly resolves. At this time no need for medication management. Rather team agrees that patient would do much better with help from child protective services social worker and day structure, allowing her to get out of the home more frequently to interact with others and and developed more relationships. Social work calling [facility]; will also discuss with patient's family. Plan: CV Q 15 minute checks Continue home medication regimen Gather collateral from mother and have family meeting Reaching out to [facility] for increased support Patient educated on: diagnosis Informed Consent: further education needed Reason for continued inpatient stay Substantial Risk for: rapid decompensation Statement Statement: I have reviewed the history and physical and performed a pertinent examination on my patient. No changes have occurred unless specified. If the History and Physical was not performed prior to admission, the Hospitalist's service will be consulted for completing the admission physical. Time Spent With Patient Time: Total time managing care of this patient today ____ minutes.
[2023-09-10] MEDS: hydrOXYzine HCL 25 MG TABLET PO (17:05)
[2023-09-10 18:00] VITALS: BP 117/76; PULSE 89; RESP 20; TEMP 36.5; O2SAT 100
[2023-09-10] MEDS: OLANZapine 5 MG TABLET PO (20:20)
[2023-09-11 08:00] VITALS: BP 129/60; PULSE 91; RESP 16; TEMP 36.1; O2SAT 99
[2023-09-11] MEDS: Divalproex Sodium 500 MG TABLET.DR PO (08:25)
[2023-09-11] MEDS: hydrOXYzine HCL 50 MG TABLET PO ×3 (08:25→20:12)
--- NOTE | 2023-09-11 09:13 | P.PNPSI_ITS ---
Subjective Subjective Date of Service: 09/11/23 Reason For Visit: Aggression Interim History: Met with patient; discussed with team pt bright, friendly; says she's doing well; denies psych symptoms. Asks again if senior copywriter can call mom Mental Status Exam Mental Status Exam Narrative: Pt is alert and oriented; behavior is cooperative, calm, friendly;? patient is not in distress; dressed in hospital attire with adequate hygiene; mood is described as good and affect congruent, bright; eye contact appropriate less talking about recent event or symptoms which then becomes avoidant; Speech is normal rate, volume and prosody and not pressured; no psychomotor agitation/retardation present; thought process is concrete, goal oriented; Thought content is vacuous; no paranoid/delusional content expressed; denies any SI/HI.? Denies AVH. ?Patients insight and judgment limited but at baseline. Diagnostics Vital Signs (24Hr): Vital Signs - 24 hr 09/10/23 18:00 Temperature 97.7 F Pulse Rate 89 Respiratory Rate 20 Blood Pressure 117/76 Pulse Oximetry 100 Oxygen Delivery Method Room Air BMI result Body Mass Index 31.1 Labs 09/05/23 22:24 09/05/23 22:24 Labs: Laboratory Results - last 48 hr 09/09/23 08:49 COVID-19 ([facility]) Negative COVID-19 Clin Com See Note Medications Medications Current Medications Acetaminophen (Acetaminophen 325 Mg Tablet) 650 mg PO Q6H PRN PRN Reason: Headache/Pain Mild Scale (1-3) Last Admin: 09/10/23 17:39 Dose: 650 mg Al Hydroxide/Mg Hydroxide (Magnesium Hydrox/Alum Hydrox 30 Ml Oral.Susp) 30 ml PO Q6H PRN PRN Reason: Heartburn/Nausea Divalproex Sodium (Divalproex Sodium 500 Mg Tablet.Dr) 500 mg PO DAILY CUCA Last Admin: 09/11/23 08:25 Dose: 500 mg Hydroxyzine HCl (Hydroxyzine Hcl 50 Mg Tablet) 50 mg PO TID CUCA Last Admin: 09/11/23 08:25 Dose: 50 mg Hydroxyzine HCl (Hydroxyzine Hcl 25 Mg Tablet) 25 mg PO Q6H PRN PRN Reason: Anxiety Last Admin: 09/10/23 17:05 Dose: 25 mg Magnesium Hydroxide (Milk Of Magnesia 30 Ml Oral.Susp) 30 ml PO DAILY PRN PRN Reason: Constipation Nicotine Polacrilex (Nicotine Polacrilex 2 Mg Gum) 4 mg BUCCAL Q2H PRN PRN Reason: Nicotine Cravings Olanzapine (Olanzapine 5 Mg Tablet) 5 mg PO BEDTIME CUCA Last Admin: 09/10/23 20:20 Dose: 5 mg Olanzapine (Olanzapine 5 Mg Tablet) 5 mg PO TID PRN PRN Reason: agitation Trazodone HCl (Trazodone Hcl 50 Mg Tablet) 50 mg PO BEDTIME PRN PRN Reason: Insomnia Last Admin: 09/10/23 20:20 Dose: 50 mg Trazodone HCl (Trazodone Hcl 50 Mg Tablet) 50 mg PO BEDTIME MRX1 PRN PRN Reason: Insomnia Last Admin: 09/10/23 00:08 Dose: 50 mg Allergies Allergies Allergy/AdvReac Type Severity Reaction Status Date / Time No Known Allergies Allergy Verified 09/06/23 02:23 [No Known Allergies*] Assessment & Plan Assessment & Plan (1) Intermittent explosive disorder: Status: Acute Code(s): F63.81 - Intermittent explosive disorder (2) Developmental delay, mild: Status: Acute Code(s): R62.50 - Unspecified lack of expected normal physiological development in childhood (3) MDD (major depressive disorder): Status: Acute Code(s): F32.9 - Major depressive disorder, single episode, unspecified Plan patient is a 23-year-old female with history of intermittent explosive disorder, intermittent AH, intellectual disability s/p hydrocephalus at , who presents for explosive outburst at home in context of acute exacerbation of chronic family relational strife. Patient is friendly and calm on admission and appears to have returned to baseline, which is typical for her. She say I got into a fight with my mother's boyfriend... He got me mad.... I wanted another slice of pizza and he said no... It has not clear exactly the order of events following but she got angry, at some point picked up a hammer and threatened her brother or boyfriend and brother called the police. Patient got scared and locked herself in a bathroom. She said she did not have a knife, but rather she took the hammer in the bathroom with her. She did not open the door to the police because she was scared of the emergency response officer. She said she wanted to go to the hospital but did not know if the police were going to bring her there. Patient can not say if there was anything in particular that made her more on edge or reactive this particular day or if there was any other recent build up of emotion.. She says that for years, she and her mother's boyfriend have had daily relational conflict. Denies any SI or HI. Feels back to her regular self. No AVH. Impression/plan: Patient has nearly identical presentation as with all her past psychiatric admissions. It is common for patient to be overall at baseline, for something upsetting to happen at home, she has an explosive reaction which quickly resolves. At this time no need for medication management. Rather team agrees that patient would do much better with help from psychotherapist social worker and day structure, allowing her to get out of the home more frequently to interact with others and and developed more relationships. Social work calling [facility]; will also discuss with patient's family. Hospital Course: 09/11 remains at baseline, bright, friendly, calm; good behavioral and impulse control team connected with [facility] and found that pt had not responded to their outreach; will discuss with family. Team agrees that without additional support for patient, little will change Plan: CV Q 15 minute checks Continue home medication regimen Gather collateral from mother and have family meeting Reaching out to [facility] for increased support Patient educated on: diagnosis and therapeutic strategies Informed Consent: understands Reason for continued inpatient stay Substantial Risk for: rapid decompensation Time Spent With Patient Time: Total time managing care of this patient today ____ minutes.
[2023-09-11] MEDS: Acetaminophen 325 MG TABLET 650 MG PO ×2 (10:08→18:52)
[2023-09-11] MEDS: Magnesium Hydrox/Alum Hydrox 30 ML ORAL.SUSP PO ×2 (10:53→18:48)
[2023-09-11 17:07] VITALS: BP 125/89; PULSE 60; RESP 16; O2SAT 96
[2023-09-11] MEDS: Throat Lozenge, Medicated LOZENGE 1 LOZENGE MUCOUS MEM (17:09)
[2023-09-11] MEDS: OLANZapine 5 MG TABLET PO ×2 (18:05→20:12)
[2023-09-11] MEDS: traZODone HCL 50 MG TABLET PO (20:12)
[2023-09-11] MEDS: hydrOXYzine HCL 25 MG TABLET PO (20:57)
[2023-09-12 08:00] VITALS: BP 111/67; PULSE 67; RESP 16; TEMP 36.2; O2SAT 100
[2023-09-12] MEDS: hydrOXYzine HCL 50 MG TABLET PO ×3 (09:15→20:14)
[2023-09-12] MEDS: Divalproex Sodium 500 MG TABLET.DR PO (09:15)
--- NOTE | 2023-09-12 09:20 | HO.PSYCHPN ---
Subjective Subjective Date of Service: 09/12/23 Reason For Visit: Aggression Interim History: Met with patient; discussed with team At baseline. In a good mood; some increased anxiety due to milieu acuity but otherwise doing well. Working on aftercare with [facility] and family Mental Status Exam Mental Status Exam Narrative: Pt is alert and oriented; behavior is cooperative, calm, friendly;? patient is not in distress; dressed in hospital attire with adequate hygiene; mood is described as good and affect congruent, bright; eye contact appropriate less talking about recent event or symptoms which then becomes avoidant; Speech is normal rate, volume and prosody and not pressured; no psychomotor agitation/retardation present; thought process is concrete, goal oriented; Thought content is vacuous; no paranoid/delusional content expressed; denies any SI/HI.? Denies AVH. ?Patients insight and judgment limited but at baseline. Diagnostics Vital Signs (24Hr): Vital Signs - 24 hr 09/11/23 17:07 09/12/23 08:00 Temperature 97.2 F Pulse Rate 60 67 Respiratory Rate 16 16 Blood Pressure 125/89 111/67 Pulse Oximetry 96 100 Oxygen Delivery Method Room Air Room Air BMI result Body Mass Index 31.1 Labs 09/05/23 22:24 09/05/23 22:24 Medications Medications Current Medications Acetaminophen (Acetaminophen 325 Mg Tablet) 650 mg PO Q6H PRN PRN Reason: Headache/Pain Mild Scale (1-3) Last Admin: 09/11/23 18:52 Dose: 650 mg Al Hydroxide/Mg Hydroxide (Magnesium Hydrox/Alum Hydrox 30 Ml Oral.Susp) 30 ml PO Q6H PRN PRN Reason: Heartburn/Nausea Last Admin: 09/11/23 18:48 Dose: 30 ml Benzocaine (Throat Lozenge, Medicated Lozenge) 1 lozenge MUCOUS MEM Q2H PRN PRN Reason: Sore Throat Last Admin: 09/11/23 17:09 Dose: 1 lozenge Divalproex Sodium (Divalproex Sodium 500 Mg Tablet.Dr) 500 mg PO DAILY CUCA Last Admin: 09/12/23 09:15 Dose: 500 mg Hydroxyzine HCl (Hydroxyzine Hcl 50 Mg Tablet) 50 mg PO TID CUCA Last Admin: 09/12/23 09:15 Dose: 50 mg Hydroxyzine HCl (Hydroxyzine Hcl 25 Mg Tablet) 25 mg PO Q6H PRN PRN Reason: mild Anxiety Last Admin: 09/11/23 20:57 Dose: 25 mg Magnesium Hydroxide (Milk Of Magnesia 30 Ml Oral.Susp) 30 ml PO DAILY PRN PRN Reason: Constipation Olanzapine (Olanzapine 5 Mg Tablet) 5 mg PO BEDTIME CUCA Last Admin: 09/11/23 20:12 Dose: 5 mg Olanzapine (Olanzapine 5 Mg Tablet) 5 mg PO TID PRN PRN Reason: agitation Last Admin: 09/11/23 18:05 Dose: 5 mg Trazodone HCl (Trazodone Hcl 50 Mg Tablet) 50 mg PO BEDTIME PRN PRN Reason: Insomnia Last Admin: 09/11/23 20:12 Dose: 50 mg Allergies Allergies Allergy/AdvReac Type Severity Reaction Status Date / Time No Known Allergies Allergy Verified 09/06/23 02:23 [No Known Allergies*] Assessment & Plan Assessment & Plan (1) Intermittent explosive disorder: Status: Acute Code(s): F63.81 - Intermittent explosive disorder (2) Developmental delay, mild: Status: Acute Code(s): R62.50 - Unspecified lack of expected normal physiological development in childhood (3) MDD (major depressive disorder): Status: Acute Code(s): F32.9 - Major depressive disorder, single episode, unspecified Plan patient is a 23-year-old female with history of intermittent explosive disorder, intermittent AH, intellectual disability s/p hydrocephalus at , who presents for explosive outburst at home in context of acute exacerbation of chronic family relational strife. Patient is friendly and calm on admission and appears to have returned to baseline, which is typical for her. She say I got into a fight with my mother's boyfriend... He got me mad.... I wanted another slice of pizza and he said no... It has not clear exactly the order of events following but she got angry, at some point picked up a hammer and threatened her brother or boyfriend and brother called the police. Patient got scared and locked herself in a bathroom. She said she did not have a knife, but rather she took the hammer in the bathroom with her. She did not open the door to the police because she was scared of the administrative medical director. She said she wanted to go to the hospital but did not know if the police were going to bring her there. Patient can not say if there was anything in particular that made her more on edge or reactive this particular day or if there was any other recent build up of emotion.. She says that for years, she and her mother's boyfriend have had daily relational conflict. Denies any SI or HI. Feels back to her regular self. No AVH. Impression/plan: Patient has nearly identical presentation as with all her past psychiatric admissions. It is common for patient to be overall at baseline, for something upsetting to happen at home, she has an explosive reaction which quickly resolves. At this time no need for medication management. Rather team agrees that patient would do much better with help from foster care social worker and day structure, allowing her to get out of the home more frequently to interact with others and and developed more relationships. Social work calling [facility]; will also discuss with patient's family. Hospital Course: 09/11 remains at baseline, bright, friendly, calm; good behavioral and impulse control team connected with [facility] and found that pt had not responded to their outreach; will discuss with family. Team agrees that without additional support for patient, little will change 09/12 remains at baseline; working with family and [facility] for outpatient support -aligner typewriter agrees with team that without significant increase in outpatient support, patient will soon returned to the hospital Plan: CV Q 15 minute checks Continue home medication regimen Gather collateral from mother and have family meeting Reaching out to [facility] for increased support Patient already has neurologist Patient educated on: diagnosis Informed Consent: understands and further education needed Reason for continued inpatient stay Substantial Risk for: stable for discharge Time Spent With Patient Time: Total time managing care of this patient today ____ minutes.
[2023-09-12] MEDS: Magnesium Hydrox/Alum Hydrox 30 ML ORAL.SUSP PO (10:02)
[2023-09-12 11:14] VITALS: BMI 39.9
[2023-09-12] MEDS: Acetaminophen 325 MG TABLET 650 MG PO ×2 (11:34→18:57)
[2023-09-12] MEDS: hydrOXYzine HCL 25 MG TABLET PO (12:29)
[2023-09-12] MEDS: Milk of Magnesia 30 ML ORAL.SUSP PO (15:42)
[2023-09-12 18:00] VITALS: BP 124/75; PULSE 98; TEMP 36.6; O2SAT 99
--- NOTE | 2023-09-12 19:43 | PC.NURSE ---
Pt submitted a Three Day Notice on 09/12/2023 up on Saturday09/17/2023.
[2023-09-12] MEDS: OLANZapine 5 MG TABLET PO (20:14)
[2023-09-12] MEDS: traZODone HCL 50 MG TABLET PO (20:15)
--- NOTE | 2023-09-13 00:17 | PC.NURSE ---
Pt signed three day notice of revocation of Conditional Voluntary and her intent to leave [facility] [place] [place] M5. 3 day is up 09/17/23.
[2023-09-13 08:26] VITALS: BP 122/61; PULSE 80; RESP 16; TEMP 36.1; O2SAT 98
[2023-09-13] MEDS: Divalproex Sodium 500 MG TABLET.DR PO (08:43)
[2023-09-13] MEDS: hydrOXYzine HCL 50 MG TABLET PO ×3 (08:43→19:39)
[2023-09-13] MEDS: Acetaminophen 325 MG TABLET 650 MG PO (10:29)
--- NOTE | 2023-09-13 10:32 | P.PNPSI_ITS ---
Subjective Subjective Date of Service: 09/13/23 Reason For Visit: Aggression Subjective Notes: Conditional Voluntary and 3 Day Medical Problems Affecting Mental Status: No Interim History: Met with patient; discussed with team. Pt signed 3 day notice last night. Pt presents guarded and anxious; she denies complaints. pt in good mood; some hypervigilance noted with increased anxiety due to milieu acuity but otherwise doing well. Working on aftercare with DDS and family Medication Compliance: Yes Side effects from medications: No Attending Groups: Yes Review of Systems Acute medical concerns: No Medical Review of Systems: unchanged Review of Systems Review of Systems Yes all other systems are reviewed and are negative Mental Status Exam Mental Status Exam Narrative: Pt is alert and oriented; behavior is cooperative, friendly, a little guarded; patient is not in distress; dressed in hospital attire with adequate hygiene; mood is described as good and affect congruent, bright; eye contact appropriate. Speech is quiet and sparse with TW, normal rate and prosody and not pressured; no psychomotor agitation/retardation present; thought process is concrete, goal oriented; Thought content is vacuous; no paranoid/delusional content expressed; denies any SI/HI.? Denies AVH. ?Patients insight and judgment limited but at baseline. Diagnostics Vital Signs (24Hr): Vital Signs - 24 hr 09/12/23 18:00 09/13/23 08:26 Temperature 97.8 F 97.0 F Pulse Rate 98 80 Respiratory Rate 16 Blood Pressure 124/75 122/61 Pulse Oximetry 99 98 Oxygen Delivery Method Room Air Room Air BMI result Body Mass Index 39.9 Labs 09/05/23 22:24 09/05/23 22:24 Medications Medications Current Medications Acetaminophen (Acetaminophen 325 Mg Tablet) 650 mg PO Q6H PRN PRN Reason: Headache/Pain Mild Scale (1-3) Last Admin: 09/13/23 10:29 Dose: 650 mg Al Hydroxide/Mg Hydroxide (Magnesium Hydrox/Alum Hydrox 30 Ml Oral.Susp) 30 ml PO Q6H PRN PRN Reason: Heartburn/Nausea Last Admin: 09/12/23 10:02 Dose: 30 ml Benzocaine (Throat Lozenge, Medicated Lozenge) 1 lozenge MUCOUS MEM Q2H PRN PRN Reason: Sore Throat Last Admin: 09/11/23 17:09 Dose: 1 lozenge Divalproex Sodium (Divalproex Sodium 500 Mg Tablet.Dr) 500 mg PO DAILY CUCA Last Admin: 09/13/23 08:43 Dose: 500 mg Hydroxyzine HCl (Hydroxyzine Hcl 50 Mg Tablet) 50 mg PO TID CUCA Last Admin: 09/13/23 08:43 Dose: 50 mg Hydroxyzine HCl (Hydroxyzine Hcl 25 Mg Tablet) 25 mg PO Q6H PRN PRN Reason: mild Anxiety Last Admin: 09/12/23 12:29 Dose: 25 mg Magnesium Hydroxide (Milk Of Magnesia 30 Ml Oral.Susp) 30 ml PO DAILY PRN PRN Reason: Constipation Last Admin: 09/12/23 15:42 Dose: 30 ml Olanzapine (Olanzapine 5 Mg Tablet) 5 mg PO BEDTIME CUCA Last Admin: 09/12/23 20:14 Dose: 5 mg Olanzapine (Olanzapine 5 Mg Tablet) 5 mg PO TID PRN PRN Reason: agitation Last Admin: 09/11/23 18:05 Dose: 5 mg Trazodone HCl (Trazodone Hcl 50 Mg Tablet) 50 mg PO BEDTIME PRN PRN Reason: Insomnia Last Admin: 09/12/23 20:15 Dose: 50 mg Allergies Allergies Allergy/AdvReac Type Severity Reaction Status Date / Time No Known Allergies Allergy Verified 09/06/23 02:23 [No Known Allergies*] Assessment & Plan Assessment & Plan (1) Intermittent explosive disorder: Status: Acute Code(s): F63.81 - Intermittent explosive disorder (2) Developmental delay, mild: Status: Acute Code(s): R62.50 - Unspecified lack of expected normal physiological development in childhood (3) MDD (major depressive disorder): Status: Acute Code(s): F32.9 - Major depressive disorder, single episode, unspecified Plan patient is a 23-year-old female with history of intermittent explosive disorder, intermittent AH, intellectual disability s/p hydrocephalus at , who presents for explosive outburst at home in context of acute exacerbation of chronic family relational strife. Patient is friendly and calm on admission and appears to have returned to baseline, which is typical for her. She say I got into a fight with my mother's boyfriend... He got me mad.... I wanted another slice of pizza and he said no... It has not clear exactly the order of events following but she got angry, at some point picked up a hammer and threatened her brother or boyfriend and brother called the police. Patient got scared and locked herself in a bathroom. She said she did not have a knife, but rather she took the hammer in the bathroom with her. She did not open the door to the police because she was scared of the websphere architect. She said she wanted to go to the hospital but did not know if the police were going to bring her there. Patient can not say if there was anything in particular that made her more on edge or reactive this particular day or if there was any other recent build up of emotion.. She says that for years, she and her mother's boyfriend have had daily relational conflict. Denies any SI or HI. Feels back to her regular self. No AVH. Impression/plan: Patient has nearly identical presentation as with all her past psychiatric admissions. It is common for patient to be overall at baseline, for something upsetting to happen at home, she has an explosive reaction which quickly resolves. At this time no need for medication management. Rather team agrees that patient would do much better with help from social services technician and day structure, allowing her to get out of the home more frequently to interact with others and and developed more relationships. Social work calling S/[facility]; will also discuss with patient's family. Hospital Course: 09/11 remains at baseline, bright, friendly, calm; good behavioral and impulse control team connected with [facility] and found that pt had not responded to their outreach; will discuss with family. Team agrees that without additional support for patient, little will change 09/12 remains at baseline; working with family and [facility] for outpatient support -race and sports book writer agrees with team that without significant increase in outpatient support, patient will soon returned to the hospital 09/13- continue treatment plan Plan: CV Q 15 minute checks Continue home medication regimen Gather collateral from mother and have family meeting Reaching out to S/[facility] for increased support Patient already has neurologist Reason for continued inpatient stay Substantial Risk for: harm to self, inability to function and rapid decompensation Time Spent With Patient Time: Total time managing care of this patient today ____ minutes.
[2023-09-13] MEDS: Magnesium Hydrox/Alum Hydrox 30 ML ORAL.SUSP PO (14:32)
[2023-09-13] MEDS: OLANZapine 5 MG TABLET PO ×2 (16:17→19:39)
[2023-09-13 17:18] VITALS: BP 126/65; PULSE 100; RESP 18; TEMP 36.6; O2SAT 97
[2023-09-13] MEDS: traZODone HCL 50 MG TABLET PO (19:39)
[2023-09-14 08:00] VITALS: BP 113/72; PULSE 87; RESP 16; TEMP 36.4; O2SAT 99
[2023-09-14] MEDS: hydrOXYzine HCL 50 MG TABLET PO ×3 (08:48→19:48)
[2023-09-14] MEDS: Divalproex Sodium 500 MG TABLET.DR PO (08:48)
--- NOTE | 2023-09-14 12:09 | HO.PSYCHPN ---
Subjective Subjective Date of Service: 09/14/23 Reason For Visit: Aggression Subjective Notes: 3 Day Interim History: Pt presents guarded and anxious; she denies complaints. pt in good mood; some hypervigilance noted with increased anxiety due to milieu acuity but otherwise doing well. Working on aftercare with DDS and family Medication Compliance: Yes Side effects from medications: No Attending Groups: Intermittent Review of Systems Acute medical concerns: No Medical Review of Systems: unchanged Review of Systems Review of Systems Yes all other systems are reviewed and are negative Mental Status Exam Mental Status Exam Narrative: Pt is alert and oriented; behavior is cooperative, friendly, a little guarded; patient is not in distress; dressed in hospital attire with adequate hygiene; mood is described as good and affect congruent, bright; eye contact appropriate. Speech is quiet and sparse with TW, normal rate and prosody and not pressured; no psychomotor agitation/retardation present; thought process is concrete, goal oriented; Thought content is vacuous; no paranoid/delusional content expressed; denies any SI/HI.? Denies AVH. ?Patients insight and judgment limited but at baseline. Diagnostics Vital Signs (24Hr): Vital Signs - 24 hr 09/13/23 17:18 09/14/23 08:00 Temperature 97.8 F 97.5 F Pulse Rate 100 87 Respiratory Rate 18 16 Blood Pressure 126/65 113/72 Pulse Oximetry 97 99 Oxygen Delivery Method Room Air Room Air BMI result Body Mass Index 39.9 Labs 09/05/23 22:24 09/05/23 22:24 Medications Medications Current Medications Acetaminophen (Acetaminophen 325 Mg Tablet) 650 mg PO Q6H PRN PRN Reason: Headache/Pain Mild Scale (1-3) Last Admin: 09/13/23 10:29 Dose: 650 mg Al Hydroxide/Mg Hydroxide (Magnesium Hydrox/Alum Hydrox 30 Ml Oral.Susp) 30 ml PO Q6H PRN PRN Reason: Heartburn/Nausea Last Admin: 09/13/23 14:32 Dose: 30 ml Benzocaine (Throat Lozenge, Medicated Lozenge) 1 lozenge MUCOUS MEM Q2H PRN PRN Reason: Sore Throat Last Admin: 09/11/23 17:09 Dose: 1 lozenge Divalproex Sodium (Divalproex Sodium 500 Mg Tablet.) 500 mg PO DAILY CUCA Last Admin: 09/14/23 08:48 Dose: 500 mg Hydroxyzine HCl (Hydroxyzine Hcl 50 Mg Tablet) 50 mg PO TID CUCA Last Admin: 09/14/23 08:48 Dose: 50 mg Hydroxyzine HCl (Hydroxyzine Hcl 25 Mg Tablet) 25 mg PO Q6H PRN PRN Reason: mild Anxiety Last Admin: 09/12/23 12:29 Dose: 25 mg Magnesium Hydroxide (Milk Of Magnesia 30 Ml Oral.Susp) 30 ml PO DAILY PRN PRN Reason: Constipation Last Admin: 09/12/23 15:42 Dose: 30 ml Olanzapine (Olanzapine 5 Mg Tablet) 5 mg PO BEDTIME CUCA Last Admin: 09/13/23 19:39 Dose: 5 mg Olanzapine (Olanzapine 5 Mg Tablet) 5 mg PO TID PRN PRN Reason: agitation Last Admin: 09/13/23 16:17 Dose: 5 mg Trazodone HCl (Trazodone Hcl 50 Mg Tablet) 50 mg PO BEDTIME PRN PRN Reason: Insomnia Last Admin: 09/13/23 19:39 Dose: 50 mg Allergies Allergies Allergy/AdvReac Type Severity Reaction Status Date / Time No Known Allergies Allergy Verified 09/06/23 02:23 [No Known Allergies*] Assessment & Plan Assessment & Plan (1) Intermittent explosive disorder: Status: Acute Code(s): F63.81 - Intermittent explosive disorder (2) Developmental delay, mild: Status: Acute Code(s): R62.50 - Unspecified lack of expected normal physiological development in childhood (3) MDD (major depressive disorder): Status: Acute Code(s): F32.9 - Major depressive disorder, single episode, unspecified Plan patient is a 23-year-old female with history of intermittent explosive disorder, intermittent AH, intellectual disability s/p hydrocephalus at , who presents for explosive outburst at home in context of acute exacerbation of chronic family relational strife. Patient is friendly and calm on admission and appears to have returned to baseline, which is typical for her. She say I got into a fight with my mother's boyfriend... He got me mad.... I wanted another slice of pizza and he said no... It has not clear exactly the order of events following but she got angry, at some point picked up a hammer and threatened her brother or boyfriend and brother called the police. Patient got scared and locked herself in a bathroom. She said she did not have a knife, but rather she took the hammer in the bathroom with her. She did not open the door to the police because she was scared of the substitute bus driver. She said she wanted to go to the hospital but did not know if the police were going to bring her there. Patient can not say if there was anything in particular that made her more on edge or reactive this particular day or if there was any other recent build up of emotion.. She says that for years, she and her mother's boyfriend have had daily relational conflict. Denies any SI or HI. Feels back to her regular self. No AVH. Impression/plan: Patient has nearly identical presentation as with all her past psychiatric admissions. It is common for patient to be overall at baseline, for something upsetting to happen at home, she has an explosive reaction which quickly resolves. At this time no need for medication management. Rather team agrees that patient would do much better with help from social welfare clerk and day structure, allowing her to get out of the home more frequently to interact with others and and developed more relationships. Social work calling S/[facility]; will also discuss with patient's family. Hospital Course: 09/11 remains at baseline, bright, friendly, calm; good behavioral and impulse control team connected with [facility] and found that pt had not responded to their outreach; will discuss with family. Team agrees that without additional support for patient, little will change 09/12 remains at baseline; working with family and S for outpatient support -program writer agrees with team that without significant increase in outpatient support, patient will soon returned to the hospital 09/13- continue treatment plan 09/14 continue tx plan Plan: CV Q 15 minute checks Continue home medication regimen Gather collateral from mother and have family meeting Reaching out to DDS/[facility] for increased support Patient already has neurologist Reason for continued inpatient stay Substantial Risk for: harm to self and inability to function Time Spent With Patient Time: Total time managing care of this patient today ____ minutes.
[2023-09-14] MEDS: Acetaminophen 325 MG TABLET 650 MG PO ×2 (13:26→20:28)
[2023-09-14 18:00] VITALS: BP 125/87; PULSE 104; RESP 16; O2SAT 98
[2023-09-14] MEDS: traZODone HCL 50 MG TABLET PO (19:48)
[2023-09-14] MEDS: OLANZapine 5 MG TABLET PO (19:48)
[2023-09-15 08:00] VITALS: BP 109/68; PULSE 87; RESP 16; TEMP 36.1; O2SAT 98
[2023-09-15] MEDS: hydrOXYzine HCL 50 MG TABLET PO ×3 (08:18→20:01)
[2023-09-15] MEDS: Divalproex Sodium 500 MG TABLET.DR PO (08:18)
[2023-09-15] MEDS: Acetaminophen 325 MG TABLET 650 MG PO (09:58)
--- NOTE | 2023-09-15 10:35 | P.PNPSI_ITS ---
Subjective Subjective Date of Service: 09/15/23 Reason For Visit: Aggression Interim History: Pt presents guarded and anxious; she denies complaints. pt incontinent of urine today. pt in good mood; some hypervigilance noted with increased anxiety due to milieu acuity but otherwise doing well. Working on aftercare with DDS and family Medication Compliance: Yes Side effects from medications: No Attending Groups: Intermittent Review of Systems Acute medical concerns: No Medical Review of Systems: unchanged Review of Systems Review of Systems Yes all other systems are reviewed and are negative Mental Status Exam Mental Status Exam Narrative: Pt is alert and oriented; behavior is cooperative, friendly, a little guarded; patient is not in distress; dressed in hospital attire with adequate hygiene; mood is described as good and affect congruent, bright; eye contact appropriate. Speech is quiet and sparse with TW, normal rate and prosody and not pressured; no psychomotor agitation/retardation present; thought process is concrete, goal oriented; Thought content is vacuous; no paranoid/delusional content expressed; denies any SI/HI.? Denies AVH. ?Patients insight and judgment limited but at baseline. Diagnostics Vital Signs (24Hr): Vital Signs - 24 hr 09/14/23 18:00 09/15/23 08:00 Temperature 97 F Pulse Rate 104 H 87 Respiratory Rate 16 16 Blood Pressure 125/87 109/68 Pulse Oximetry 98 98 Oxygen Delivery Method Room Air Room Air BMI result Body Mass Index 39.9 Labs 09/05/23 22:24 09/05/23 22:24 Medications Medications Current Medications Acetaminophen (Acetaminophen 325 Mg Tablet) 650 mg PO Q6H PRN PRN Reason: Headache/Pain Mild Scale (1-3) Last Admin: 09/15/23 09:58 Dose: 650 mg Al Hydroxide/Mg Hydroxide (Magnesium Hydrox/Alum Hydrox 30 Ml Oral.Susp) 30 ml PO Q6H PRN PRN Reason: Heartburn/Nausea Last Admin: 09/13/23 14:32 Dose: 30 ml Benzocaine (Throat Lozenge, Medicated Lozenge) 1 lozenge MUCOUS MEM Q2H PRN PRN Reason: Sore Throat Last Admin: 09/11/23 17:09 Dose: 1 lozenge Divalproex Sodium (Divalproex Sodium 500 Mg Tablet.) 500 mg PO DAILY CUCA Last Admin: 01/28/24 08:18 Dose: 500 mg Hydroxyzine HCl (Hydroxyzine Hcl 50 Mg Tablet) 50 mg PO TID CUCA Last Admin: 09/15/23 08:18 Dose: 50 mg Hydroxyzine HCl (Hydroxyzine Hcl 25 Mg Tablet) 25 mg PO Q6H PRN PRN Reason: mild Anxiety Last Admin: 09/12/23 12:29 Dose: 25 mg Magnesium Hydroxide (Milk Of Magnesia 30 Ml Oral.Susp) 30 ml PO DAILY PRN PRN Reason: Constipation Last Admin: 09/12/23 15:42 Dose: 30 ml Olanzapine (Olanzapine 5 Mg Tablet) 5 mg PO BEDTIME CUCA Last Admin: 09/14/23 19:48 Dose: 5 mg Olanzapine (Olanzapine 5 Mg Tablet) 5 mg PO TID PRN PRN Reason: agitation Last Admin: 09/13/23 16:17 Dose: 5 mg Trazodone HCl (Trazodone Hcl 50 Mg Tablet) 50 mg PO BEDTIME PRN PRN Reason: Insomnia Last Admin: 09/14/23 19:48 Dose: 50 mg Allergies Allergies Allergy/AdvReac Type Severity Reaction Status Date / Time No Known Allergies Allergy Verified 09/06/23 02:23 [No Known Allergies*] Assessment & Plan Assessment & Plan (1) Intermittent explosive disorder: Status: Acute Code(s): F63.81 - Intermittent explosive disorder (2) Developmental delay, mild: Status: Acute Code(s): R62.50 - Unspecified lack of expected normal physiological development in childhood (3) MDD (major depressive disorder): Status: Acute Code(s): F32.9 - Major depressive disorder, single episode, unspecified Plan patient is a 23-year-old female with history of intermittent explosive disorder, intermittent AH, intellectual disability s/p hydrocephalus at , who presents for explosive outburst at home in context of acute exacerbation of chronic family relational strife. Patient is friendly and calm on admission and appears to have returned to baseline, which is typical for her. She say I got into a fight with my mother's boyfriend... He got me mad.... I wanted another slice of pizza and he said no... It has not clear exactly the order of events following but she got angry, at some point picked up a hammer and threatened her brother or boyfriend and brother called the police. Patient got scared and locked herself in a bathroom. She said she did not have a knife, but rather she took the hammer in the bathroom with her. She did not open the door to the police because she was scared of the concrete truck driver. She said she wanted to go to the hospital but did not know if the police were going to bring her there. Patient can not say if there was anything in particular that made her more on edge or reactive this particular day or if there was any other recent build up of emotion.. She says that for years, she and her mother's boyfriend have had daily relational conflict. Denies any SI or HI. Feels back to her regular self. No AVH. Impression/plan: Patient has nearly identical presentation as with all her past psychiatric admissions. It is common for patient to be overall at baseline, for something upsetting to happen at home, she has an explosive reaction which quickly resolves. At this time no need for medication management. Rather team agrees that patient would do much better with help from child protective services social worker and day structure, allowing her to get out of the home more frequently to interact with others and and developed more relationships. Social work calling S/[facility]; will also discuss with patient's family. Hospital Course: 09/11 remains at baseline, bright, friendly, calm; good behavioral and impulse control team connected with [facility] and found that pt had not responded to their outreach; will discuss with family. Team agrees that without additional support for patient, little will change 09/12 remains at baseline; working with family and S for outpatient support -keno writer/runner agrees with team that without significant increase in outpatient support, patient will soon returned to the hospital 09/13- continue treatment plan 09/14 continue tx plan 09/15 continue tx plan Plan: CV Q 15 minute checks Continue home medication regimen Gather collateral from mother and have family meeting Reaching out to DDS/[facility] for increased support Patient already has neurologist Reason for continued inpatient stay Substantial Risk for: harm to self, inability to function and rapid decompensation Time Spent With Patient Time: Total time managing care of this patient today ____ minutes.
[2023-09-15 16:16] VITALS: BP 110/72; PULSE 97; RESP 18; TEMP 36.3; O2SAT 98
[2023-09-15] MEDS: hydrOXYzine HCL 25 MG TABLET PO (16:34)
[2023-09-15] MEDS: Magnesium Hydrox/Alum Hydrox 30 ML ORAL.SUSP PO (18:55)
[2023-09-15] MEDS: OLANZapine 5 MG TABLET PO (20:01)
[2023-09-15] MEDS: traZODone HCL 50 MG TABLET PO (20:01)
--- NOTE | 2023-09-16 07:47 | P.PNPSI_ITS ---
Subjective Subjective Date of Service: 09/16/23 Reason For Visit: Aggression Interim History: met with patient; discussed with team; reviewed weekend notes good mood; social; sleeping well; at baseline. Pt had 3 day notice due tomorrow, however retracted and asked to go to Respite...discussed more and pt feels it would be helpful before going home team further discussed and agree that this would be a good transition as household is chronically filled with high emotion; if Respite able to work out, this could be a good resource in the community that could be an option instead of inpatient re-admission Mental Status Exam Mental Status Exam Narrative: Pt is alert and oriented; behavior is cooperative, calm, friendly;? patient is not in distress; dressed in hospital attire with adequate hygiene, though intermittently with urinary incontinence (chronic); mood is described as good and affect congruent, bright; eye contact appropriate; Speech is normal rate, volume and prosody and not pressured; no psychomotor agitation/retardation present; thought process is concrete, goal oriented; Thought content is vacuous; becomes reticent on some topics; no paranoid/delusional content expressed; denies any SI/HI.? Denies AVH. ?Patients insight and judgment limited but at baseline. Diagnostics Vital Signs (24Hr): Vital Signs - 24 hr 09/15/23 08:00 09/15/23 16:16 Temperature 97 F 97.4 F Pulse Rate 87 97 Respiratory Rate 16 18 Blood Pressure 109/68 110/72 Pulse Oximetry 98 98 Oxygen Delivery Method Room Air Room Air BMI result Body Mass Index 39.9 Labs 09/05/23 22:24 09/05/23 22:24 Medications Medications Current Medications Acetaminophen (Acetaminophen 325 Mg Tablet) 650 mg PO Q6H PRN PRN Reason: Headache/Pain Mild Scale (1-3) Last Admin: 09/15/23 09:58 Dose: 650 mg Al Hydroxide/Mg Hydroxide (Magnesium Hydrox/Alum Hydrox 30 Ml Oral.Susp) 30 ml PO Q6H PRN PRN Reason: Heartburn/Nausea Last Admin: 09/15/23 18:55 Dose: 30 ml Benzocaine (Throat Lozenge, Medicated Lozenge) 1 lozenge MUCOUS MEM Q2H PRN PRN Reason: Sore Throat Last Admin: 09/11/23 17:09 Dose: 1 lozenge Divalproex Sodium (Divalproex Sodium 500 Mg Tablet.Dr) 500 mg PO DAILY [facility] Last Admin: 09/15/23 08:18 Dose: 500 mg Hydroxyzine HCl (Hydroxyzine Hcl 50 Mg Tablet) 50 mg PO TID [facility] Last Admin: 09/15/23 20:01 Dose: 50 mg Hydroxyzine HCl (Hydroxyzine Hcl 25 Mg Tablet) 25 mg PO Q6H PRN PRN Reason: mild Anxiety Last Admin: 09/15/23 16:34 Dose: 25 mg Magnesium Hydroxide (Milk Of Magnesia 30 Ml Oral.Susp) 30 ml PO DAILY PRN PRN Reason: Constipation Last Admin: 09/12/23 15:42 Dose: 30 ml Olanzapine (Olanzapine 5 Mg Tablet) 5 mg PO BEDTIME [facility] Last Admin: 09/15/23 20:01 Dose: 5 mg Olanzapine (Olanzapine 5 Mg Tablet) 5 mg PO TID PRN PRN Reason: agitation Last Admin: 09/13/23 16:17 Dose: 5 mg Trazodone HCl (Trazodone Hcl 50 Mg Tablet) 50 mg PO BEDTIME PRN PRN Reason: Insomnia Last Admin: 09/15/23 20:01 Dose: 50 mg Allergies Allergies Allergy/AdvReac Type Severity Reaction Status Date / Time No Known Allergies Allergy Verified 09/06/23 02:23 [No Known Allergies*] Assessment & Plan Assessment & Plan (1) Intermittent explosive disorder: Status: Acute Code(s): F63.81 - Intermittent explosive disorder (2) Developmental delay, mild: Status: Acute Code(s): R62.50 - Unspecified lack of expected normal physiological development in childhood (3) MDD (major depressive disorder): Status: Acute Code(s): F32.9 - Major depressive disorder, single episode, unspecified Plan patient is a 23-year-old female with history of intermittent explosive disorder, intermittent AH, intellectual disability s/p hydrocephalus at , who presents for explosive outburst at home in context of acute exacerbation of chronic family relational strife. Patient is friendly and calm on admission and appears to have returned to baseline, which is typical for her. She say I got into a fight with my mother's boyfriend... He got me mad.... I wanted another slice of pizza and he said no... It has not clear exactly the order of events following but she got angry, at some point picked up a hammer and threatened her brother or boyfriend and brother called the police. Patient got scared and locked herself in a bathroom. She said she did not have a knife, but rather she took the hammer in the bathroom with her. She did not open the door to the police because she was scared of the lbd teacher. She said she wanted to go to the hospital but did not know if the police were going to bring her there. Patient can not say if there was anything in particular that made her more on edge or reactive this particular day or if there was any other recent build up of emotion.. She says that for years, she and her mother's boyfriend have had daily relational conflict. Denies any SI or HI. Feels back to her regular self. No AVH. Impression/plan: Patient has nearly identical presentation as with all her past psychiatric admissions. It is common for patient to be overall at baseline, for something upsetting to happen at home, she has an explosive reaction which quickly resolves. At this time no need for medication management. Rather team agrees that patient would do much better with help from psych social worker and day structure, allowing her to get out of the home more frequently to interact with others and and developed more relationships. Social work calling D[facility]; will also discuss with patient's family. Hospital Course: 09/11 remains at baseline, bright, friendly, calm; good behavioral and impulse control team connected with [facility] and found that pt had not responded to their outreach; will discuss with family. Team agrees that without additional support for patient, little will change 09/12 remains at baseline; working with family and [facility] for outpatient support -chief underwriter agrees with team that without significant increase in outpatient support, patient will soon returned to the hospital 09/13- continue treatment plan 09/14 continue tx plan 09/15 continue tx plan 09/16 good mood; social; sleeping well; at baseline. Pt had 3 day notice due tomorrow, however retracted and asked to go to Respite...discussed more and pt feels it would be helpful before going home team further discussed and agree that this would be a good transition as household is chronically filled with high emotion; if Respite able to work out, this could be a good resource in the community that could be an option instead of inpatient re-admission intermittent urinary incontinence which is chronic; will try to reach out to PCP to help clarify Plan: CV (retracted 3 day) Q 15 minute checks Considering Respite Continue home medication regimen Gather collateral from mother and have family meeting Reaching out to [facility] for increased support Patient already has neurologist Patient educated on: diagnosis and therapeutic strategies Informed Consent: understands and further education needed Reason for continued inpatient stay Substantial Risk for: stable for discharge and rapid decompensation Time Spent With Patient Time: Total time managing care of this patient today ____ minutes.
[2023-09-16 08:00] VITALS: BP 116/57; PULSE 80; RESP 16; TEMP 36.4; O2SAT 98
[2023-09-16] MEDS: Divalproex Sodium 500 MG TABLET.DR PO (08:21)
[2023-09-16] MEDS: hydrOXYzine HCL 50 MG TABLET PO ×3 (08:21→20:02)
[2023-09-16] MEDS: Acetaminophen 325 MG TABLET 650 MG PO ×2 (09:25→20:16)
[2023-09-16] MEDS: Magnesium Hydrox/Alum Hydrox 30 ML ORAL.SUSP PO (17:22)
[2023-09-16 18:55] VITALS: BP 112/58; PULSE 103; RESP 16; TEMP 36.3; O2SAT 98
[2023-09-16] MEDS: traZODone HCL 50 MG TABLET PO (20:02)
[2023-09-16] MEDS: OLANZapine 5 MG TABLET PO (20:02)
[2023-09-17 07:38] VITALS: BP 109/70; PULSE 89; RESP 18; TEMP 36.3; O2SAT 97
[2023-09-17] MEDS: Divalproex Sodium 500 MG TABLET.DR PO (07:55)
[2023-09-17] MEDS: hydrOXYzine HCL 50 MG TABLET PO ×3 (07:55→19:43)
--- NOTE | 2023-09-17 10:21 | P.PNPSI_ITS ---
Subjective Subjective Date of Service: 09/17/23 Reason For Visit: Aggression Interim History: Met with patient; discussed with team Patient talked about going to respite, saying she really felt it would be helpful. She shared she signed all the paperwork today is waiting to hear about placement. Otherwise patient remains at baseline Mental Status Exam Mental Status Exam Narrative: Pt is alert and oriented; behavior is cooperative, calm, friendly;? patient is not in distress; dressed in casual attire, with adequate hygiene, though intermittently with urinary incontinence (chronic); mood is described as good and affect congruent, bright; eye contact appropriate; Speech is normal rate, volume and prosody and not pressured; no psychomotor agitation/retardation present; thought process is concrete, goal oriented; Thought content is vacuous; becomes reticent on some topics; no paranoid/delusional content expressed; denies any SI/HI.? Denies AVH. ?Patients insight and judgment limited but at baseline. Diagnostics Vital Signs (24Hr): Vital Signs - 24 hr 09/16/23 18:55 Temperature 97.4 F Pulse Rate 103 H Respiratory Rate 16 Blood Pressure 112/58 L Pulse Oximetry 98 Oxygen Delivery Method Room Air BMI result Body Mass Index 39.9 Labs 09/05/23 22:24 09/05/23 22:24 Medications Medications Current Medications Acetaminophen (Acetaminophen 325 Mg Tablet) 650 mg PO Q6H PRN PRN Reason: Headache/Pain Mild Scale (1-3) Last Admin: 09/16/23 20:16 Dose: 650 mg Al Hydroxide/Mg Hydroxide (Magnesium Hydrox/Alum Hydrox 30 Ml Oral.Susp) 30 ml PO Q6H PRN PRN Reason: Heartburn/Nausea Last Admin: 09/16/23 17:22 Dose: 30 ml Benzocaine (Throat Lozenge, Medicated Lozenge) 1 lozenge MUCOUS MEM Q2H PRN PRN Reason: Sore Throat Last Admin: 09/11/23 17:09 Dose: 1 lozenge Divalproex Sodium (Divalproex Sodium 500 Mg Tablet.Dr) 500 mg PO DAILY [facility] Last Admin: 09/17/23 07:55 Dose: 500 mg Hydroxyzine HCl (Hydroxyzine Hcl 50 Mg Tablet) 50 mg PO TID [facility] Last Admin: 09/17/23 07:55 Dose: 50 mg Hydroxyzine HCl (Hydroxyzine Hcl 25 Mg Tablet) 25 mg PO Q6H PRN PRN Reason: mild Anxiety Last Admin: 09/15/23 16:34 Dose: 25 mg Magnesium Hydroxide (Milk Of Magnesia 30 Ml Oral.Susp) 30 ml PO DAILY PRN PRN Reason: Constipation Last Admin: 09/12/23 15:42 Dose: 30 ml Olanzapine (Olanzapine 5 Mg Tablet) 5 mg PO BEDTIME [facility] Last Admin: 09/16/23 20:02 Dose: 5 mg Olanzapine (Olanzapine 5 Mg Tablet) 5 mg PO TID PRN PRN Reason: agitation Last Admin: 09/13/23 16:17 Dose: 5 mg Trazodone HCl (Trazodone Hcl 50 Mg Tablet) 50 mg PO BEDTIME PRN PRN Reason: Insomnia Last Admin: 09/16/23 20:02 Dose: 50 mg Allergies Allergies Allergy/AdvReac Type Severity Reaction Status Date / Time No Known Allergies Allergy Verified 09/06/23 02:23 [No Known Allergies*] Assessment & Plan Assessment & Plan (1) Intermittent explosive disorder: Status: Acute Code(s): F63.81 - Intermittent explosive disorder (2) Developmental delay, mild: Status: Acute Code(s): R62.50 - Unspecified lack of expected normal physiological development in childhood (3) MDD (major depressive disorder): Status: Acute Code(s): F32.9 - Major depressive disorder, single episode, unspecified Plan patient is a 23-year-old female with history of intermittent explosive disorder, intermittent AH, intellectual disability s/p hydrocephalus at , who presents for explosive outburst at home in context of acute exacerbation of chronic family relational strife. Patient is friendly and calm on admission and appears to have returned to baseline, which is typical for her. She say I got into a fight with my mother's boyfriend... He got me mad.... I wanted another slice of pizza and he said no... It has not clear exactly the order of events following but she got angry, at some point picked up a hammer and threatened her brother or boyfriend and brother called the police. Patient got scared and locked herself in a bathroom. She said she did not have a knife, but rather she took the hammer in the bathroom with her. She did not open the door to the police because she was scared of the medical office technology instructor. She said she wanted to go to the hospital but did not know if the police were going to bring her there. Patient can not say if there was anything in particular that made her more on edge or reactive this particular day or if there was any other recent build up of emotion.. She says that for years, she and her mother's boyfriend have had daily relational conflict. Denies any SI or HI. Feels back to her regular self. No AVH. Impression/plan: Patient has nearly identical presentation as with all her past psychiatric admissions. It is common for patient to be overall at baseline, for something upsetting to happen at home, she has an explosive reaction which quickly resolves. At this time no need for medication management. Rather team agrees that patient would do much better with help from social services analyst and day structure, allowing her to get out of the home more frequently to interact with others and and developed more relationships. Social work calling [facility]; will also discuss with patient's family. Hospital Course: 09/11 remains at baseline, bright, friendly, calm; good behavioral and impulse control team connected with [facility] and found that pt had not responded to their outreach; will discuss with family. Team agrees that without additional support for patient, little will change 09/12 remains at baseline; working with family and [facility] for outpatient support -health technical writer agrees with team that without significant increase in outpatient support, patient will soon returned to the hospital 09/13- continue treatment plan 09/14 continue tx plan 09/15 continue tx plan 09/16 good mood; social; sleeping well; at baseline. Pt had 3 day notice due tomorrow, however retracted and asked to go to Respite...discussed more and pt feels it would be helpful before going home team further discussed and agree that this would be a good transition as household is chronically filled with high emotion; if Respite able to work out, this could be a good resource in the community that could be an option instead of inpatient re-admission 09/17 remains stable; pursuing respite; continue current treatment plan intermittent urinary incontinence which is chronic; will try to reach out to PCP to help clarify Plan: CV (retracted 3 day) Q 15 minute checks Considering Respite Continue home medication regimen Gather collateral from mother and have family meeting Reaching out to D[facility] for increased support Patient already has neurologist Patient educated on: therapeutic strategies Informed Consent: understands Reason for continued inpatient stay Substantial Risk for: stable for discharge Time Spent With Patient Time: Total time managing care of this patient today ____ minutes.
[2023-09-17] MEDS: Acetaminophen 325 MG TABLET 650 MG PO (10:55)
[2023-09-17] MEDS: Magnesium Hydrox/Alum Hydrox 30 ML ORAL.SUSP PO ×2 (16:12→21:11)
[2023-09-17 17:12] VITALS: BP 127/94; PULSE 84; RESP 16; TEMP 36.3; O2SAT 98
[2023-09-17] MEDS: traZODone HCL 50 MG TABLET PO (19:43)
[2023-09-17] MEDS: OLANZapine 5 MG TABLET PO (19:43)
[2023-09-18 08:03] VITALS: BP 123/68; PULSE 80; RESP 16; TEMP 36.3; O2SAT 98
[2023-09-18] MEDS: Divalproex Sodium 500 MG TABLET.DR PO (08:13)
[2023-09-18] MEDS: hydrOXYzine HCL 50 MG TABLET PO ×3 (08:13→20:06)
[2023-09-18] MEDS: Acetaminophen 325 MG TABLET 650 MG PO ×2 (12:26→18:58)
[2023-09-18] MEDS: Milk of Magnesia 30 ML ORAL.SUSP PO (12:26)
--- NOTE | 2023-09-18 12:27 | PC.NURSE ---
pt reports RUQ pain X2 days. Pt also reports she does not know when last BM was. MOM and Tylenol given at pt request. Provider notified. Awaiting potential new orders. Will continue to monitor.
--- NOTE | 2023-09-18 16:52 | HO.PSYCHPN ---
Subjective Subjective Date of Service: 09/18/23 Reason For Visit: Aggression Interim History: Met with patient; discussed with team Patient remains at baseline; pleasant, calm approach. Says good mood and hoping for respite; attending groups. No complaints and no requests Mental Status Exam Mental Status Exam Narrative: Pt is alert and oriented; behavior is cooperative, calm, friendly;? patient is not in distress; dressed in casual attire, with adequate hygiene, though intermittently with urinary incontinence (chronic); mood is described as good and affect congruent, bright; eye contact appropriate; Speech is normal rate, volume and prosody and not pressured; no psychomotor agitation/retardation present; thought process is concrete, goal oriented; Thought content is vacuous; becomes reticent on some topics; no paranoid/delusional content expressed; denies any SI/HI.? Denies AVH. ?Patients insight and judgment limited but at baseline. Diagnostics Vital Signs (24Hr): Vital Signs - 24 hr 09/17/23 17:12 09/18/23 08:03 Temperature 97.3 F 97.3 F Pulse Rate 84 80 Respiratory Rate 16 16 Blood Pressure 127/94 H 123/68 Pulse Oximetry 98 98 Oxygen Delivery Method Room Air Room Air BMI result Body Mass Index 39.9 Labs 09/05/23 22:24 09/05/23 22:24 Medications Medications Current Medications Acetaminophen (Acetaminophen 325 Mg Tablet) 650 mg PO Q6H PRN PRN Reason: Headache/Pain Mild Scale (1-3) Last Admin: 09/18/23 12:26 Dose: 650 mg Al Hydroxide/Mg Hydroxide (Magnesium Hydrox/Alum Hydrox 30 Ml Oral.Susp) 30 ml PO Q6H PRN PRN Reason: Heartburn/Nausea Last Admin: 09/17/23 21:11 Dose: 30 ml Benzocaine (Throat Lozenge, Medicated Lozenge) 1 lozenge MUCOUS MEM Q2H PRN PRN Reason: Sore Throat Last Admin: 09/11/23 17:09 Dose: 1 lozenge Divalproex Sodium (Divalproex Sodium 500 Mg Tablet.Dr) 500 mg PO DAILY [facility] Last Admin: 09/18/23 08:13 Dose: 500 mg Hydroxyzine HCl (Hydroxyzine Hcl 50 Mg Tablet) 50 mg PO TID [facility] Last Admin: 09/18/23 14:41 Dose: 50 mg Hydroxyzine HCl (Hydroxyzine Hcl 25 Mg Tablet) 25 mg PO Q6H PRN PRN Reason: mild Anxiety Last Admin: 09/15/23 16:34 Dose: 25 mg Magnesium Hydroxide (Milk Of Magnesia 30 Ml Oral.Susp) 30 ml PO DAILY PRN PRN Reason: Constipation Last Admin: 09/18/23 12:26 Dose: 30 ml Olanzapine (Olanzapine 5 Mg Tablet) 5 mg PO BEDTIME [facility] Last Admin: 09/17/23 19:43 Dose: 5 mg Olanzapine (Olanzapine 5 Mg Tablet) 5 mg PO TID PRN PRN Reason: agitation Last Admin: 09/13/23 16:17 Dose: 5 mg Trazodone HCl (Trazodone Hcl 50 Mg Tablet) 50 mg PO BEDTIME PRN PRN Reason: Insomnia Last Admin: 09/17/23 19:43 Dose: 50 mg Allergies Allergies Allergy/AdvReac Type Severity Reaction Status Date / Time No Known Allergies Allergy Verified 09/06/23 02:23 [No Known Allergies*] Assessment & Plan Assessment & Plan (1) Intermittent explosive disorder: Status: Acute Code(s): F63.81 - Intermittent explosive disorder (2) Developmental delay, mild: Status: Acute Code(s): R62.50 - Unspecified lack of expected normal physiological development in childhood (3) MDD (major depressive disorder): Status: Acute Code(s): F32.9 - Major depressive disorder, single episode, unspecified Plan patient is a 23-year-old female with history of intermittent explosive disorder, intermittent AH, intellectual disability s/p hydrocephalus at , who presents for explosive outburst at home in context of acute exacerbation of chronic family relational strife. Patient is friendly and calm on admission and appears to have returned to baseline, which is typical for her. She say I got into a fight with my mother's boyfriend... He got me mad.... I wanted another slice of pizza and he said no... It has not clear exactly the order of events following but she got angry, at some point picked up a hammer and threatened her brother or boyfriend and brother called the police. Patient got scared and locked herself in a bathroom. She said she did not have a knife, but rather she took the hammer in the bathroom with her. She did not open the door to the police because she was scared of the macroeconomics professor. She said she wanted to go to the hospital but did not know if the police were going to bring her there. Patient can not say if there was anything in particular that made her more on edge or reactive this particular day or if there was any other recent build up of emotion.. She says that for years, she and her mother's boyfriend have had daily relational conflict. Denies any SI or HI. Feels back to her regular self. No AVH. Impression/plan: Patient has nearly identical presentation as with all her past psychiatric admissions. It is common for patient to be overall at baseline, for something upsetting to happen at home, she has an explosive reaction which quickly resolves. At this time no need for medication management. Rather team agrees that patient would do much better with help from social worker assistant and day structure, allowing her to get out of the home more frequently to interact with others and and developed more relationships. Social work calling DDS/[facility]; will also discuss with patient's family. Hospital Course: 09/11 remains at baseline, bright, friendly, calm; good behavioral and impulse control team connected with [facility] and found that pt had not responded to their outreach; will discuss with family. Team agrees that without additional support for patient, little will change 09/12 remains at baseline; working with family and [facility] for outpatient support -conventional mortgage underwriter agrees with team that without significant increase in outpatient support, patient will soon returned to the hospital 09/13- continue treatment plan 09/14 continue tx plan 09/15 continue tx plan 09/16 good mood; social; sleeping well; at baseline. Pt had 3 day notice due tomorrow, however retracted and asked to go to Respite...discussed more and pt feels it would be helpful before going home team further discussed and agree that this would be a good transition as household is chronically filled with high emotion; if Respite able to work out, this could be a good resource in the community that could be an option instead of inpatient re-admission 09/17 remains stable; pursuing respite; continue current treatment plan intermittent urinary incontinence which is chronic; will try to reach out to PCP to help clarify Plan: CV (retracted 3 day) Q 15 minute checks Considering Respite Continue home medication regimen Gather collateral from mother and have family meeting Reaching out to [facility] for increased support Patient already has neurologist Patient educated on: therapeutic strategies Informed Consent: understands Reason for continued inpatient stay Substantial Risk for: stable for discharge Time Spent With Patient Time: Total time managing care of this patient today ____ minutes.
[2023-09-18 18:00] VITALS: BP 137/85; PULSE 88; TEMP 36.2; O2SAT 97
[2023-09-18] MEDS: traZODone HCL 50 MG TABLET PO (20:06)
[2023-09-18] MEDS: OLANZapine 5 MG TABLET PO (20:06)
[2023-09-19 08:13] VITALS: BP 117/56; PULSE 93; RESP 16; TEMP 36.1; O2SAT 96
[2023-09-19] MEDS: Divalproex Sodium 500 MG TABLET.DR PO (08:14)
[2023-09-19] MEDS: hydrOXYzine HCL 50 MG TABLET PO ×3 (08:14→20:06)
[2023-09-19 10:41] VITALS: BMI 41.0
[2023-09-19] MEDS: Throat Lozenge, Medicated LOZENGE 1 LOZENGE MUCOUS MEM (11:00)
[2023-09-19] MEDS: Acetaminophen 325 MG TABLET 650 MG PO ×2 (11:00→20:39)
[2023-09-19] MEDS: Magnesium Hydrox/Alum Hydrox 30 ML ORAL.SUSP PO ×2 (13:21→20:00)
[2023-09-19 18:00] VITALS: BP 138/78; PULSE 95; RESP 18; TEMP 36.6; O2SAT 98
[2023-09-19] MEDS: traZODone HCL 50 MG TABLET PO (20:06)
[2023-09-19] MEDS: OLANZapine 5 MG TABLET PO (20:06)
--- NOTE | 2023-09-19 22:07 | HO.PSYCHPN ---
Subjective Subjective Date of Service: 09/19/23 Reason For Visit: Aggression Interim History: met with patient; discussed in team same presentation; wants to wait for respite; no complaints, no requests; going to groups, pleasant, calm, appopriate in mil[place] Mental Status Exam Mental Status Exam Narrative: Pt is alert and oriented; behavior is cooperative, calm, friendly;? patient is not in distress; dressed in casual attire, with adequate hygiene, though intermittently with urinary incontinence (chronic); mood is described as good and affect congruent, bright; eye contact appropriate; Speech is normal rate, volume and prosody and not pressured; no psychomotor agitation/retardation present; thought process is concrete, goal oriented; Thought content is vacuous; becomes reticent on some topics; no paranoid/delusional content expressed; denies any SI/HI.? Denies AVH. ?Patients insight and judgment limited but at baseline. Diagnostics Vital Signs (24Hr): Vital Signs - 24 hr 09/19/23 08:13 09/19/23 18:00 Temperature 97 F 97.9 F Pulse Rate 93 95 Respiratory Rate 16 18 Blood Pressure 117/56 L 138/78 Pulse Oximetry 96 98 Oxygen Delivery Method Room Air Room Air BMI result Body Mass Index 41.0 Labs 09/05/23 22:24 09/05/23 22:24 Medications Medications Current Medications Acetaminophen (Acetaminophen 325 Mg Tablet) 650 mg PO Q6H PRN PRN Reason: Headache/Pain Mild Scale (1-3) Last Admin: 09/19/23 20:39 Dose: 650 mg Al Hydroxide/Mg Hydroxide (Magnesium Hydrox/Alum Hydrox 30 Ml Oral.Susp) 30 ml PO Q6H PRN PRN Reason: Heartburn/Nausea Last Admin: 09/19/23 20:00 Dose: 30 ml Benzocaine (Throat Lozenge, Medicated Lozenge) 1 lozenge MUCOUS MEM Q2H PRN PRN Reason: Sore Throat Last Admin: 09/19/23 11:00 Dose: 1 lozenge Divalproex Sodium (Divalproex Sodium 500 Mg Tablet.Dr) 500 mg PO DAILY [facility] Last Admin: 09/19/23 08:14 Dose: 500 mg Hydroxyzine HCl (Hydroxyzine Hcl 50 Mg Tablet) 50 mg PO TID [facility] Last Admin: 09/19/23 20:06 Dose: 50 mg Hydroxyzine HCl (Hydroxyzine Hcl 25 Mg Tablet) 25 mg PO Q6H PRN PRN Reason: mild Anxiety Last Admin: 09/15/23 16:34 Dose: 25 mg Magnesium Hydroxide (Milk Of Magnesia 30 Ml Oral.Susp) 30 ml PO DAILY PRN PRN Reason: Constipation Last Admin: 09/18/23 12:26 Dose: 30 ml Olanzapine (Olanzapine 5 Mg Tablet) 5 mg PO BEDTIME [facility] Last Admin: 09/19/23 20:06 Dose: 5 mg Olanzapine (Olanzapine 5 Mg Tablet) 5 mg PO TID PRN PRN Reason: agitation Last Admin: 09/13/23 16:17 Dose: 5 mg Trazodone HCl (Trazodone Hcl 50 Mg Tablet) 50 mg PO BEDTIME PRN PRN Reason: Insomnia Last Admin: 09/19/23 20:06 Dose: 50 mg Allergies Allergies Allergy/AdvReac Type Severity Reaction Status Date / Time No Known Allergies Allergy Verified 09/06/23 02:23 [No Known Allergies*] Assessment & Plan Assessment & Plan (1) Intermittent explosive disorder: Status: Acute Code(s): F63.81 - Intermittent explosive disorder (2) Developmental delay, mild: Status: Acute Code(s): R62.50 - Unspecified lack of expected normal physiological development in childhood (3) MDD (major depressive disorder): Status: Acute Code(s): F32.9 - Major depressive disorder, single episode, unspecified Plan patient is a 23-year-old female with history of intermittent explosive disorder, intermittent AH, intellectual disability s/p hydrocephalus at , who presents for explosive outburst at home in context of acute exacerbation of chronic family relational strife. Patient is friendly and calm on admission and appears to have returned to baseline, which is typical for her. She say I got into a fight with my mother's boyfriend... He got me mad.... I wanted another slice of pizza and he said no... It has not clear exactly the order of events following but she got angry, at some point picked up a hammer and threatened her brother or boyfriend and brother called the police. Patient got scared and locked herself in a bathroom. She said she did not have a knife, but rather she took the hammer in the bathroom with her. She did not open the door to the police because she was scared of the client experience specialist. She said she wanted to go to the hospital but did not know if the police were going to bring her there. Patient can not say if there was anything in particular that made her more on edge or reactive this particular day or if there was any other recent build up of emotion.. She says that for years, she and her mother's boyfriend have had daily relational conflict. Denies any SI or HI. Feels back to her regular self. No AVH. Impression/plan: Patient has nearly identical presentation as with all her past psychiatric admissions. It is common for patient to be overall at baseline, for something upsetting to happen at home, she has an explosive reaction which quickly resolves. At this time no need for medication management. Rather team agrees that patient would do much better with help from social services specialist and day structure, allowing her to get out of the home more frequently to interact with others and and developed more relationships. Social work calling DDS/[facility]; will also discuss with patient's family. Hospital Course: 09/11 remains at baseline, bright, friendly, calm; good behavioral and impulse control team connected with [facility] and found that pt had not responded to their outreach; will discuss with family. Team agrees that without additional support for patient, little will change 09/12 remains at baseline; working with family and DDS for outpatient support -automatic typewriter inspector agrees with team that without significant increase in outpatient support, patient will soon returned to the hospital 09/13- continue treatment plan 09/14 continue tx plan 09/15 continue tx plan 09/16 good mood; social; sleeping well; at baseline. Pt had 3 day notice due tomorrow, however retracted and asked to go to Respite...discussed more and pt feels it would be helpful before going home team further discussed and agree that this would be a good transition as household is chronically filled with high emotion; if Respite able to work out, this could be a good resource in the community that could be an option instead of inpatient re-admission 09/17 remains stable; pursuing respite; continue current treatment plan 2/2 stable, Dispo planning; continue tx plan intermittent urinary incontinence which is chronic; Called PCP to help clarify neurological issue, but could not get through Plan: CV (retracted 3 day) Q 15 minute checks Considering Respite Continue home medication regimen Gather collateral from mother and have family meeting Reaching out to DDS/[facility] for increased support Patient already has neurologist Patient educated on: therapeutic strategies Informed Consent: understands Reason for continued inpatient stay Substantial Risk for: rapid decompensation Time Spent With Patient Time: Total time managing care of this patient today ____ minutes.
[2023-09-20 08:00] VITALS: BP 115/84; PULSE 78; RESP 16; TEMP 36.2; O2SAT 97
[2023-09-20] MEDS: Divalproex Sodium 500 MG TABLET.DR PO (08:29)
[2023-09-20] MEDS: hydrOXYzine HCL 50 MG TABLET PO ×3 (08:29→19:58)
[2023-09-20] MEDS: Acetaminophen 325 MG TABLET 650 MG PO ×2 (10:16→17:38)
--- NOTE | 2023-09-20 10:57 | HO.PSYCHPN ---
Subjective Subjective Date of Service: 09/20/23 Reason For Visit: Aggression Subjective Notes: Conditional Voluntary Interim History: Met with patient; discussed in team. pt pleasant upon approach. reports feelomg ok/ States she is having visit with mother this evening at 530pm. She still wants to go to respite. no complaints. Medication Compliance: Yes Side effects from medications: No Attending Groups: Intermittent Review of Systems Acute medical concerns: No Medical Review of Systems: unchanged Review of Systems Review of Systems no change Yes all other systems are reviewed and are negative Mental Status Exam Mental Status Exam Narrative: Pt is alert and oriented; behavior is cooperative, calm, friendly;? patient is not in distress; dressed in casual attire, with adequate hygiene, though intermittently with urinary incontinence (chronic); mood is described as good and affect congruent, bright; eye contact appropriate; Speech is normal rate, volume and prosody and not pressured; no psychomotor agitation/retardation present; thought process is concrete, goal oriented; Thought content is vacuous; becomes reticent on some topics; no paranoid/delusional content expressed; denies any SI/HI.? Denies AVH. ?Patients insight and judgment limited but at baseline. Diagnostics Vital Signs (24Hr): Vital Signs - 24 hr 09/19/23 18:00 09/20/23 08:00 Temperature 97.9 F 97.1 F Pulse Rate 95 78 Respiratory Rate 18 16 Blood Pressure 138/78 115/84 Pulse Oximetry 98 97 Oxygen Delivery Method Room Air Room Air BMI result Body Mass Index 41.0 Labs 09/05/23 22:24 09/05/23 22:24 Medications Medications Current Medications Acetaminophen (Acetaminophen 325 Mg Tablet) 650 mg PO Q6H PRN PRN Reason: Headache/Pain Mild Scale (1-3) Last Admin: 09/20/23 10:16 Dose: 650 mg Al Hydroxide/Mg Hydroxide (Magnesium Hydrox/Alum Hydrox 30 Ml Oral.Susp) 30 ml PO Q6H PRN PRN Reason: Heartburn/Nausea Last Admin: 09/19/23 20:00 Dose: 30 ml Benzocaine (Throat Lozenge, Medicated Lozenge) 1 lozenge MUCOUS MEM Q2H PRN PRN Reason: Sore Throat Last Admin: 09/19/23 11:00 Dose: 1 lozenge Divalproex Sodium (Divalproex Sodium 500 Mg Tablet.Dr) 500 mg PO DAILY [facility] Last Admin: 09/20/23 08:29 Dose: 500 mg Hydroxyzine HCl (Hydroxyzine Hcl 50 Mg Tablet) 50 mg PO TID [facility] Last Admin: 09/20/23 08:29 Dose: 50 mg Hydroxyzine HCl (Hydroxyzine Hcl 25 Mg Tablet) 25 mg PO Q6H PRN PRN Reason: mild Anxiety Last Admin: 09/15/23 16:34 Dose: 25 mg Magnesium Hydroxide (Milk Of Magnesia 30 Ml Oral.Susp) 30 ml PO DAILY PRN PRN Reason: Constipation Last Admin: 09/18/23 12:26 Dose: 30 ml Olanzapine (Olanzapine 5 Mg Tablet) 5 mg PO BEDTIME [facility] Last Admin: 09/19/23 20:06 Dose: 5 mg Olanzapine (Olanzapine 5 Mg Tablet) 5 mg PO TID PRN PRN Reason: agitation Last Admin: 09/13/23 16:17 Dose: 5 mg Trazodone HCl (Trazodone Hcl 50 Mg Tablet) 50 mg PO BEDTIME PRN PRN Reason: Insomnia Last Admin: 09/19/23 20:06 Dose: 50 mg Allergies Allergies Allergy/AdvReac Type Severity Reaction Status Date / Time No Known Allergies Allergy Verified 09/06/23 02:23 [No Known Allergies*] Assessment & Plan Assessment & Plan (1) Intermittent explosive disorder: Status: Acute Code(s): F63.81 - Intermittent explosive disorder (2) Developmental delay, mild: Status: Acute Code(s): R62.50 - Unspecified lack of expected normal physiological development in childhood (3) MDD (major depressive disorder): Status: Acute Code(s): F32.9 - Major depressive disorder, single episode, unspecified Plan patient is a 23-year-old female with history of intermittent explosive disorder, intermittent AH, intellectual disability s/p hydrocephalus at , who presents for explosive outburst at home in context of acute exacerbation of chronic family relational strife. Patient is friendly and calm on admission and appears to have returned to baseline, which is typical for her. She say I got into a fight with my mother's boyfriend... He got me mad.... I wanted another slice of pizza and he said no... It has not clear exactly the order of events following but she got angry, at some point picked up a hammer and threatened her brother or boyfriend and brother called the police. Patient got scared and locked herself in a bathroom. She said she did not have a knife, but rather she took the hammer in the bathroom with her. She did not open the door to the police because she was scared of the insurance analyst. She said she wanted to go to the hospital but did not know if the police were going to bring her there. Patient can not say if there was anything in particular that made her more on edge or reactive this particular day or if there was any other recent build up of emotion.. She says that for years, she and her mother's boyfriend have had daily relational conflict. Denies any SI or HI. Feels back to her regular self. No AVH. Impression/plan: Patient has nearly identical presentation as with all her past psychiatric admissions. It is common for patient to be overall at baseline, for something upsetting to happen at home, she has an explosive reaction which quickly resolves. At this time no need for medication management. Rather team agrees that patient would do much better with help from elementary school social worker and day structure, allowing her to get out of the home more frequently to interact with others and and developed more relationships. Social work calling DDS/[facility]; will also discuss with patient's family. Hospital Course: 09/11 remains at baseline, bright, friendly, calm; good behavioral and impulse control team connected with [facility] and found that pt had not responded to their outreach; will discuss with family. Team agrees that without additional support for patient, little will change 09/12 remains at baseline; working with family and DDS for outpatient support -automotive service writer agrees with team that without significant increase in outpatient support, patient will soon returned to the hospital 09/13- continue treatment plan 09/14 continue tx plan 09/15 continue tx plan 09/16 good mood; social; sleeping well; at baseline. Pt had 3 day notice due tomorrow, however retracted and asked to go to Respite...discussed more and pt feels it would be helpful before going home team further discussed and agree that this would be a good transition as household is chronically filled with high emotion; if Respite able to work out, this could be a good resource in the community that could be an option instead of inpatient re-admission 09/17 remains stable; pursuing respite; continue current treatment plan 09/19 stable, Dispo planning; continue tx plan 09/20 no changes; stable awaiting respite bed continue tx plan intermittent urinary incontinence which is chronic; Called PCP to help clarify neurological issue, but could not get through Plan: CV (retracted 3 day) Q 15 minute checks Considering Respite Continue home medication regimen Gather collateral from mother and have family meeting Reaching out to DDS/[facility] for increased support Patient already has neurologist Reason for continued inpatient stay Substantial Risk for: harm to self, inability to function and rapid decompensation Time Spent With Patient Time: Total time managing care of this patient today ____ minutes.
[2023-09-20] MEDS: Magnesium Hydrox/Alum Hydrox 30 ML ORAL.SUSP PO (13:02)
[2023-09-20] MEDS: Throat Lozenge, Medicated LOZENGE 1 LOZENGE MUCOUS MEM (14:44)
[2023-09-20] MEDS: Milk of Magnesia 30 ML ORAL.SUSP PO (15:42)
[2023-09-20] MEDS: OLANZapine 5 MG TABLET PO (19:58)
[2023-09-20] MEDS: traZODone HCL 50 MG TABLET PO (19:58)
[2023-09-20 20:00] VITALS: BP 109/71; PULSE 92; RESP 18; TEMP 36.6; O2SAT 97
[2023-09-21 08:10] VITALS: BP 124/80; PULSE 82; RESP 18; TEMP 36; O2SAT 98
[2023-09-21] MEDS: hydrOXYzine HCL 50 MG TABLET PO ×3 (08:20→20:12)
[2023-09-21] MEDS: Divalproex Sodium 500 MG TABLET.DR PO (08:20)
[2023-09-21] MEDS: Acetaminophen 325 MG TABLET 650 MG PO ×2 (08:22→18:00)
[2023-09-21] MEDS: Magnesium Hydrox/Alum Hydrox 30 ML ORAL.SUSP PO (09:25)
[2023-09-21] MEDS: Throat Lozenge, Medicated LOZENGE 1 LOZENGE MUCOUS MEM (10:00)
--- NOTE | 2023-09-21 10:58 | P.PNPSI_ITS ---
Subjective Subjective Date of Service: 09/21/23 Reason For Visit: Aggression Interim History: met with patient. Discussed with Nursing. Chart reviewed. Patient reports feeling largely stable. Looking forward to planned of discharge to respite level of care. Engaging in the milieu. Utilizing headphones. No med concerns. Medication Compliance: Yes Side effects from medications: No Attending Groups: Yes Review of Systems Acute medical concerns: No Review of Systems Review of Systems Yes all other systems are reviewed and are negative Mental Status Exam Mental Status Exam Narrative: Pt is alert and oriented; behavior is cooperative, calm, friendly;? patient is not in distress; dressed in casual attire, with adequate hygiene, though intermittently with urinary incontinence (chronic); mood is described as good and affect congruent, bright; eye contact appropriate; Speech is normal rate, volume and prosody and not pressured; no psychomotor agitation/retardation present; thought process is concrete, goal oriented; Thought content is vacuous; becomes reticent on some topics; no paranoid/delusional content expressed; denies any SI/HI.? Denies AVH. ?Patients insight and judgment limited but at baseline. Diagnostics Vital Signs (24Hr): Vital Signs - 24 hr 09/20/23 20:00 09/21/23 08:10 Temperature 97.9 F 96.8 F Pulse Rate 92 82 Respiratory Rate 18 18 Blood Pressure 109/71 124/80 Pulse Oximetry 97 98 Oxygen Delivery Method Room Air Room Air BMI result Body Mass Index 41.0 Labs 09/05/23 22:24 09/05/23 22:24 Medications Medications Current Medications Acetaminophen (Acetaminophen 325 Mg Tablet) 650 mg PO Q6H PRN PRN Reason: Headache/Pain Mild Scale (1-3) Last Admin: 09/21/23 08:22 Dose: 650 mg Al Hydroxide/Mg Hydroxide (Magnesium Hydrox/Alum Hydrox 30 Ml Oral.Susp) 30 ml PO Q6H PRN PRN Reason: Heartburn/Nausea Last Admin: 09/21/23 09:25 Dose: 30 ml Benzocaine (Throat Lozenge, Medicated Lozenge) 1 lozenge MUCOUS MEM Q2H PRN PRN Reason: Sore Throat Last Admin: 09/21/23 10:00 Dose: 1 lozenge Divalproex Sodium (Divalproex Sodium 500 Mg Tablet.) 500 mg PO DAILY [facility] Last Admin: 09/21/23 08:20 Dose: 500 mg Hydroxyzine HCl (Hydroxyzine Hcl 50 Mg Tablet) 50 mg PO TID [facility] Last Admin: 09/21/23 08:20 Dose: 50 mg Hydroxyzine HCl (Hydroxyzine Hcl 25 Mg Tablet) 25 mg PO Q6H PRN PRN Reason: mild Anxiety Last Admin: 09/15/23 16:34 Dose: 25 mg Magnesium Hydroxide (Milk Of Magnesia 30 Ml Oral.Susp) 30 ml PO DAILY PRN PRN Reason: Constipation Last Admin: 09/20/23 15:42 Dose: 30 ml Olanzapine (Olanzapine 5 Mg Tablet) 5 mg PO BEDTIME [facility] Last Admin: 09/20/23 19:58 Dose: 5 mg Olanzapine (Olanzapine 5 Mg Tablet) 5 mg PO TID PRN PRN Reason: agitation Last Admin: 09/13/23 16:17 Dose: 5 mg Trazodone HCl (Trazodone Hcl 50 Mg Tablet) 50 mg PO BEDTIME PRN PRN Reason: Insomnia Last Admin: 09/20/23 19:58 Dose: 50 mg Allergies Allergies Allergy/AdvReac Type Severity Reaction Status Date / Time No Known Allergies Allergy Verified 09/06/23 02:23 [No Known Allergies*] Assessment & Plan Assessment & Plan (1) Intermittent explosive disorder: Status: Acute Code(s): F63.81 - Intermittent explosive disorder (2) Developmental delay, mild: Status: Acute Code(s): R62.50 - Unspecified lack of expected normal physiological development in childhood (3) MDD (major depressive disorder): Status: Acute Code(s): F32.9 - Major depressive disorder, single episode, unspecified Plan patient is a 23-year-old female with history of intermittent explosive disorder, intermittent AH, intellectual disability s/p hydrocephalus at , who presents for explosive outburst at home in context of acute exacerbation of chronic family relational strife. Patient is friendly and calm on admission and appears to have returned to baseline, which is typical for her. She say I got into a fight with my mother's boyfriend... He got me mad.... I wanted another slice of pizza and he said no... It has not clear exactly the order of events following but she got angry, at some point picked up a hammer and threatened her brother or boyfriend and brother called the police. Patient got scared and locked herself in a bathroom. She said she did not have a knife, but rather she took the hammer in the bathroom with her. She did not open the door to the police because she was scared of the geophysical prospecting permit agent. She said she wanted to go to the hospital but did not know if the police were going to bring her there. Patient can not say if there was anything in particular that made her more on edge or reactive this particular day or if there was any other recent build up of emotion.. She says that for years, she and her mother's boyfriend have had daily relational conflict. Denies any SI or HI. Feels back to her regular self. No AVH. Impression/plan: Patient has nearly identical presentation as with all her past psychiatric admissions. It is common for patient to be overall at baseline, for something upsetting to happen at home, she has an explosive reaction which quickly resolves. At this time no need for medication management. Rather team agrees that patient would do much better with help from social sciences department chair and day structure, allowing her to get out of the home more frequently to interact with others and and developed more relationships. Social work calling DDS/[facility]; will also discuss with patient's family. Hospital Course: 09/11 remains at baseline, bright, friendly, calm; good behavioral and impulse control team connected with [facility] and found that pt had not responded to their outreach; will discuss with family. Team agrees that without additional support for patient, little will change 09/12 remains at baseline; working with family and DDS for outpatient support -telegraphic typewriter operator chief agrees with team that without significant increase in outpatient support, patient will soon returned to the hospital 09/13- continue treatment plan 09/14 continue tx plan 09/15 continue tx plan 09/16 good mood; social; sleeping well; at baseline. Pt had 3 day notice due tomorrow, however retracted and asked to go to Respite...discussed more and pt feels it would be helpful before going home team further discussed and agree that this would be a good transition as household is chronically filled with high emotion; if Respite able to work out, this could be a good resource in the community that could be an option instead of inpatient re-admission 09/17 remains stable; pursuing respite; continue current treatment plan 09/19 stable, Dispo planning; continue tx plan 2/2 no changes; stable awaiting respite bed continue tx plan 2/3: no changes intermittent urinary incontinence which is chronic; Called PCP to help clarify neurological issue, but could not get through Plan: CV (retracted 3 day) Q 15 minute checks Considering Respite Continue home medication regimen Gather collateral from mother and have family meeting Reaching out to DDS/[facility] for increased support Patient already has neurologist Reason for continued inpatient stay Substantial Risk for: rapid decompensation Time Spent With Patient Time: Total time managing care of this patient today ____ minutes.
[2023-09-21] MEDS: hydrOXYzine HCL 25 MG TABLET PO ×2 (12:10→18:06)
[2023-09-21] MEDS: OLANZapine 5 MG TABLET PO ×2 (16:06→20:12)
[2023-09-21 18:00] VITALS: BP 102/57; PULSE 92; TEMP 36.7; O2SAT 98
[2023-09-21] MEDS: traZODone HCL 50 MG TABLET PO (20:13)
[2023-09-22 08:15] VITALS: BP 111/71; PULSE 81; RESP 18; TEMP 36.4; O2SAT 98
[2023-09-22] MEDS: Divalproex Sodium 500 MG TABLET.DR PO (08:20)
[2023-09-22] MEDS: hydrOXYzine HCL 50 MG TABLET PO ×3 (08:20→20:20)
[2023-09-22] MEDS: hydrOXYzine HCL 25 MG TABLET PO (11:11)
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
[2023-09-22] MEDS: OLANZapine 5 MG TABLET PO ×2 (13:23→20:20)
[2023-09-22] MEDS: Acetaminophen 325 MG TABLET 650 MG PO (15:07)
[2023-09-22] MEDS: Throat Lozenge, Medicated LOZENGE 1 LOZENGE MUCOUS MEM (16:03)
[2023-09-22 18:00] VITALS: BP 117/59; PULSE 97; RESP 18; TEMP 36.2; O2SAT 98
[2023-09-22] MEDS: Magnesium Hydrox/Alum Hydrox 30 ML ORAL.SUSP PO (18:05)
[2023-09-22] MEDS: traZODone HCL 50 MG TABLET PO (20:20)
[2023-09-23 08:39] VITALS: BP 127/80; PULSE 93; RESP 16; TEMP 36.6; O2SAT 94
[2023-09-23] MEDS: Divalproex Sodium 500 MG TABLET.DR PO (08:40)
[2023-09-23] MEDS: hydrOXYzine HCL 50 MG TABLET PO ×3 (08:40→19:43)
[2023-09-23] MEDS: Acetaminophen 325 MG TABLET 650 MG PO ×2 (09:13→15:19)
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
[2023-09-23] MEDS: hydrOXYzine HCL 25 MG TABLET PO (10:06)
[2023-09-23] MEDS: Throat Lozenge, Medicated LOZENGE 1 LOZENGE MUCOUS MEM (17:11)
[2023-09-23 18:00] VITALS: BP 164/61; PULSE 86; RESP 18; TEMP 36.3; O2SAT 96
[2023-09-23] MEDS: OLANZapine 5 MG TABLET PO ×2 (18:34→19:43)
[2023-09-23] MEDS: traZODone HCL 50 MG TABLET PO (19:43)
[2023-09-24 08:00] VITALS: BP 115/53; PULSE 80; RESP 16; TEMP 36.5; O2SAT 96
[2023-09-24] MEDS: hydrOXYzine HCL 50 MG TABLET PO (08:31)
[2023-09-24] MEDS: Divalproex Sodium 500 MG TABLET.DR PO (08:31)
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
== END 2023-09-24 11:49 | disposition home or self-care (01) | DRG 758 ==
LOC: HO.ED 09-09 11:07 → HO.PM5 09-09 14:07
PROVIDERS: Emergency Medicine; Admitting Provider Psychiatry & Neurology Psychiatry; Emergency Provider Internal Medicine; PCP Physician Assistant Medical; Visit Provider Psychiatry & Neurology Psychiatry
DX: F63.81 Intermittent explosive disorder (principal); F32.9 Major depressive disorder, single episode, unspecified; R62.50 Unspecified lack of expected normal physiological development in childhood; Z20.822 Contact with and (suspected) exposure to COVID-19; Z79.899 Other long term (current) drug therapy
CPT/HCPCS: 36415; 80053; 80307; 81001; 82248; 84702; 85025; 87635; 99285; S9485

== ENCOUNTER → 2023-09-09 13:59 | Outpatient (BNV) | payer OTHER, SELFPAY | PROVIDERS: Admitting Provider Psychiatry & Neurology Psychiatry; Emergency Provider Internal Medicine; PCP Physician Assistant Medical; Visit Provider Psychiatry & Neurology Psychiatry | DX: F33.2 Major depressive disorder, recurrent severe without psychotic features (principal); F63.81 Intermittent explosive disorder; R62.50 Unspecified lack of expected normal physiological development in childhood | CPT/HCPCS: 99231; 99232 ==

== ENCOUNTER 2023-10-04 12:13 | Emergency (ER) | payer OTHER, SELFPAY ==
[2023-10-04 12:51] VITALS: BP 119/71; BP 132/88; PULSE 83; PULSE 89; RESP 14; TEMP 36.7; O2SAT 97; BMI 41.8
[2023-10-04 12:53] VITALS: BP 119/71; PULSE 83; RESP 14; TEMP 36.7; O2SAT 97
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
--- NOTE | 2023-10-04 13:05 | PC.NURSE ---
pts belongings in locker #5
--- NOTE | 2023-10-04 14:43 | ED_ITS ---
HPI - Psych General Chief Complaint: Psychiatric Symptoms Stated Complaint: BEHAVIORAL ISSUES Time Seen by Provider: 10/04/23 12:26 Source: patient Mode of arrival: EMS History of Present Illness HPI Narrative: This is a 23-year-old female who is coming in from home, states she took her medications today but states that she is very upset with her family but is unable to identify what made her so angry. Patient denies suicidal ideation. Related Data Previous Rx's Medication Instructions Recorded divalproex 500 mg tablet,delayed 500 mg PO DAILY 30 days #30 tabs 09/24/23 release hydroxyzine HCl 25 mg tablet 25 mg PO Q6H PRN mild Anxiety 30 09/24/23 days #60 tabs hydroxyzine pamoate 50 mg capsule 50 mg PO TID 30 days #90 caps 09/24/23 olanzapine 5 mg tablet See Rx Instructions .Route 09/24/23 .COMPLEX 30 days #45 tabs trazodone 50 mg tablet 50 mg PO BEDTIME PRN Insomnia 30 09/24/23 days #30 tabs Allergies Allergy/AdvReac Type Severity Reaction Status Date / Time No Known Allergies Allergy Verified 09/06/23 02:23 [No Known Allergies*] Review of Systems 2 Review of Systems: Pertinent positives and negatives as stated in HPI PMFSH Past Medical History Source: nursing notes reviewed Medical History Intermittent explosive disorder Developmental delay, mild MDD (major depressive disorder) Psychotic disorder Hydrocephalus Social History Social History Household Members: Family Housing: Other Housing Other:: half-way Do you presently have visiting nurse or other home services: No Alcohol intake: never Patient Tobacco Use Status: Never used Tobacco Smoked in Last 30 Days: No Use of substances other than those prescribed or required for medical reasons: No Substance Use Type: Caffiene Advance Directives: No service: No Sexual orientation: Straight/Heterosexual Physical Exam Vital Signs: Vital Signs: Last Vital Signs Temp 98.1 F 10/04/23 12:53 Pulse 83 10/04/23 12:53 Resp 14 10/04/23 12:53 BP 119/71 10/04/23 12:53 Pulse Ox 97 10/04/23 12:53 O2 Del Method Room Air 02/16/24 12:53 BMI result Body Mass Index 41.8 VITAL SIGNS: Reviewed. GENERAL: Well developed, well nourished, in no acute distress. HEAD: Normocephalic/atraumatic EYES: PERRLA, EOMI EARS: Ext canals without abnormality NOSE: Nares patent bilateral OROPHARYNX: no oral lesions noted, posterior pharynx clear NECK: Supple, no adenopathy LUNGS: Normal breath sounds. No adventitious sounds or accessory muscle use. SpO2<97> CARDIOVASCULAR: Regular rate and rhythm without noted murmurs ABDOMEN: Soft, non-tender, non-distended with bowel sounds. NEUROLOGIC: Alert and oriented x 4. Strength and sensation to light touch were grossly intact x 4, cranial nerves 2-12 are grossly intact. Medical Decision Making Medical Decision Making MDM Narrative: 23-year-old female with history and clinical presentation, DDX: behavioral aggression/HI Care team is not recommending any lab work or further medical clearance as the plan is to discharge as patient later in the evening. Differential Diagnosis Differential Diagnoses: The differential diagnosis associated with the presentation includes Please see the discussion above Admission/Observation Consideration of admission/observation: Escalation of care including admission/observation considered Please see the discussion above Discharge Plan Discharge Clinical Impression: Developmental delay, mild, Intermittent explosive disorder Patient Disposition: Still a Patient Prescriptions: No Action hydroxyzine HCl 25 mg Tablet 25 mg PO Q6H PRN (Reason: mild Anxiety) 30 Days Qty: 60 1RF trazodone 50 mg Tablet 50 mg PO BEDTIME PRN (Reason: Insomnia) 30 Days Qty: 30 1RF olanzapine 5 mg Tablet See Rx Instructions .ROUTE .COMPLEX 30 Days Qty: 45 1RF Rx Instructions: take 1 tab daily; may take 1 additionally tab daily as needed for Agitation hydroxyzine pamoate 50 mg capsule 50 mg PO TID 30 Days Qty: 90 1RF divalproex 500 mg tablet,delayed release (DR/EC) 500 mg PO DAILY 30 Days Qty: 30 1RF Interventions: [place]-Suicide Risk Severity Scale Last Done: 10/04/23 12:53
--- NOTE | 2023-10-04 15:32 | PC.NURSE ---
Assumed care of patient at 1500, patient is ambulating with steady gait around BH pod. Pt offers no complaints to this RN at this time. Per CARE, patient will more than likely be discharged
--- NOTE | 2023-10-04 15:53 | MHC.CARE ---
CARE Team received a call from Mikel Bustamante [phone] regarding? Pt coming to the ED; She stated Pt came her voluntary her mom stated ?I know they are going to do anything for her and just send her home?.? Pt mother reported Pt is violent at home though did not give specific examples; she stated that she has big reactions then will calm down at the hospital or when EMS arrives. She states Pt has difficulty with limitations and boundaries. ? T/w attempt? to discuss? there no clear goal for admission at this time, Pt has been medication compliant, complaint with outpatient providers. T/w and mom discussed consideration of? adding behavioralist to help assist Pt in managing her emotions home/ self regulations skills which Pt seems to struggle with.? Pt has an active DDS referral in and status is unknown at this time.? Pt mom expresses frustration with Pts behaviors at home and having limited support formal or informal in the community. She stated due to her behaviors family is not able to assist her.? CARE Team followed up with Mis Siddiqui from [facility] who reported Pt was not referred to [facility] due to her not being able to identify treatment goals and concerns of over utilization of [facility] services secondary this to this be a longstanding problem with family dynamics.? Plan for CARE Team to meet with Pt to discuss safety planning.
[2023-10-04 16:32] LABS: MANUAL DIFF FLAG NO
[2023-10-04 16:34] LABS: Basophils Percent Auto 0.5 % (0-2); Eosinophils Percent Auto 0.5 % (0-4); Hematocrit 37.2 % (37.0-47.0); Hemoglobin 13.3 g/dl (12.0-16.0); Imm Gran Abs Auto 0.04 X10*3/uL (0.00-0.03); Imm Gran Pct Auto 0.5 % (0.0-0.4); Lymphocytes Absolute Auto 2.3 X10*3/uL (1.2-4.9); Lymphocytes Percent Auto 28.1 % (20-40); Mean Corpuscular HGB Conc 35.8 g/dl (31.0-35.0); Mean Corpuscular Hemoglobin 31.1 pg (27.0-33.0); Mean Corpuscular Volume 86.9 fL (80.0-98.0); Mean Platelet Volume 9.1 fL (9.4-12.3); Monocytes Absolute Auto 0.6 X10*3/uL (0.1-1.2); Monocytes Percent Auto 7.3 % (2-11); Neutrophils Absolute Auto 5.1 x10*3/uL (2.0-8.3); Neutrophils Percent Auto 63.1 % (45-73); Platelet Count 279 X10*3/uL (160-400); Red Blood Count 4.28 X10*6/uL (4.20-5.50); Red Cell Distribution Width 12.2 % (11.0-16.0); White Blood Count 8.1 X10*3/uL (4.8-10.8)
[2023-10-04 16:35] LABS: Appearance Urine Clear; Color Urine Yellow; Glucose Urine UA Negative (Negative); Leukocyte Esterase Urine Trace (Negative); Nitrite Urine Negative (Negative); UMIC TRIGGER UACC YES; Urine Blood Negative (Negative); Urine Ketones Trace mg/dL (Negative); Urine Protein Negative (Neg-Trace)
[2023-10-04 16:40] LABS: Amphetamine Screen Urine Not Detected (Not Detect); Barbiturates, Urine Not Detected (Not Detect); Benzodiazepines Screen Urine Not Detected (Not Detect); Cannabinoid Screen Urine Not Detected (Not Detect); Cocaine Screen Urine Not Detected (Not Detect); Fentanyl, urine Not Detected (Not Detect); Opiate Screen Urine Not Detected (Not Detect); Phencyclidine Screen Urine Not Detected (Not Detect)
[2023-10-04 16:47] LABS: Ethanol < 10 mg/dL
[2023-10-04 16:49] LABS: Acetaminophen LAB < 3 mcg/mL (<30); Salicylate < 5.0 mg/dL (15-30)
[2023-10-04 16:50] LABS: COVID-19 Test Negative (Negative); IDNOW Serial# 08D9AD1C
[2023-10-04 16:55] LABS: Alanine Aminotransferase 27 U/L (0-31); Albumin Level 4.2 g/dL (3.5-5.0); Alkaline Phosphatase 63 U/L (39-117); Anion Gap 14 (12-20); Aspartate Amino Transferase 26 U/L (5-31); Bilirubin Total 0.4 mg/dL (0.0-1.0); Blood Urea Nitrogen 10 mg/dL (9-16); Calcium 9.5 mg/dL (8.4-10.2); Carbon Dioxide 22 mmol/L (22-29); Chloride 106 mmol/L (96-108); Creatinine Clr Calc Pharmacy 152.7; Estimated Glomerular Filt Rate > 60; Glucose Random 98 mg/dL (60-115); HCG Quantitative < 2 mIU/mL; Potassium 4.1 mmol/L (3.3-5.1); Sodium 138 mmol/L (135-145); Total Protein 8.1 g/dL (6.5-8.0)
[2023-10-04 17:03] LABS: Bacteria Urine Trace (None Seen); Hyaline Casts Urine 0-2 /LPF (0-2); RBC Urine 0-2 /HPF (0-2); WBC Urine 0-5 /HPF (0-5)
== END 2023-10-04 18:38 | disposition home or self-care (01) ==
PROVIDERS: Student in an Organized Health Care Education/Training Program; Emergency Provider Internal Medicine
DX: F63.81 Intermittent explosive disorder (principal); F89 Unspecified disorder of psychological development; Z11.52 Encounter for screening for COVID-19; F23 Brief psychotic disorder; Z79.899 Other long term (current) drug therapy
CPT/HCPCS: 36415; 80053; 80143; 80179; 80307; 81001; 84702; 85025; 87635; 99285; S9485

== ENCOUNTER 2023-11-12 15:44 | Inpatient (IN) | payer OTHER, SELFPAY ==
[2023-11-12 15:49] VITALS: BP 102/60; PULSE 107; PULSE 91; RESP 18; TEMP 36.9; O2SAT 94; O2SAT 98; BMI 30.1
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
[2023-11-12 17:26] LABS: MANUAL DIFF FLAG NO
[2023-11-12 17:27] LABS: Basophils Percent Auto 0.3 % (0-2); Eosinophils Absolute Auto 0.1 X10*3/uL (0.0-0.4); Eosinophils Percent Auto 0.7 % (0-4); Hematocrit 37.3 % (37.0-47.0); Hemoglobin 13.5 g/dl (12.0-16.0); Imm Gran Abs Auto 0.03 X10*3/uL (0.00-0.03); Imm Gran Pct Auto 0.3 % (0.0-0.4); Lymphocytes Percent Auto 22.6 % (20-40); Mean Corpuscular HGB Conc 36.2 g/dl (31.0-35.0); Mean Corpuscular Volume 85.7 fL (80.0-98.0); Monocytes Absolute Auto 0.7 X10*3/uL (0.1-1.2); Monocytes Percent Auto 7.9 % (2-11); Neutrophils Percent Auto 68.2 % (45-73); Platelet Count 266 X10*3/uL (160-400); Red Blood Count 4.35 X10*6/uL (4.20-5.50); Red Cell Distribution Width 12.1 % (11.0-16.0); White Blood Count 8.8 X10*3/uL (4.8-10.8)
[2023-11-12 17:35] LABS: Appearance Urine Clear; Color Urine Yellow; Glucose Urine UA Negative (Negative); Leukocyte Esterase Urine Negative (Negative); Nitrite Urine Negative (Negative); Specific Gravity - Urine 1.025 (1.005-1.025); UMIC TRIGGER UACC YES; UPreg QC Valid YES; Urine Blood Large (3+) (Negative); Urine Ketones Trace mg/dL (Negative); Urine Pregnancy NEGATIVE (NEGATIVE); Urine Protein Trace mg/dL (Neg-Trace)
[2023-11-12 17:36] LABS: Amphetamine Screen Urine Not Detected (Not Detect); Barbiturates, Urine Not Detected (Not Detect); Benzodiazepines Screen Urine Not Detected (Not Detect); Cannabinoid Screen Urine Not Detected (Not Detect); Cocaine Screen Urine Not Detected (Not Detect); Fentanyl, urine Not Detected (Not Detect); Opiate Screen Urine Not Detected (Not Detect); Phencyclidine Screen Urine Not Detected (Not Detect)
[2023-11-12 17:40] LABS: Valproate 69.2 mcg/mL (50.0-100.0)
[2023-11-12 17:44] LABS: Bacteria Urine Trace (None Seen); Hyaline Casts Urine 0-2 /LPF (0-2); WBC Urine 0-5 /HPF (0-5)
[2023-11-12 17:45] LABS: Alanine Aminotransferase 28 U/L (0-31); Albumin Level 4.3 g/dL (3.5-5.0); Alkaline Phosphatase 70 U/L (39-117); Anion Gap 16 (12-20); Aspartate Amino Transferase 19 U/L (5-31); Bilirubin Total 0.3 mg/dL (0.0-1.0); Blood Urea Nitrogen 11 mg/dL (9-16); COVID-19 Test Negative (Negative); Calcium 9.9 mg/dL (8.4-10.2); Carbon Dioxide 21 mmol/L (22-29); Chloride 107 mmol/L (96-108); Creatinine Clr Calc Pharmacy 105.7; Estimated Glomerular Filt Rate > 60; Ethanol < 10 mg/dL; Glucose Random 101 mg/dL (60-115); IDNOW Serial# 08D9AD1C; Potassium 3.5 mmol/L (3.3-5.1); Sodium 140 mmol/L (135-145); Total Protein 7.8 g/dL (6.5-8.0)
[2023-11-12 17:53] LABS: RBC Urine 0-2 /HPF (0-2)
[2023-11-12] MEDS: Ondansetron ODT 4 MG TAB.RAPDIS TRANSLINGU (18:44)
[2023-11-12] MEDS: hydrOXYzine HCL 50 MG TABLET PO (20:31)
[2023-11-13 01:20] VITALS: BP 110/52; PULSE 80; RESP 17; TEMP 36.7; O2SAT 97
--- NOTE | 2023-11-13 06:19 | PC.NURSE ---
Patient slept through the night, no distress observed/reported, medication compliant, no behavior issues, disposition per care team is Section 12 inpatient bed search, VSS, will continue to monitor
--- NOTE | 2023-11-13 08:01 | ECG_ITS ---
Test Reason : Monitor Medications Blood Pressure : / mmHG Vent. Rate : 077 BPM Atrial Rate : 077 BPM P-R Int : 160 ms QRS Dur : 090 ms QT Int : 412 ms P-R-T Axes : 016 002 017 degrees QTc Int : 466 ms Normal sinus rhythm Minimal voltage criteria for LVH, may be normal variant ( R in aVL ) Anterior infarct , age undetermined Abnormal ECG When compared with ECG of 04-MAY-2023 16:07, T wave inversion now evident in Anterior leads Referred By: Sonido Jeffery Electronically Signed By:Horace Hobbs
[2023-11-13 08:06] VITALS: BP 93/48; PULSE 70; RESP 18; TEMP 36.5; O2SAT 98
[2023-11-13] MEDS: Divalproex Sodium 500 MG TABLET.DR PO (08:58)
[2023-11-13] MEDS: OLANZapine 5 MG TABLET PO (08:58)
[2023-11-13] MEDS: hydrOXYzine HCL 50 MG TABLET PO ×3 (08:58→19:59)
[2023-11-13] MEDS: Acetaminophen 325 MG TABLET 650 MG PO (13:44)
[2023-11-13 14:35] VITALS: BP 133/87; PULSE 82; TEMP 36.6; O2SAT 98
[2023-11-13 14:40] VITALS: BMI 40.7
[2023-11-13] MEDS: Magnesium Hydrox/Alum Hydrox 30 ML ORAL.SUSP PO (16:17)
--- NOTE | 2023-11-13 16:48 | PC.NURSE ---
Pt already had flu vaccine for this season.
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
[2023-11-13] MEDS: Ibuprofen 600 MG TABLET PO (18:07)
[2023-11-13 19:35] VITALS: BP 112/72; PULSE 83; RESP 18; TEMP 36.5; O2SAT 98
[2023-11-13] MEDS: traZODone HCL 50 MG TABLET PO (19:59)
[2023-11-14 06:00] VITALS: BP 110/68; PULSE 82; RESP 16; O2SAT 98
[2023-11-14 07:00] VITALS: BMI 40.8
[2023-11-14] MEDS: hydrOXYzine HCL 50 MG TABLET PO ×3 (08:16→20:12)
[2023-11-14] MEDS: Divalproex Sodium 500 MG TABLET.DR PO (08:16)
[2023-11-14] MEDS: Acetaminophen 325 MG TABLET 650 MG PO ×2 (08:38→21:22)
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
[2023-11-14] MEDS: hydrOXYzine HCL 25 MG TABLET PO ×2 (12:19→18:47)
[2023-11-14] MEDS: Magnesium Hydrox/Alum Hydrox 30 ML ORAL.SUSP PO (14:58)
[2023-11-14] MEDS: Ibuprofen 600 MG TABLET PO (15:37)
[2023-11-14] MEDS: Milk of Magnesia 30 ML ORAL.SUSP PO (16:54)
[2023-11-14 20:00] VITALS: BP 154/72; PULSE 98; RESP 18; TEMP 36.4; O2SAT 98
[2023-11-14] MEDS: traZODone HCL 50 MG TABLET PO (20:30)
[2023-11-14] MEDS: Nicotine Polacrilex 2 MG GUM BUCCAL (20:32)
[2023-11-15 06:00] VITALS: BP 103/67; PULSE 78; RESP 18; TEMP 36.5; O2SAT 97
[2023-11-15] MEDS: hydrOXYzine HCL 50 MG TABLET PO ×3 (08:13→20:39)
[2023-11-15] MEDS: Divalproex Sodium 500 MG TABLET.DR PO ×2 (08:13→20:39)
[2023-11-15 09:12] LABS: MANUAL DIFF FLAG NO
[2023-11-15 09:26] LABS: Valproate 22.1 mcg/mL (50.0-100.0)
[2023-11-15 09:34] LABS: Alanine Aminotransferase 24 U/L (0-31); Albumin Level 4.1 g/dL (3.5-5.0); Alkaline Phosphatase 68 U/L (39-117); Aspartate Amino Transferase 16 U/L (5-31); Bilirubin Direct 0.1 mg/dL (0.0-0.5); Bilirubin Total 0.4 mg/dL (0.0-1.0); Total Protein 7.5 g/dL (6.5-8.0)
[2023-11-15 09:38] LABS: Basophils Percent Auto 0.4 % (0-2); Eosinophils Absolute Auto 0.1 X10*3/uL (0.0-0.4); Hematocrit 39.1 % (37.0-47.0); Hemoglobin 13.8 g/dl (12.0-16.0); Imm Gran Abs Auto 0.02 X10*3/uL (0.00-0.03); Imm Gran Pct Auto 0.4 % (0.0-0.4); Lymphocytes Absolute Auto 2.1 X10*3/uL (1.2-4.9); Lymphocytes Percent Auto 38.8 % (20-40); Mean Corpuscular HGB Conc 35.3 g/dl (31.0-35.0); Mean Corpuscular Hemoglobin 30.5 pg (27.0-33.0); Mean Corpuscular Volume 86.5 fL (80.0-98.0); Mean Platelet Volume 9.4 fL (9.4-12.3); Monocytes Absolute Auto 0.5 X10*3/uL (0.1-1.2); Monocytes Percent Auto 8.6 % (2-11); Neutrophils Absolute Auto 2.7 x10*3/uL (2.0-8.3); Neutrophils Percent Auto 49.8 % (45-73); Platelet Count 263 X10*3/uL (160-400); Red Blood Count 4.52 X10*6/uL (4.20-5.50); Red Cell Distribution Width 12.2 % (11.0-16.0); White Blood Count 5.4 X10*3/uL (4.8-10.8)
[2023-11-15] MEDS: Nicotine Polacrilex 2 MG GUM BUCCAL ×2 (10:50→12:41)
[2023-11-15 11:37] LABS: Ammonia 41 umol/L (13-55)
[2023-11-15] MEDS: Acetaminophen 325 MG TABLET 650 MG PO ×2 (12:25→20:36)
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
[2023-11-15] MEDS: hydrOXYzine HCL 25 MG TABLET PO (16:08)
[2023-11-15] MEDS: OLANZapine 5 MG TABLET PO (19:03)
[2023-11-15] MEDS: Throat Lozenge, Medicated LOZENGE 1 LOZENGE MUCOUS MEM (19:33)
[2023-11-15 19:59] VITALS: BP 132/82; PULSE 84; RESP 18; TEMP 36.4; O2SAT 98
[2023-11-15] MEDS: traZODone HCL 50 MG TABLET PO (20:39)
[2023-11-16 06:00] VITALS: BP 106/57; PULSE 85; RESP 16; TEMP 36.4; O2SAT 98
[2023-11-16] MEDS: Nicotine Polacrilex 2 MG GUM BUCCAL ×5 (07:08→21:03)
[2023-11-16] MEDS: hydrOXYzine HCL 50 MG TABLET PO ×3 (09:14→21:05)
[2023-11-16] MEDS: Divalproex Sodium 500 MG TABLET.DR PO ×2 (09:14→21:03)
[2023-11-16] MEDS: Acetaminophen 325 MG TABLET 650 MG PO ×2 (10:22→16:25)
[2023-11-16] MEDS: hydrOXYzine HCL 25 MG TABLET PO ×2 (10:22→19:26)
[2023-11-16] MEDS: Magnesium Hydrox/Alum Hydrox 30 ML ORAL.SUSP PO (11:38)
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
[2023-11-16 21:00] VITALS: BP 119/73; PULSE 101; RESP 18; TEMP 36.7; O2SAT 98
[2023-11-16] MEDS: traZODone HCL 50 MG TABLET PO (21:03)
[2023-11-16] MEDS: OLANZapine 5 MG TABLET PO (21:03)
[2023-11-16] MEDS: Ibuprofen 600 MG TABLET PO (21:04)
[2023-11-17 07:15] VITALS: BP 105/54; PULSE 73; RESP 16; TEMP 37; O2SAT 96
[2023-11-17] MEDS: hydrOXYzine HCL 50 MG TABLET PO ×3 (09:01→20:07)
[2023-11-17] MEDS: Divalproex Sodium 500 MG TABLET.DR PO ×2 (09:02→20:07)
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
[2023-11-17 12:54] VITALS: BP 133/69; PULSE 103; RESP 18; O2SAT 98
[2023-11-17] MEDS: Nicotine Polacrilex 2 MG GUM BUCCAL ×3 (13:40→20:30)
[2023-11-17] MEDS: Ibuprofen 600 MG TABLET PO (16:38)
[2023-11-17] MEDS: Acetaminophen 325 MG TABLET 650 MG PO (17:58)
[2023-11-17] MEDS: OLANZapine 5 MG TABLET PO (19:15)
[2023-11-17 19:40] VITALS: BP 121/64; PULSE 90; RESP 16; TEMP 36.6; O2SAT 97
[2023-11-17] MEDS: traZODone HCL 50 MG TABLET PO (20:27)
[2023-11-18 07:30] VITALS: BP 98/47; PULSE 81; RESP 14; TEMP 36.6; O2SAT 97
[2023-11-18] MEDS: hydrOXYzine HCL 50 MG TABLET PO ×3 (08:20→20:06)
[2023-11-18] MEDS: Divalproex Sodium 500 MG TABLET.DR PO ×2 (08:20→20:05)
[2023-11-18] MEDS: Acetaminophen 325 MG TABLET 650 MG PO (11:38)
[2023-11-18] MEDS: Nicotine Polacrilex 2 MG GUM BUCCAL ×2 (11:54→21:42)
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
[2023-11-18] MEDS: OLANZapine 5 MG TABLET PO (16:04)
[2023-11-18 19:10] VITALS: BP 120/71; PULSE 88; RESP 16; TEMP 36.6; O2SAT 96
[2023-11-18] MEDS: traZODone HCL 50 MG TABLET PO (20:05)
[2023-11-19 07:31] VITALS: BP 119/69; PULSE 76; RESP 16; TEMP 36.4; O2SAT 100
[2023-11-19] MEDS: Ibuprofen 600 MG TABLET PO ×2 (08:13→20:07)
[2023-11-19] MEDS: Nicotine Polacrilex 2 MG GUM BUCCAL ×3 (08:14→21:49)
[2023-11-19] MEDS: hydrOXYzine HCL 50 MG TABLET PO ×3 (08:14→20:07)
[2023-11-19] MEDS: Divalproex Sodium 500 MG TABLET.DR PO ×2 (08:14→20:07)
[2023-11-19] MEDS: Magnesium Hydrox/Alum Hydrox 30 ML ORAL.SUSP PO (11:39)
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
[2023-11-19] MEDS: OLANZapine 5 MG TABLET PO (18:33)
[2023-11-19] MEDS: traZODone HCL 50 MG TABLET PO (20:07)
[2023-11-19 20:08] VITALS: BP 129/62; PULSE 101; RESP 18; TEMP 36.7; O2SAT 98
[2023-11-20 07:32] VITALS: BP 106/59; PULSE 91; RESP 18; TEMP 36.1; O2SAT 97
[2023-11-20 08:15] LABS: MANUAL DIFF FLAG NO
[2023-11-20 08:19] LABS: Basophils Percent Auto 0.7 % (0-2); Eosinophils Absolute Auto 0.1 X10*3/uL (0.0-0.4); Eosinophils Percent Auto 1.8 % (0-4); Hematocrit 39.2 % (37.0-47.0); Hemoglobin 13.6 g/dl (12.0-16.0); Imm Gran Abs Auto 0.03 X10*3/uL (0.00-0.03); Imm Gran Pct Auto 0.5 % (0.0-0.4); Lymphocytes Absolute Auto 2.3 X10*3/uL (1.2-4.9); Lymphocytes Percent Auto 42.3 % (20-40); Mean Corpuscular HGB Conc 34.7 g/dl (31.0-35.0); Mean Corpuscular Hemoglobin 30.5 pg (27.0-33.0); Mean Corpuscular Volume 87.9 fL (80.0-98.0); Mean Platelet Volume 8.8 fL (9.4-12.3); Monocytes Absolute Auto 0.5 X10*3/uL (0.1-1.2); Monocytes Percent Auto 8.1 % (2-11); Neutrophils Absolute Auto 2.6 x10*3/uL (2.0-8.3); Neutrophils Percent Auto 46.6 % (45-73); Platelet Count 263 X10*3/uL (160-400); Red Blood Count 4.46 X10*6/uL (4.20-5.50); Red Cell Distribution Width 12.3 % (11.0-16.0); White Blood Count 5.5 X10*3/uL (4.8-10.8)
[2023-11-20] MEDS: Divalproex Sodium 500 MG TABLET.DR PO ×2 (08:20→20:24)
[2023-11-20] MEDS: hydrOXYzine HCL 50 MG TABLET PO ×3 (08:20→20:24)
[2023-11-20 08:33] LABS: Valproate 74.9 mcg/mL (50.0-100.0)
[2023-11-20 08:38] LABS: Alanine Aminotransferase 24 U/L (0-31); Albumin Level 4.1 g/dL (3.5-5.0); Alkaline Phosphatase 60 U/L (39-117); Anion Gap 13 (12-20); Aspartate Amino Transferase 16 U/L (5-31); Bilirubin Direct 0.1 mg/dL (0.0-0.5); Bilirubin Total 0.4 mg/dL (0.0-1.0); Blood Urea Nitrogen 13 mg/dL (9-16); Calcium 9.7 mg/dL (8.4-10.2); Carbon Dioxide 24 mmol/L (22-29); Chloride 106 mmol/L (96-108); Creatinine Clr Calc Pharmacy 142.1; Estimated Glomerular Filt Rate > 60; Glucose Random 95 mg/dL (60-115); Sodium 139 mmol/L (135-145); Total Protein 7.5 g/dL (6.5-8.0)
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
[2023-11-20] MEDS: Magnesium Hydrox/Alum Hydrox 30 ML ORAL.SUSP PO (14:56)
[2023-11-20] MEDS: Nicotine Polacrilex 2 MG GUM BUCCAL ×2 (16:08→23:26)
[2023-11-20] MEDS: Acetaminophen 325 MG TABLET 650 MG PO (17:29)
[2023-11-20] MEDS: traZODone HCL 50 MG TABLET PO (20:24)
[2023-11-20 20:31] VITALS: BP 135/60; PULSE 92; RESP 18; TEMP 36.7; O2SAT 98
[2023-11-20] MEDS: Ibuprofen 600 MG TABLET PO (20:32)
[2023-11-21 06:00] VITALS: BP 127/55; PULSE 75; RESP 16; TEMP 36.9; O2SAT 99
[2023-11-21] MEDS: Divalproex Sodium 500 MG TABLET.DR PO (08:07)
[2023-11-21] MEDS: hydrOXYzine HCL 50 MG TABLET PO (08:07)
[2023-11-21] MEDS: Acetaminophen 325 MG TABLET 650 MG PO (08:20)
[2023-11-21] MEDS: OLANZapine 5 MG TABLET PO (10:43)
[2023-11-21] MEDS: Nicotine Polacrilex 2 MG GUM BUCCAL (12:18)
== END 2023-11-21 12:33 | disposition home or self-care (01) | DRG 751 ==
LOC: HO.ED 11-13 02:10 → HO.PADLT16 11-13 13:02
PROVIDERS: Nurse Practitioner Family; Admitting Provider Psychiatry & Neurology Psychiatry; Emergency Provider Emergency Medicine Emergency Medical Services; Visit Provider Psychiatry & Neurology Psychiatry
DX: F33.0 Major depressive disorder, recurrent, mild (principal); G91.9 Hydrocephalus, unspecified; R45.851 Suicidal ideations; F63.81 Intermittent explosive disorder; Z91.52 Personal history of nonsuicidal self-harm; R62.50 Unspecified lack of expected normal physiological development in childhood; Z20.822 Contact with and (suspected) exposure to COVID-19; Z79.899 Other long term (current) drug therapy
CPT/HCPCS: 36415; 80048; 80053; 80076; 80164; 80307; 81001; 81025; 82140; 85025; 87635; 93005; 99285; S9485

== ENCOUNTER → 2023-11-13 08:01 | Outpatient (BNV) | payer OTHER, SELFPAY | PROVIDERS: Admitting Provider Psychiatry & Neurology Psychiatry; Emergency Provider Emergency Medicine Emergency Medical Services; Visit Provider Internal Medicine Cardiovascular Disease | DX: R94.31 Abnormal electrocardiogram [ECG] [EKG] (principal) | CPT/HCPCS: 93010 ==

== ENCOUNTER → 2023-11-13 11:46 | Outpatient (BNV) | payer OTHER, SELFPAY | PROVIDERS: Admitting Provider Psychiatry & Neurology Psychiatry; Emergency Provider Emergency Medicine Emergency Medical Services; Visit Provider Psychiatry & Neurology Psychiatry | DX: F33.2 Major depressive disorder, recurrent severe without psychotic features (principal); F29 Unspecified psychosis not due to a substance or known physiological condition; F63.81 Intermittent explosive disorder; R62.50 Unspecified lack of expected normal physiological development in childhood; G91.9 Hydrocephalus, unspecified | CPT/HCPCS: 99231; 99232; 99233 ==

== ENCOUNTER 2023-12-04 17:05 | Emergency (ER) | payer OTHER, SELFPAY ==
[2023-12-04 17:09] VITALS: BP 132/90; PULSE 110; O2SAT 98
[2023-12-04 17:22] VITALS: BP 119/68; PULSE 96; RESP 18; TEMP 36.8; O2SAT 97; BMI 40.7
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
[2023-12-04 17:37] LABS: MANUAL DIFF FLAG NO
[2023-12-04 17:38] LABS: Basophils Percent Auto 0.3 % (0-2); Eosinophils Percent Auto 0.5 % (0-4); Hematocrit 36.9 % (37.0-47.0); Hemoglobin 13.4 g/dl (12.0-16.0); Imm Gran Abs Auto 0.04 X10*3/uL (0.00-0.03); Imm Gran Pct Auto 0.5 % (0.0-0.4); Lymphocytes Absolute Auto 2.2 X10*3/uL (1.2-4.9); Mean Corpuscular HGB Conc 36.3 g/dl (31.0-35.0); Mean Corpuscular Hemoglobin 31.2 pg (27.0-33.0); Mean Corpuscular Volume 85.8 fL (80.0-98.0); Mean Platelet Volume 8.9 fL (9.4-12.3); Monocytes Absolute Auto 0.7 X10*3/uL (0.1-1.2); Monocytes Percent Auto 8.3 % (2-11); Neutrophils Absolute Auto 5.6 x10*3/uL (2.0-8.3); Neutrophils Percent Auto 65.4 % (45-73); Platelet Count 274 X10*3/uL (160-400); White Blood Count 8.6 X10*3/uL (4.8-10.8)
[2023-12-04 17:40] VITALS: BP 119/68; PULSE 96; RESP 18; TEMP 36.8; O2SAT 97
[2023-12-04 17:51] LABS: COVID-19 Test Negative (Negative); IDNOW Serial# 08D9AD1C
[2023-12-04 17:52] LABS: Alanine Aminotransferase 20 U/L (0-31); Albumin Level 4.4 g/dL (3.5-5.0); Alkaline Phosphatase 55 U/L (39-117); Anion Gap 13 (12-20); Aspartate Amino Transferase 17 U/L (5-31); Bilirubin Total 0.5 mg/dL (0.0-1.0); Blood Urea Nitrogen 15 mg/dL (9-16); Calcium 9.8 mg/dL (8.4-10.2); Carbon Dioxide 21 mmol/L (22-29); Chloride 109 mmol/L (96-108); Creatinine Clr Calc Pharmacy 139.9; Estimated Glomerular Filt Rate > 60; Ethanol < 10 mg/dL; Glucose Random 93 mg/dL (60-115); Potassium 3.8 mmol/L (3.3-5.1); Sodium 139 mmol/L (135-145); Total Protein 7.7 g/dL (6.5-8.0)
[2023-12-04 18:12] LABS: Appearance Urine Cloudy; Color Urine Dark Yellow; Glucose Urine UA Negative (Negative); Leukocyte Esterase Urine Negative (Negative); Nitrite Urine Negative (Negative); Specific Gravity - Urine >= 1.030 (1.005-1.025); Urine Blood Negative (Negative); Urine Ketones Trace mg/dL (Negative); Urine Protein Trace mg/dL (Neg-Trace)
[2023-12-04 18:23] LABS: Amphetamine Screen Urine Not Detected (Not Detect); Barbiturates, Urine Not Detected (Not Detect); Benzodiazepines Screen Urine Not Detected (Not Detect); Buprenorphine Scr Not Detected (Not Detect); Cannabinoid Screen Urine Not Detected (Not Detect); Cocaine Screen Urine Not Detected (Not Detect); Fentanyl, urine POSITIVE (Not Detect); Methadone Screen, Urine Not Detected (Not Detect); Opiate Screen Urine Not Detected (Not Detect); Oxycodone Screen Urine Not Detected (Not Detect); Phencyclidine Screen Urine Not Detected (Not Detect)
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
[2023-12-04] MEDS: Divalproex Sodium 500 MG TABLET.DR PO (20:47)
[2023-12-04] MEDS: hydrOXYzine HCL 50 MG TABLET PO (20:47)
[2023-12-05 01:38] VITALS: BP 126/76; PULSE 80; RESP 16; TEMP 37; O2SAT 98
--- NOTE | 2023-12-05 03:40 | PC.NURSE ---
Took over for RN Vivian, pt resting in bed, no sign of distress.
[2023-12-05 06:10] VITALS: BP 118/57; PULSE 56; RESP 16; TEMP 36.7; O2SAT 98
[2023-12-05 08:11] VITALS: BP 109/67; PULSE 83; RESP 16; TEMP 37.2; O2SAT 98
[2023-12-05] MEDS: hydrOXYzine HCL 50 MG TABLET PO ×2 (08:29→14:57)
[2023-12-05] MEDS: Divalproex Sodium 500 MG TABLET.DR PO (08:29)
[2023-12-05] MEDS: Acetaminophen 325 MG TABLET 650 MG PO (11:34)
--- NOTE | 2023-12-05 11:41 | MHC.CARE ---
Sent a referral for ACCS to [facility] and N
[2023-12-05 15:53] VITALS: BP 109/69; PULSE 80; RESP 18; TEMP 36.5; O2SAT 97
--- NOTE | 2023-12-05 15:59 | MHC.CARE ---
[facility] and [facility] declined admission for ACCS. CARE team will call pt's mother Gisela ([phone]) after she has finished her meeting with DDS (meeting started at 3:30pm) to inquire what plans DDS has in mind for the pt and to determine the appropriate discharge plan.
--- NOTE | 2023-12-05 17:45 | MHC.CARE ---
Patient was met with secondary to being denied from [facility]CS from both [facility] and [facility]. Per [facility] they were not able to manage her behavior at this time and per [facility] she does not meet clinical necessity. This appeals writer spoke to her mother who indicated that DDS recommended [facility] respite however stated that if she does not meet clinical need then she is able to come pick her up from the hospital as DDS plans to come out to the home tomorrow and interview Ana. When speaking with the patient she initially stated that she does not feel as though she is ready to return home, however, once informing her that her mother was ok with her returning home and that DDS was coming to the home tomorrow to speak with her she was agreeable tor return home if she was able to have dinner at the hospital. This appeals writer spoke with the ED attending Davion Davidson PA-C and he was in agreement with her remaining in the ED until after dinner and getting picked up from her mother at approximately 1830. Patient is in agreement with the plan at this time and is encouraged to follow up with outpatient providers upon discharge.
[2023-12-05 19:06] VITALS: BP 109/64; PULSE 80; RESP 18; TEMP 36.5; O2SAT 97
== END 2023-12-05 19:07 | disposition home or self-care (01) ==
PROVIDERS: Emergency Provider Emergency Medicine
DX: F63.81 Intermittent explosive disorder (principal); Z11.52 Encounter for screening for COVID-19; Z79.899 Other long term (current) drug therapy
CPT/HCPCS: 80053; 80307; 81003; 85025; 87635; 99284; 99285; S9485

== ENCOUNTER 2024-07-13 11:01 | Emergency (ER) | payer OTHER, SELFPAY ==
[2024-07-13 11:07] VITALS: PULSE 84; RESP 18; TEMP 36.8; O2SAT 97; BMI 42.4
[2024-07-13 11:40] LABS: Appearance Urine Clear; Color Urine Yellow; Glucose Urine UA Negative (Negative); Leukocyte Esterase Urine Trace (Negative); Nitrite Urine Negative (Negative); PH 6.5 (5.0-9.0); UMIC TRIGGER UACC YES; Urine Blood Moderate (2+) (Negative); Urine Ketones Negative (Negative); Urine Protein Negative (Neg-Trace)
[2024-07-13 11:43] LABS: Bacteria Urine None Seen (None Seen); Hyaline Casts Urine 0-2 /LPF (0-2); RBC Urine >20 /HPF (0-2); WBC Urine 0-5 /HPF (0-5)
--- NOTE | 2024-07-13 12:48 | ED.ABDPAIN ---
HPI - Abdominal Pain General Chief Complaint: Abdominal Pain Stated Complaint: Vomiting Dizzy Stomach Pain Time Seen by Provider: 07/13/24 12:39 Source: patient and other ( residential staff) Mode of arrival: ambulatory Limitations: no limitations History of Present Illness ED Provider: Dr. Elisa Lynn HPI narrative: Patient comes to the emergency room complaining of menstrual cramping. Patient states that the menstrual cramping is so bad that makes her vomit. Patient denies fever chills, denies dysuria. Patient denies diarrhea fever chills. Denies flank pain. Related Data Home Medications ?Medication ?Instructions ?Recorded ?Confirmed hydroxyzine pamoate 50 mg capsule 50 mg PO TID 11/12/23 12/04/23 olanzapine 5 mg tablet 5 mg PO BID PRN anxiety 11/12/23 12/04/23 trazodone 50 mg tablet 50 mg PO BEDTIME PRN insomnia 11/12/23 12/04/23 Previous Rx's ?Medication ?Instructions ?Recorded divalproex 500 mg tablet,delayed 500 mg PO BID 30 days #60 tabs 11/20/23 release nicotine (polacrilex) 2 mg gum 2 mg buccal Q2H PRN Nicotine 11/20/23 Cravings 30 days #40 ea ondansetron 4 mg disintegrating 4 mg PO Q6H PRN nausea and 07/13/24 tablet vomiting #10 tabs Allergies Allergy/AdvReac Type Severity Reaction Status Date / Time No Known Allergies Allergy Verified 07/13/24 11:08 [No Known Allergies*] Review of Systems Review of Systems Constitutional : No Weight loss, No Fever, No Chills, No Night Sweats, No Fatigue, No Malaise ENT/Mouth : No Hearing loss, No Ear Pain, No Nasal Congestion, No Sinus Pain, No Hoarseness, No sore throat, No Rhinorrhea, No Swallowing Difficulty Eyes: No Eye Pain, No Swelling, No Redness, No Foreign Body, No Discharge, No Vision Changes Cardiovascular : No Chest Pain, No SOB, No Dyspnea on Exertion, No Orthopnea, No Edema, No Palpitations Respiratory : No Cough, No Sputum, No Wheezing, No Smoke Exposure, No Dyspnea Gastrointestinal : No Nausea, No Vomiting, No Diarrhea, No Constipation, No abdominal Pain, No Hematochezia, No Melena Genitourinary complaining of severe pain with menstruation/cramping, No Dysuria, No Urinary Frequency, No Hematuria, No Urinary Incontinence, No Urgency, No Flank Pain, No Urinary Flow Changes, No Hesitancy Musculoskeletal : No joint pain, No Myalgias, No Joint Swelling Skin : No Skin Lesions, No rash Neuro : No Weakness, No Numbness, No Paresthesias, No Loss of Consciousness, No Dizziness, No Headache Psych : No Anxiety/Panic, No Depression, No SI/HI/AH/VH, No Social Issues, Heme/Lymph: No Bruising, No Bleeding,No Lymphadenopathy Endocrine : No Polyuria, No Polydipsia, No Temperature Intolerance [facility] Past Medical History Medical History Intermittent explosive disorder Developmental delay, mild MDD (major depressive disorder) Psychotic disorder Hydrocephalus Social History Social History Household Members: Family Housing: House Housing Other:: alf Do you presently have visiting nurse or other home services: No Alcohol intake: never Patient Tobacco Use Status: Never used Tobacco Substance Use Type: Caffiene Advance Directives: No Advance Directives Information Provided: Yes Do you have a plan to hurt others: No Plan service: No Sexual orientation: Don't Know Physical Exam ED Vital Signs: Vital Signs - 24 hr 07/13/24 11:07 Temperature 98.2 F Pulse Rate 84 Respiratory Rate 18 Pulse Oximetry 97 Oxygen Delivery Method Room Air BMI result Body Mass Index 42.4 Const Other: Appearance: Alert. Oriented X3. No acute distress. well-appearing Eyes: Pupils equal, round and reactive to light. ENT: Pharynx normal. Neck: Normal inspection. Neck supple. No lymph nodes noted. No crepitus CVS: Normal heart rate and rhythm. Pulses normal. Normal S1 and S2 Respiratory: No respiratory distress. Breath sounds normal. No Wheezing. No rales Abdomen: Soft , no tenderness to palpation in any quadrant, at time of examination, no suprapubic pain to palpation. No rigidity. No distention. Skin: Skin warm and dry. Normal skin color. Normal skin turgor. Extremities: No lower extremity edema. No Lacerations. No Rash Neuro: Oriented X 3. No motor deficit. No sensory deficit. Moving all extremities. No slurred speech. CN 2 through 12 grossly intact Psych: calm, cooperative, normal affect Course Course Course Narrative: Patient is fairly well-appearing, vitals are stable. - Patient is in the room eating and drinking, although she was as not to do so until we have the workup complete. - Patient has been seen here before for similar complaints, abdominal cramping due to menstruation. This time, patient agreeable to get blood work done. - Patient agreeable to medication, in the meantime we will give her IM ketorolac and sublingual Zofran Medical Decision Making Medical Decision Making [facility] Narrative: My interpretation of labs: Patient's white blood cell count 12.9, likely reactive leukocytosis. Chemistry does not show any acute abnormalities. Urine positive for blood, trace leukocyte esterase, no UTI like symptoms. -after a dose of Zofran and ketorolac, patient states that she feels much better, states that she feels back to baseline and ready to be discharged. Differential Diagnosis Differential Diagnoses: The differential diagnosis associated with the presentation includes (Gastritis, gastroenteritis, menstrual cramps) Lab Data [facility] Lab Attestation statement: I reviewed the patient's lab results. 07/13/24 13:20 07/13/24 13:20 Labs: Lab Results 07/13/24 07/13/24 Range/Units 11:25 13:20 WBC 12.9 H (4.8-10.8) X10*3/uL RBC 4.11 L (4.20-5.50) X10*6/uL Hgb 12.9 (12.0-16.0) g/dl Hct 36.1 L (37.0-47.0) % MCV 87.8 (80.0-98.0) fL MCH 31.4 (27.0-33.0) pg MCHC 35.7 H (31.0-35.0) g/dl RDW 12.4 (11.0-16.0) % Plt Count 246 (160-400) X10*3/uL MPV 9.4 (9.4-12.3) fL Immature Gran % (Auto) 0.6 H (0.0-0.4) % Neut % (Auto) 86.9 H (45-73) % Lymph % (Auto) 7.4 L (20-40) % [place] % (Auto) 4.7 (2-11) % Eos % (Auto) 0.2 (0-4) % Baso % (Auto) 0.2 (0-2) % Lymph # (Auto) 1.0 L (1.2-4.9) X10*3/uL [place] # (Auto) 0.6 (0.1-1.2) X10*3/uL Eos # (Auto) 0.0 (0.0-0.4) X10*3/uL Baso # (Auto) 0.0 (0.0-0.2) X10*3/uL Abs Immat Gran (auto) 0.08 H (0.00-0.03) X10*3/uL Absolute Neuts (auto) 11.2 H (2.0-8.3) x10*3/uL Absolute Nucleated RBC 0.000 (0.0-0.012) X10*3/uL Nucleated RBC % (auto) 0.0 (0.0-0.2) /100WBC Sodium 137 (135-145) mmol/L Potassium 3.9 (3.3-5.1) mmol/L Chloride 108 (96-108) mmol/L Carbon Dioxide 20 L (22-29) mmol/L Anion Gap 13 (12-20) BUN 10 (9-16) mg/dL Creatinine 0.66 (0.5-1.4) mg/dL Estim Creat Clear Calc 152.6 Estimated GFR > 60 Random Glucose 117 H (60-115) mg/dL Calcium 9.3 (8.4-10.2) mg/dL Total Bilirubin 0.3 (0.0-1.0) mg/dL AST 41 H (5-31) U/L ALT 39 H (0-31) U/L Alkaline Phosphatase 56 (39-117) U/L Total Protein 7.6 (6.5-8.0) g/dL Albumin 4.2 (3.5-5.0) g/dL Urine Color Yellow Urine Appearance Clear Urine pH 6.5 (5.0-9.0) Ur Specific [place] 1.020 (1.005-1.025) Urine Protein Negative (Neg-Trace) mg/dL Urine Glucose (UA) Negative (Negative) mg/dL Urine Ketones Negative (Negative) mg/dL Urine Blood Moderate (2+) H (Negative) Urine Nitrite Negative (Negative) Ur Leukocyte Esterase Trace H (Negative) Urine RBC >20 H (0-2) /HPF Urine WBC 0-5 (0-5) /HPF Ur Squamous Epith Cells 3-5 (0-2) /HPF Urine Bacteria None Seen (None Seen) Hyaline Casts 0-2 (0-2) /LPF Medications Administered Discontinued Medications Generic Name Dose Route Start Last Admin Trade Name Freq PRN Reason Stop Dose Admin Ketorolac Tromethamine 30 mg 07/13/24 12:47 07/13/24 13:04 Ketorolac Tromethamine 30 Mg/Ml Vial IM 07/13/24 12:48 30 mg ONCE ONE Administration Ondansetron HCl 4 mg 07/13/24 12:47 07/13/24 13:04 Ondansetron Odt 4 Mg Tab.Rapdis TRANSLINGU 07/13/24 12:48 4 mg ONCE ONE Administration Discharge Plan Discharge Clinical Impression: Menstrual cramps, Nausea & vomiting Patient Disposition: Home, Self-Care Instructions: Dysmenorrhea (ED), Acute Nausea and Vomiting (ED) Additional Instructions: Please follow-up with your primary care physician tomorrow. If you have any worsening or new symptoms, please return to the emergency room or call 911 Prescriptions: New ondansetron 4 mg tablet,disintegrating 4 mg PO Q6H PRN (Reason: nausea and vomiting) Qty: 10 0RF No Action trazodone 50 mg tablet 50 mg PO BEDTIME PRN (Reason: insomnia) olanzapine 5 mg tablet 5 mg PO BID PRN (Reason: anxiety) hydroxyzine pamoate 50 mg capsule 50 mg PO TID nicotine (polacrilex) 2 mg Gum 2 mg buccal Q2H PRN (Reason: Nicotine Cravings) 30 Days Qty: 40 0RF divalproex 500 mg Tablet,Delayed Release (Dr/Ec) 500 mg PO BID 30 Days Qty: 60 0RF Print Language: Hungarian
[2024-07-13] MEDS: Ondansetron ODT 4 MG TAB.RAPDIS TRANSLINGU (13:04)
[2024-07-13] MEDS: Ketorolac Tromethamine 30 MG/ML VIAL IM (13:04)
[2024-07-13 13:25] LABS: Basophils Percent Auto 0.2 % (0-2); Eosinophils Percent Auto 0.2 % (0-4); Hematocrit 36.1 % (37.0-47.0); Hemoglobin 12.9 g/dl (12.0-16.0); Imm Gran Abs Auto 0.08 X10*3/uL (0.00-0.03); Imm Gran Pct Auto 0.6 % (0.0-0.4); Lymphocytes Percent Auto 7.4 % (20-40); MANUAL DIFF FLAG NO; Mean Corpuscular HGB Conc 35.7 g/dl (31.0-35.0); Mean Corpuscular Hemoglobin 31.4 pg (27.0-33.0); Mean Corpuscular Volume 87.8 fL (80.0-98.0); Mean Platelet Volume 9.4 fL (9.4-12.3); Monocytes Absolute Auto 0.6 X10*3/uL (0.1-1.2); Monocytes Percent Auto 4.7 % (2-11); Neutrophils Absolute Auto 11.2 x10*3/uL (2.0-8.3); Neutrophils Percent Auto 86.9 % (45-73); Platelet Count 246 X10*3/uL (160-400); Red Blood Count 4.11 X10*6/uL (4.20-5.50); Red Cell Distribution Width 12.4 % (11.0-16.0); White Blood Count 12.9 X10*3/uL (4.8-10.8)
[2024-07-13 13:43] LABS: Alanine Aminotransferase 39 U/L (0-31); Albumin Level 4.2 g/dL (3.5-5.0); Alkaline Phosphatase 56 U/L (39-117); Anion Gap 13 (12-20); Aspartate Amino Transferase 41 U/L (5-31); Bilirubin Total 0.3 mg/dL (0.0-1.0); Blood Urea Nitrogen 10 mg/dL (9-16); Calcium 9.3 mg/dL (8.4-10.2); Carbon Dioxide 20 mmol/L (22-29); Chloride 108 mmol/L (96-108); Creatinine Clr Calc Pharmacy 152.6; Estimated Glomerular Filt Rate > 60; Glucose Random 117 mg/dL (60-115); Potassium 3.9 mmol/L (3.3-5.1); Sodium 137 mmol/L (135-145); Total Protein 7.6 g/dL (6.5-8.0)
[2024-07-13 14:06] VITALS: PULSE 80; RESP 16; TEMP 36.9; O2SAT 96
[2024-07-13 14:07] VITALS: BP 0/0; PULSE 80; RESP 16; TEMP 36.9; O2SAT 96
== END 2024-07-13 14:13 | disposition home or self-care (01) ==
PROVIDERS: Emergency Provider Emergency Medicine
DX: N94.6 Dysmenorrhea, unspecified (principal); R10.9 Unspecified abdominal pain; R11.2 Nausea with vomiting, unspecified
CPT/HCPCS: 36415; 80053; 81001; 85025; 96372; 99284; J1885

== ENCOUNTER 2024-07-20 17:26 | Emergency (ER) | payer OTHER, SELFPAY ==
--- NOTE | ~2024-07-20 | XR_ITS ---
EXAMINATION: XR ANKLE, LEFT CLINICAL INFORMATION: twisted ankle COMPARISON: None available. TECHNIQUE: AP, lateral, and mortise views of the left ankle. FINDINGS: No fracture. Alignment is anatomic. No erosions. Joint spaces are maintained. Soft tissues are normal. XR/XR ankle LT min 3V IMPRESSION: Normal left ankle. Electronically signed by: Teodoro Bowen MD 07/20/2024 11:44 PM HUMAIRA
[2024-07-20 17:30] VITALS: PULSE 110; O2SAT 98
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
[2024-07-20 17:39] VITALS: BP 112/57; PULSE 96; RESP 20; TEMP 36.8; O2SAT 98; BMI 35.4
[2024-07-20 19:04] LABS: MANUAL DIFF FLAG NO
[2024-07-20 19:05] LABS: Basophils Absolute Auto 0.1 X10*3/uL (0.0-0.2); Basophils Percent Auto 0.6 % (0-2); Eosinophils Absolute Auto 0.5 X10*3/uL (0.0-0.4); Eosinophils Percent Auto 5.5 % (0-4); Hematocrit 36.7 % (37.0-47.0); Hemoglobin 12.8 g/dl (12.0-16.0); Imm Gran Abs Auto 0.05 X10*3/uL (0.00-0.03); Imm Gran Pct Auto 0.6 % (0.0-0.4); Lymphocytes Percent Auto 36.4 % (20-40); Mean Corpuscular HGB Conc 34.9 g/dl (31.0-35.0); Mean Corpuscular Hemoglobin 30.9 pg (27.0-33.0); Mean Corpuscular Volume 88.6 fL (80.0-98.0); Mean Platelet Volume 9.4 fL (9.4-12.3); Monocytes Absolute Auto 0.5 X10*3/uL (0.1-1.2); Monocytes Percent Auto 6.6 % (2-11); Neutrophils Absolute Auto 4.1 x10*3/uL (2.0-8.3); Neutrophils Percent Auto 50.3 % (45-73); Platelet Count 255 X10*3/uL (160-400); Red Blood Count 4.14 X10*6/uL (4.20-5.50); White Blood Count 8.2 X10*3/uL (4.8-10.8)
[2024-07-20 19:17] LABS: Valproate 54.3 mcg/mL (50.0-100.0)
[2024-07-20 19:19] LABS: Anion Gap 16 (12-20); Blood Urea Nitrogen 13 mg/dL (9-16); Calcium 9.5 mg/dL (8.4-10.2); Carbon Dioxide 23 mmol/L (22-29); Chloride 106 mmol/L (96-108); Creatinine Clr Calc Pharmacy 130.1; Estimated Glomerular Filt Rate > 60; Glucose Random 119 mg/dL (60-115); Potassium 3.7 mmol/L (3.3-5.1); Sodium 141 mmol/L (135-145)
[2024-07-20 19:27] LABS: Ethanol < 10 mg/dL
[2024-07-20 19:28] LABS: HCG Quantitative < 2 mIU/mL
--- NOTE | 2024-07-20 20:11 | PC.NURSE ---
patient here in pod, attended by shelter staff appears relaxed at present, recently brought to xray for pictures, appears in no distress.
--- NOTE | 2024-07-20 21:06 | MHC.CARE ---
Care Team attempted to met with patient. She was observed sleeping and unable to engage in assessment. Patient resides at [facility] [phone] (House) [phone] (fashion show director number [place]riam) .
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
[2024-07-20 22:24] LABS: Appearance Urine Clear; Color Urine Yellow; Glucose Urine UA Negative (Negative); Leukocyte Esterase Urine Small (1+) (Negative); Nitrite Urine Negative (Negative); PH 6.5 (5.0-9.0); Specific Gravity - Urine 1.025 (1.005-1.025); UMIC TRIGGER UACC YES; Urine Blood Negative (Negative); Urine Ketones Negative (Negative); Urine Protein Negative (Neg-Trace)
[2024-07-20 22:35] LABS: Amphetamine Screen Urine Not Detected (Not Detect); Barbiturates, Urine Not Detected (Not Detect); Benzodiazepines Screen Urine Not Detected (Not Detect); Buprenorphine Scr Not Detected (Not Detect); Cannabinoid Screen Urine Not Detected (Not Detect); Cocaine Screen Urine Not Detected (Not Detect); Fentanyl, urine Not Detected (Not Detect); Methadone Screen, Urine Not Detected (Not Detect); Opiate Screen Urine Not Detected (Not Detect); Oxycodone Screen Urine Not Detected (Not Detect); Phencyclidine Screen Urine Not Detected (Not Detect)
[2024-07-20 22:41] LABS: Bacteria Urine Trace (None Seen); Hyaline Casts Urine 0-2 /LPF (0-2); RBC Urine 0-2 /HPF (0-2); UACC Culture Trigger YES
[2024-07-21 06:47] VITALS: BP 105/56; PULSE 72; RESP 17; TEMP 37; O2SAT 99
--- NOTE | 2024-07-21 07:22 | PC.NURSE ---
Assumed care of patient at 0645, patient appears to be in no apparent distress this am, calm and cooperative, currently eating breakfast in common area. Continue plan of care for CARE team agustin
--- NOTE | 2024-07-21 11:00 | MHC.CARE ---
Called Ana Hernandez [facility] Clinician, , to arrange a ride back to the senior care.? No answer, message left requesting a return call. Called [place] [employer] Council Member, ?[phone], to arrange a ride back to the senior care.? No answer, message left requesting a return call.
[2024-07-21 11:48] VITALS: BP 108/55; PULSE 81; RESP 16; TEMP 36.6; O2SAT 98
--- NOTE | 2024-07-22 16:15 | MHC.CARE ---
1550 Returned call from Bruna Menchaca ([phone]) from [facility] Iz[facility] who thought that patient was still here from last night and suggested patient get into a PHP to attend groups and learn new coping skills. Advised that she was discharged last evening. 1600 call from Sima from [facility] ([phone]), she has been unable to reach this patient for three day follow-up, has called and left messages for patients multiple contacts which were listed in the evaluation. [facility] does not have any other contacts listed for this patient.
== END 2024-07-21 11:49 | disposition home or self-care (01) ==
PROVIDERS: Internal Medicine; Emergency Provider Emergency Medicine
DX: F32.9 Major depressive disorder, single episode, unspecified (principal); S93.402A Sprain of unspecified ligament of left ankle, initial encounter; Y04.8XXA Assault by other bodily force, initial encounter; F29 Unspecified psychosis not due to a substance or known physiological condition; F63.81 Intermittent explosive disorder; R62.50 Unspecified lack of expected normal physiological development in childhood; Z79.899 Other long term (current) drug therapy; Y93.89 Activity, other specified; Y92.199 Unspecified place in other specified residential institution as the place of occurrence of the external cause; Y99.9 Unspecified external cause status
CPT/HCPCS: 36415; 73610; 80048; 80164; 80307; 81001; 84702; 85025; 87086; 99285

== ENCOUNTER 2024-07-21 18:24 | Emergency (ER) | payer OTHER, SELFPAY ==
--- NOTE | ~2024-07-21 | XR_ITS ---
EXAMINATION: XR HAND, RIGHT CLINICAL INFORMATION: punched a wall COMPARISON: Right hand 04/18/2023 and 01/09/2023 TECHNIQUE: PA, lateral, and oblique views of the right hand. FINDINGS: There is a curvilinear calcification at the ventral surface of the base of the middle phalanx of the third digit. This can be seen on the 2 prior studies of the right hand from 2022 and may be a old fracture. The bones and soft tissues are otherwise. No boxers fracture. Alignment is anatomic. Joint spaces are maintained. No erosions or soft tissue calcifications. XR/XR hand RT min 3V IMPRESSION: 1. No acute fracture. 2. Curvilinear calcification at the ventral surface of the base of the middle phalanx of the third digit may be a old fracture. Correlate with point tenderness at this region. Electronically signed by: Jose Carlos Heaton MD 07/21/2024 10:53 PM HUMAIRA
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
[2024-07-21 18:45] VITALS: BP 122/77; BP 125/84; PULSE 67; RESP 16; TEMP 37.2; O2SAT 97; O2SAT 99; BMI 43.0
[2024-07-21 18:49] VITALS: RESP 16
--- NOTE | 2024-07-21 19:02 | PC.NURSE ---
patient appears to be resting comfortably in room appears in no distress.
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
[2024-07-21 19:32] LABS: Appearance Urine Clear; Color Urine Yellow; Glucose Urine UA Negative (Negative); Leukocyte Esterase Urine Negative (Negative); Nitrite Urine Negative (Negative); Specific Gravity - Urine 1.025 (1.005-1.025); Urine Blood Negative (Negative); Urine Ketones Negative (Negative); Urine Protein Negative (Neg-Trace)
[2024-07-21 19:37] LABS: Bacteria Urine None Seen (None Seen); Hyaline Casts Urine 0-2 /LPF (0-2); RBC Urine 0-2 /HPF (0-2); WBC Urine 0-5 /HPF (0-5)
[2024-07-21 19:43] LABS: Amphetamine Screen Urine Not Detected (Not Detect); Barbiturates, Urine Not Detected (Not Detect); Benzodiazepines Screen Urine Not Detected (Not Detect); Buprenorphine Scr Not Detected (Not Detect); Cannabinoid Screen Urine Not Detected (Not Detect); Cocaine Screen Urine Not Detected (Not Detect); Fentanyl, urine Not Detected (Not Detect); Methadone Screen, Urine Not Detected (Not Detect); Opiate Screen Urine Not Detected (Not Detect); Oxycodone Screen Urine Not Detected (Not Detect); Phencyclidine Screen Urine Not Detected (Not Detect)
== END 2024-07-21 21:06 | disposition home or self-care (01) ==
PROVIDERS: Emergency Provider Emergency Medicine
DX: S69.91XA Unspecified injury of right wrist, hand and finger(s), initial encounter (principal); F63.81 Intermittent explosive disorder; R51.9 Headache, unspecified; F33.1 Major depressive disorder, recurrent, moderate; F41.9 Anxiety disorder, unspecified; M79.641 Pain in right hand; Y93.89 Activity, other specified; X58.XXXA Exposure to other specified factors, initial encounter; Y92.89 Other specified places as the place of occurrence of the external cause; Y99.8 Other external cause status; Z51.81 Encounter for therapeutic drug level monitoring; Z79.899 Other long term (current) drug therapy
CPT/HCPCS: 73130; 80307; 81001; 99284; S9485

== ENCOUNTER 2024-07-26 17:52 | Emergency (ER) | payer OTHER, SELFPAY ==
--- NOTE | ~2024-07-26 | XR_ITS ---
EXAMINATION: XR HAND, RIGHT CLINICAL INFORMATION: punched wall COMPARISON: July 21, 2024. TECHNIQUE: PA, lateral, and oblique views of the right hand. FINDINGS: The clinical history provided states only punched wall. It does not state exactly where on the hand pathology is suspected, limiting the study. Therefore, clinical correlation is advised. No significant radiographic change compared with 5 days prior. Compared with plain film from 5 days earlier, the previously described curvilinear calcification at the ventral surface of the base of the middle phalanx of the third digit appears unchanged. Again, it may be an old fracture. Recommend clinical correlation with point tenderness at this region. No other fracture or dislocation is suspected. Bony mineralization appears preserved. The joint spaces appear maintained. XR/XR hand RT min 3V IMPRESSION: Findings as above. Electronically signed by: Manish Osuna MD 07/26/2024 09:09 PM [facility] SAM
[2024-07-26 18:01] VITALS: BP 107/62; PULSE 85; RESP 16; TEMP 36.6; O2SAT 97; BMI 43.5
[2024-07-26 18:06] VITALS: RESP 16
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
[2024-07-26 18:32] LABS: Basophils Percent Auto 0.4 % (0-2); Eosinophils Absolute Auto 0.1 X10*3/uL (0.0-0.4); Eosinophils Percent Auto 1.5 % (0-4); Hematocrit 36.6 % (37.0-47.0); Hemoglobin 12.9 g/dl (12.0-16.0); Imm Gran Abs Auto 0.02 X10*3/uL (0.00-0.03); Imm Gran Pct Auto 0.2 % (0.0-0.4); Lymphocytes Absolute Auto 2.6 X10*3/uL (1.2-4.9); Lymphocytes Percent Auto 28.2 % (20-40); MANUAL DIFF FLAG NO; Mean Corpuscular HGB Conc 35.2 g/dl (31.0-35.0); Mean Platelet Volume 9.3 fL (9.4-12.3); Monocytes Absolute Auto 0.6 X10*3/uL (0.1-1.2); Neutrophils Absolute Auto 5.8 x10*3/uL (2.0-8.3); Neutrophils Percent Auto 62.7 % (45-73); Platelet Count 264 X10*3/uL (160-400); Red Blood Count 4.16 X10*6/uL (4.20-5.50); Red Cell Distribution Width 12.3 % (11.0-16.0); White Blood Count 9.2 X10*3/uL (4.8-10.8)
[2024-07-26 18:46] LABS: Alanine Aminotransferase 39 U/L (0-31); Albumin Level 4.3 g/dL (3.5-5.0); Alkaline Phosphatase 58 U/L (39-117); Anion Gap 13 (12-20); Aspartate Amino Transferase 30 U/L (5-31); Bilirubin Total 0.2 mg/dL (0.0-1.0); Blood Urea Nitrogen 14 mg/dL (9-16); Calcium 9.6 mg/dL (8.4-10.2); Carbon Dioxide 23 mmol/L (22-29); Chloride 105 mmol/L (96-108); Creatinine Clr Calc Pharmacy 143.6; Estimated Glomerular Filt Rate > 60; Ethanol < 10 mg/dL; Glucose Random 106 mg/dL (60-115); Potassium 3.4 mmol/L (3.3-5.1); Sodium 138 mmol/L (135-145); Total Protein 7.5 g/dL (6.5-8.0)
[2024-07-26 19:38] LABS: Appearance Urine Clear; Color Urine Yellow; Glucose Urine UA Negative (Negative); Leukocyte Esterase Urine Negative (Negative); Nitrite Urine Negative (Negative); PH 6.5 (5.0-9.0); Specific Gravity - Urine 1.025 (1.005-1.025); Urine Blood Negative (Negative); Urine Ketones Trace mg/dL (Negative); Urine Protein Negative (Neg-Trace)
--- NOTE | 2024-07-26 19:59 | ED_ITS ---
HPI - General Adult General Chief complaint: Psychiatric Symptoms Stated complaint: SI, punched wall Time Seen by Provider: 07/26/24 19:27 Source: patient, RN notes reviewed and old records reviewed Mode of arrival: EMS Limitations: no limitations History of Present Illness ED Provider: Zachary SANCHES narrative: 24-year-old female with a past medical history significant for psychiatric disorder, intermittent explosive disorder, developmental delay, depression, hydrocephalus presents for evaluation of agitation. Patient presents from a half-way. Patient reports that she is here because she was agitated. She was agitated because her roommate was watching TV and the patient could not watch what she wanted to watch This led to a verbal altercation. The patient did J wall with her right hand and complains of right hand pain No other complaints or concerns at this time Related Data Home Medications ?Medication ?Instructions ?Recorded ?Confirmed hydroxyzine pamoate 50 mg capsule 50 mg PO TID PRN Anxiety 11/12/23 07/26/24 trazodone 50 mg tablet 100 mg PO BEDTIME insomnia 11/12/23 07/26/24 risperidone 3 mg tablet 3 mg PO BEDTIME 07/20/24 07/26/24 Previous Rx's ?Medication ?Instructions ?Recorded divalproex 500 mg tablet,delayed 500 mg PO BID 30 days #60 tabs 11/20/23 release ondansetron 4 mg disintegrating 4 mg PO Q6H PRN nausea and 07/13/24 tablet vomiting #10 tabs Allergies Allergy/AdvReac Type Severity Reaction Status Date / Time No Known Allergies Allergy Verified 07/26/24 18:04 [No Known Allergies*] Review of Systems 2 Constitutional: Constitutional: Denies body ache(s), Denies chills, Denies fever(s) and Denies headache(s) Eyes: Eyes: Denies exophthalmos ENT: Denies vertigo, Denies dizziness and Denies headache(s) Cardiovascular: Cardiovascular: Denies chest pain and Denies dyspnea Respiratory: Respiratory: Denies cough and Denies dyspnea Musculoskeletal: Musculoskeletal: Reports arthralgias, Reports joint swelling and Reports limited range of motion Integumentary/Breasts: Skin/Breast: Denies rash Neurologic: Denies vertigo, Denies dizziness and Denies headache(s) Psychiatric: Psychiatric: Reports anxiety, Denies auditory hallucinations and Denies suicidal ideation [facility], [facility] Past Medical History Medical History Intermittent explosive disorder Developmental delay, mild MDD (major depressive disorder) Psychotic disorder Hydrocephalus Social History Social History Household Members: Family Housing: House Housing Other:: [facility] Do you presently have visiting nurse or other home services: No Alcohol intake: never Patient Tobacco Use Status: Never used Tobacco Smoked in Last 30 Days: No Use of substances other than those prescribed or required for medical reasons: No Substance Use Type: Caffiene Advance Directives: No Advance Directives Information Provided: No Patient : No service: No Sexual orientation: Don't Know Physical Exam ED Vital Signs: Vital Signs - 24 hr 07/26/24 18:01 07/26/24 18:06 Temperature 97.8 F Pulse Rate 85 Respiratory Rate 16 16 Blood Pressure 107/62 Pulse Oximetry 97 Oxygen Delivery Method Room Air BMI result Body Mass Index 43.5 Const General: healthy appearing, comfortable, no acute distress, alert and awake Nutritional Appearance: well nourished Orientation/consciousness: patient oriented x3 HENMT Head: Yes normocephalic and Yes atraumatic Eyes Eyelids: Yes eyelids normal Conjunctivae: conjunctivae normal Sclerae: sclerae normal Corneas: corneas normal Pupils: Equal, round and reactive pupils present EOM: EOMs intact bilaterally Neck Neck: Yes full ROM Resp Effort & Inspection: normal respiratory effort, able to speak in complete sentences and not labored Skin General skin exam: elasticity normal Neuro General: patient oriented x3 Cranial nerves: Yes Equal, round and reactive pupils present and Yes Bilaterally intact EOM present Cognition (Neuro): normal cognition Extrem Other: Patient has mild tenderness to the right 4th and 5th MCP joints. There is no significant edema, open wounds. The patient has good range of motion. There is no tenderness to the right wrist Course Reevaluation(s) Reevaluation #1: Patient has remained calm and cooperative, she is not suicidal, she was not responding to internal stimuli. Her x-ray is unremarkable. She is stable for discharge back to her half-way. Time: 22:24 Medical Decision Making Medical Decision Making MDM Narrative: 24-year-old female presents for evaluation of agitation. She does carry diagnosis of intermittent explosive disorder. She was agitated that she did not watch TV. Plan for basic medical workup, x-ray of the right hand as she punched a wall to rule out boxer's fracture. She will require care team evaluation. She is currently calm and cooperative Differential Diagnosis Differential Diagnoses: The differential diagnosis associated with the presentation includes Agitation Intermittent explosive disorder Right hand fracture Contusion Lab Data MDM Lab Attestation statement: I reviewed the patient's lab results. No leukocytosis or significant anemia. Normal platelet count. No electrolyte abnormality 07/26/24 18:26 07/26/24 18:26 Labs: Lab Results 07/26/24 07/26/24 Range/Units 18:26 19:27 WBC 9.2 (4.8-10.8) X10*3/uL RBC 4.16 L (4.20-5.50) X10*6/uL Hgb 12.9 (12.0-16.0) g/dl Hct 36.6 L (37.0-47.0) % MCV 88.0 (80.0-98.0) fL MCH 31.0 (27.0-33.0) pg MCHC 35.2 H (31.0-35.0) g/dl RDW 12.3 (11.0-16.0) % Plt Count 264 (160-400) X10*3/uL MPV 9.3 L (9.4-12.3) fL Immature Gran % (Auto) 0.2 (0.0-0.4) % Neut % (Auto) 62.7 (45-73) % Lymph % (Auto) 28.2 (20-40) % [place] % (Auto) 7.0 (2-11) % Eos % (Auto) 1.5 (0-4) % Baso % (Auto) 0.4 (0-2) % Lymph # (Auto) 2.6 (1.2-4.9) X10*3/uL [place] # (Auto) 0.6 (0.1-1.2) X10*3/uL Eos # (Auto) 0.1 (0.0-0.4) X10*3/uL Baso # (Auto) 0.0 (0.0-0.2) X10*3/uL Abs Immat Gran (auto) 0.02 (0.00-0.03) X10*3/uL Absolute Neuts (auto) 5.8 (2.0-8.3) x10*3/uL Absolute Nucleated RBC 0.000 (0.0-0.012) X10*3/uL Nucleated RBC % (auto) 0.0 (0.0-0.2) /100WBC Sodium 138 (135-145) mmol/L Potassium 3.4 (3.3-5.1) mmol/L Chloride 105 (96-108) mmol/L Carbon Dioxide 23 (22-29) mmol/L Anion Gap 13 (12-20) BUN 14 (9-16) mg/dL Creatinine 0.66 (0.5-1.4) mg/dL Estim Creat Clear Calc 143.6 Estimated GFR > 60 Random Glucose 106 (60-115) mg/dL Calcium 9.6 (8.4-10.2) mg/dL Total Bilirubin 0.2 (0.0-1.0) mg/dL AST 30 (5-31) U/L ALT 39 H (0-31) U/L Alkaline Phosphatase 58 (39-117) U/L Total Protein 7.5 (6.5-8.0) g/dL Albumin 4.3 (3.5-5.0) g/dL Urine Color Yellow Urine Appearance Clear Urine pH 6.5 (5.0-9.0) Ur Specific [place] 1.025 (1.005-1.025) Urine Protein Negative (Neg-Trace) mg/dL Urine Glucose (UA) Negative (Negative) mg/dL Urine Ketones Trace (Negative) mg/dL Urine Blood Negative (Negative) Urine Nitrite Negative (Negative) Ur Leukocyte Esterase Negative (Negative) Urine Opiates Screen Not Detected (Not Detect) Ur Buprenorphine Scrn Not Detected (Not Detect) ng/mL Ur Oxycodone Screen Not Detected (Not Detect) ng/mL Urine Methadone Screen Not Detected (Not Detect) ng/mL Urine Fentanyl Screen Not Detected (Not Detect) Ur Barbiturates Screen Not Detected (Not Detect) Ur Phencyclidine Scrn Not Detected (Not Detect) Ur Amphetamines Screen Not Detected (Not Detect) U Benzodiazepines Scrn Not Detected (Not Detect) Urine Cocaine Screen Not Detected (Not Detect) U Marijuana (THC) Screen Not Detected (Not Detect) Ethyl Alcohol < 10 mg/dL Independent Interpretation I performed an independent interpretation of an: Plain X-Ray (No obvious fracture) Radiology Impression Discussion of test interpretation with radiology: I have reviewed the radiologist's reading. Radiologist Impression: FINDINGS: The clinical history provided states only punched wall. It does not state exactly where on the hand pathology is suspected, limiting the study. Therefore, clinical correlation is advised. No significant radiographic change compared with 5 days prior. Compared with plain film from 5 days earlier, the previously described curvilinear calcification at the ventral surface of the base of the middle phalanx of the third digit appears unchanged. Again, it may be an old fracture. Recommend clinical correlation with point tenderness at this region. No other fracture or dislocation is suspected. Bony mineralization appears preserved. The joint spaces appear maintained. XR/XR hand RT min 3V IMPRESSION: Findings as above. Discharge Plan Discharge Clinical Impression: Hand pain, right, Agitation Patient Disposition: Home, Self-Care Instructions: Arthralgia (ED) Additional Instructions: Fracture of the right hand. Take all your medications as prescribed Follow-up with your primary doctor, return for new or worsening symptoms Prescriptions: No Action trazodone 50 mg tablet 100 mg PO BEDTIME hydroxyzine pamoate 50 mg capsule 50 mg PO TID MDD 150mg PRN (Reason: Anxiety) divalproex 500 mg Tablet,Delayed Release (Dr/Ec) 500 mg PO BID 30 Days Qty: 60 0RF risperidone 3 mg tablet 3 mg PO BEDTIME ondansetron 4 mg tablet,disintegrating 4 mg PO Q6H PRN (Reason: nausea and vomiting) Qty: 10 0RF Interventions: [place]-Suicide Risk Severity Scale Last Done: 07/26/24 18:07 Print Language: Albanian
[2024-07-26 20:03] LABS: Amphetamine Screen Urine Not Detected (Not Detect); Barbiturates, Urine Not Detected (Not Detect); Benzodiazepines Screen Urine Not Detected (Not Detect); Buprenorphine Scr Not Detected (Not Detect); Cannabinoid Screen Urine Not Detected (Not Detect); Cocaine Screen Urine Not Detected (Not Detect); Fentanyl, urine Not Detected (Not Detect); Methadone Screen, Urine Not Detected (Not Detect); Opiate Screen Urine Not Detected (Not Detect); Oxycodone Screen Urine Not Detected (Not Detect); Phencyclidine Screen Urine Not Detected (Not Detect)
[2024-07-26 22:34] VITALS: BP 107/62; PULSE 85; RESP 16; TEMP 36.6; O2SAT 97
== END 2024-07-26 22:41 | disposition home or self-care (01) ==
PROVIDERS: Emergency Provider Emergency Medicine; PCP Internal Medicine
DX: S69.91XA Unspecified injury of right wrist, hand and finger(s), initial encounter (principal); F63.81 Intermittent explosive disorder; R45.1 Restlessness and agitation; R45.851 Suicidal ideations; M79.641 Pain in right hand; X58.XXXA Exposure to other specified factors, initial encounter; Y93.89 Activity, other specified; Y92.89 Other specified places as the place of occurrence of the external cause; Y99.8 Other external cause status; Z79.899 Other long term (current) drug therapy; Z51.81 Encounter for therapeutic drug level monitoring
CPT/HCPCS: 36415; 73130; 80053; 80307; 81003; 85025; 99285

== ENCOUNTER 2024-08-04 19:08 | Emergency (ER) | payer OTHER, SELFPAY ==
--- NOTE | ~2024-08-04 | XR_ITS ---
EXAMINATION: XR KNEE, RIGHT CLINICAL INFORMATION: Pain right knee COMPARISON: None available. TECHNIQUE: 2 views of the right knee. FINDINGS: No fracture or joint effusion. Alignment is anatomic. Joint spaces are maintained. No abnormal soft tissue calcification. XR/XR knee RT 2V IMPRESSION: Unremarkable right knee. Electronically signed by: Jimmy Brown MD 08/04/2024 09:46 PM EST
[2024-08-04 19:14] VITALS: BP 126/82; PULSE 88; O2SAT 99
[2024-08-04 19:25] VITALS: BP 103/72; PULSE 78; RESP 16; TEMP 36.3; O2SAT 99
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
[2024-08-04 19:35] VITALS: BMI 44.9
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
[2024-08-04 20:40] LABS: MANUAL DIFF FLAG NO
[2024-08-04 20:47] LABS: Basophils Percent Auto 0.5 % (0-2); Eosinophils Absolute Auto 0.6 X10*3/uL (0.0-0.4); Eosinophils Percent Auto 7.6 % (0-4); Hematocrit 35.5 % (37.0-47.0); Hemoglobin 12.6 g/dl (12.0-16.0); Imm Gran Abs Auto 0.03 X10*3/uL (0.00-0.03); Imm Gran Pct Auto 0.4 % (0.0-0.4); Lymphocytes Absolute Auto 2.7 X10*3/uL (1.2-4.9); Lymphocytes Percent Auto 35.2 % (20-40); Mean Corpuscular HGB Conc 35.5 g/dl (31.0-35.0); Mean Corpuscular Volume 87.4 fL (80.0-98.0); Mean Platelet Volume 9.4 fL (9.4-12.3); Monocytes Absolute Auto 0.5 X10*3/uL (0.1-1.2); Monocytes Percent Auto 6.9 % (2-11); Neutrophils Absolute Auto 3.8 x10*3/uL (2.0-8.3); Neutrophils Percent Auto 49.4 % (45-73); Platelet Count 279 X10*3/uL (160-400); Red Blood Count 4.06 X10*6/uL (4.20-5.50); Red Cell Distribution Width 12.4 % (11.0-16.0); White Blood Count 7.7 X10*3/uL (4.8-10.8)
[2024-08-04 21:01] VITALS: BP 109/68; PULSE 65; RESP 16; TEMP 37.1; O2SAT 97
[2024-08-04 21:06] LABS: Alanine Aminotransferase 51 U/L (0-31); Alkaline Phosphatase 62 U/L (39-117); Anion Gap 11 (12-20); Aspartate Amino Transferase 43 U/L (5-31); Bilirubin Total 0.2 mg/dL (0.0-1.0); Blood Urea Nitrogen 14 mg/dL (9-16); Calcium 9.1 mg/dL (8.4-10.2); Carbon Dioxide 24 mmol/L (22-29); Chloride 106 mmol/L (96-108); Creatinine Clr Calc Pharmacy 165.4; Estimated Glomerular Filt Rate > 60; Ethanol < 10 mg/dL; Glucose Random 84 mg/dL (60-115); Potassium 3.6 mmol/L (3.3-5.1); Sodium 137 mmol/L (135-145); Total Protein 7.1 g/dL (6.5-8.0)
[2024-08-04 21:55] LABS: Appearance Urine Clear; Color Urine Yellow; Glucose Urine UA Negative (Negative); Leukocyte Esterase Urine Negative (Negative); Nitrite Urine Negative (Negative); Urine Blood Negative (Negative); Urine Ketones Negative (Negative); Urine Protein Negative (Neg-Trace)
[2024-08-04 21:58] LABS: UPreg QC Valid YES; Urine Pregnancy NEGATIVE (NEGATIVE)
[2024-08-04 22:11] LABS: Amphetamine Screen Urine Not Detected (Not Detect); Barbiturates, Urine Not Detected (Not Detect); Benzodiazepines Screen Urine Not Detected (Not Detect); Buprenorphine Scr Not Detected (Not Detect); Cannabinoid Screen Urine Not Detected (Not Detect); Cocaine Screen Urine Not Detected (Not Detect); Methadone Screen, Urine Not Detected (Not Detect); Opiate Screen Urine Not Detected (Not Detect); Oxycodone Screen Urine Not Detected (Not Detect); Phencyclidine Screen Urine Not Detected (Not Detect)
[2024-08-04 22:27] LABS: Fentanyl, urine Not Detected (Not Detect)
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
[2024-08-05] VITALS: RESP 14
--- NOTE | 2024-08-05 00:35 | PC.NURSE ---
Pt refusing to engage in assessment questions. [facility] staff and 1:1 sitter at bedside for elopement risks
--- NOTE | 2024-08-05 06:14 | PC.NURSE ---
assumed care of patient at this time, pt sitting on stretcher appearing calm. Patient observer at bedside
[2024-08-05 06:20] VITALS: BP 108/56; PULSE 75; RESP 16; TEMP 36.3; O2SAT 97
--- NOTE | 2024-08-05 08:24 | PC.NURSE ---
Care Team noted at Pts bedside.
--- NOTE | 2024-08-05 08:28 | PC.NURSE ---
Per Care Team, Pt will be discharged to staff.
[2024-08-05 08:37] VITALS: BP 107/63; PULSE 80; RESP 20; TEMP 36.9; O2SAT 98
[2024-08-05 09:13] VITALS: BP 107/63; PULSE 80; RESP 20; TEMP 36.9; O2SAT 98
== END 2024-08-05 09:13 | disposition home or self-care (01) ==
PROVIDERS: Emergency Provider Emergency Medicine
DX: M25.562 Pain in left knee (principal); R45.6 Violent behavior; F33.1 Major depressive disorder, recurrent, moderate; F41.1 Generalized anxiety disorder; F43.0 Acute stress reaction; Z51.81 Encounter for therapeutic drug level monitoring; Z79.899 Other long term (current) drug therapy
CPT/HCPCS: 36415; 73560; 80053; 80307; 81003; 81025; 85025; 99285